=== PATIENT | male | born 1950 | race Caucasian/White ===

== ENCOUNTER 2020-06-29 23:46 | Emergency (ER) | payer MEDICARE, OTHER, SELFPAY ==
--- NOTE | ~2020-06-29 | CT_ITS ---
EXAMINATION: CTA chest abdomen pelvis DATE: 06/30/2020 01:02 INDICATION: Chest pain concerning for aortic dissection. TECHNIQUE: Computed tomographic angiography (CTA) of the chest, abdomen and pelvis was performed with 100 cc of Omnipaque-350 intravenous contrast. Additional 3D reconstructions utilizing rotating maxim um intensity projection (MIP) were performed. Automated exposure control and iterative reconstruction technique were employed. The dose-length product was 1298.75 mGy-cm. COMPARISON: Chest CT dated 04/20/[address] abdomen and pelvis dated 02/18/2015 FINDINGS: Chest: Moderate emphysema. Mild discoid atelectasis in the left lower lobe. No pneumonia, pulmonary edema, p leural effusion or pneumothorax. Heart size is normal. Atherosclerotic coronary artery calcification and possible stenting. No pericardial effusion. No evident pulmonary embolism. Thoracic aorta is norm al in caliber with no dissection. No pathologically enlarged thoracic lymphadenopathy. Moderate thora cic spondylosis. Chronic appearing mild anterior wedging at T7 and T8. Multiple Schmorl's nodes in th e mid to lower thoracic spine. Abdomen and pelvis: Diffuse hepatic steatosis with focal sparing along the gallbladder fossa. Gallbladder is mildly dilat ed to 4.6 cm in maximal diameter with no evident wall thickening or pericholecystic inflammatory stra nding to suggest acute cholecystitis. No intra or extrahepatic biliary ductal dilation. Spleen, pancr eas and bilateral adrenal glands are normal. Likely age-related mild bilateral renal cortical atrophy . 2 cm cyst at the lower pole of the right kidney. There are few scattered colonic diverticula withou t adjacent inflammatory change to suggest diverticulitis. Fatty infiltration of the proximal colonic wall likely related to body habitus. Small bowel and appendix are normal. Bladder is normal. Prostato megaly. Small fat-containing right inguinal hernia. Thoracic aorta is normal in caliber with small mi ld scattered atherosclerotic plaque. Again seen is a short dissection flap in the proximal most 2 cm the right common femoral artery with resolution of prior thrombosis of the false lumen. No evident he modynamically significant stenosis in the aorta or its major branch vessels. No free intraperitoneal gas or fluid. No pathologically enlarged abdominal or pelvic lymphadenopathy. Moderate thoracic spond ylosis. IMPRESSION: 1. 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 2. Moderate emphysema. No acute cardiopulmonary disease. 3. Dilated gallbladder without evident wall thickening or pericholecystic inflammatory change. Correl ate clinically for Moreira sign and if there is clinical concern for acute cholecystitis would recomme nd further evaluation with either ultrasound or HIDA scan. 4. Diffuse hepatic steatosis. Reviewed, dictated and finalized at location A. LATION TECH IMPRESSION: 1. 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 2. Moderate emphysema. No acute cardiopulmonary disease. 3. Dilated gallbladder without evident wall thickening or pericholecystic infla mmatory change. Correlate clinically for Moreira sign and if there is clinical c oncern for acute cholecystitis would recommend further evaluation with either u ltrasound or HIDA scan. 4. Diffuse hepatic steatosis.
--- NOTE | ~2020-06-29 | XR_ITS ---
EXAMINATION: XR chest 1V portable DATE: 06/30/2020 00:45 INDICATION: Chest pain TECHNIQUE: frontal view of the chest was obtained. COMPARISON: Chest radiograph dated 11/20/2018 FINDINGS: The lungs remain clear with no focal airspace opacities, pulmonary edema, pleural effusion or pneumot horax. The cardiomediastinal silhouette is normal with left paracardial fat pad along side the apex o f the heart. Resection of the right clavicular head. IMPRESSION: 1. No acute cardiopulmonary disease. Reviewed, dictated and finalized at location A. OMECHANISM ASSEMBLER
[2020-06-29 23:48] VITALS: BP 137/73; PULSE 66; RESP 21; TEMP 36.8; O2SAT 95
--- NOTE | 2020-06-29 23:52 | ED.CHESTPAIN ---
HPI - Chest Pain General Chief Complaint: Chest Pain Stated Complaint: CP Source: patient Mode of arrival: EMS Limitations: no limitations History of Present Illness HPI narrative: A 69-year-old male comes into the emergency department tonight with complaints of chest pain. Patient arrives via EMS stating that the pain happened just prior to arrival. He notes that the pain seems to be in his chest from the center of his chest and then shooting downward towards the abdomen. Patient states it feels like the pain goes all the way down to his groin. Patient also notes that there seems to be a separate pain at the level of his nipples going across the anterior chest. He states that both of them are characterized as a strong ache. Currently he would rated at a 6-7 out of 10. Patient states that he is having a little bit of shortness of breath associated with this but no other symptoms. Related Data Home Medications Medication Instructions Recorded Confirmed amlodipine 10 mg tablet 10 mg PO DAILY 04/11/19 clopidogrel 75 mg tablet 75 mg PO DAILY 04/11/19 coenzyme Q10 100 mg capsule 100 mg PO DAILY 04/11/19 doxazosin 2 mg tablet 2 mg PO DAILY 04/11/19 ergocalciferol (vitamin D2) 1,250 50,000 unit PO WEEKLY 04/11/19 mcg (50,000 unit) capsule metoprolol tartrate 100 mg tablet 100 mg PO BID tablet 04/11/19 rosuvastatin 40 mg tablet 40 mg PO DAILY 04/11/19 magnesium oxide 400 mg (241.3 mg 400 mg PO QID tablet 04/20/19 magnesium) tablet sodium di- and 1 tablet PO BID tablet 06/21/19 06/21/19 monophosphate-potassium phos monobasic 250 mg tablet metformin 500 mg PO DAILY 06/30/20 Allergies Allergy/AdvReac Type Severity Reaction Status Date / Time YANET Inhibitors Allergy Unknown unknown Verified 04/11/19 09:34 atorvastatin Allergy Unknown unknown Verified 04/11/19 09:34 hydrochlorothiazide Allergy Unknown unknown Verified 04/11/19 09:34 ramipril Allergy Unknown unknown Verified 04/11/19 09:34 spironolactone Allergy Unknown unknown Verified 04/11/19 09:34 Sulfa (Sulfonamide Allergy Unknown Unknown Verified 04/11/19 09:34 Antibiotics) valsartan AdvReac Intermediate Angioedema Verified 04/11/19 09:34 Review of Systems Review of Systems: Narrative: CONSTITUTIONAL: Denies fever, chills, or sweats. EYES: Denies visual changes, redness, or discharge. ENT: Denies rhinorrhea, congestion, sore throat, or otalgia. CARDIOVASCULAR: Denies palpitations, or edema. Endorses chest pain RESPIRATORY: Denies cough or dyspnea. GASTROINTESTINAL: Denies nausea, vomiting, or diarrhea. Endorses abdominal pain GENITOURINARY: Denies dysuria or hematuria. SKIN: Denies rash or itching. MUSCULOSKELETAL: Denies back pain, joint pain, or myalgia. NEUROLOGIC: Denies headache, numbness, dizziness, or weakness. PSYCHIATRIC: Denies anxiety or depression. [facility] Past Medical History Medical History CAD (coronary artery disease) Dyslipidemia Essential (primary) hypertension GERD (gastroesophageal reflux disease) History of basal cell carcinoma of skin History of urethral stricture Type 2 diabetes mellitus without complications Vitamin D deficiency Surgical History Surgical History History of coronary artery stent placement 1997 and 2002 History of medial meniscus repair of left knee 11/24/18 History of tonsillectomy Family History Family History Father Carcinoma of colon Social History Social History Smoking status: Former smoker (quit 02/2017) Second hand tobacco smoke exposure: No Smoking end date: 02/28/17 Alcohol intake: current Exam Narrative: Exam Narrative: GENERAL: Well-appearing, well-nourished, and in no acute distress. HEAD: Normocephalic, atraumatic. EYES: PERRLA and EOMI. ENT: Nares clear, no rhin
[2020-06-29 23:54] VITALS: BP 137/73; PULSE 66; RESP 20; O2SAT 99
--- NOTE | 2020-06-29 23:54 | ECG_ITS ---
Measurements Intervals [place] Rate: 66 P: 32 HI: 207 QRS: 18 QRSD: 107 T: 15 QT: 394 QTc: 414 Interpretive Statements SINUS RHYTHM INCOMPLETE RIGHT BUNDLE BRANCH BLOCK BORDERLINE ECG Electronically Signed On 06-30-2020 6:53:26 YEAST CULTURE OPERATOR by Anam Chamberlain D.O.
[2020-06-29 23:55] VITALS: PULSE 67; RESP 19; O2SAT 99
[2020-06-29 23:57] VITALS: PULSE 69
[2020-06-30] VITALS (19 sets, daily range): BP systolic 113–136; BP diastolic 66–84; PULSE 63–73; RESP 15–24; TEMP 36.8; O2SAT 95–100
[2020-06-30] MEDS: NITROGLYCERIN SL 0.4 MG TABLET SUBLINGUAL (00:30)
[2020-06-30 00:31] LABS: Basophils Percent Auto 0.5 % (0.2-1.2); Eosinophils Absolute Auto 0.4 K/mm3 (0-0.3); Eosinophils Percent Auto 5.3 % (0-4.4); Hematocrit 39.9 % (42.0-52.0); Hemoglobin 13.3 g/dL (14.0-18.0); Immature Granulocyte Absolute 0.04 K/mm3 (0.00-0.031); Immature Granulocyte Percent A 0.5 % (0-0.5); Lymphocytes Absolute Auto 2.01 K/mm3 (0.9-3.2); Lymphocytes Percent Auto 24.1 % (18.3-44.2); Mean Corpuscular HGB Conc 33.3 g/dl (32-36); Mean Corpuscular Hemoglobin 29.2 pg (26-34); Mean Corpuscular Volume 87.5 fl (80-100); Monocytes Absolute Auto 0.7 K/mm3 (0.1-0.6); Monocytes Percent Auto 8.8 % (2.6-8.5); Neutrophils Absolute Auto 5.1 K/mm3 (1.3-6.7); Neutrophils Percent Auto 60.8 % (45.5-73.1); Platelet Count Result 156 k/mm3 (150-375); Red Blood Count 4.56 M/mm3 (4.6-6.20); White Blood Count 8.3 K/mm3 (4.5-10.0)
[2020-06-30 00:45] LABS: Alanine Aminotransferase 36 U/L (4-50); Albumin Level 4.4 g/dL (3.5-5.1); Alkaline Phosphatase 93 U/L (38-126); Anion Gap 7 mmol/L (8-16); Aspartate Amino Transferase 31 U/L (17-59); Bilirubin,Total 0.3 mg/dL (0.2-1.3); Blood Urea Nitrogen 23 mg/dL (9-20); Calcium 9.5 mg/dL (8.4-10.2); Carbon Dioxide 25 mmol/L (22-30); Chloride 108 mmol/L (98-107); Estimated CRCL calculation 60 ml/min; Estimated Glomerular Filt Rate 60; Glucose 158 mg/dL (75-110); Sodium 140 mmol/L (137-145)
[2020-06-30 00:59] LABS: Troponin I < 0.012 ng/mL (0.000-0.034)
[2020-06-30] MEDS: BELLADONNA ALK/PHENOB ELIX 10 ML, MAG HYDROX/ALUMINUM HYD/SIMETH 30 ML, LIDOCAINE HCL 2... PO (02:12)
[2020-06-30] MEDS: MORPHINE SULFATE (*CRX) 4 MG/ML INJ IV PUSH (02:12)
[2020-06-30 02:59] LABS: Troponin I < 0.012 ng/mL (0.000-0.034)
== END 2020-06-30 03:43 | disposition home or self-care (01) ==
PROVIDERS: Emergency Provider Emergency Medicine; PCP Family Medicine
DX: R07.9 Chest pain, unspecified (principal); R10.84 Generalized abdominal pain; I25.10 Atherosclerotic heart disease of native coronary artery without angina pectoris; E78.5 Hyperlipidemia, unspecified; E11.9 Type 2 diabetes mellitus without complications; K21.9 Gastro-esophageal reflux disease without esophagitis; E55.9 Vitamin D deficiency, unspecified; Z95.5 Presence of coronary angioplasty implant and graft; Z79.84 Long term (current) use of oral hypoglycemic drugs; Z85.828 Personal history of other malignant neoplasm of skin; Z87.891 Personal history of nicotine dependence; I45.10 Unspecified right bundle-branch block; K76.0 Fatty (change of) liver, not elsewhere classified; R93.2 Abnormal findings on diagnostic imaging of liver and biliary tract; J43.9 Emphysema, unspecified; I77.72 Dissection of iliac artery
CPT/HCPCS: 36415; 71045; 71275; 74174; 80053; 84484; 85025; 93005; 96374; 99284; A9270; J2270; Q9967

== ENCOUNTER 2020-10-23 08:36 | Outpatient (CLI) | payer MEDICARE, OTHER, SELFPAY ==
--- NOTE | ~2020-10-23 | CT_ITS ---
EXAMINATION: CT lung screening DATE: 10/23/2020 09:04 INDICATION: TOBACCO DEPENDENCY TECHNIQUE: Computed tomography (CT) of the chest was performed without intravenous contrast. Addition al 3D reconstructions utilizing coronal maximum intensity projection (MIP) were performed. Automated exposure control and iterative reconstruction technique were employed. The dose-length product was 21 6.58 mGy-cm. COMPARISON: 04/20/2019 FINDINGS: Moderate emphysema. Unchanged mild linear discoid atelectasis/scarring at the lingula and left lower lobe. There are three, 2-4 mm nodules at the right apex along with a 6 mm groundglass nodule at the r ight apex which are unchanged since the prior study. No new or enlarging pulmonary nodules identified . No pneumonia, pulmonary edema or pleural effusion. Heart size is normal. Atherosclerotic coronary a rtery calcifications and likely right coronary artery stenting. No pericardial effusion. Thoracic aor ta is normal in caliber. No pathologically enlarged thoracic lymphadenopathy. Moderate thoracic spond ylosis. IMPRESSION: 1. Lung-RADS category 2: Benign appearance or behavior. Continue annual screening with noncontrast lo w-dose chest CT in 12 months. Reviewed, dictated and finalized at location A. IMPRESSION: 1. Lung-RADS category 2: Benign appearance or behavior. Continue annual screeni ng with noncontrast low-dose chest CT in 12 months.
== END 2020-10-23 08:37 | disposition home or self-care (01) ==
LOC: ANHIMG 08:37
PROVIDERS: PCP Family Medicine; Visit Provider Nurse Practitioner Family
DX: Z12.2 Encounter for screening for malignant neoplasm of respiratory organs (principal); Z87.891 Personal history of nicotine dependence
CPT/HCPCS: 71271

== ENCOUNTER 2021-01-20 22:53 | Inpatient (IN) | payer MEDICARE, OTHER, SELFPAY ==
--- NOTE | ~2021-01-20 | NM_ITS ---
EXAMINATION: NM hepatobiliary w pharm DATE: 01/22/2021 16:57 INDICATION: Right upper quadrant abdominal pain. COMPARISON: CT dated 01/21/2021 TECHNIQUE: 5.3 mebrofenin Choletec) was administered intravenously. Scintigraphic images of the abdo men were obtained for one hour. 2 mg morphine was administered by slow intravenous infusion, and imag ing was continued for 30 minutes. FINDINGS: There is normal clearance of radiotracer from the blood pool. There is homogeneous tracer uptake by t he liver. Activity progresses common duct by 15 minutes with activity seen in the small bowel at 20 minutes. No visualization of the gallbladder either before or after morphine administration. IMPRESSION: 1. No gallbladder activity before after morphine administration consistent with acute cholecystitis. Reviewed, dictated and finalized at location B. IMPRESSION: 1. No gallbladder activity before after morphine administration consistent wit h acute cholecystitis.
--- NOTE | ~2021-01-20 | XR_ITS ---
EXAMINATION: XR abdomen/kub 1V DATE: 01/22/2021 14:10 INDICATION: Abdominal distention. TECHNIQUE: A supine view of the abdomen on 2 radiographs was obtained. COMPARISON: CT abdomen and pelvis 01/21/2021 FINDINGS: There are no dilated loops of bowel. There is a paucity of stool in the colon. IMPRESSION: 1. Nonobstructive bowel gas pattern. Reviewed, dictated and finalized at location A.
--- NOTE | ~2021-01-20 | XR_ITS ---
EXAMINATION: XR chest 1V portable DATE: 01/23/2021 09:07 INDICATION: Shortness of breath. Wheezing. TECHNIQUE: A single frontal view of the chest was obtained. COMPARISON: Chest 2 views 01/20/2021, CT abdomen and pelvis 01/21/2021 FINDINGS: There are mild airspace opacities in the lower lung zones. No pleural effusion or pneumotho rax. The heart size is normal. IMPRESSION: 1. Mild airspace opacities in the lower lung zones, consistent with atelectasis versus pneumonia. Reviewed, dictated and finalized at location A.
--- NOTE | ~2021-01-20 | US_ITS ---
EXAMINATION: US perc cholecystostomy w imag DATE: 01/23/2021 13:14 INDICATION: Acute cholecystitis. TECHNIQUE: The procedure including the risks, benefits, and alternatives was discussed with the patie nt. Risks discussed included bleeding including bleeding and infection. Oral and written consent were obtained. A timeout was performed to verify the patient's name, date of , and procedure to b e performed. The patient was confirmed to be receiving appropriate antibiotic coverage. The skin ove rlying the gallbladder was prepped and draped in usual sterile fashion. Anesthetic was administered with 1% lidocaine subcutaneously. An 8.5 Fr catheter was inserted into the gallbladder by trocar keli hnique. The metal stiffener and trocar needle were removed, and the pigtail tip was locked. Bile was aspirated and sent for culture. The catheter was stitched to the skin with suture. There were no imme diate complications. FINDINGS: Ultrasound images demonstrate the catheter within the gallbladder. 5 mL bile was aspirated. IMPRESSION: 1. Successful ultrasound-guided cholecystostomy tube placement. 2. 5 mm clear bile was sent for aerobic and anaerobic cultures. 3. The catheter will be managed by Dr. Jenkins. A catheter cholangiogram may be performed not less th an 48 hours after tube placement if clinically indicated to assess cystic duct patency. If cholecyste ctomy is not eventually performed and the infectious episode has resolved, the tube may be removed ov er a guidewire, preferably not less than 3 weeks after placement to allow time for a mature catheter tract to form to prevent bile leakage and peritonitis. Reviewed, dictated and finalized at location A. IMPRESSION: 1. Successful ultrasound-guided cholecystostomy tube placement. 2. 5 mm clear bile was sent for aerobic and anaerobic cultures. 3. The catheter will be managed by Dr. Jenkins. A catheter cholangiogram may be performed not less than 48 hours after tube placement if clinically indicated to assess cystic duct patency. If cholecystectomy is not eventually performed a nd the infectious episode has resolved, the tube may be removed over a guidewir e, preferably not less than 3 weeks after placement to allow time for a mature catheter tract to form to prevent bile leakage and peritonitis.
--- NOTE | ~2021-01-20 | CT_ITS ---
EXAMINATION: CT abdomen pelvis w con EXAM DATE: 01/21/2021 00:57 INDICATION: Epigastric pain. TECHNIQUE: Spiral CT of the abdomen and pelvis was performed following intravenous injection of 100 m L Omnipaque 350. Axial, coronal and sagittal images of the abdomen and pelvis were reviewed. The do se-length product (DLP) for this examination was 1104.70 mGy-cm. The exposure was tailored according to patient size (auto mA exposure control), and iterative reconstruction (ASIR) was used as addition al dose reduction technique. Comparison is made to prior examination from 06/30/2020. FINDINGS: The liver, spleen, adrenal glands and pancreas are unremarkable. Gallbladder moderately di stended with mild indistinct fat planes, possible mild wall edema. No calcified cholelithiasis or ashley iary duct dilation. Gallbladder had similar amount of distention on previous study but indistinct wal l is new finding. Portal and splenic veins are patent. Kidneys enhance symmetrically. There is no h ydronephrosis. There is a cyst in the lower pole right kidney measuring 2 cm. The prostate is unrema rkable. Small right inguinal fat-containing hernia. The bladder is unremarkable. There is no retrop eritoneal or pelvic lymphadenopathy. There is moderate scattered arteriosclerotic disease. Difficul t identify previously seen right common iliac artery chronic short segment dissection. The appendix is normal. There is mild sigmoid colonic diverticulosis. There is no adjacent inflammat ory change to suggest diverticulitis. Stomach has prominent rugal folds along the body with thin gas tric antral and cardial [place], similar appearance in May. Differential diagnosis for stomach wall thickening includes gastritis, Eliezer Gonzalez syndrome, Menetrier's disease, unlikely lymphoma gi marge stability. There is expected amount of colonic stool. No free intraperitoneal gas. The heart is normal in size. There are no pericardial or pleural effusions. Mild basilar emphysema. There a re no osteoblastic or osteolytic lesions identified. Advanced lower lumbar facet arthropathy. IMPRESSION: 1. Distended gallbladder with mildly indistinct wall; if cholecystitis is clinical possibility recom mend ultrasound. 2. Prominent gastric body wall compared to antrum and cardia unchanged. Gastritis? 3. Mild sigmoid diverticulosis. 4. Mild emphysema. Reviewed, dictated and finalized at location A. IMPRESSION: 1. Distended gallbladder with mildly indistinct wall; if cholecystitis is clin ical possibility recommend ultrasound. 2. Prominent gastric body wall compared to antrum and cardia unchanged. Gastri tis? 3. Mild sigmoid diverticulosis. 4. Mild emphysema.
--- NOTE | ~2021-01-20 | US_ITS ---
EXAMINATION: US abdomen limited EXAM DATE: 01/21/2021 12:04 INDICATION: Abdominal pain. TECHNIQUE: Multiple grayscale and Doppler images of the abdomen right upper quadrant were obtained (b y a technologist who performed the scan) and subsequently reviewed. Comparison is made to prior exami [facility] from 05/13/2017. FINDINGS: The pancreatic head and body are normal in appearance. The pancreatic tail is not visualized. The l iver has normal echogenicity and contour. There are no focal liver lesions identified. There is no evidence of intrahepatic biliary duct dilation. Portal venous flow was seen in the hepatopedal, nor mal direction and has normal Doppler waveform. No right-sided hydronephrosis. Common bile duct measures 5-6 mm, which is normal. The gallbladder is moderately distended and has ab normally thickened wall up to 6 mm. This could indicate interstitial edema, chronic liver disease or acute or chronic acalculous cholecystitis. Technologist performing exam reports patient demonstrat ed sonographic Moreira's sign. IMPRESSION: Distended gallbladder with thickened wall and sonographic Moreira sign demonstrated. No ch olelithiasis, biliary dilation or pericholecystic fluid. Possible acute acalculous cholecystitis. Cli nical correlation. Reviewed, dictated and finalized at location A. IMPRESSION: Distended gallbladder with thickened wall and sonographic Moreira si gn demonstrated. No cholelithiasis, biliary dilation or pericholecystic fluid. Possible acute acalculous cholecystitis. Clinical correlation.
--- NOTE | ~2021-01-20 | XR_ITS ---
EXAMINATION: XR chest 1V portable DATE: 01/24/2021 15:09 INDICATION: Wheezing. TECHNIQUE: A single frontal view of the chest was obtained. COMPARISON: Chest single view 01/23/2021, CT abdomen and pelvis 01/21/2021 FINDINGS: There is mild atelectasis in left lower lung zone. No pleural effusion or pneumothorax. The heart size is normal. There are prominent paracardial fat pads. IMPRESSION: 1. Mild atelectasis in left lower lung zone. Reviewed, dictated and finalized at location A.
--- NOTE | ~2021-01-20 | XR_ITS ---
XR chest 2V DATE: 01/20/2021 23:18 INDICATION: Chest pain, midsternal area extending to back. TECHNIQUE: PA and lateral views COMPARISON: 10/23/2020 CT lung screening FINDINGS: Normal heart size. Aortic arch calcification. No pulmonary consolidation, pleural effusion or pneumothorax. No hilar or mediastinal enlargement. IMPRESSION: No active cardiopulmonary disease Reviewed, dictated and finalized at location A.
[2021-01-20 22:54] VITALS: BP 163/67; PULSE 83; RESP 16; TEMP 36.3; O2SAT 97
--- NOTE | 2021-01-20 22:58 | ECG_ITS ---
Measurements Intervals [place] Rate: 74 P: 33 HI: 184 QRS: 2 QRSD: 100 T: 2 QT: 381 QTc: 425 Interpretive Statements SINUS RHYTHM VENTRICULAR PREMATURE COMPLEX LOW QRS VOLTAGE IN PRECORDIAL LEADS INCOMPLETE RIGHT BUNDLE BRANCH BLOCK BORDERLINE T WAVE ABNORMALITY- ANTERIOR LEADS BORDERLINE ECG Electronically Signed On 01-21-2021 6:51:44 CDT by Anam Chamberlain D.O.
[2021-01-20 23:39] LABS: Basophils Percent Auto 0.4 % (0.2-1.2); Eosinophils Absolute Auto 0.4 K/mm3 (0-0.3); Eosinophils Percent Auto 3.9 % (0-4.4); Hematocrit 41.2 % (42.0-52.0); Hemoglobin 13.4 g/dL (14.0-18.0); Immature Granulocyte Absolute 0.04 K/mm3 (0.00-0.031); Immature Granulocyte Percent A 0.4 % (0-0.5); Lymphocytes Absolute Auto 1.97 K/mm3 (0.9-3.2); Lymphocytes Percent Auto 18.8 % (18.3-44.2); Mean Corpuscular HGB Conc 32.5 g/dl (32-36); Mean Corpuscular Hemoglobin 28.9 pg (26-34); Mean Platelet Volume 10.3 fl (7.4-10.4); Monocytes Absolute Auto 0.8 K/mm3 (0.1-0.6); Monocytes Percent Auto 7.6 % (2.6-8.5); Neutrophils Absolute Auto 7.2 K/mm3 (1.3-6.7); Neutrophils Percent Auto 68.9 % (45.5-73.1); Platelet Count Result 163 k/mm3 (150-375); Red Blood Count 4.63 M/mm3 (4.6-6.20); White Blood Count 10.5 K/mm3 (4.5-10.0)
[2021-01-20 23:45] VITALS: BP 145/61; PULSE 74; RESP 20; O2SAT 98
[2021-01-20 23:47] VITALS: PULSE 74
[2021-01-20 23:48] VITALS: BP 145/61; PULSE 74; RESP 20; O2SAT 98
[2021-01-20 23:49] LABS: INR 0.9; Prothrombin Time 11.6 Seconds (11.1-14.7)
[2021-01-20 23:50] LABS: Partial Thromboplastin Time 31.8 SECONDS (22.3-36.8)
--- NOTE | 2021-01-20 23:59 | ED.CHESTPAIN ---
HPI - Chest Pain General Chief Complaint: Chest Pain Stated Complaint: chest pain, abd pain Time Seen by Provider: 01/20/21 23:57 Source: patient Mode of arrival: ambulatory Limitations: no limitations History of Present Illness HPI narrative: Patient is a 70-year-old male complaining of chest pain, substernal, 9 out of 10, tightness, nonradiating started today. Patient also complained abdominal pain, diffuse, 10 out of 10, nonradiating accompanied by nausea that started tonight after eating. Patient denies shortness of breath, vomiting, diarrhea, fever or chills. Related Data Home Medications Medication Instructions Recorded Confirmed amlodipine 10 mg tablet 10 mg PO DAILY 04/11/19 10/18/20 clopidogrel 75 mg tablet 75 mg PO DAILY 04/11/19 10/18/20 doxazosin 2 mg tablet 2 mg PO DAILY 04/11/19 10/18/20 metoprolol tartrate 100 mg tablet 100 mg PO BID tablet 04/11/19 10/18/20 rosuvastatin 40 mg tablet 40 mg PO DAILY 04/11/19 10/18/20 magnesium oxide 400 mg (241.3 mg 400 mg PO QID tablet 04/20/19 10/18/20 magnesium) tablet Lactobacillus acidophilus 10 mg PO DAILY 10/18/20 10/18/20 coenzyme Q10 100 mg capsule 200 mg PO DAILY cap 10/18/20 10/18/20 fenofibrate 54 mg tablet 54 mg PO DAILY 10/18/20 10/18/20 icosapent ethyl 1 gram capsule 2 g PO BID 10/18/20 10/18/20 metformin 500 mg tablet,extended 500 mg PO DAILY 10/18/20 10/18/20 release 24 hr Allergies Allergy/AdvReac Type Severity Reaction Status Date / Time YANET Inhibitors Allergy Unknown unknown Verified 01/21/21 00:28 atorvastatin Allergy Unknown unknown Verified 01/21/21 00:28 hydrochlorothiazide Allergy Unknown unknown Verified 01/21/21 00:28 ramipril Allergy Unknown unknown Verified 01/21/21 00:28 spironolactone Allergy Unknown unknown Verified 01/21/21 00:28 Sulfa (Sulfonamide Allergy Unknown Unknown Verified 01/21/21 00:28 Antibiotics) valsartan AdvReac Intermediate Angioedema Verified 01/21/21 00:28 Review of Systems Review of Systems: All systems reviewed & are unremarkable except as noted in HPI and below Constitutional: Constitutional: Denies body ache(s), Denies chills, Denies excessive sweating, Denies fatigue, Denies fever(s), Denies headache(s), Denies lethargy, Denies malaise, Denies weakness and Denies weight loss Eyes: Eyes: Denies blurry vision, Denies change in vision and Denies loss of vision ENT: Denies dizziness, Denies ear discharge, Denies headache(s), Denies lip swelling, Denies epistaxis, Denies nasal congestion, Denies neck pain, Denies throat swelling and Denies tongue swelling Cardiovascular: Cardiovascular: Denies diaphoresis, Denies rapid heart rate, Denies edema, Denies irregular heart rhythm, Denies lightheadedness, Denies palpitations, Denies dyspnea and Denies dyspnea on exertion Respiratory: Respiratory: Denies chest congestion, Denies cough, Denies hemoptysis, Denies dyspnea and Denies dyspnea on exertion Gastrointestinal: Gastrointestinal: Denies melena, Denies hematochezia, Denies diarrhea, Denies vomiting and Denies hematemesis Musculoskeletal: Musculoskeletal: Denies abnormal gait, Denies deformity, Denies joint swelling, Denies limited range of motion, Denies neck pain and Denies numbness Neurologic: Denies Abnormal speech present, Denies abnormal gait, Denies confusion, Denies dizziness, Denies headache(s), Denies focal weakness, Denies loss of vision, Denies numbness, Denies Other visual disturbances, Denies Sensory deficit (Neuro) and Denies weakness Psychiatric: Psychiatric: Denies confusion, Denies depression, Denies auditory hallucinations, Denies homicidal ideation and Denies suicidal ideation Endocrine: Endocrine: Denies cold intolerance, Denies excessive sweating, Denies fatigue, Denies heat intolerance and Denies palpitations Hematologic/Lymphatic: Hematologic/Lymphatic: Denies easy bleeding and Denies easy bruising Allergic/Immunologic: Allergic/Immunologic: Denies lip swelling, Denies throat swelling and Denies tong
[2021-01-21] VITALS (20 sets, daily range): BP systolic 129–155; BP diastolic 57–74; PULSE 67–108; RESP 16–28; TEMP 36.2–37.3; O2SAT 91–100; BMI 32.9
--- NOTE | 2021-01-21 00:06 | PC.NURSE ---
Called and spoke to Birgit to add on Hepatic Lip [id number]
[2021-01-21 00:16] LABS: Anion Gap 14 mmol/L (8-16); Blood Urea Nitrogen 18 mg/dL (9-20); Calcium 9.7 mg/dL (8.4-10.2); Carbon Dioxide 23 mmol/L (22-30); Chloride 104 mmol/L (98-107); Estimated CRCL calculation 54 ml/min; Estimated Glomerular Filt Rate 54; Glucose 136 mg/dL (65-110); Lipase 124 U/L (23-300); Potassium 3.8 mmol/L (3.4-5.0); Sodium 141 mmol/L (137-145)
[2021-01-21 00:28] LABS: Alanine Aminotransferase 28 U/L (4-50); Albumin Level 4.4 g/dL (3.5-5.1); Alkaline Phosphatase 91 U/L (38-126); Aspartate Amino Transferase 24 U/L (17-59); Bilirubin,Total 0.3 mg/dL (0.2-1.3); Lipase 124 U/L (23-300); Troponin I < 0.012 ng/mL (0.000-0.034)
[2021-01-21] MEDS: LACTATED RINGERS 1,000 ML 999 ML IV CONT (00:28)
[2021-01-21] MEDS: MORPHINE SULFATE (*CRX) 4 MG/ML INJ IV PUSH ×3 (00:28→09:34)
[2021-01-21] MEDS: ONDANSETRON INJ 4 MG/2 ML VIAL IV PUSH ×3 (00:28→20:08)
[2021-01-21] MEDS: MORPHINE SULFATE (*CRX) 2 MG/ML INJ IV PUSH (01:37)
[2021-01-21 02:51] LABS: Troponin I < 0.012 ng/mL (0.000-0.034)
--- NOTE | 2021-01-21 04:43 | PM.IMHP ---
H&P: HPI History of Present Illness Date/Time: 01/21/21 04:43 Chief Complaint: Abdominal pain Narrative: This is a 70-year-old male with past medical history significant for hypertension coronary artery disease, dyslipidemia, type 2 diabetes mellitus, GERD. 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 He presented tonight to emergency room due to abdominal pain that started roughly did the day prior at around 3:00 a.m. and was on an of crampy in nature 10/10 in intensity however no nausea, no vomiting, no diarrhea, no hematemesis, no hematochezia, no melena, 2nd episode occurred when the patient was having dinner he felt lightheaded, no heartburn, no dyspepsia, has had a small bowel movements through the day, no fevers, no rigors, no chills, no cough, no sputum production. Preliminary workup was significant for distended stomach and full of content as well as a distended gallbladder. Patient has been placed in observation. Review of Systems Review of Systems: Abdominal pain Constitutional: Constitutional: Denies chills, Denies fatigue, Denies fever(s), Denies malaise and Denies weakness Eyes: Eyes: Denies change in vision ENT: Denies dysphagia, Denies nasal congestion, Denies nasal discharge, Denies nasal obstruction and Denies odynophagia Cardiovascular: Cardiovascular: Denies chest pain, Denies edema, Denies irregular heart rhythm, Denies lightheadedness, Denies radiating jaw, neck or arm pain, Denies palpitations, Denies dyspnea and Denies orthopnea Respiratory: Respiratory: Denies cough Gastrointestinal: Gastrointestinal: Reports abdominal pain, Denies melena, Denies hematochezia, Denies change in stool character, Reports GI cramping, Denies dysphagia, Denies dyspepsia, Denies heartburn, Denies diarrhea, Denies nausea, Denies odynophagia and Denies vomiting Genitourinary: Genitourinary: Reports no additional male genitourinary complaints Musculoskeletal: Musculoskeletal: Reports no additional musculoskeletal complaints Integumentary/Breasts: Skin/Breast: Reports system reviewed and no additional complaints, except as docu Neurologic: Reports system reviewed and no additional complaints, except as documented Psychiatric: Psychiatric: Reports no additional psychiatric complaints Endocrine: Endocrine: Reports no additional endocrine complaints Hematologic/Lymphatic: Hematologic/Lymphatic: Reports no additional hematologic/lymphatic complaints Allergic/Immunologic: Allergic/Immunologic: Reports no additional allergic/immunologic complaints [facility] Past Medical History Medical History CAD (coronary artery disease) Dyslipidemia Essential (primary) hypertension GERD (gastroesophageal reflux disease) History of basal cell carcinoma of skin History of urethral stricture Type 2 diabetes mellitus without complications Vitamin D deficiency Surgical History Surgical History History of coronary artery stent placement 1997 and 2002 History of medial meniscus repair of left knee 11/24/18 History of tonsillectomy Family History Family History Father Carcinoma of colon Social History Social History Smoking status: Former smoker Second hand tobacco smoke exposure: No Smoking end date: 02/28/17 Alcohol intake: current Meds Home Medications and Allergies Home Medications Medication Instructions Recorded Confirmed Type amlodipine 10 mg tablet 10 mg PO DAILY 04/11/19 10/18/20 History clopidogrel 75 mg tablet 75 mg PO DAILY 04/11/19 10/18/20 History doxazosin 2 mg tablet 2 mg PO DAILY 04/11/19 10/18/20 History metoprolol tartrate 100 mg tablet 100 mg PO BID tablet 04/11/1909/29
[2021-01-21] MEDS: LACTATED RINGERS 1,000 ML 100 ML IV CONT ×2 (05:28→20:08)
--- NOTE | 2021-01-21 05:35 | ADMGEN ---
This patient, Florencio Romano, was admitted to IMU Room 206-02. Patient/family oriented to hospital policies and general routines including ID bracelet, bed and alarms, visiting hours, pain management, procedures, bathroom and other care routines, personal items, smoking policy, room service/diet, and visiting hours. Information on how to activate the Rapid Response Team has been discussed. Patient/Family are encouraged to report perceived risks to care and to ask questions if they do not understand what they are told or what they should do.
[2021-01-21 07:49] LABS: Troponin I < 0.012 ng/mL (0.000-0.034)
--- NOTE | 2021-01-21 08:33 | PM.IMPN ---
Progress Note: A&P Assessment and Plan (1) Abdominal pain: Qualifiers: Abdominal location: upper abdomen, unspecified Qualified Code(s): R10.10 - Upper abdominal pain, unspecified Code(s): R10.9 - Unspecified abdominal pain Status: Acute Assessment and Plan: CT of abdomen and pelvis reviewed General surgery consult Supportive care NPO Doubtful of cardiac origin Will get ultrasound right upper quadrant (2) CAD (coronary artery disease): Code(s): I25.10 - Atherosclerotic heart disease of [place] coronary artery without angina pectoris Status: Acute Assessment and Plan: Continue home meds (3) GERD (gastroesophageal reflux disease): Qualifiers: Esophagitis presence: without esophagitis Qualified Code(s): K21.9 - Gastro-esophageal reflux disease without esophagitis Code(s): K21.9 - Gastro-esophageal reflux disease without esophagitis Status: Acute Assessment and Plan: PPI as scheduled CT abdomen and prominent gastric body wall compared to antrum and cardia likely gastritis (4) Type 2 diabetes mellitus without complications: Qualifiers: Diabetes mellitus manager long term care insulin use: without manager long term care use Qualified Code(s): E11.9 - Type 2 diabetes mellitus without complications Code(s): E11.9 - Type 2 diabetes mellitus without complications Status: Acute Assessment and Plan: Patient is on metformin Currently NPO (5) Dyslipidemia: Code(s): E78.5 - Hyperlipidemia, unspecified Status: Acute Assessment and Plan: Continue fenofibrate (6) Essential (primary) hypertension: Code(s): I10 - Essential (primary) hypertension Status: Acute Assessment and Plan: Continue home meds Continue to monitor Additional Plan This is a 70-year-old male with past medical history significant for hypertension coronary artery disease, dyslipidemia, type 2 diabetes mellitus, GERD. 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 He presented tonight to emergency room due to abdominal pain that started roughly did the day prior at around 3:00 a.m. and was on an of crampy in nature 10/10 in intensity however no nausea, no vomiting, no diarrhea, no hematemesis, no hematochezia, no melena, 2nd episode occurred when the patient was having dinner he felt lightheaded, no heartburn, no dyspepsia, has had a small bowel movements through the day, no fevers, no rigors, no chills, no cough, no sputum production. Preliminary workup was significant for distended stomach and full of content as well as a distended gallbladder. Patient has been placed in observation. Subjective Date/time seen: 01/21/21 08:33 Interval history: Feels little better however abdomen is still sore positive for nausea. No chest pain per se. Belly is little softer today still having diarrhea which is loose Review of Systems Review of Systems: All systems reviewed & are unremarkable except as noted in HPI and below (HPI) Exam Narrative: GENERAL: The patient is well developed, not in acute distress HEENT: Nonicteric sclerae, PERRLA, EOMI. Oropharynx clear. Moist mucous membranes. Conjunctivae appear well perfused. CHEST: Chest wall is nontender. HEART: Regular rate and rhythm without murmur, rubs, or gallops LUNGS: Clear to auscultation bilaterally. no respiratory distress ABDOMEN: Soft, positive bowel sounds, tender epigastric and right upper quadrant, distended, no organomegaly. SKIN: No rash, no excessive bruising, petechiae, or purpura. NEUROLOGIC: Cranial nerves II-XII intact, alert and oriented x 3, no gross motor deficits EXTREMITIES: no edema, cyanosis or clubbing Extrem: General: normal exam except as noted and no edema Objective Data Vital Signs Vital Signs: Vital Signs - 24 hr 01/20/21 22:54 01/20/21 23:45 01/20/21 23:
[2021-01-21] MEDS: OMEGA 3 POLYUNSAT FATTY ACIDS 1 GM CAP 2 GM PO ×2 (13:37→16:44)
[2021-01-21] MEDS: METOPROLOL TARTRATE 50 MG TAB 100 MG PO ×2 (13:37→20:08)
[2021-01-21] MEDS: DOXAZOSIN MESYLATE 2 MG TABLET PO (13:37)
[2021-01-21] MEDS: ACIDOPHILUS/BULGARICUS CHEWABLE TABLET 1 TABLET PO (13:37)
[2021-01-21] MEDS: amLODIPine BESYLATE 5 MG TABLET 10 MG PO (13:37)
[2021-01-21] MEDS: ROSUVASTATIN 10 MG TABLET 40 MG PO (13:38)
[2021-01-21] MEDS: MAGNESIUM OXIDE 400 MG TABLET PO ×3 (13:38→20:09)
[2021-01-21] MEDS: PANTOPRAZOLE 40 MG TABLET PO (13:38)
[2021-01-21] MEDS: FENOFIBRATE,MICRONIZED 48 MG TABLET PO (13:38)
[2021-01-21] MEDS: ENOXAPARIN 40 MG/0.4 ML SYRINGE SUB-Q (13:40)
--- NOTE | 2021-01-21 17:55 | PM.CNGS ---
Assessment and Plan Assessment and plan (1) Abdominal pain: Onset Date: ~01/19/21 Qualifiers: Abdominal location: upper abdomen, unspecified Qualified Code(s): R10.10 - Upper abdominal pain, unspecified Code(s): R10.9 - Unspecified abdominal pain Status: Acute Assessment and Plan: This is main reason that I was asked to see the patient. I reviewed his history and physical, CT scan, Abdominal ultrasound reports, and interviewed the patient. At this time since he does not have gallstones I doubt that this is caused by his gallbladder. His episodes of pain also did not correlate specifically with fatty or spicy foods. He did have some steak right before the most recent episode of increased pain on ada. Clinically he could have a gastric or duodenal ulcer also. Therefore, I would recommend GI consultation to consider endoscopy before proceeding to consider a hepatobiliary scan with ejection fraction to see if his gallbladder functions. If there are findings to explain his epigastric and right upper quadrant pain on EGD he may not need the HIDA scan. His liver function tests are essentially normal and his white count is just barely elevated. He is also having nausea and diarrhea which GI can evaluate. I would agree with stool studies. I have also ordered a stool study for the H. pylori antigen since he has had previous ulcer disease. He does not remember having H. pylori associated gastritis in the past or being treated for it. He has never had surgery in his abdomen before and there was no signs of appendicitis or other bowel related issues which would give him the symptoms that he is complaining of. (2) Type 2 diabetes mellitus without complications: Qualifiers: Diabetes mellitus halfway insulin use: without terminal make up operator use Qualified Code(s): E11.9 - Type 2 diabetes mellitus without complications Code(s): E11.9 - Type 2 diabetes mellitus without complications Status: Acute (3) Hypomagnesemia: Code(s): E83.42 - Hypomagnesemia Status: Acute (4) History of basal cell carcinoma of skin: Code(s): Z85.828 - Personal history of other malignant neoplasm of skin Status: Acute (5) CAD (coronary artery disease): Code(s): I25.10 - Atherosclerotic heart disease of [place] coronary artery without angina pectoris Status: Acute (6) GERD (gastroesophageal reflux disease): Qualifiers: Esophagitis presence: without esophagitis Qualified Code(s): K21.9 - Gastro-esophageal reflux disease without esophagitis Code(s): K21.9 - Gastro-esophageal reflux disease without esophagitis Status: Acute (7) Dyslipidemia: Code(s): E78.5 - Hyperlipidemia, unspecified Status: Acute (8) Essential (primary) hypertension: Code(s): I10 - Essential (primary) hypertension Status: Acute History of Present Illness Consult details Consult date: 01/21/21 Reason for consult: abdominal pain Requesting physician: Bharat Dubose MD Narrative: This is a 70-year-old White male with a past medical history significant for hypertension, coronary artery disease, dyslipidemia, type 2 diabetes mellitus, and GERD. 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 Recently he had his routine checkup with his research programmer and was given a clean bill of health. He presented to the [place] emergency room due to abdominal pain that started roughly did the day prior at around 3:00 a.m. (Sun. 01/19). He describes it a crampy in nature with a 10/10 intensity however no nausea, no vomiting, no diarrhea, no hematemesis, no hematochezia, no melena. Then the pt felt fairly normal wiht no pain on Wed,,01/20. A 2nd episode occurred when the patient was having dinner on MOn. noght 01/20 he felt lightheaded, no heartburn, no dyspepsia, has had sone small bowel movements through the day, no fevers, no rigors, and no chills. Prel
[2021-01-22] VITALS (20 sets, daily range): BP systolic 127–147; BP diastolic 55–72; PULSE 69–110; RESP 18–24; TEMP 36.6–36.9; O2SAT 90–99
[2021-01-22 04:54] LABS: Basophils Percent Auto 0.1 % (0.2-1.2); Eosinophils Absolute Auto 0.1 K/mm3 (0-0.3); Eosinophils Percent Auto 0.7 % (0-4.4); Hematocrit 36.4 % (42.0-52.0); Hemoglobin 11.8 g/dL (14.0-18.0); Immature Granulocyte Absolute 0.08 K/mm3 (0.00-0.031); Immature Granulocyte Percent A 0.6 % (0-0.5); Lymphocytes Absolute Auto 1.27 K/mm3 (0.9-3.2); Mean Corpuscular HGB Conc 32.4 g/dl (32-36); Mean Corpuscular Hemoglobin 28.9 pg (26-34); Mean Corpuscular Volume 89.2 fl (80-100); Mean Platelet Volume 10.2 fl (7.4-10.4); Monocytes Absolute Auto 1.4 K/mm3 (0.1-0.6); Monocytes Percent Auto 9.9 % (2.6-8.5); Neutrophils Absolute Auto 11.2 K/mm3 (1.3-6.7); Neutrophils Percent Auto 79.7 % (45.5-73.1); Platelet Count Result 124 k/mm3 (150-375); Red Blood Count 4.08 M/mm3 (4.6-6.20); White Blood Count 14.1 K/mm3 (4.5-10.0)
[2021-01-22] MEDS: LACTATED RINGERS 1,000 ML 100 ML IV CONT ×2 (05:12→21:32)
[2021-01-22] MEDS: MORPHINE SULFATE (*CRX) 4 MG/ML INJ IV PUSH (05:13)
[2021-01-22 05:29] LABS: Alanine Aminotransferase 18 U/L (4-50); Albumin Level 3.6 g/dL (3.5-5.1); Alkaline Phosphatase 64 U/L (38-126); Anion Gap 6 mmol/L (8-16); Aspartate Amino Transferase 18 U/L (17-59); Bilirubin,Total 0.7 mg/dL (0.2-1.3); Blood Urea Nitrogen 11 mg/dL (9-20); Calcium 8.8 mg/dL (8.4-10.2); Carbon Dioxide 26 mmol/L (22-30); Chloride 102 mmol/L (98-107); Estimated CRCL calculation 57 ml/min; Estimated Glomerular Filt Rate 60; Glucose 123 mg/dL (65-110); Magnesium 1.7 mg/dL (1.6-2.3); Potassium 3.8 mmol/L (3.4-5.0); Sodium 134 mmol/L (137-145)
[2021-01-22] MEDS: ENOXAPARIN 40 MG/0.4 ML SYRINGE SUB-Q (08:37)
[2021-01-22] MEDS: ROSUVASTATIN 10 MG TABLET 40 MG PO (08:37)
[2021-01-22] MEDS: MAGNESIUM OXIDE 400 MG TABLET PO ×3 (08:37→19:51)
[2021-01-22] MEDS: ACIDOPHILUS/BULGARICUS CHEWABLE TABLET 1 TABLET PO (08:37)
[2021-01-22] MEDS: METOPROLOL TARTRATE 50 MG TAB 100 MG PO ×2 (08:37→19:51)
[2021-01-22] MEDS: PANTOPRAZOLE 40 MG TABLET PO (08:38)
[2021-01-22] MEDS: amLODIPine BESYLATE 5 MG TABLET 10 MG PO (08:38)
[2021-01-22] MEDS: FENOFIBRATE,MICRONIZED 48 MG TABLET PO (08:38)
[2021-01-22] MEDS: DOXAZOSIN MESYLATE 2 MG TABLET PO (08:38)
--- NOTE | 2021-01-22 12:22 | WPDGICN ---
Assessment and Plan Assessment and plan (1) RUQ pain: Code(s): R10.11 - Right upper quadrant pain Status: Acute Assessment and Plan: CT scan reviewed and possible gastritis but also noted distended GB and still RUQ tenderness will do EGD to assess if ulcers, gastritis or anything to explain symptoms, if negative then will need HIDA scan to assess GB (surgery already on board) liver enzymes normal but had mild leukocytosis (2) Abnormal CT of the abdomen: Code(s): R93.5 - Abnormal findings on diagnostic imaging of other abdominal regions, including retroperitoneum Status: Acute Assessment and Plan: possible gastritis, will check with egd using ppi at home (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 Status: Acute Assessment and Plan: surgery on board (4) GERD (gastroesophageal reflux disease): Qualifiers: Esophagitis presence: without esophagitis Qualified Code(s): K21.9 - Gastro-esophageal reflux disease without esophagitis Code(s): K21.9 - Gastro-esophageal reflux disease without esophagitis Status: Acute (5) CAD (coronary artery disease): Code(s): I25.10 - Atherosclerotic heart disease of [place] coronary artery without angina pectoris Status: Acute (6) Type 2 diabetes mellitus without complications: Qualifiers: Diabetes mellitus mcc insulin use: without terminal makeup operator use Qualified Code(s): E11.9 - Type 2 diabetes mellitus without complications Code(s): E11.9 - Type 2 diabetes mellitus without complications Status: Acute GI Consult Note Consult date/time: 01/22/21 12:22 Reason for consult: abdominal pain, bloating HPI: Florencio Romano is a 70 year old male with past medical history of hypertension, coronary artery disease, dyslipidemia, type 2 diabetes mellitus, GERD. His inspector purchased parts at [facility] just recently evaluated him as outpatient for routine checkup and unremarkable. He came to ER with new onset of severe upper abdominal pain for several hours, crampy in nature and 10/10 in intensity, also bloating, denies vomiting. He had EGD years ago using pantoprazole. CT scan reviewed that showed distended gallbladder with mildly indistinct wall, prominent gastric body wall compared to antrum and cardia unchanged ?Gastritis, mild sigmoid diverticulosis, mild emphysema. He is still having RUQ pain and ultrasound with similar findings. WBC 14k, had normal liver enzymes. His son is at bedside. Review of Systems Constitutional: Constitutional: Denies chills Eyes: Eyes: Reports no additional eye complaints ENT: Reports Normal hearing present Cardiovascular: Cardiovascular: Reports no additional cardiovascular complaints Respiratory: Respiratory: Denies dyspnea Gastrointestinal: Gastrointestinal: Reports abdominal pain Genitourinary: Genitourinary: Denies dysuria Musculoskeletal: Musculoskeletal: Denies neck pain Integumentary/Breasts: Skin/Breast: Denies dry skin Neurologic: Denies headache(s) Psychiatric: Psychiatric: Reports no additional psychiatric complaints [facility] Past Medical History Medical History (Updated 01/22/21 @ 15:48 by Prateek Mcclure MD) Abnormal CT of the abdomen CAD (coronary artery disease) Dyslipidemia Essential (primary) hypertension Gallbladder anomaly GERD (gastroesophageal reflux disease) History of basal cell carcinoma of skin History of urethral stricture RUQ pain Type 2 diabetes mellitus without complications Vitamin D deficiency Surgical History Surgical History History of coronary artery stent placement 1997 and 2002 History of medial meniscus repair of left knee 11/24/18 History of tonsillectomy Family History Family History Father Carcinoma of colon Social History Social Histo
[2021-01-22] MEDS: LACTATED RINGERS 1,000 ML 150 ML IV CONT (12:42)
[2021-01-22 12:49] LABS: Glucose Point of Care 118 mg/dl (65-105)
--- NOTE | 2021-01-22 13:01 | WPDANESEPPF ---
Anes - Initial Pre Proc Eval Procedure: Operation Date: 01/22/21 14:30 Proposed Procedures p Esophagogastroduodenoscopy - Prateek Mcclure MD Date/Time: 01/22/21 13:01 Surgeon: Bharat Dubose MD Pre Op Diagnosis: Chest Pain, Abd Pain Patient Data Age: 70 Gender: M Height: 1.73 m Weight: 98.3 kg Last Vital Signs Temp 36.6 C 01/22/21 12:39 Pulse 92 01/22/21 12:39 Resp 24 H 01/22/21 12:39 BP 147/55 H 01/22/21 12:39 Pulse Ox 92 01/22/21 12:39 Allergies Allergy/AdvReac Type Severity Reaction Status Date / Time YANET Inhibitors Allergy Unknown unknown Verified 01/21/21 00:28 atorvastatin Allergy Unknown unknown Verified 01/21/21 00:28 hydrochlorothiazide Allergy Unknown unknown Verified 01/21/21 00:28 ramipril Allergy Unknown unknown Verified 01/21/21 00:28 spironolactone Allergy Unknown unknown Verified 01/21/21 00:28 Sulfa (Sulfonamide Allergy Unknown Unknown Verified 01/21/21 00:28 Antibiotics) valsartan AdvReac Intermediate Angioedema Verified 01/21/21 00:28 Home Medications Medication Instructions Recorded Confirmed Type amlodipine 10 mg tablet 10 mg PO DAILY 04/11/19 01/21/21 History clopidogrel 75 mg tablet 75 mg PO DAILY 04/11/19 01/21/21 History doxazosin 2 mg tablet 2 mg PO DAILY 04/11/19 01/21/21 History metoprolol tartrate 100 mg tablet 100 mg PO BID tablet 04/11/19 01/21/21 History rosuvastatin 40 mg tablet 40 mg PO DAILY 04/11/19 01/21/21 History magnesium oxide 400 mg (241.3 mg 400 mg PO QID tablet 04/20/19 01/21/21 History magnesium) tablet Lactobacillus acidophilus 10 mg PO DAILY 10/18/20 01/21/21 History coenzyme Q10 100 mg capsule 200 mg PO DAILY cap 10/18/20 01/21/21 History fenofibrate 54 mg tablet 54 mg PO DAILY 10/18/20 01/21/21 History metformin 500 mg tablet,extended 500 mg PO DAILY 10/18/20 01/21/21 History release 24 hr icosapent ethyl [Vascepa] 2 g PO BID 01/21/21 01/21/21 History pantoprazole 40 mg PO DAILY 01/21/21 01/21/21 History Laboratory Tests 01/22/21 01/22/21 01/22/21 04:35 04:35 12:46 WBC 14.1 K/mm3 H K/mm3 (4.5-10.0) RBC 4.08 M/mm3 L M/mm3 (4.6-6.20) Hgb 11.8 g/dL L g/dL (14.0-18.0) Hct 36.4 % L % (42.0-52.0) MCV 89.2 fl fl (80-100) MCH 28.9 pg pg (26-34) MCHC 32.4 g/dl g/dl (32-36) RDW 13.0 % % (11.5-14.5) Plt Count 124 k/mm3 L k/mm3 (150-375) MPV 10.2 fl fl (7.4-10.4) Immature Gran % (Auto) 0.6 % H % (0-0.5) Neut % (Auto) 79.7 % H % (45.5-73.1) Lymph % (Auto) 9.0 % L % (18.3-44.2) [place] % (Auto) 9.9 % H % (2.6-8.5) Eos % (Auto) 0.7 % % (0-4.4) Baso % (Auto) 0.1 % L % (0.2-1.2) Lymph # (Auto) 1.27 K/mm3 K/mm3 (0.9-3.2) [place] # (Auto) 1.4 K/mm3 H K/mm3 (0.1-0.6) Eos # (Auto) 0.1 K/mm3 K/mm3 (0-0.3) Baso # (Auto) 0.0 K/mm3 K/mm3 (0.0-0.1) Abs Immat Gran (auto) 0.08 K/mm3 H K/mm3 (0.00-0.031) Absolute Neuts (auto) 11.2 K/mm3 H K/mm3 (1.3-6.7) Absolute Nucleated RBC 0.0 K/mm3 K/mm3 (0.0-0.012) Nucleated RBC % 0.0 % % (0.0-0.2) Sodium 134 mmol/L L mmol/L (137-145) Potassium 3.8 mmol/L mmol/L (3.4-5.0) Chloride 102 mmol/L mmol/L (98-107) Carbon Dioxide 26 mmol/L mmol/L (22-30) Anion Gap 6 mmol/L L mmol/L (8-16) BUN 11 mg/dL D mg/dL (9-20) Creatinine 1.20 mg/dL mg/dL (0.7-1.3) Estim Creat Clear Calc 57 ml/min ml/min Estimated GFR 60 (59 - ) Glucose 123 mg/dL H mg/dL (65-110) POC Capillary Glucose 118 mg/dl H mg/dl (65-105) Calcium 8.8 mg/dL mg/dL (8.4-10.2) Magnesium 1.7 mg/dL mg/dL (1.6-2.3) Total Bilirubin 0.7 mg/dL mg/dL (0.2-1.3) AST 18 U/L U/L (17-59) ALT 18 U/L U/L
[2021-01-22] MEDS: BENZOCAINE (*SP) 60 ML SPRAY CAN (HURRICAINE) 1 SPRAY MUCOUS MEM (13:21)
--- NOTE | 2021-01-22 14:04 | PM.IMPN ---
Progress Note: A&P Assessment and Plan (1) Abdominal pain: Onset Date: ~01/19/21 Qualifiers: Abdominal location: upper abdomen, unspecified Qualified Code(s): R10.10 - Upper abdominal pain, unspecified Code(s): R10.9 - Unspecified abdominal pain Status: Acute Assessment and Plan: CT of abdomen and pelvis reviewed General surgery consult Supportive care NPO Doubtful of cardiac origin Right upper quadrant ultrasound with distended gallbladder with thickened gallbladder wall no calculus found. General surgery has been consulted and suggest GI consultation. Will obtain GI consultation Await GI recommendation Is feeling more bloated today will obtain an x-ray of the abdomen for any abnormality (2) CAD (coronary artery disease): Code(s): I25.10 - Atherosclerotic heart disease of [place] coronary artery without angina pectoris Status: Acute Assessment and Plan: Continue home meds (3) GERD (gastroesophageal reflux disease): Qualifiers: Esophagitis presence: without esophagitis Qualified Code(s): K21.9 - Gastro-esophageal reflux disease without esophagitis Code(s): K21.9 - Gastro-esophageal reflux disease without esophagitis Status: Acute Assessment and Plan: PPI as scheduled CT abdomen and prominent gastric body wall compared to antrum and cardia likely gastritis (4) Type 2 diabetes mellitus without complications: Qualifiers: Diabetes mellitus adjunct 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 instructor insulin use: without senior living use Qualified Code(s): E11.9 - Type 2 diabetes mellitus without complications Code(s): E11.9 - Type 2 diabetes mellitus without complications Status: Acute Assessment and Plan: Patient is on metformin Currently NPO continue SSI (5) Dyslipidemia: Code(s): E78.5 - Hyperlipidemia, unspecified Status: Acute Assessment and Plan: Continue fenofibrate (6) Essential (primary) hypertension: Code(s): I10 - Essential (primary) hypertension Status: Acute Assessment and Plan: Continue home meds Continue to monitor Additional Plan This is a 70-year-old male with past medical history significant for hypertension coronary artery disease, dyslipidemia, type 2 diabetes mellitus, GERD. 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 He presented tonight to emergency room due to abdominal pain that started roughly did the day prior at around 3:00 a.m. and was on an of crampy in nature 10/10 in intensity however no nausea, no vomiting, no diarrhea, no hematemesis, no hematochezia, no melena, 2nd episode occurred when the patient was having dinner he felt lightheaded, no heartburn, no dyspepsia, has had a small bowel movements through the day, no fevers, no rigors, no chills, no cough, no sputum production. Preliminary workup was significant for distended stomach and full of content as well as a distended gallbladder. Patient has been placed in observation. Subjective Date/time seen: 01/22/21 14:04 Interval history: Has not had any bowel movement since yesterday passing little gas has slowed down some. Feels bloated upper right quadrant still very sore and tender Review of Systems Review of Systems: All systems reviewed & are unremarkable except as noted in HPI and below (HPI) Exam Narrative: GENERAL: The patient is well developed, not in acute distress HEENT: Nonicteric sclerae, PERRLA, EOMI. Oropharynx clear. Moist mucous membranes. Conjunctivae appear well perfused. CHEST: Chest wall is nontender. HEART: Regular rate and rhythm without murmur, rubs, or gallops LUNGS: Clear to auscultation bilaterally. no respiratory distress ABDOMEN: Soft, positive bowel sounds, tender epigastric and right upper quadrant, distended, no organomegaly. SKIN: No rash, no excessive bruising, petechiae, or purpura. NEUR
--- NOTE | 2021-01-22 14:28 | PM.PNGS ---
Progress Note: A&P Assessment and Plan (1) Abdominal pain: Onset Date: ~01/19/21 Qualifiers: Abdominal location: upper abdomen, unspecified Qualified Code(s): R10.10 - Upper abdominal pain, unspecified Code(s): R10.9 - Unspecified abdominal pain Status: Acute Assessment and Plan: This is a been the main reason for the patient's admission and for my consultation. Discussed situation with Dr. Ang. EGD was essentially normal and did not take a biopsy for the CLOtest test. Since it appeared normal we are proceeding with the HIDA scan with ejection fraction. If the gallbladder functions would recommend short-term treatment with antibiotics and follow-up in the office. Plain film of the abdomen today ordered by Medicine service reveals no signs of bowel obstruction and normal bowel gas pattern. If HIDA scan shows no uptake by the gallbladder suggesting acute cholecystitis will discuss with IR regarding possible cholecystostomy tube placement and sending the fluid off for C& S. We would then want him covered with antibiotics around the time of this procedure. I explained this to the patient and he is willing to proceed in this manner. (2) Type 2 diabetes mellitus without complications: Qualifiers: Diabetes mellitus assisted insulin use: without assisted use Qualified Code(s): E11.9 - Type 2 diabetes mellitus without complications Code(s): E11.9 - Type 2 diabetes mellitus without complications Status: Acute (3) Vitamin D deficiency: Code(s): E55.9 - Vitamin D deficiency, unspecified Status: Acute (4) CAD (coronary artery disease): Code(s): I25.10 - Atherosclerotic heart disease of [place] coronary artery without angina pectoris Status: Acute (5) GERD (gastroesophageal reflux disease): Qualifiers: Esophagitis presence: without esophagitis Qualified Code(s): K21.9 - Gastro-esophageal reflux disease without esophagitis Code(s): K21.9 - Gastro-esophageal reflux disease without esophagitis Status: Acute (6) Essential (primary) hypertension: Code(s): I10 - Essential (primary) hypertension Status: Acute Assessment and Plan: Consider starting antibiotics tonight to see if white count will come down overnight and awaiting the results of the HIDA scan. Subjective Subjective Date/Time Seen: 01/22/21 14:28 Patient seen well recovering from the G IV S for his EGD in the GI lab. He states that he had no bowel movements since early yesterday morning. ( therefore some of the stool studies probably have not been sent off all) his pain is gradually decreasing he is not having to take much for it. He does not know about diet since he has been NPO for this procedure. He confirms today that he has never heard anything about H. pylori or had it in the past that he knows of. Review of Systems Constitutional: Constitutional: Reports no additional constitutional complaints ENT: Reports other (Mucous Membranes moist.) Cardiovascular: Cardiovascular: Denies dyspnea Respiratory: Respiratory: Denies pain on inspiration and Denies dyspnea Gastrointestinal: Gastrointestinal: Reports abdominal pain ( Mild and epigastrium and right upper quadrant.) Musculoskeletal: Musculoskeletal: Reports other (No calf swelling or edema) Integumentary/Breasts: Skin/Breast: Reports system reviewed and no additional complaints, except as docu Exam Const: General: cooperative, no acute distress, alert and awake Orientation/consciousness: patient oriented x3 HENMT: Mouth: Yes moist mucous membranes Neck: Neck: normal visual inspection Chest: Chest palpation & inspection: normal inspection of the chest Resp: Effort & Inspection: normal respiratory effort Auscultation: clear to auscultation bilaterally Cardio: Jugular venous distension: no JVD Rate: regular rate Rhythm: regular rhythm GI: GI Palp: Yes abdominal
[2021-01-22] MEDS: MORPHINE SULFATE (*CRX) 2 MG/ML INJ IV PUSH (16:33)
[2021-01-23] VITALS (19 sets, daily range): BP systolic 122–156; BP diastolic 59–96; PULSE 72–100; RESP 15–28; TEMP 36.3–37.7; O2SAT 90–97
[2021-01-23 05:19] LABS: Basophils Percent Auto 0.2 % (0.2-1.2); Eosinophils Absolute Auto 0.1 K/mm3 (0-0.3); Eosinophils Percent Auto 0.4 % (0-4.4); Hemoglobin 11.2 g/dL (14.0-18.0); Immature Granulocyte Absolute 0.11 K/mm3 (0.00-0.031); Immature Granulocyte Percent A 0.8 % (0-0.5); Lymphocytes Absolute Auto 0.98 K/mm3 (0.9-3.2); Lymphocytes Percent Auto 6.9 % (18.3-44.2); Mean Corpuscular Hemoglobin 29.1 pg (26-34); Mean Corpuscular Volume 90.9 fl (80-100); Mean Platelet Volume 10.5 fl (7.4-10.4); Monocytes Absolute Auto 1.4 K/mm3 (0.1-0.6); Monocytes Percent Auto 9.9 % (2.6-8.5); Neutrophils Absolute Auto 11.6 K/mm3 (1.3-6.7); Neutrophils Percent Auto 81.8 % (45.5-73.1); Platelet Count Result 111 k/mm3 (150-375); Red Blood Count 3.85 M/mm3 (4.6-6.20); Red Cell Distribution Width 13.1 % (11.5-14.5); White Blood Count 14.2 K/mm3 (4.5-10.0)
[2021-01-23 05:40] LABS: Alanine Aminotransferase 14 U/L (4-50); Alkaline Phosphatase 69 U/L (38-126); Anion Gap 8 mmol/L (8-16); Aspartate Amino Transferase 19 U/L (17-59); Bilirubin,Total 0.6 mg/dL (0.2-1.3); Blood Urea Nitrogen 13 mg/dL (9-20); Calcium 8.3 mg/dL (8.4-10.2); Carbon Dioxide 25 mmol/L (22-30); Chloride 99 mmol/L (98-107); Estimated CRCL calculation 57 ml/min; Estimated Glomerular Filt Rate 60; Glucose 130 mg/dL (65-110); Potassium 3.8 mmol/L (3.4-5.0); Sodium 132 mmol/L (137-145)
--- NOTE | 2021-01-23 07:01 | P.PNAN_ITS ---
Anes - Prog Note Post-Op Date/Time: 01/23/21 07:01 Cardiovascular status: normal Respiratory status: normal Airway patency: baseline Mental status: baseline Post-Op hydration status: normal Vital Signs: Last Vital Signs Temp 97.8 F 01/23/21 04:00 Pulse 91 01/23/21 04:00 Resp 18 01/23/21 04:00 BP 139/62 01/23/21 04:00 Pulse Ox 97 01/23/21 04:00 Pain Score (VAS): 1 I/O: Intake & Output 01/22/21 01/22/21 01/23/21 15:59 23:59 07:59 Intake Total 1000 1720 Output Total 500 650 Balance 1000 1220 -650 Laboratory Tests 01/23/21 04:27 01/23/21 04:27 01/22/21 01/23/21 01/23/21 12:46 04:27 04:27 WBC 14.2 H RBC 3.85 L Hgb 11.2 L Hct 35.0 L MCV 90.9 MCH 29.1 MCHC 32.0 RDW 13.1 Plt Count 111 L MPV 10.5 H Immature Gran % (Auto) 0.8 H Neut % (Auto) 81.8 H Lymph % (Auto) 6.9 L [place] % (Auto) 9.9 H Eos % (Auto) 0.4 Baso % (Auto) 0.2 Lymph # (Auto) 0.98 [place] # (Auto) 1.4 H Eos # (Auto) 0.1 Baso # (Auto) 0.0 Abs Immat Gran (auto) 0.11 H Absolute Neuts (auto) 11.6 H Absolute Nucleated RBC 0.0 Nucleated RBC % 0.0 Sodium 132 L Potassium 3.8 Chloride 99 Carbon Dioxide 25 Anion Gap 8 BUN 13 Creatinine 1.20 Estim Creat Clear Calc 57 Estimated GFR 60 Glucose 130 H POC Capillary Glucose 118 H Calcium 8.3 L Total Bilirubin 0.6 AST 19 ALT 14 Alkaline Phosphatase 69 Total Protein 5.0 L Albumin 3.0 L Post-procedural complaints: none Patient Feedback: Patient satisfied with anesthetic care.
--- NOTE | 2021-01-23 08:01 | PM.PNGS ---
Progress Note: A&P Assessment and Plan (1) Abdominal pain: Onset Date: ~01/19/21 Qualifiers: Abdominal location: upper abdomen, unspecified Qualified Code(s): R10.10 - Upper abdominal pain, unspecified Code(s): R10.9 - Unspecified abdominal pain Status: Acute Assessment and Plan: This is a been the main reason for the patient's admission and for my consultation. Discussed situation with Dr. Ang. EGD was essentially normal and did not take a biopsy for the CLOtest test. Since it appeared normal we are proceeded last evening with the HIDA scan. It showed no fill the gallbladder confirming apparent acute cholecystitis. Patient's white count remains slightly elevated at 14,000 thousand today. Careful personal review with Dr. Carmona of the CT and ultrasound previously done this admission shows a difficult to see small to medium-sized stone possibly in the cystic duct or at the gallbladder neck on the CT scan. Previously CT and ultrasound both read as no stones. Now the patient is approximally 96 hours after his initial episode of pain at home therefore, proceeding to surgical intervention would have significant risks of spreading infection and bile duct injury in trying to dissect the triangle of [place]. Therefore, I have recommended and patient has accepted a plan for a ultrasound-guided percutaneous cholecystostomy tube placement. We will send off cultures of the fluid, treat with antibiotics which were started at 9:00 p.m. last night and then plan for an interval cholecystectomy in 4-6 weeks. Patient seems understand wished to proceed. I noticed that he was somewhat wheezy with his breathing today so I did talk with Dr. Henson and he will be evaluating him for slowing his IV fluids of possibly a respiratory treatment prior to the planned procedure later today. 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 insulin use: without snf use Qualified Code(s): E11.9 - Type 2 diabetes mellitus without complications Code(s): E11.9 - Type 2 diabetes mellitus without complications Status: Acute (3) Vitamin D deficiency: Code(s): E55.9 - Vitamin D deficiency, unspecified Status: Acute (4) CAD (coronary artery disease): Code(s): I25.10 - Atherosclerotic heart disease of [place] coronary artery without angina pectoris Status: Acute (5) GERD (gastroesophageal reflux disease): Qualifiers: Esophagitis presence: without esophagitis Qualified Code(s): K21.9 - Gastro-esophageal reflux disease without esophagitis Code(s): K21.9 - Gastro-esophageal reflux disease without esophagitis Status: Acute Assessment and Plan: continue PPI. ( apparently no signs of esophagitis yesterday on the EGD). (6) Essential (primary) hypertension: Code(s): I10 - Essential (primary) hypertension Status: Acute Assessment and Plan: Antibiotics started last night in view now known acute cholecystitis with elevated white count. held Lovenox just for today since procedure may be between 9 and noon. Asked patient's nurse to notify case management that patient probably will need home health to help manage cholecystostomy tube drainage bag with checks 2 to 3 times a week at his apartment /home. Subjective Subjective Date/Time Seen: 01/23/21 08:01 Patient reports: still having pain Interval history: Patient seen again this morning to discuss options for treatment of now proven acute cholecystitis. Discussed with the patient his HIDA scan that completed last evening. That showed no fill of the gallbladder which is consistent with acute cholecystitis. Careful personal review with Dr. Carmona at Radiology of the CT and ultrasound previously done this admission shows a difficult to see a small to medium-sized stone possibly in the cystic duct or at the gallbladder neck on the CT scan.
[2021-01-23] MEDS: ALBUTEROL SULFATE NEB 2.5 MG/3 ML INH 1.25 MG INHALATION (08:18)
[2021-01-23] MEDS: FUROSEMIDE INJ 40 MG/4 ML VIAL IV PUSH (09:16)
[2021-01-23] MEDS: methylPREDNISolone SOD SUCC 125 MG VIAL IV PUSH (09:16)
[2021-01-23] MEDS: DOXAZOSIN MESYLATE 2 MG TABLET PO (09:17)
[2021-01-23] MEDS: ACIDOPHILUS/BULGARICUS CHEWABLE TABLET 1 TABLET PO (09:17)
[2021-01-23] MEDS: amLODIPine BESYLATE 5 MG TABLET 10 MG PO (09:17)
[2021-01-23] MEDS: MAGNESIUM OXIDE 400 MG TABLET PO ×4 (09:17→20:19)
[2021-01-23] MEDS: METOPROLOL TARTRATE 50 MG TAB 100 MG PO ×2 (09:18→20:19)
[2021-01-23] MEDS: FENOFIBRATE,MICRONIZED 48 MG TABLET PO (09:19)
[2021-01-23] MEDS: ROSUVASTATIN 10 MG TABLET 40 MG PO (09:19)
[2021-01-23] MEDS: PANTOPRAZOLE 40 MG TABLET PO (09:19)
[2021-01-23] MEDS: IPRATROPIUM BR 0.02% INH SOLN 0.5 MG/2.5 ML VIAL INHALATION ×3 (09:41→20:19)
--- NOTE | 2021-01-23 12:22 | PM.IMPN ---
Progress Note: A&P Assessment and Plan (1) Abdominal pain: Onset Date: ~01/19/21 Qualifiers: Abdominal location: upper abdomen, unspecified Qualified Code(s): R10.10 - Upper abdominal pain, unspecified Code(s): R10.9 - Unspecified abdominal pain Status: Acute Assessment and Plan: CT of abdomen and pelvis reviewed General surgery consult Supportive care NPO Doubtful of cardiac origin Right upper quadrant ultrasound with distended gallbladder with thickened gallbladder wall no calculus found. General surgery has been consulted and suggest GI consultation. GI consultation obtained underwent EGD which showed normal finding Is feeling more bloated today will obtain an x-ray of the abdomen for any abnormality x-ray showed nonobstructive bowel pattern HIDA scan was done which suggested acute cholecystitis. Discussed with the surgeon 01/23 he is going to go for cholecystostomy tube placement today (2) CAD (coronary artery disease): Code(s): I25.10 - Atherosclerotic heart disease of [place] coronary artery without angina pectoris Status: Acute Assessment and Plan: Continue home meds (3) GERD (gastroesophageal reflux disease): Qualifiers: Esophagitis presence: without esophagitis Qualified Code(s): K21.9 - Gastro-esophageal reflux disease without esophagitis Code(s): K21.9 - Gastro-esophageal reflux disease without esophagitis Status: Acute Assessment and Plan: PPI as scheduled CT abdomen and prominent gastric body wall compared to antrum and cardia likely gastritis EGD done 01/22/2021 with normal findings (4) Type 2 diabetes mellitus without complications: Qualifiers: 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 mellitus 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 insulin use: without 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 use Qualified Code(s): E11.9 - Type 2 diabetes mellitus without complications Code(s): E11.9 - Type 2 diabetes mellitus without complications Status: Acute Assessment and Plan: Patient is on metformin Currently NPO continue SSI (5) Dyslipidemia: Code(s): E78.5 - Hyperlipidemia, unspecified Status: Acute Assessment and Plan: Continue fenofibrate (6) Essential (primary) hypertension: Code(s): I10 - Essential (primary) hypertension Status: Acute Assessment and Plan: Continue home meds Continue to monitor (7) Wheezing: Code(s): R06.2 - Wheezing Status: Acute Assessment and Plan: Will keep albuterol nebs. Get a chest x-ray. Will give a dose of Lasix IV x1 Additional Plan This is a 70-year-old male with past medical history significant for hypertension coronary artery disease, dyslipidemia, type 2 diabetes mellitus, GERD. 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 He presented tonight to emergency room due to abdominal pain that started roughly did the day prior at around 3:00 a.m. and was on an of crampy in nature 10/10 in intensity however no nausea, no vomiting, no diarrhea, no hematemesis, no hematochezia, no melena, 2nd episode occurred when the patient was having dinner he felt lightheaded, no heartburn, no dyspepsia, has had a small bowel movements through the day, no fevers, no rigors, no chills, no cough, no sputum production. Preliminary workup was significant for distended stomach and full of content as well as a distended gallbladder. Patient has been placed in observation. Subjective Date/time seen: 01/23/21 12:22 Review of Systems Review of Systems: All systems reviewed & are unremarkable except as noted in HPI and below (HPI) Exam Narrative: GENERAL: The patient is well developed, not in acute distress HEENT: Nonicteric sclerae, PERRLA, EOMI. Oropharynx clear. Moist mucous membranes. Conjunctivae appear well perfused. CHEST: Chest wall is nontender. HEART: Regular rate and rhythm without murmur, rub
--- NOTE | 2021-01-23 14:14 | PCRCNOTE ---
Window of time for administration has passed. See next scheduled administration.
--- NOTE | 2021-01-23 16:33 | WPDGIPROGNO ---
Progress Note: A&P Assessment and Plan (1) Cholecystitis: Code(s): K81.9 - Cholecystitis, unspecified Status: Acute Assessment and Plan: s/p cholecystostomy tube placement, surgery on board and also on antibiotics EGD was basically normal and his reason of presentation was cholecystitis eventually will need surgery [place], call if questions (2) RUQ pain: Code(s): R10.11 - Right upper quadrant pain Status: Acute Assessment and Plan: pain control, on abx (3) Abnormal CT of the abdomen: Code(s): R93.5 - Abnormal findings on diagnostic imaging of other abdominal regions, including retroperitoneum Status: Acute (4) Type 2 diabetes mellitus without complications: Qualifiers: Diabetes mellitus nursing home insulin use: without petroleum 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 Soreness from procedure but overall better since admission Review of Systems Review of Systems: All systems reviewed & are unremarkable except as noted in HPI and below Exam Const: General: comfortable and no acute distress HENMT: General nose exam: Normal nares present Eyes: Sclera: sclerae normal Neck: Neck: supple Resp: Auscultation: wheezes (few expiratory wheezes) Cardio: Rate: regular rate GI: Auscultation: normal bowel sounds Other: cholecystostomy tube in place, ruq tender Skin: General skin exam: normal color Neuro: Speech: normal speech Motor exam (neuro): Normal motor muscle tone present throughout Extrem: General: normal to inspection Psych: Mental Status: mental status grossly normal Objective Data Vital Signs Vital Signs: Vital Signs - 24 hr 01/22/21 18:00 01/22/21 20:00 01/22/21 22:00 Temperature Pulse Rate 110 H 97 89 Respiratory Rate Blood Pressure Pulse Oximetry 01/22/21 23:52 01/23/21 00:00 01/23/21 02:00 Temperature 98.0 F Pulse Rate 92 90 85 Respiratory Rate 18 Blood Pressure 130/72 Pulse Oximetry 98 01/23/21 04:00 01/23/21 06:00 01/23/21 08:00 Temperature 97.8 F 99.9 F H Pulse Rate 91 92 96 Respiratory Rate 18 28 H Blood Pressure 139/62 156/96 H Pulse Oximetry 97 94 01/23/21 08:19 01/23/21 08:26 01/23/21 09:18 Temperature Pulse Rate 96 92 92 Respiratory Rate 24 H 20 Blood Pressure Pulse Oximetry 92 01/23/21 09:41 01/23/21 09:51 01/23/21 10:00 Temperature Pulse Rate 100 83 84 Respiratory Rate 20 20 Blood Pressure Pulse Oximetry 01/23/21 12:00 01/23/21 14:00 01/23/21 15:49 Temperature 98.8 F Pulse Rate 80 88 84 Respiratory Rate 18 20 Blood Pressure 136/63 Pulse Oximetry 94 01/23/21 15:58 Temperature Pulse Rate 84 Respiratory Rate 20 Blood Pressure Pulse Oximetry Intake/Output Intake/Output: Intake & Output 01/20/21 01/21/21 01/22/21 01/23/21 23:59 23:59 23:59 23:59 Intake Total 2000 3770 50 Output Total 1300 1200 650 Balance 700 2570 -600 Meds/Results Medications: Active Medications Generic Name Dose Route Start Last Admin Trade Name Freq PRN Reason Stop Dose Admin Acetaminophen 1,000 mg 01/21/21 17:53 Acetaminophen 500 Mg Tablet PO Q6H PRN Mild Pain (1-3) or Fever Hydrocodone Bitart/Acetaminophen 1 tab 01/21/21 17:53 Hydrocodone/Acetaminophen (*Crx) 5-325 Mg Tablet PO Q6H PRN Pain Rated 4-6 Amlodipine Besylate 10 mg 01/21/21 09:00 01/23/21 09:17 Amlodipine Besylate 5 Mg Tablet PO 10 mg DAILY KE Administration Clopidogrel Bisulfate 75 mg 01/21/21 09:00 01/21/21 13:40 Clopidogrel Bisulfate 75 Mg Tablet PO Not Given GISSEL
[2021-01-23] MEDS: IPRATROPIUM BR 0.02% INH SOLN 0.5 MG/2.5 ML VIAL (20:19)
[2021-01-24] VITALS (20 sets, daily range): BP systolic 123–141; BP diastolic 53–65; PULSE 66–95; RESP 16–91; TEMP 36.6–36.9; O2SAT 90–97
[2021-01-24] MEDS: IPRATROPIUM BR 0.02% INH SOLN 0.5 MG/2.5 ML VIAL INHALATION ×5 (00:27→21:57)
[2021-01-24 05:18] LABS: Basophils Percent Auto 0.1 % (0.2-1.2); Hematocrit 33.7 % (42.0-52.0); Hemoglobin 11.1 g/dL (14.0-18.0); Immature Granulocyte Absolute 0.11 K/mm3 (0.00-0.031); Lymphocytes Absolute Auto 0.68 K/mm3 (0.9-3.2); Lymphocytes Percent Auto 6.3 % (18.3-44.2); Mean Corpuscular HGB Conc 32.9 g/dl (32-36); Mean Corpuscular Hemoglobin 28.9 pg (26-34); Mean Corpuscular Volume 87.8 fl (80-100); Mean Platelet Volume 10.6 fl (7.4-10.4); Monocytes Absolute Auto 0.6 K/mm3 (0.1-0.6); Monocytes Percent Auto 5.6 % (2.6-8.5); Neutrophils Absolute Auto 9.4 K/mm3 (1.3-6.7); Platelet Count Result 126 k/mm3 (150-375); Red Blood Count 3.84 M/mm3 (4.6-6.20); Red Cell Distribution Width 12.6 % (11.5-14.5); White Blood Count 10.8 K/mm3 (4.5-10.0)
[2021-01-24 05:35] LABS: Alanine Aminotransferase 20 U/L (4-50); Albumin Level 3.4 g/dL (3.5-5.1); Alkaline Phosphatase 66 U/L (38-126); Anion Gap 7 mmol/L (8-16); Aspartate Amino Transferase 27 U/L (17-59); Bilirubin,Total 0.4 mg/dL (0.2-1.3); Blood Urea Nitrogen 21 mg/dL (9-20); Calcium 8.6 mg/dL (8.4-10.2); Carbon Dioxide 28 mmol/L (22-30); Chloride 103 mmol/L (98-107); Estimated CRCL calculation 57 ml/min; Estimated Glomerular Filt Rate 60; Glucose 208 mg/dL (65-110); Sodium 138 mmol/L (137-145)
[2021-01-24] MEDS: METOPROLOL TARTRATE 50 MG TAB 100 MG PO ×2 (09:40→20:05)
[2021-01-24] MEDS: ROSUVASTATIN 10 MG TABLET 40 MG PO (09:41)
[2021-01-24] MEDS: ACIDOPHILUS/BULGARICUS CHEWABLE TABLET 1 TABLET PO (09:41)
[2021-01-24] MEDS: PANTOPRAZOLE 40 MG TABLET PO (09:41)
[2021-01-24] MEDS: amLODIPine BESYLATE 5 MG TABLET 10 MG PO (09:42)
[2021-01-24] MEDS: FENOFIBRATE,MICRONIZED 48 MG TABLET PO (09:42)
[2021-01-24] MEDS: DOXAZOSIN MESYLATE 2 MG TABLET PO (09:42)
[2021-01-24] MEDS: MAGNESIUM OXIDE 400 MG TABLET PO ×4 (09:42→20:05)
--- NOTE | 2021-01-24 10:11 | PM.PNGS ---
Progress Note: A&P Assessment and Plan (1) Abdominal pain: Onset Date: ~01/19/21 Qualifiers: Abdominal location: upper abdomen, unspecified Qualified Code(s): R10.10 - Upper abdominal pain, unspecified Code(s): R10.9 - Unspecified abdominal pain Status: Acute Assessment and Plan: This is a been the main reason for the patient's admission and for my consultation. Discussed situation with Dr. Ang. EGD was essentially normal and did not take a biopsy for the CLOtest test. Since it appeared normal we are proceeded with the HIDA scan. It showed no fill the gallbladder confirming apparent acute cholecystitis. Careful personal review with Dr. Carmona of the CT and ultrasound previously done this admission showed a difficult to see small to medium-sized stone possibly in the cystic duct or at the gallbladder neck on the CT scan. Previously the CT and ultrasound were both read as no stones. The patient wass approximally 96 hours after his initial episode of pain at home therefore, proceeding to surgical intervention would have significant risks of spreading infection and bile duct injury in trying to dissect the triangle of [place]. Therefore, I recommended and patient accepted a plan for a ultrasound-guided percutaneous cholecystostomy tube placement. We sent off cultures of the fluid, treated with antibiotics which were started at 9:00 p.m. on 01/22 and then will plan for an interval cholecystectomy in 4-6 weeks. Patient seems to understand the current plan. I did some education today on care of his cholecystostomy tube. From a surgical perspective with his white count being down and antibiotics being affective whenever he is medically stable patient could be discharged. Patient's white count remains slightly elevated at 10,400 thousand today, but is improved over yesterday. He seems to be tolerating his diet and we will up it to heart healthy, low-fat diet today. He will need home health to check on him 2 or 3 times a week while he has the drain and they could check on anything else medicine wishes to add to their concerns.. (2) Type 2 diabetes mellitus without complications: Qualifiers: Diabetes mellitus supervisor intermediates insulin use: without jail use Qualified Code(s): E11.9 - Type 2 diabetes mellitus without complications Code(s): E11.9 - Type 2 diabetes mellitus without complications Status: Acute (3) Vitamin D deficiency: Code(s): E55.9 - Vitamin D deficiency, unspecified Status: Acute Assessment and Plan: May resume his usual supplement and follow up with PCP regarding this. (4) CAD (coronary artery disease): Code(s): I25.10 - Atherosclerotic heart disease of [place] coronary artery without angina pectoris Status: Acute (5) GERD (gastroesophageal reflux disease): Qualifiers: Esophagitis presence: without esophagitis Qualified Code(s): K21.9 - Gastro-esophageal reflux disease without esophagitis Code(s): K21.9 - Gastro-esophageal reflux disease without esophagitis Status: Acute Assessment and Plan: continue PPI. ( apparently no signs of esophagitis on the EGDof 01/22 ). (6) Essential (primary) hypertension: Code(s): I10 - Essential (primary) hypertension Status: Acute Assessment and Plan: Continue IV antibiotics until ready for discharge. Then probably home on Levaquin once a day if cultures are not back. Otherwise if home tomorrow cultures from the bile may be back and could help tailor antibiotic therapy would recommend approximately 1 week of therapy. Asked patient's nurse to notify case management that patient probably will need home health to help manage cholecystostomy tube drainage bag with checks 2 to 3 times a week at his apartment /home. Subjective Subjective Date/Time Seen: 01/24/21 10:11 Post Op day: 1 (Status post ultrasound-guided cholecystostomy tube placem
[2021-01-24] MEDS: ALBUTEROL SULFATE NEB 2.5 MG/0.5 ML INH INHALATION ×2 (14:16→21:57)
--- NOTE | 2021-01-24 14:51 | PM.IMPN ---
Progress Note: A&P Assessment and Plan (1) Abdominal pain: Onset Date: ~01/19/21 Qualifiers: Abdominal location: upper abdomen, unspecified Qualified Code(s): R10.10 - Upper abdominal pain, unspecified Code(s): R10.9 - Unspecified abdominal pain Status: Acute Assessment and Plan: CT of abdomen and pelvis reviewed General surgery consult Supportive care NPO Doubtful of cardiac origin Right upper quadrant ultrasound with distended gallbladder with thickened gallbladder wall no calculus found. General surgery has been consulted and suggest GI consultation. GI consultation obtained underwent EGD which showed normal finding Is feeling more bloated today will obtain an x-ray of the abdomen for any abnormality x-ray showed nonobstructive bowel pattern HIDA scan was done which suggested acute cholecystitis. Status post cholecystostomy tube placement 01/23 Gallbladder fluid culture with Gram-negative bacilli not yet identified Will change cefofeton to zosyn today (2) CAD (coronary artery disease): Code(s): I25.10 - Atherosclerotic heart disease of lummi coronary artery without angina pectoris Status: Acute Assessment and Plan: Continue home meds (3) GERD (gastroesophageal reflux disease): Qualifiers: Esophagitis presence: without esophagitis Qualified Code(s): K21.9 - Gastro-esophageal reflux disease without esophagitis Code(s): K21.9 - Gastro-esophageal reflux disease without esophagitis Status: Acute Assessment and Plan: PPI as scheduled CT abdomen and prominent gastric body wall compared to antrum and cardia likely gastritis EGD done 01/22/2021 with normal findings (4) Type 2 diabetes mellitus without complications: Qualifiers: Diabetes mellitus nursing home insulin use: without nursing home use Qualified Code(s): E11.9 - Type 2 diabetes mellitus without complications Code(s): E11.9 - Type 2 diabetes mellitus without complications Status: Acute Assessment and Plan: Patient is on metformin Currently NPO continue SSI (5) Dyslipidemia: Code(s): E78.5 - Hyperlipidemia, unspecified Status: Acute Assessment and Plan: Continue fenofibrate (6) Essential (primary) hypertension: Code(s): I10 - Essential (primary) hypertension Status: Acute Assessment and Plan: Continue home meds Continue to monitor (7) Wheezing: Code(s): R06.2 - Wheezing Status: Acute Assessment and Plan: Will keep albuterol nebs. Chest x-ray with atelectasis versus pneumonia Gave a dose of Lasix IV 01/23 continue incentive spirometry Continues to wheeze repeat chest x-ray today Will continue albuterol/ipratropium nebs Continue Solu-Medrol 40 mg IV b.i.d. check BNP Additional Plan This is a 70-year-old male with past medical history significant for hypertension coronary artery disease, dyslipidemia, type 2 diabetes mellitus, GERD. 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 He presented tonight to emergency room due to abdominal pain that started roughly did the day prior at around 3:00 a.m. and was on an of crampy in nature / in intensity however no nausea, no vomiting, no diarrhea, no hematemesis, no hematochezia, no melena, 2nd episode occurred when the patient was having dinner he felt lightheaded, no heartburn, no dyspepsia, has had a small bowel movements through the day, no fevers, no rigors, no chills, no cough, no sputum production. Preliminary workup was significant for distended stomach and full of content as well as a distended gallbladder. Patient has been placed in observation. Subjective Date/time seen: 01/24/21 14:51 Interval history: Feeling much better after the cholecystostomy tube is placed. Denies any fever or chills. No nausea and vomiting. Still wheezing
[2021-01-24 15:49] LABS: NT Pro B Type Natriuretic Pept 1110 pg/mL (5-100)
[2021-01-24] MEDS: methylPREDNISolone SOD SUCC 40 MG VIAL IV PUSH ×2 (16:40→20:06)
[2021-01-24] MEDS: ENOXAPARIN 40 MG/0.4 ML SYRINGE SUB-Q (16:40)
[2021-01-24] MEDS: ACETAMINOPHEN 500 MG TABLET 1000 MG PO (21:06)
--- NOTE | 2021-01-24 22:32 | PC.NURSE ---
This patient, Florencio Romano, was transferred to [ [id number]] on 01/24/21 at 2233. Personal belongings sent with patient. Report given to [ María ORTIZ]. Appropriate documentation sent with patient.
--- NOTE | 2021-01-24 22:45 | PC.NURSE ---
This patient, Florencio Romano, was received from [U [id number] ] on 01/24/21 at 2324. Patient/family oriented to unit policies and routines
[2021-01-25] VITALS (7 sets, daily range): BP systolic 131–142; BP diastolic 65–73; PULSE 74–84; RESP 16–20; TEMP 36.2–36.8; O2SAT 92–96
[2021-01-25] MEDS: ALBUTEROL SULFATE NEB 2.5 MG/0.5 ML INH INHALATION (02:40)
[2021-01-25] MEDS: IPRATROPIUM BR 0.02% INH SOLN 0.5 MG/2.5 ML VIAL INHALATION (02:40)
[2021-01-25 06:27] LABS: Basophils Percent Auto 0.1 % (0.2-1.2); Hematocrit 36.3 % (42.0-52.0); Hemoglobin 11.9 g/dL (14.0-18.0); Immature Granulocyte Absolute 0.06 K/mm3 (0.00-0.031); Immature Granulocyte Percent A 0.6 % (0-0.5); Lymphocytes Absolute Auto 0.72 K/mm3 (0.9-3.2); Lymphocytes Percent Auto 7.5 % (18.3-44.2); Mean Corpuscular HGB Conc 32.8 g/dl (32-36); Mean Corpuscular Hemoglobin 28.5 pg (26-34); Mean Corpuscular Volume 86.8 fl (80-100); Monocytes Absolute Auto 0.3 K/mm3 (0.1-0.6); Monocytes Percent Auto 2.8 % (2.6-8.5); Neutrophils Absolute Auto 8.6 K/mm3 (1.3-6.7); Platelet Count Result 168 k/mm3 (150-375); Red Blood Count 4.18 M/mm3 (4.6-6.20); Red Cell Distribution Width 12.4 % (11.5-14.5); White Blood Count 9.6 K/mm3 (4.5-10.0)
[2021-01-25 06:45] LABS: Alanine Aminotransferase 32 U/L (4-50); Albumin Level 3.6 g/dL (3.5-5.1); Alkaline Phosphatase 77 U/L (38-126); Anion Gap 8 mmol/L (8-16); Aspartate Amino Transferase 32 U/L (17-59); Bilirubin,Total 0.4 mg/dL (0.2-1.3); Blood Urea Nitrogen 25 mg/dL (9-20); Calcium 8.7 mg/dL (8.4-10.2); Carbon Dioxide 25 mmol/L (22-30); Chloride 106 mmol/L (98-107); Estimated CRCL calculation 63 ml/min; Estimated Glomerular Filt Rate > 60; Glucose 260 mg/dL (65-110); Potassium 3.9 mmol/L (3.4-5.0); Sodium 139 mmol/L (137-145)
[2021-01-25] MEDS: CLOPIDOGREL BISULFATE 75 MG TABLET PO (08:32)
[2021-01-25] MEDS: ROSUVASTATIN 10 MG TABLET 40 MG PO (08:32)
[2021-01-25] MEDS: PANTOPRAZOLE 40 MG TABLET PO (08:33)
[2021-01-25] MEDS: ACIDOPHILUS/BULGARICUS CHEWABLE TABLET 1 TABLET PO (08:33)
[2021-01-25] MEDS: METOPROLOL TARTRATE 50 MG TAB 100 MG PO (08:33)
[2021-01-25] MEDS: MAGNESIUM OXIDE 400 MG TABLET PO (08:33)
[2021-01-25] MEDS: DOXAZOSIN MESYLATE 2 MG TABLET PO (08:33)
[2021-01-25] MEDS: FENOFIBRATE,MICRONIZED 48 MG TABLET PO (08:34)
[2021-01-25] MEDS: amLODIPine BESYLATE 5 MG TABLET 10 MG PO (08:34)
[2021-01-25] MEDS: methylPREDNISolone SOD SUCC 40 MG VIAL IV PUSH (08:36)
[2021-01-25] MEDS: ENOXAPARIN 40 MG/0.4 ML SYRINGE SUB-Q (08:36)
--- NOTE | 2021-01-25 09:21 | PM.DS ---
DS: Admitting Diagnosis Admitting Diagnosis Abdominal pain DS: Discharge Diagnosis Discharge Diagnosis (1) Cholecystitis: Code(s): K81.9 - Cholecystitis, unspecified Status: Acute (2) Abdominal pain: Onset Date: ~01/19/21 Qualifiers: Abdominal location: upper abdomen, unspecified Qualified Code(s): R10.10 - Upper abdominal pain, unspecified Code(s): R10.9 - Unspecified abdominal pain Status: Acute DS: Summary Hospital Course Hospital Course: Discharge date 01/25/2021 This is a 70-year-old gentleman with past medical history of hypertension, coronary artery disease, hyperlipidemia, type 2 diabetes mellitus, and GERD who presented on 01/21 with abdominal pain, this was crampy in nature in the right upper quadrant. Not associated with nausea or vomiting. No melena or hematochezia. No diarrhea. CT scan of the abdomen showed distended gallbladder, prominent gastric body wall compared to antrum and cardia with question of gastritis, mild sigmoid diverticulosis. An ultrasound of the gallbladder showed thickened wall and distended gallbladder, with positive sonographic Moreira sign. No cholelithiasis. This was concerning for acute acalculous cholecystitis. This was confirmed with HIDA scan. He was seen by General surgery. It was elected to undergo cholecystostomy tube placement which was done on 01/23. This was uneventful. Tolerated well by the patient. He was able to advance his diet postoperatively but no issues. He was deemed to be stable and ready for discharge from a surgical standpoint. His bile culture did grow gram negative rods which were pending at the time of discharge. He will have a 7 day course of levofloxacin for coverage of likely organism. During the hospitalization he was seen by Gastroenterology. An EGD was done that showed no significant findings. Home PPI was continued. His other medical issues were stable during this hospitalization with no significant changes to medications. Instructions on care of his cholecystostomy tube and follow-up for surgery were communicated with the patient. Time Spent with Patient Time attestation: Total time spent providing and/or coordinating discharge services: 35 Exam Narrative: Gen: Alert, NAD Abd: Soft, NT, ND, cholecystostomy tube in place Heart: RRR Lungs: CTAB Ext: No lower extremity edema DS: Data Data Completed and Pending Labs on day of discharge: Labs from last 24 hours 0801/25/21 01/24/21 06:21 06:21 15:25 WBC 9.6 RBC 4.18 L Hgb 11.9 L Hct 36.3 L MCV 86.8 MCH 28.5 MCHC 32.8 RDW 12.4 Plt Count 168 MPV 10.0 Immature Gran % (Auto) 0.6 H Neut % (Auto) 89.0 H Lymph % (Auto) 7.5 L [place] % (Auto) 2.8 Eos % (Auto) 0.0 Baso % (Auto) 0.1 L Lymph # (Auto) 0.72 L [place] # (Auto) 0.3 Eos # (Auto) 0.0 Baso # (Auto) 0.0 Abs Immat Gran (auto) 0.06 H Absolute Neuts (auto) 8.6 H Absolute Nucleated RBC 0.0 Nucleated RBC % 0.0 Sodium 139 Potassium 3.9 Chloride 106 Carbon Dioxide 25 Anion Gap 8 BUN 25 H Creatinine 1.10 Estim Creat Clear Calc 63 Estimated GFR > 60 Glucose 260 H Calcium 8.7 Total Bilirubin 0.4 AST 32 ALT 32 Alkaline Phosphatase 77 NT-Pro-B Natriuret Pep 1110 H Total Protein 7.0 Albumin 3.6 Preliminary micro results at discharge 01/23/21 12:43 Anaerobic Culture - Preliminary Bile Discharge Plan Discharge Consulting providers: Imtiaz Jenkins ; Prateek Mcclure Discharging Clinician: Servando Medel Anticipated Discharge Date/Time: 01/25/21 09:29 Patient Disposition: Home Health Service Activity: may shower Diet: diabetic Wound Care Instructions: other - see discharge instructions Discharge Instructions: General surgery discharge instructions: 1. May shower but only if occlusive dressing is on the exit
== END 2021-01-25 11:20 | disposition home health service (06) | DRG 446 ==
LOC: ANHED 01-21 01:51 → ANHIMU 01-21 04:25 → ANH3MED 01-25 07:13 → ANHIMU 01-28 16:12
PROVIDERS: Internal Medicine; Internal Medicine Gastroenterology; Admitting Provider Internal Medicine; Emergency Provider Emergency Medicine; PCP Family Medicine; Visit Provider Internal Medicine Nephrology
PROC: 0DJ08ZZ Inspection of Upper Intestinal Tract, Via Natural or Artificial Opening Endoscopic (ICD-10-PCS; CPT 43235; principal; 2021-01-22 14:30)
DX: K81.0 Acute cholecystitis (principal); I10 Essential (primary) hypertension; E11.9 Type 2 diabetes mellitus without complications; K21.9 Gastro-esophageal reflux disease without esophagitis; E78.5 Hyperlipidemia, unspecified; I25.10 Atherosclerotic heart disease of native coronary artery without angina pectoris; E55.9 Vitamin D deficiency, unspecified; Z85.828 Personal history of other malignant neoplasm of skin; Z95.5 Presence of coronary angioplasty implant and graft; Z87.891 Personal history of nicotine dependence; E66.9 Obesity, unspecified; Z68.33 Body mass index [BMI] 33.0-33.9, adult
CPT/HCPCS: 36415; 47490; 71045; 71046; 74018; 74177; 76705; 78227; 80048; 80053; 80076; 82948; 83690; 83735; 83880; 84484; 85025; 85610; 85730; 87045; 87070; 87075; 87077; 87177; 87186; 87205; 87209; 87269; 87272; 87324; 87338; 87427; 93005; 94640; 96361; 96372; 96374; 96375; 96376; 99285; A9270; A9537; C1729; G0378; J1650; J1940; J2001; J2270; J2405; J2543; J2704; J2805; J2920; J2930; J7120; Q9967

== ENCOUNTER 2021-02-17 07:54 | Emergency (ER) | payer MEDICARE, OTHER, SELFPAY ==
[2021-02-17 08:09] VITALS: BP 120/89; PULSE 74; RESP 16; O2SAT 98
--- NOTE | 2021-02-17 08:13 | ECG_ITS ---
Measurements Intervals [place] Rate: 72 P: 31 CO: 180 QRS: -2 QRSD: 103 T: -4 QT: 396 QTc: 436 Interpretive Statements SINUS RHYTHM INCOMPLETE RIGHT BUNDLE BRANCH BLOCK MINIMAL Q WAVES- INFERIOR LEADS BORDERLINE ECG Electronically Signed On 02-17-2021 8:22:34 CDT by Anam Chamberlain D.O.
[2021-02-17 08:29] VITALS: PULSE 72
[2021-02-17 08:34] LABS: Basophils Percent Auto 0.5 % (0.2-1.2); Eosinophils Absolute Auto 0.3 K/mm3 (0-0.3); Eosinophils Percent Auto 5.1 % (0-4.4); Hematocrit 37.8 % (42.0-52.0); Hemoglobin 12.7 g/dL (14.0-18.0); Immature Granulocyte Absolute 0.03 K/mm3 (0.00-0.031); Immature Granulocyte Percent A 0.5 % (0-0.5); Lymphocytes Absolute Auto 1.59 K/mm3 (0.9-3.2); Lymphocytes Percent Auto 23.9 % (18.3-44.2); Mean Corpuscular HGB Conc 33.6 g/dl (32-36); Mean Corpuscular Hemoglobin 28.9 pg (26-34); Mean Corpuscular Volume 86.1 fl (80-100); Mean Platelet Volume 10.5 fl (7.4-10.4); Monocytes Absolute Auto 0.9 K/mm3 (0.1-0.6); Monocytes Percent Auto 13.4 % (2.6-8.5); Neutrophils Absolute Auto 3.8 K/mm3 (1.3-6.7); Neutrophils Percent Auto 56.6 % (45.5-73.1); Platelet Count Result 130 k/mm3 (150-375); Red Blood Count 4.39 M/mm3 (4.6-6.20); Red Cell Distribution Width 12.3 % (11.5-14.5); White Blood Count 6.7 K/mm3 (4.5-10.0)
[2021-02-17 08:40] LABS: Alanine Aminotransferase 33 U/L (4-50); Albumin Level 4.1 g/dL (3.5-5.1); Alkaline Phosphatase 69 U/L (38-126); Anion Gap 11 mmol/L (8-16); Aspartate Amino Transferase 35 U/L (17-59); Bilirubin,Total 0.4 mg/dL (0.2-1.3); Blood Urea Nitrogen 17 mg/dL (9-20); Calcium 6.8 mg/dL (8.4-10.2); Carbon Dioxide 23 mmol/L (22-30); Chloride 108 mmol/L (98-107); Estimated CRCL calculation 57 ml/min; Estimated Glomerular Filt Rate 60; Glucose 118 mg/dL (65-110); Potassium 3.7 mmol/L (3.4-5.0); Sodium 142 mmol/L (137-145)
[2021-02-17 09:18] VITALS: BP 115/90; PULSE 62; RESP 20; O2SAT 97
[2021-02-17] MEDS: CALCIUM GLUCONATE 1,000 MG/10 ML VIAL 1000 MG IV PUSH (09:18)
--- NOTE | 2021-02-17 09:19 | PC.NURSE ---
pt continues to refuse straight cath for ua
[2021-02-17 09:39] LABS: Magnesium 0.4 mg/dL (1.6-2.3)
[2021-02-17] MEDS: MAGNESIUM SULF 2 GM/WATER 50ML 2 GM/50 ML BAG IVPB (10:18)
[2021-02-17 11:07] VITALS: BP 134/100; PULSE 64; RESP 20; O2SAT 97
--- NOTE | 2021-02-17 11:44 | ED.GENADULT ---
HPI - General Adult General Chief complaint: Weakness Stated complaint: Weakness Time Seen by Provider: 02/17/21 08:14 History of Present Illness HPI narrative: Patient is a 70-year-old male who presents ER with paresthesias and tremors. Worsening over the last couple days. Reports he has had this in the past and is typically related to electrolyte disturbance. He sees an mud mixer helper. Reports he takes magnesium replacement daily. Reports recently his doctor decreased his amlodipine and doxazosin but there have been no other changes to his medication. No nausea/vomiting/diarrhea. Related Data Home Medications Medication Instructions Recorded Confirmed amlodipine 10 mg tablet 10 mg PO DAILY 04/11/19 01/21/21 clopidogrel 75 mg tablet 75 mg PO DAILY 04/11/19 01/21/21 doxazosin 2 mg tablet 2 mg PO DAILY 04/11/19 01/21/21 metoprolol tartrate 100 mg tablet 100 mg PO BID tablet 04/11/19 01/21/21 rosuvastatin 40 mg tablet 40 mg PO DAILY 04/11/19 01/21/21 magnesium oxide 400 mg (241.3 mg 400 mg PO QID tablet 04/20/19 01/21/21 magnesium) tablet Lactobacillus acidophilus 10 mg PO DAILY 10/18/20 01/21/21 coenzyme Q10 100 mg capsule 200 mg PO DAILY cap 10/18/20 01/21/21 fenofibrate 54 mg tablet 54 mg PO DAILY 10/18/20 01/21/21 metformin 500 mg tablet,extended 500 mg PO DAILY 10/18/20 01/21/21 release 24 hr icosapent ethyl [Vascepa] 2 g PO BID 01/21/21 01/21/21 pantoprazole 40 mg PO DAILY 01/21/21 01/21/21 Allergies Allergy/AdvReac Type Severity Reaction Status Date / Time YANET Inhibitors Allergy Unknown unknown Verified 02/17/21 08:32 atorvastatin Allergy Unknown unknown Verified 02/17/21 08:32 hydrochlorothiazide Allergy Unknown unknown Verified 02/17/21 08:32 ramipril Allergy Unknown unknown Verified 02/17/21 08:32 spironolactone Allergy Unknown unknown Verified 02/17/21 08:32 Sulfa (Sulfonamide Allergy Unknown Unknown Verified 02/17/21 08:32 Antibiotics) valsartan AdvReac Intermediate Angioedema Verified 02/17/21 08:32 Review of Systems Review of Systems: All systems reviewed & are unremarkable except as noted in HPI and below Constitutional: Constitutional: Denies chills, Denies fever(s) and Reports weakness ENT: Denies dizziness and Denies sore throat Respiratory: Respiratory: Denies cough and Denies dyspnea Gastrointestinal: Gastrointestinal: Denies abdominal pain, Denies diarrhea, Denies nausea and Denies vomiting Neurologic: Denies headache(s), Denies focal weakness and Reports numbness Comments: Hand tremors PMFSH Past Medical History Medical History Abnormal CT of the abdomen CAD (coronary artery disease) Cholecystitis Dyslipidemia Essential (primary) hypertension Gallbladder anomaly GERD (gastroesophageal reflux disease) History of basal cell carcinoma of skin History of urethral stricture RUQ pain Type 2 diabetes mellitus without complications Vitamin D deficiency Surgical History Surgical History History of coronary artery stent placement 1997 and 2002 History of medial meniscus repair of left knee 11/24/18 History of tonsillectomy Family History Family History Father Carcinoma of colon Social History Social History Smoking packs per day: 1 Smoking cigarettes per day: 20.0 Years smoked: 50 Smoking pack-years: 50.00 Smoking status: Former smoker Tobacco type: cigarettes Second hand tobacco smoke exposure: No Smoking end date: 02/28/17 Alcohol intake: never Substance use: never Substance use type: does not use Spiritual care concerns: No Exam Narrative: GENERAL: Well-appearing, well-nourished, and in no acute distress. HEAD: Normocephalic, atraumatic. EYES: PERRL and EOMI. CHEST: Clear to auscultation. No respiratory dist
[2021-02-17 12:20] VITALS: BP 137/72; PULSE 65; RESP 20; O2SAT 97
== END 2021-02-17 12:24 | disposition home or self-care (01) ==
PROVIDERS: Emergency Provider Emergency Medicine; PCP Family Medicine
DX: E83.51 Hypocalcemia (principal); E83.42 Hypomagnesemia; I25.10 Atherosclerotic heart disease of native coronary artery without angina pectoris; E78.5 Hyperlipidemia, unspecified; I10 Essential (primary) hypertension; K21.9 Gastro-esophageal reflux disease without esophagitis; Z85.828 Personal history of other malignant neoplasm of skin; E11.9 Type 2 diabetes mellitus without complications; E55.9 Vitamin D deficiency, unspecified; Z95.5 Presence of coronary angioplasty implant and graft; Z87.891 Personal history of nicotine dependence; Z79.84 Long term (current) use of oral hypoglycemic drugs
CPT/HCPCS: 36415; 80053; 83735; 85025; 85055; 93005; 96365; 96375; 99284; J0610; J3475

== ENCOUNTER 2021-03-03 08:06 | Outpatient (CLI) | payer MEDICARE, OTHER, SELFPAY ==
--- NOTE | ~2021-03-03 | XR_ITS ---
EXAMINATION: XR catheter cholangiogram DATE: 03/03/2021 09:29 INDICATION: Cholecystitis, unspecified. TECHNIQUE: I injected the percutaneous cholecystostomy tube with water-soluble contrast and performed fluoroscopy of the right upper quadrant of the abdomen. 7 images were obtained. Fluoroscopy exposure time was 0.4 minutes. COMPARISON: CT abdomen and pelvis 01/21/2021 FINDINGS: The cholecystostomy tube is in expected position in the gallbladder. There is contrast opac ification of the gallbladder, cystic duct, and common duct. No choledocholithiasis. Contrast passes t o the duodenum. IMPRESSION: 1. Patent cystic duct and common bile duct. No choledocholithiasis. Reviewed, dictated and finalized at location A.
== END 2021-03-03 08:07 | disposition home or self-care (01) ==
PROVIDERS: PCP Family Medicine; Visit Provider Surgery
DX: K81.9 Cholecystitis, unspecified (principal)
CPT/HCPCS: 47531; Q9966

== ENCOUNTER 2021-03-03 09:27 | Outpatient (CLI) | payer MEDICARE, OTHER, SELFPAY ==
[2021-03-03 09:45] LABS: Hematocrit 40.4 % (42.0-52.0); Hemoglobin 13.4 g/dL (14.0-18.0); Mean Corpuscular HGB Conc 33.2 g/dl (32-36); Mean Corpuscular Hemoglobin 28.8 pg (26-34); Mean Corpuscular Volume 86.7 fl (80-100); Mean Platelet Volume 10.1 fl (7.4-10.4); Platelet Count Result 177 k/mm3 (150-375); Red Blood Count 4.66 M/mm3 (4.6-6.20); Red Cell Distribution Width 12.7 % (11.5-14.5); White Blood Count 8.2 K/mm3 (4.5-10.0)
[2021-03-03 09:55] LABS: Alanine Aminotransferase 55 U/L (4-50); Albumin Level 4.3 g/dL (3.5-5.1); Alkaline Phosphatase 90 U/L (38-126); Amylase 100 U/L (30-110); Anion Gap 10 mmol/L (8-16); Aspartate Amino Transferase 57 U/L (17-59); Bilirubin,Total 0.4 mg/dL (0.2-1.3); Blood Urea Nitrogen 17 mg/dL (9-20); Calcium 7.8 mg/dL (8.4-10.2); Carbon Dioxide 27 mmol/L (22-30); Chloride 105 mmol/L (98-107); Estimated Glomerular Filt Rate 60; Glucose 113 mg/dL (65-110); Lipase 140 U/L (23-300); Magnesium 0.4 mg/dL (1.6-2.3); Potassium 4.3 mmol/L (3.4-5.0); Sodium 142 mmol/L (137-145)
== END 2021-03-03 09:28 | disposition home or self-care (01) ==
LOC: ANHSURGERY 09:30
PROVIDERS: PCP Family Medicine; Visit Provider Surgery
DX: K81.9 Cholecystitis, unspecified (principal)
CPT/HCPCS: 36415; 47531; 80053; 82150; 82248; 83690; 83735; 85027; Q9966

== ENCOUNTER 2021-03-12 00:06 | Day surgery (SDC) | payer MEDICARE, OTHER, SELFPAY ==
[2021-02-26 13:25] VITALS: BMI 30.7
[2021-03-12] VITALS (10 sets, daily range): BP systolic 98–161; BP diastolic 54–101; PULSE 72–82; RESP 15–20; TEMP 36.5–36.6; O2SAT 92–100
--- NOTE | ~2021-03-12 | XR_ITS ---
. EXAMINATION: XR cholangiogram surg 1st inj DATE: 03/12/2021 13:47 INDICATION: Intraoperative evaluation during laparoscopic cholecystectomy TECHNIQUE: Multiple fluoroscopic images of the right upper quadrant were obtained during intraoperati ve cholangiography. A total of 207 fluoroscopic images were obtained. The amount of fluoroscopy time used during this procedure was 0.5 minutes. COMPARISON: 03/03/2021 and 01/21/2021 FINDINGS: Cannulation of the cystic duct demonstrates filling of a long cystic duct as well as the co mmon bile duct with no intraluminal filling defects. There appears to be a short stricture with syl h mucosal margins at the distal common bile duct. Correlation with prior CT demonstrates no appreciab le extrinsic pancreatic mass at this location suggesting this could also be due to either inflammatio n or scarring. Contrast extends into the duodenum and central intrahepatic biliary tree which also ap pears normal. IMPRESSION: 1. Short segmental smooth stricture at the distalmost common bile duct with no intraluminal filling d efects to suggest choledocholithiasis. Would consider follow-up with either MRCP or ERCP. Reviewed, dictated and finalized at location A. IMPRESSION: 1. Short segmental smooth stricture at the distalmost common bile duct with no intraluminal filling defects to suggest choledocholithiasis. Would consider fol low-up with either MRCP or ERCP.
[2021-03-12] MEDS: LACTATED RINGERS 1,000 ML 30 ML IV CONT ×2 (10:29→14:43)
[2021-03-12] MEDS: ACETAMINOPHEN 500 MG TABLET 1000 MG PO (10:38)
[2021-03-12] MEDS: KETOROLAC 15 MG/ML VIAL (*BKC) IV PUSH (10:38)
[2021-03-12 10:46] LABS: Glucose Point of Care 120 mg/dl (65-105)
--- NOTE | 2021-03-12 11:04 | WPDANESEPPF ---
Anes - Initial Pre Proc Eval Procedure: Operation Date: 03/12/21 12:00 Proposed Procedures p Laparoscopic Cholecystectomy with Intraoperative Cholangiogram with Possible Open Cholecystectomy - Imtiaz Jenkins MD Date/Time: 03/12/21 11:04 Surgeon: Imtiaz Jenkins MD Pre Op Diagnosis: cholecystitis Patient Data Age: 70 Gender: M Height: 1.73 m Weight: 91.8 kg Last Vital Signs Temp 97.9 F 03/12/21 10:48 Pulse 72 03/12/21 10:48 Resp 20 03/12/21 10:48 BP 146/80 H 03/12/21 10:48 Pulse Ox 98 03/12/21 10:48 Allergies Allergy/AdvReac Type Severity Reaction Status Date / Time YANET Inhibitors Allergy Unknown ANGIOEDEMA Verified 03/12/21 10:20 atorvastatin Allergy Unknown Joint Pain Verified 03/12/21 10:20 hydrochlorothiazide Allergy Unknown LOW Verified 03/12/21 10:20 ELETROLYTES ramipril Allergy Unknown ANGIOEDEMA Verified 03/12/21 10:20 spironolactone Allergy Unknown LOW Verified 03/12/21 10:20 ELECTROLYTES Sulfa (Sulfonamide Allergy Unknown Unknown- Verified 03/12/21 10:20 Antibiotics) A CHILD valsartan AdvReac Intermediate Angioedema Verified 03/12/21 10:20 Home Medications Medication Instructions Recorded Confirmed Type clopidogrel 75 mg tablet 75 mg PO DAILY 04/11/19 03/12/21 History metoprolol tartrate 100 mg tablet 100 mg PO BID tablet 04/11/19 03/12/21 History rosuvastatin 40 mg tablet 40 mg PO DAILY 04/11/19 03/12/21 History magnesium oxide 400 mg (241.3 mg 400 mg PO QID tablet 04/20/19 03/12/21 History magnesium) tablet Lactobacillus acidophilus 10 mg PO DAILY 10/18/20 03/12/21 History coenzyme Q10 100 mg capsule 200 mg PO DAILY cap 10/18/20 03/12/21 History fenofibrate 54 mg tablet 54 mg PO DAILY 10/18/20 03/12/21 History metformin 500 mg tablet,extended 1,000 mg PO DAILY 10/18/20 03/12/21 History release 24 hr icosapent ethyl [Vascepa] 2 g PO BID 01/21/21 03/12/21 History pantoprazole 40 mg PO DAILY 01/21/21 03/12/21 History calcium carbonate-vitamin D3 1 tablet PO DAILY #30 tablet 02/17/21 03/12/21 Rx Laboratory Tests 03/12/21 10:42 POC Capillary Glucose 120 mg/dl H mg/dl (65-105) Patient hx anesthesia problems: none Family hx anesthesia problems: none Results Review: All pre-operative results and documents have been reviewed as part of the pre-operative evaluation. [facility] Past Medical History Medical History Abnormal CT of the abdomen CAD (coronary artery disease) Cholecystitis Dyslipidemia Essential (primary) hypertension Gallbladder anomaly GERD (gastroesophageal reflux disease) History of basal cell carcinoma of skin History of urethral stricture RUQ pain Type 2 diabetes mellitus without complications Vitamin D deficiency Surgical History Surgical History History of coronary artery stent placement 1997 and 2002 History of medial meniscus repair of left knee 11/24/18 History of tonsillectomy Family History Family History Father Carcinoma of colon Social History Social History Smoking packs per day: 1 Smoking cigarettes per day: 20.0 Years smoked: 50 Smoking pack-years: 50.00 Smoking status: Former smoker Tobacco type: cigarettes Second hand tobacco smoke exposure: No Smoking end date: 02/28/17 Alcohol intake: never Substance use: never Substance use type: does not use Living arrangements: alone Spiritual care concerns: No Anes - Eval Final PreProcedure Day of Procedure 03/12/21 11:04 Patient weight: obese Heart: regular rate and rhythm Lungs: clear to auscultation Airway: Mallampati scale class III Neurological: alert and oriented Last oral intake: >/= 8 hours ASA classification: II Emergent: no Anesthetic plan: proceed Anesthesia type and monitor
--- NOTE | 2021-03-12 12:11 | WPDHPUPDATE1 ---
History and Physical Update Update Date/Time: 03/12/21 12:11 History and Physical has been reviewed, including an updated exam of the patient. There are NO changes in the patient's condition. Risks, benefits, and alternatives have been discussed and questions answered. Patient agrees to proceed with procedure.
[2021-03-12] MEDS: ceFAZolin 2 GM/D5W 50 ML 2 GM/50 ML BAG IVPB (12:17)
[2021-03-12] MEDS: LIDO 2%/EPINEPHRINE 1:100,000 20 ML VIAL 30 ML INFILTRATE (12:58)
[2021-03-12 14:52] LABS: Glucose Point of Care 157 mg/dl (65-105)
--- NOTE | 2021-03-12 15:02 | W.PM.PROC2 ---
Procedure Note - Detailed Date of Procedure 03/12/21 Pre-op Diagnosis Recent acute cholecystitis S/P cholecystostomy tube placement and drainage of gallbladder. Post-op Diagnosis same Procedure Performed Laparoscopic cholecystectomy with intraoperative cholangiogram Surgeon Imtiaz Jenkins MD Sheet Metal Layout Mechanic Ivy ORTIZ.OR Electrical Linesworker Anesthesia general Indications Please see the history and physical. Patient was in the hospital approximately a month ago with acute cholecystitis without signs of stones. He had a percutaneous drainage of the gallbladder because of his other medical to conditions and he had waited significant time prior to coming in. Therefore, cholecystostomy tube was placed by ultrasound guidance and we treated him with antibiotics. He now presents for removal of the gallbladder since his diabetes is under better control and he is otherwise in better medical condition. Findings Small contracted gallbladder with cholecystostomy tube within it. There were filmy adhesions of the omentum against the entire underside of the gallbladder. Cholangiogram showed a long cystic duct and good flow into the duodenum with a small area of possible stricture approximately 2-3 cm above the level of the sphincter of Oddi. Description of Procedure Procedure Details: Patient was seen preoperatively in the holding area and risks, benefits and alternatives confirmed. Patient was taken to the operating room and general anesthesia was induced. A time out was then preformed with the surgery team confirming patient and site of surgery. The abdomen was prepped and draped in the usual sterile fashion. Incision was made just below the umbilicus. Two stay sutures of O- Vicryl were used to elevate the mid-line fascia beneath the umbilicus and a small incision was made under direct vision. The peritoneum was entered. The 12 mm Phillips cannula was introduced under direct vision. First under low flow and then under high flow the abdomen was insufflated with carbon dioxide never exceeding a pressure of 14. Three 5 mm trocars were then introduced under direct vision. The following trocars were introduced under direct vision: a 5 mm in the epigastrium and two 5 mm trocars along the right costal margin. There were significant adhesions of the omentum to the underside of the gallbladder and these were taken down with blunt and sharp dissection. Bovie cautery was used for hemostasis. The gall bladder was grasped and the cystic duct and artery were dissected free and I carefully identified a window of safety with only two other structures in the area being the cystic duct and the cystic artery. I then used a 5 mm endo-clip medical anthropology director to place 2 clips on the patient's side 1 on the gallbladder side on the cystic artery and none the cystic duct. Because the patient already had a cholecystostomy tube in place we had preop prepped the proximal end of the cholecystostomy tube just out the patient outside the patient's skin into the field and the distal end was connected to new IV tubing and then to a triple stopcock that had saline and 18 cc of IV contrast within it. We put the patient flat brought in the C-arm and performed a cholangiogram by injecting through the cholecystostomy tube into the gallbladder and watching as this was done. 18 cc 1st of cholangiogram dye and then 18 cc of saline were push and we got a complete cholangiogram showing very long cystic duct and filling the common bile duct and a little bit went into the duodenum. There were no filling defects. I went over this with Dr. Gant from radiology and he felt there might be a short-segment stricture in the distal common bile duct that was narrowed down to almost 3 mm. If patient has postoperative pain or other problems we may need to consider ERCP to check this, however, the CT scan done when the patient came in one month ago showed no pancreatic lesions or problems. He went back and checked this at the time of this chol
[2021-03-12] MEDS: fentaNYL CITRATE INJ (*CRX) 100 MCG/2 ML VIAL 25 MCG IV PUSH ×6 (15:10→16:00)
[2021-03-12] MEDS: oxyCODONE HCL (*CRX) 5 MG TAB IR PO (16:27)
== END 2021-03-12 16:55 | disposition home or self-care (01) ==
PROVIDERS: PCP Family Medicine; Visit Provider Surgery
PROC: 0FT44ZZ Resection of Gallbladder, Percutaneous Endoscopic Approach (ICD-10-PCS; CPT 47562; principal; 2021-03-12 12:00)
DX: K80.12 Calculus of gallbladder with acute and chronic cholecystitis without obstruction (principal); K82.8 Other specified diseases of gallbladder; I25.10 Atherosclerotic heart disease of native coronary artery without angina pectoris; I10 Essential (primary) hypertension; E78.5 Hyperlipidemia, unspecified; K21.9 Gastro-esophageal reflux disease without esophagitis; E11.9 Type 2 diabetes mellitus without complications; E55.9 Vitamin D deficiency, unspecified; Z95.5 Presence of coronary angioplasty implant and graft; Z87.891 Personal history of nicotine dependence; E66.9 Obesity, unspecified; Z68.30 Body mass index [BMI] 30.0-30.9, adult; Z79.02 Long term (current) use of antithrombotics/antiplatelets; Z79.84 Long term (current) use of oral hypoglycemic drugs
CPT/HCPCS: 47563; 74300; 82948; 88304; A9270; J0690; J1885; J3010; J7120; Q9966

== ENCOUNTER 2021-03-19 10:06 | Observation (INO) | payer MEDICARE, OTHER, SELFPAY ==
--- NOTE | ~2021-03-19 | US_ITS ---
EXAMINATION: US venous doppler [facility] DATE: 03/19/2021 11:08 INDICATION: Lower limb pain. TECHNIQUE: Grayscale ultrasound images without and with compression and Doppler ultrasound images of the bilateral lower extremity veins were obtained. COMPARISON: None. FINDINGS: The visualized portions of right common femoral vein, profunda (deep) femoral vein, femoral vein, pop liteal vein, peroneal veins, posterior tibial veins, and greater saphenous vein outflow are patent. The visualized portions of left common femoral vein, profunda femoral vein, femoral vein, popliteal v ein, peroneal veins, posterior tibial veins, and greater saphenous vein outflow are patent. IMPRESSION: 1. No deep venous thrombosis. Reviewed, dictated and finalized at location A.
--- NOTE | ~2021-03-19 | XR_ITS ---
EXAMINATION: XR chest 2V DATE: 03/19/2021 11:18 INDICATION: Weakness. Nausea. Dizziness. TECHNIQUE: Frontal and lateral views of the chest were obtained. COMPARISON: Chest single view 01/24/2021, chest 2 views 01/20/2021 FINDINGS: The chest demonstrates clear lungs without pneumonia, pleural effusion, or pneumothorax. Th e heart size is normal. Surgical clips in the right upper quadrant are likely from cholecystectomy. T here is mild chronic anterior wedging of a midthoracic vertebral body. IMPRESSION: 1. No acute cardiopulmonary disease. Reviewed, dictated and finalized at location A.
--- NOTE | ~2021-03-19 | XR_ITS ---
XR abdomen/kub 1V 03/19/2021 11:18 Indication: Postop pain. Procedure: KUB Comparison: 01/22/2021 Findings: There are cholecystectomy clips. Bowel gas pattern is nonobstructive. There are left renal stones. No acute osseous abnormality. Visualized lung bases are unremarkable. Impression: 1: Left nephrolithiasis. Reviewed, dictated and finalized at location B. Impression: 1: Left nephrolithiasis.
--- NOTE | 2021-03-19 10:29 | ECG_ITS ---
Measurements Intervals [place] Rate: 57 P: 25 PA: 166 QRS: -5 QRSD: 106 T: -6 QT: 479 QTc: 468 Interpretive Statements SINUS BRADYCARDIA INCOMPLETE RIGHT BUNDLE BRANCH BLOCK CONSIDER INFERIOR INFARCT, AGE INDETERMINATE BORDERLINE T WAVE ABNORMALITY- ANTERIOR LEADS BASELINE ARTIFACT- II, III, AVF, V1, V3-V6 ABNORMAL ECG Electronically Signed On 03-19-2021 12:01:39 CDT by Anam Chamberlain D.O.
--- NOTE | 2021-03-19 10:31 | ED.GENADULT ---
HPI - General Adult General Chief complaint: Weakness Stated complaint: weakness Time Seen by Provider: 03/19/21 10:17 Source: patient, RN notes reviewed and old records reviewed Mode of arrival: ambulatory Limitations: no limitations History of Present Illness HPI narrative: This is a 70 year old male with history of DM, hypertension who presents for evaluation of possible electrolyte abnormalities. Patient went to see his primary care provider today because he has been having increased weakness, poor appetite, cramping and shakiness for 4 days. He also reports having nausea and emesis x 1 last night. He was seen by a BIOMETRICS CONSULTANT in PCP office today and she reported patient was pale and diaphoretic. Patient had cholecystectomy performed by Dr. Jenkins 1 week ago. Patient denies abdominal pain, fever, chills, chest pain or shortness of breath. He reports chronic diarrhea since December and he also reports 30 pound weight loss since December. He reports tingling in both hands and cramping in both feet. He has not eaten in the past 2 days. Related Data Home Medications Medication Instructions Recorded Confirmed clopidogrel 75 mg tablet 75 mg PO DAILY 04/11/19 03/19/21 metoprolol tartrate 100 mg tablet 100 mg PO BID tablet 04/11/19 03/19/21 rosuvastatin 40 mg tablet 40 mg PO DAILY 04/11/19 03/19/21 magnesium oxide 400 mg (241.3 mg 400 mg PO QID tablet 04/20/19 03/19/21 magnesium) tablet Lactobacillus acidophilus 10 mg PO DAILY 10/18/20 03/19/21 coenzyme Q10 100 mg capsule 200 mg PO DAILY cap 10/18/20 03/19/21 fenofibrate 54 mg tablet 54 mg PO DAILY 10/18/20 03/19/21 metformin 500 mg tablet,extended 1,000 mg PO DAILY 10/18/20 03/19/21 release 24 hr icosapent ethyl [Vascepa] 2 g PO BID 01/21/21 03/19/21 pantoprazole 40 mg PO DAILY 01/21/21 03/19/21 Allergies Allergy/AdvReac Type Severity Reaction Status Date / Time YANET Inhibitors Allergy Unknown ANGIOEDEMA Verified 03/19/21 16:20 atorvastatin Allergy Unknown Joint Pain Verified 03/19/21 16:20 hydrochlorothiazide Allergy Unknown LOW Verified 03/19/21 16:20 ELETROLYTES ramipril Allergy Unknown ANGIOEDEMA Verified 03/19/21 16:20 spironolactone Allergy Unknown LOW Verified 03/19/21 16:20 ELECTROLYTES Sulfa (Sulfonamide Allergy Unknown Unknown- Verified 03/19/21 16:20 Antibiotics) A CHILD valsartan AdvReac Intermediate Angioedema Verified 03/19/21 16:20 Review of Systems Review of Systems: All systems reviewed & are unremarkable except as noted in HPI and below PMFSH Past Medical History Medical History (Updated 03/19/21 @ 16:21 by Alize Ventura PA-C) Cholecystitis (12/2020) Chronic anemia Coronary artery disease Dyslipidemia Essential (primary) hypertension Gastroesophageal reflux disease History of basal cell carcinoma of skin History of urethral stricture Type 2 diabetes mellitus without complications Vitamin D deficiency Surgical History Surgical History (Updated 03/19/21 @ 15:54 by Alize Ventura PA-C) History of coronary artery stent placement 1997 and 2002 History of laparoscopic cholecystectomy (03/12/21) History of medial meniscus repair of left knee (11/24/18) History of tonsillectomy Family History Family History Father Carcinoma of colon Social History Social History (Updated 03/19/21 @ 15:57 by Alize Ventura PA-C) Social History: Surrogate decision-maker: Vamshi (son) or Grulla (brother) Rosalina. CODE STATUS: Full code Smoking packs per day: 1 Smoking cigarettes per day: 20.0 Years smoked: 50 Smoking pack-years: 50.00 Smoking status: Former smoker Tobacco type: cigarettes Second hand tobacco smoke exposure: No Smoking end date: 02/28/17 Alcohol intake: never Substance use: never Substance use type: does not use Additional living arrangements comments: Lives in [place]. Additional occupation/education comments
[2021-03-19 10:37] VITALS: BP 140/79; PULSE 80; RESP 16; TEMP 36.4; O2SAT 97
[2021-03-19 11:27] LABS: Basophils Absolute Auto 0.1 K/mm3 (0.0-0.1); Basophils Percent Auto 0.6 % (0.2-1.2); Eosinophils Absolute Auto 0.6 K/mm3 (0-0.3); Hematocrit 38.8 % (42.0-52.0); Hemoglobin 12.6 g/dL (14.0-18.0); Immature Granulocyte Absolute 0.03 K/mm3 (0.00-0.031); Immature Granulocyte Percent A 0.3 % (0-0.5); Lymphocytes Absolute Auto 1.63 K/mm3 (0.9-3.2); Lymphocytes Percent Auto 15.3 % (18.3-44.2); Mean Corpuscular HGB Conc 32.5 g/dl (32-36); Mean Corpuscular Hemoglobin 28.6 pg (26-34); Mean Corpuscular Volume 88.2 fl (80-100); Mean Platelet Volume 11.5 fl (7.4-10.4); Monocytes Absolute Auto 0.8 K/mm3 (0.1-0.6); Monocytes Percent Auto 7.4 % (2.6-8.5); Neutrophils Absolute Auto 7.5 K/mm3 (1.3-6.7); Neutrophils Percent Auto 70.4 % (45.5-73.1); Platelet Count Result 200 k/mm3 (150-375); Red Cell Distribution Width 13.3 % (11.5-14.5); White Blood Count 10.7 K/mm3 (4.5-10.0)
[2021-03-19] MEDS: SODIUM CHLORIDE 0.9% IV 1,000 ML 999 ML IV CONT (11:33)
[2021-03-19 11:44] LABS: Alanine Aminotransferase 29 U/L (4-50); Albumin Level 4.4 g/dL (3.5-5.1); Alkaline Phosphatase 70 U/L (38-126); Anion Gap 17 mmol/L (8-16); Aspartate Amino Transferase 40 U/L (17-59); Bilirubin,Total 0.8 mg/dL (0.2-1.3); Blood Urea Nitrogen 12 mg/dL (9-20); Calcium 6.5 mg/dL (8.4-10.2); Carbon Dioxide 22 mmol/L (22-30); Chloride 105 mmol/L (98-107); Creatine Kinase 349 U/L (55-170); Estimated CRCL calculation 58 ml/min; Estimated Glomerular Filt Rate > 60; Glucose 115 mg/dL (65-110); Potassium 3.6 mmol/L (3.4-5.0); Sodium 144 mmol/L (137-145)
[2021-03-19 11:49] LABS: Magnesium < 0.2 mg/dL (1.6-2.3)
[2021-03-19 12:02] LABS: Lipase 117 U/L (23-300)
--- NOTE | 2021-03-19 12:30 | PM.IMHP ---
H&P: HPI History of Present Illness Date/Time: 03/19/21 12:30 Chief Complaint: Generalized weakness. Narrative: This is a very pleasant 70-year-old male with coronary artery disease, hypertension, dyslipidemia, type 2 diabetes mellitus, and GERD with history of peptic ulcer presented to the emergency department earlier today via private vehicle from home for evaluation of weakness. The patient is 7 days post laparoscopic cholecystectomy per Dr. Jenkins and he seemed to be doing okay for the first couple of days however over the last 3 to 4 days he has been felt increasingly weak with nausea and emesis x1 last night, decreased appetite, and cramping with tremors and paresthesias in his hands and feet. He had similar symptoms when in the hospital in April 2017 at which time he had hypocalcemia with concomitant hypomagnesemia and indeed today he was found to have a calcium of 6.5 and a magnesium of less than 0.2. He was evaluated by Dr. Stubbs during the hospitalization although the patient does not recall if there was any significant findings in his work-up. The patient has been having about 5 episodes of loose stools a day since he began having gallbladder issues in December, and that is unchanged. He felt a bit dizzy earlier however he denies near syncope and syncope. He has not had focal weakness. No headache or confusion. No chest pain or shortness of breath. No family history of those having the same electrolyte abnormalities. Review of Systems Review of Systems: 12 systems were reviewed with pertinent positives and negatives as per HPI. As mentioned he has had diarrhea since December and has lost about 30 pounds in the same timeframe. Pain at his incision sites have been well controlled. Except as documented, all other systems were reviewed and are negative. [facility] Past Medical History Medical History (Updated 03/19/21 @ 16:21 by Alize Ventura PA-C) Cholecystitis (12/2020) Chronic anemia Coronary artery disease Dyslipidemia Essential (primary) hypertension Gastroesophageal reflux disease History of basal cell carcinoma of skin History of urethral stricture Type 2 diabetes mellitus without complications Vitamin D deficiency Surgical History Surgical History (Updated 03/19/21 @ 15:54 by Alize Ventura PA-C) History of coronary artery stent placement 1997 and 2002 History of laparoscopic cholecystectomy (03/12/21) History of medial meniscus repair of left knee (11/24/18) History of tonsillectomy Family History Family History Father Carcinoma of colon Social History Social History (Updated 03/19/21 @ 15:57 by Alize Ventura PA-C) Social History: Surrogate decision-maker: Vamshi (son) or Coy (brother) Rosalina. CODE STATUS: Full code Smoking packs per day: 1 Smoking cigarettes per day: 20.0 Years smoked: 50 Smoking pack-years: 50.00 Smoking status: Former smoker Tobacco type: cigarettes Second hand tobacco smoke exposure: No Smoking end date: 02/28/17 Alcohol intake: never Substance use: never Substance use type: does not use Additional living arrangements comments: Lives in [place]. Additional occupation/education comments: Retired. Meds Home Medications and Allergies Home Medications Medication Instructions Recorded Confirmed Type clopidogrel 75 mg tablet 75 mg PO DAILY 04/11/19 03/19/21 History metoprolol tartrate 100 mg tablet 100 mg PO BID tablet 04/11/19 03/19/21 History rosuvastatin 40 mg tablet 40 mg PO DAILY 04/11/19 03/19/21 History magnesium oxide 400 mg (241.3 mg 400 mg PO QID tablet 04/20/19 03/19/21 History magnesium) tablet Lactobacillus acidophilus 10 mg PO DAILY 10/18/20 03/19/21 History coenzyme Q10 100 mg capsule 200 mg PO DAILY cap 10/18/20 03/19/21 History fenofibrate 54 mg tablet 54 mg PO DAILY 10/18/20 03/19/21 History metformin 500 mg tablet,extended 1,000 mg PO JENNA
--- NOTE | 2021-03-19 12:55 | PC.NURSE ---
Waiting for magnesium bag from pharmacy
[2021-03-19] MEDS: CALCIUM GLUCONATE 1,000 MG/10 ML VIAL 1000 MG IV PUSH (12:57)
[2021-03-19] MEDS: LACTATED RINGERS 1,000 ML 125 ML IV CONT (13:05)
[2021-03-19] MEDS: MAGNESIUM SULF 4 GM/WATER100ML 4 GM/100 ML BAG IVPB (13:07)
--- NOTE | 2021-03-19 14:49 | PC.NURSE ---
pt sent to floor with IVF infusing.
[2021-03-19 15:50] VITALS: BMI 29.7
[2021-03-19 16:00] VITALS: PULSE 94
--- NOTE | 2021-03-19 16:00 | ADMGEN ---
This patient, Florencio Romano, was admitted to [facility] Surg Room 323-01. Patient/family oriented to hospital policies and general routines including ID bracelet, bed and alarms, visiting hours, pain management, procedures, bathroom and other care routines, personal items, smoking policy, room service/diet, and visiting hours. Information on how to activate the Rapid Response Team has been discussed. Patient/Family are encouraged to report perceived risks to care and to ask questions if they do not understand what they are told or what they should do.
[2021-03-19 17:26] LABS: Phosphorus 2.9 mg/dL (2.5-4.5)
--- NOTE | 2021-03-19 18:54 | PM.CNNEP ---
Assessment and Plan Assessment and plan (1) Hypomagnesemia: Code(s): E83.42 - Hypomagnesemia Status: Acute Assessment and Plan: The patient has hypomagnesemia. This is been going on for a few years but not for his whole life. I think this is an acquired form of Hypomagnesemia. Most likely this is from his Protonix. He says that when he hold this he gets GERD symptoms. At this point I am going to get a urine magnesium and a serum magnesium along with a urine calcium and the serum calcium. Hopefully the supplements he has already been given have not been enough to correct him completely so that I can determine what is going on. I suspect that this is hypo magnesemia is from his Protonix and that the hypocalcemia is secondary to this. However he could also have vitamin-D deficiency so we will check for this as well. Will also check another PTH level as well as a 1, 25 dihydroxy vitamin-D. (2) Hypocalcemia: Code(s): E83.51 - Hypocalcemia Status: Acute Assessment and Plan: Patient has low calcium. He could have vitamin-D deficiency again. Will check on this. Will also check for a PTH. (3) Vitamin D deficiency: Code(s): E55.9 - Vitamin D deficiency, unspecified Status: Acute Assessment and Plan: He is not on a vitamin-D supplement at home. Will check a level. (4) Essential (primary) hypertension: Code(s): I10 - Essential (primary) hypertension Status: Acute Assessment and Plan: Blood pressure is under good control (5) Type 2 diabetes mellitus without complications: Qualifiers: Diabetes mellitus exterminator helper insulin use: without exterminator helper use Qualified Code(s): E11.9 - Type 2 diabetes mellitus without complications Code(s): E11.9 - Type 2 diabetes mellitus without complications Status: Acute Assessment and Plan: on Accu-Cheks and sliding-scale insulin (6) History of urethral stricture: Code(s): Z87.448 - Personal history of other diseases of urinary system Status: Acute (7) GERD (gastroesophageal reflux disease): Qualifiers: Esophagitis presence: without esophagitis Qualified Code(s): K21.9 - Gastro-esophageal reflux disease without esophagitis Code(s): K21.9 - Gastro-esophageal reflux disease without esophagitis Status: Acute Assessment and Plan: will start famotidine to replace the pantoprazole. History of Present Illness Reason for Consult Consult date: 03/19/21 Chief Complaint Chief complaint: Hypomagnesmia, Hypcalcemia History of Present Illness Narrative: Florencio is a very pleasant 70-year-old gentleman who has multiple medical problems including chronic hypomagnesemia, hypophosphatemia, and hypocalcemia. He also has a history of gallstones status post extraction a few days ago, anemia, coronary disease, GERD, peptic ulcer disease many years ago, urethral stricture, diabetes, vitamin-D deficiency. the patient had a cholecystectomy done. He was told to hold all of his supplements for 3 days before he had the procedure. The procedure went uneventfully. He was discharged the same day and went home. The patient did fine for a couple of days but then he started having weakness, tremor, and just felt bad all over. He says that this morning he was unable to urinate. He was not sure if there was urine in his bladder but he thinks there was. He thinks his kidneys are not working right because he did not make urine the day after his operation either but at that point he felt like his bladder was empty. These symptoms worsened until he came into the emergency room today. Here he had some blood work drawn and showed that his magnesium and calcium were low so renal consultation was requested. He is getting supplements now. The patient takes pantoprazole. He has been on this for many years. At 1 point he did hold the pantoprazole and used famotidine ins
[2021-03-19 18:58] LABS: Glucose Point of Care 138 mg/dl (65-105)
[2021-03-19 20:00] VITALS: BP 141/83; PULSE 141; PULSE 77; PULSE 83; RESP 18; TEMP 37.2; O2SAT 97
[2021-03-19 20:05] LABS: Thyroid Stimulating Hormone Reflex 0.524 uIU/mL (0.465-4.68)
[2021-03-19 21:06] LABS: Albumin Level 3.1 g/dL (3.5-5.1); Anion Gap 14 mmol/L (8-16); Blood Urea Nitrogen 10 mg/dL (9-20); Calcium 6.6 mg/dL (8.4-10.2); Carbon Dioxide 17 mmol/L (22-30); Chloride 107 mmol/L (98-107); Estimated CRCL calculation 71 ml/min; Estimated Glomerular Filt Rate > 60; Glucose 80 mg/dL (65-110); Potassium 3.5 mmol/L (3.4-5.0); Sodium 138 mmol/L (137-145)
[2021-03-19 21:18] LABS: Parathyroid Intact 83.2 pg/mL (7.5-53.5)
[2021-03-19 21:23] LABS: Vitamin D 25 Hydroxy 39.1 ng/mL
[2021-03-19] MEDS: FAMOTIDINE 20 MG TABLET PO (21:27)
[2021-03-19 21:36] LABS: Glucose Point of Care 114 mg/dl (65-105)
[2021-03-19 21:37] VITALS: BP 141/83; PULSE 77; RESP 18; TEMP 37.2; O2SAT 97
[2021-03-20] VITALS: PULSE 65
[2021-03-20] MEDS: LACTATED RINGERS 1,000 ML 100 ML IV CONT (00:51)
[2021-03-20] MEDS: MAGNESIUM SULFATE 3GM/D5W100ML 3 GM/100 ML BAG IVPB (00:51)
[2021-03-20 04:00] VITALS: PULSE 56
[2021-03-20 05:21] VITALS: BP 130/71; PULSE 63; RESP 18; TEMP 36.5; O2SAT 96
[2021-03-20 06:51] LABS: Albumin Level 3.4 g/dL (3.5-5.1); Anion Gap 9 mmol/L (8-16); Blood Urea Nitrogen 11 mg/dL (9-20); Carbon Dioxide 26 mmol/L (22-30); Chloride 107 mmol/L (98-107); Estimated CRCL calculation 73 ml/min; Estimated Glomerular Filt Rate > 60; Glucose 110 mg/dL (65-110); Magnesium 1.8 mg/dL (1.6-2.3); Phosphorus 3.6 mg/dL (2.5-4.5); Potassium 3.5 mmol/L (3.4-5.0); Sodium 142 mmol/L (137-145)
[2021-03-20 07:16] LABS: Creatinine Urine 47.4 mg/dL; Total Protein Urine Random 11 mg/dL; Ur Ttl Prot Creatinine Ratio 0.23 mg/mg (0-0.20)
[2021-03-20 07:20] LABS: Add Urine Microscopic? NO; Appearance Urine Clear (Clear); Bilirubin Urine Negative (Negative); Blood Urine Negative (Negative); Color Urine Straw (Yellow); Glucose Urine UA Negative (Negative); Ketones Urine Negative (Negative); Leukocyte Esterase Ur Negative LEU/UL (Negative); Nitrate Urine Negative (Negative); Protein Urine Negative (Negative); Specific Grav Ur 1.011 (1.001-1.035); Urobilinogen Urine Negative mg/dL (<2.0)
[2021-03-20 07:21] LABS: Sodium Urine Random 120 meq/L
[2021-03-20 08:00] VITALS: PULSE 69
[2021-03-20 08:22] LABS: Glucose Point of Care 99 mg/dl (65-105)
[2021-03-20 09:06] VITALS: PULSE 80
[2021-03-20] MEDS: METOPROLOL TARTRATE 50 MG TAB 100 MG PO (09:06)
[2021-03-20] MEDS: MAGNESIUM OXIDE 400 MG TABLET PO ×2 (09:06→12:41)
[2021-03-20] MEDS: CLOPIDOGREL BISULFATE 75 MG TABLET PO (09:06)
[2021-03-20] MEDS: ROSUVASTATIN 10 MG TABLET 40 MG PO (09:08)
[2021-03-20] MEDS: OMEGA 3 POLYUNSAT FATTY ACIDS 1 GM CAP 2 GM PO (09:08)
[2021-03-20] MEDS: FENOFIBRATE,MICRONIZED 48 MG TABLET PO (09:09)
[2021-03-20] MEDS: FAMOTIDINE 20 MG TABLET PO (09:09)
[2021-03-20] MEDS: ACIDOPHILUS/BULGARICUS CHEWABLE TABLET 2 TABLET PO (09:09)
--- NOTE | 2021-03-20 10:45 | PM.PNNEP ---
Progress Note: A&P Assessment and Plan (1) Hypomagnesemia: Code(s): E83.42 - Hypomagnesemia Status: Acute Assessment and Plan: The patient has hypomagnesemia. urine magnesium is pending. TSH is normal magnesium is now normal. Other tests are pending. I still think this is probably due to the PPIs I suggest he use famotidine. Consider seeing GI as an outpatient if his symptoms recur. (2) Hypocalcemia: Code(s): E83.51 - Hypocalcemia Status: Acute Assessment and Plan: Patient has low calcium. Vitamin-D level is okay. Urine calcium is pending PTH is high and so the PTH is secondary to the high calcium calcium level is better. He was only taking calcium carbonate 1 pill per day at home. He takes vitamin-D 4000units per day. He will continue this. I asked him to change this to calcium citrate twice a day I ordered labs for tomorrow in case he is still here. I asked him to follow up in my office if he goes home today. (3) Vitamin D deficiency: Code(s): E55.9 - Vitamin D deficiency, unspecified Status: Acute Assessment and Plan: vitamin-D level is normal (4) Essential (primary) hypertension: Code(s): I10 - Essential (primary) hypertension Status: Acute Assessment and Plan: Blood pressure is under good control (5) Type 2 diabetes mellitus without complications: Qualifiers: Diabetes mellitus correction insulin use: without correction use Qualified Code(s): E11.9 - Type 2 diabetes mellitus without complications Code(s): E11.9 - Type 2 diabetes mellitus without complications Status: Acute Assessment and Plan: on Accu-Cheks and sliding-scale insulin (6) History of urethral stricture: Code(s): Z87.448 - Personal history of other diseases of urinary system Status: Acute (7) GERD (gastroesophageal reflux disease): Qualifiers: Esophagitis presence: without esophagitis Qualified Code(s): K21.9 - Gastro-esophageal reflux disease without esophagitis Code(s): K21.9 - Gastro-esophageal reflux disease without esophagitis Status: Acute Assessment and Plan: on famotidine to replace the pantoprazole. Subjective Date/time seen: 03/20/21 10:45 Interval history: Florencio is feeling better now. No more tingling or shaking. Eating okay. Review of Systems Cardiovascular: Cardiovascular: Reports no additional cardiovascular complaints Respiratory: Respiratory: Reports no additional respiratory complaints Gastrointestinal: Gastrointestinal: Reports no additional gastrointestinal complaints Genitourinary: Genitourinary: Reports no additional male genitourinary complaints Exam Narrative: WDWN in NAD skin no rash head ncat lungs clear cor reg no rub abd BS+ nontender and soft ext no edema. Chvostek's sign still negative Objective Data Vital Signs Vital Signs: Vital Signs - 24 hr 03/19/21 16:00 03/19/21 20:00 03/19/21 21:37 Temperature 37.2 C 37.2 C Pulse Rate 94 83 77 Respiratory Rate 18 18 Blood Pressure 141/83 H 141/83 H Pulse Oximetry 97 97 03/20/21 00:00 03/20/21 04:00 03/20/21 05:21 Temperature 36.5 C Pulse Rate 65 56 L 63 Respiratory Rate 18 Blood Pressure 130/71 Pulse Oximetry 96 03/20/21 08:00 03/20/21 09:06 Temperature Pulse Rate 69 80 Respiratory Rate Blood Pressure Pulse Oximetry Intake/Output Intake/Output: Intake & Output 03/17/21 03/18/21 03/19/21 03/20/21 23:59 23:59 23:59 23:59 Intake Total 2200 880 Balance 2200 880 Meds/Results Medications: Active Medications Generic Name Dose Route Start Last Admin Trade Name Freq PRN Reason Stop Dose Admin Hydrocodone Bitart/Acetaminophen 1 tab 03/19/21 23:45 Hydrocodone/Acetaminophen (*Crx) 5-325 Mg Tablet PO Q6H PRN Pain Rated 4-6 Calcium Carbonate 500 mg 03/01
[2021-03-20] MEDS: HYDROcodone/acetaminophen (*CRX) 5-325 MG TABLET 1 TAB PO (11:32)
[2021-03-20 12:00] VITALS: PULSE 64
[2021-03-20 12:09] LABS: Glucose Point of Care 174 mg/dl (65-105)
--- NOTE | 2021-03-20 14:21 | PM.DS ---
DS: Admitting Diagnosis Discharge Date 03/20/21 Admitting Diagnosis Generalized weakness Hypercalcemia For magnesemia Chronic anemia Hyperlipidemia Diabetes mellitus Hypertension DS: Discharge Diagnosis Discharge Diagnosis (1) Hypocalcemia: Code(s): E83.51 - Hypocalcemia Status: Acute (2) Hypomagnesemia: Code(s): E83.42 - Hypomagnesemia Status: Acute (3) Chronic anemia: Code(s): D64.9 - Anemia, unspecified Status: Acute (4) Elevated CK: Code(s): R74.8 - Abnormal levels of other serum enzymes Status: Acute (5) Dyslipidemia: Code(s): E78.5 - Hyperlipidemia, unspecified Status: Acute (6) Type 2 diabetes mellitus without complications: Qualifiers: Diabetes mellitus intermediate insulin use: without manager terminal use Qualified Code(s): E11.9 - Type 2 diabetes mellitus without complications Code(s): E11.9 - Type 2 diabetes mellitus without complications Status: Acute (7) Generalized weakness: Code(s): R53.1 - Weakness Status: Acute (8) Essential (primary) hypertension: Code(s): I10 - Essential (primary) hypertension Status: Acute Assessment and Plan: 03/19/21: The patient presents emergency department today for evaluation of generalized weakness for the last 4 days. Found to have hypocalcemia as well as hypomagnesemia. Interestingly he was hospitalized for the same several years ago and was seen by Dr. Stubbs at that time though the etiology was not entirely clear, possibly denies. His magnesium and calcium will be replaced and monitored closely. He will be monitored on telemetry overnight. CK is mildly elevated may be due to recent surgery and will be trended. I suspect his weakness is related to his electrolyte abnormalities; there are no focal findings on exam his. Hemoglobin and hematocrit are stable on review of previous labs. Random glucose today is 115 and now will be monitored. Initiate sliding scale insulin. His blood pressures were reviewed and they are stable. 03/20/21: Magnesium was repleted. Today magnesium is within acceptable range. Urine magnesium is pending. TSH is normal. Pantoprazole will be switched to famotidine. If he started to have GI symptoms then will see straight knife cutter machine as an outpatient. Calcium was repleted. Today calcium was within normal range. Urine calcium is pending. Vitamin-D level and PTH was elevated. He was taking calcium carbonate which will be switched to calcium citrate twice a day. He will continue to take vitamin-D every day. He is feeling much better today. He seems at his baseline. He is ambulatory in the hallway without any significant issues. He was complaining of some urinary hesitancy and dysuria. Urinalysis was checked which was negative for any evidence of urinary tract infection. He has been discharged in a stable condition with stable hemodynamics and his symptoms back to his baseline. DS: Summary Hospital Course Hospital Course: As above Time Spent with Patient Time attestation: Total time spent providing and/or coordinating discharge services: Exam Narrative: General: Well-developed male sitting up in bed no distress. HEENT: Wearing glasses. PERRL, EOMI. Sclerae anicteric. Tacky mucous membranes. Neck: Supple. Respiratory: Lungs are clear to auscultation bilaterally. Cardiovascular: Regular rate and rhythm with S1-S2. Gastrointestinal: Abdomen is soft, nontender, and nondistended with positive bowel sounds. Incision sites are well approximated and healing nicely. Healing, yellowish bruises surround the largest incision site. Extremities: No cyanosis, clubbing, or edema Neurological: Awake and alert Psychiatric: Pleasant and cooperative with normal mood and affect. DS: Data Data Completed and Pending Labs on day of discharge: Labs from last 24 hours 03/20/21 03/20/21 03/20/21 11:45 07:58 06:55 Sodium Potassium
[2021-03-23 12:50] LABS: Calcium/Creatinine Ratio, Ur 45 mg/g creat (10-240); Urine Creatinine, Random 44 mg/dL (20-320)
[2021-03-25 15:12] LABS: Vitamin D 1,25 (OH)2 Total 96 pg/mL (18-72); Vitamin D2 1,25 (OH)2 17 pg/mL; Vitamin D3 1,25 (OH)2 79 pg/mL
== END 2021-03-20 15:30 | disposition home or self-care (01) ==
LOC: ANHED 10:43 → ANH3MEDSUR 13:54
PROVIDERS: Internal Medicine Nephrology; Physician Assistant; Admitting Provider Hospitalist; Emergency Provider General Practice; PCP Family Medicine; Visit Provider Internal Medicine Critical Care Medicine
DX: E83.42 Hypomagnesemia (principal); E83.51 Hypocalcemia; R53.1 Weakness; K21.9 Gastro-esophageal reflux disease without esophagitis; R74.8 Abnormal levels of other serum enzymes; D64.9 Anemia, unspecified; E11.9 Type 2 diabetes mellitus without complications; E78.5 Hyperlipidemia, unspecified; I25.10 Atherosclerotic heart disease of native coronary artery without angina pectoris; I10 Essential (primary) hypertension; M79.89 Other specified soft tissue disorders; Z87.891 Personal history of nicotine dependence; Z79.899 Other long term (current) drug therapy
CPT/HCPCS: 36415; 71046; 74018; 80053; 80069; 81003; 82306; 82310; 82550; 82570; 82652; 82948; 83690; 83735; 83970; 84100; 84156; 84300; 84443; 85025; 93005; 93970; 96361; 96365; 96366; 96375; 99285; A9270; C1713; G0378; J0131; J0610; J3475; J7030; J7120

== ENCOUNTER 2021-08-07 09:53 | Outpatient (CLI) | payer MEDICARE, OTHER, SELFPAY ==
[2021-08-07 11:08] LABS: Add Urine Microscopic? NO; Appearance Urine Clear (Clear); Basophils Percent Auto 0.4 % (0.2-1.2); Bilirubin Urine Negative (Negative); Blood Urine Negative (Negative); Color Urine Yellow (Yellow); Eosinophils Absolute Auto 0.2 K/mm3 (0-0.3); Eosinophils Percent Auto 2.4 % (0-4.4); Glucose Urine UA Negative (Negative); Hematocrit 40.7 % (42.0-52.0); Hemoglobin 13.6 g/dL (14.0-18.0); Immature Granulocyte Absolute 0.06 K/mm3 (0.00-0.031); Immature Granulocyte Percent A 0.8 % (0-0.5); Ketones Urine Negative (Negative); Leukocyte Esterase Ur Negative LEU/UL (Negative); Lymphocytes Absolute Auto 2.01 K/mm3 (0.9-3.2); Lymphocytes Percent Auto 25.6 % (18.3-44.2); Mean Corpuscular HGB Conc 33.4 g/dl (32-36); Mean Corpuscular Hemoglobin 29.6 pg (26-34); Mean Corpuscular Volume 88.7 fl (80-100); Mean Platelet Volume 9.6 fl (7.4-10.4); Monocytes Absolute Auto 0.6 K/mm3 (0.1-0.6); Monocytes Percent Auto 7.5 % (2.6-8.5); Neutrophils Percent Auto 63.3 % (45.5-73.1); Nitrate Urine Negative (Negative); Platelet Count Result 164 k/mm3 (150-375); Protein Urine Negative (Negative); Red Blood Count 4.59 M/mm3 (4.6-6.20); Red Cell Distribution Width 12.9 % (11.5-14.5); Specific Grav Ur 1.018 (1.001-1.035); Urobilinogen Urine Negative mg/dL (<2.0); White Blood Count 7.9 K/mm3 (4.5-10.0)
[2021-08-07 11:14] LABS: Albumin Level 4.6 g/dL (3.5-5.1); Anion Gap 9 mmol/L (8-16); Blood Urea Nitrogen 26 mg/dL (9-20); Calcium 9.7 mg/dL (8.4-10.2); Carbon Dioxide 27 mmol/L (22-30); Chloride 105 mmol/L (98-107); Estimated Glomerular Filt Rate 60; Glucose 99 mg/dL (65-110); Potassium 4.3 mmol/L (3.4-5.0); Sodium 141 mmol/L (137-145)
[2021-08-07 11:17] LABS: Partial Thromboplastin Time 31.7 SECONDS (22.3-36.8); Urine Cotinine NEGATIVE
== END 2021-08-07 09:54 | disposition home or self-care (01) ==
LOC: ANHSURGERY 10:00
PROVIDERS: PCP Family Medicine; Visit Provider Orthopaedic Surgery
DX: Z01.818 Encounter for other preprocedural examination (principal); M17.12 Unilateral primary osteoarthritis, left knee
CPT/HCPCS: 80048; 80307; 81003; 82040; 85025; 85610; 85730; 86850; 86900; 86901; 87081

== ENCOUNTER 2021-08-20 19:13 | Observation (INO) | payer MEDICARE, OTHER, SELFPAY ==
--- NOTE | 2021-08-07 09:34 | PC.NURSE ---
Report to the Outpatient Waiting Room, entrance under the green pavilion located off [facility], at time _0830_ on date _08/19/21_. OR Time: _1030_. - You and your visitor will be asked a series of questions to screen for COVID 19 for your protection. - A mask is required within the hospital. One visitor will be allowed to accompany the patient into the hospital. Patients visitor will be instructed to remain with patient at all times or leave the building. VISITING HOURS 10AM-7PM, USE MAIN ENTRANCE Preoperative COVID Testing Requirements: NONE Patients may have clear liquids (water, carbonated beverages, clear teas, apple juice) until 3 hours prior to surgery (0730 AM) with a maximum of 20 ounces. - No food from midnight until time of surgery Take the following medications with a SIP of water the morning of surgery: _AMLODIPINE, CARVEDILOL_ Medications to discontinue per physician - PLAVIX - ASK REGARDING AT 08/15/[address] BLANCHARD Medications to discontinue per ANESTHESIA - ALL VITAMINS/SUPPLEMENTS - 3 DAYS PRIOR TO SURGERY, Date to take last dose_08/15/21 Please no deodorant, or body powder the day of surgery. No jewelry (including any body piercings) or valuables the day of surgery, leave them at home. Please take a shower or bath the night before, or the morning of, surgery with an antibacterial soap. Wear comfortable, loose fitting clothing. - Jewelry must be removed prior to entering the operating room. Rings and piercings that are not removed may be cut off. - The hospital will not accept responsibility for valuables. - Please leave all valuables, including medications, at home the day of surgery. If you are going home after surgery, a licensed front load trash truck driver must drive you home. - NO public transportation without another adult. - We recommend that an adult stay with you for 24 hours following discharge. - We also recommend that you do not drive, make important decision, drink alcoholic beverages, or take any drugs that were not prescribed by your health care provider for at least 24 hours after your discharge time. Follow any additional instructions given to you from DR. BLANCHARD. Instructions given to ___PT and asked if any additional questions and then verbalized understanding. Patient advised to call surgeon office or pre surgery nurse liaisonALONSO [phone] if any additional questions.
[2021-08-07 10:15] VITALS: BP 156/80; PULSE 72; RESP 20; TEMP 36.8; O2SAT 96; BMI 32.8
--- NOTE | 2021-08-18 15:50 | WPDANESEPPF ---
Anes - Initial Pre Proc Eval Procedure: Operation Date: 08/19/21 10:30 Proposed Procedures p Left Total Knee Arthroplasty - Issac Miles MD Date/Time: 08/18/21 15:50 Surgeon: Issac Miles MD Pre Op Diagnosis: Lt Knee DJD Patient Data Age: 70 Gender: M Height: 1.73 m Weight: 98 kg Last Vital Signs Temp 36.8 C 08/07/21 10:15 Pulse 72 08/07/21 10:15 Resp 20 08/07/21 10:15 BP 156/80 H 08/07/21 10:15 Pulse Ox 96 08/07/21 10:15 Allergies Allergy/AdvReac Type Severity Reaction Status Date / Time YANET Inhibitors Allergy Unknown ANGIOEDEMA Verified 08/15/21 10:38 atorvastatin Allergy Unknown Joint Pain Verified 08/15/21 10:38 hydrochlorothiazide Allergy Unknown LOW Verified 08/15/21 10:38 ELETROLYTES ramipril Allergy Unknown ANGIOEDEMA Verified 08/15/21 10:38 spironolactone Allergy Unknown LOW Verified 08/15/21 10:38 ELECTROLYTES Sulfa (Sulfonamide Allergy Unknown Unknown- Verified 08/15/21 10:38 Antibiotics) A CHILD valsartan AdvReac Intermediate Angioedema Verified 08/15/21 10:38 Home Medications Medication Instructions Recorded Confirmed Type clopidogrel 75 mg tablet 75 mg PO HS 04/11/19 08/07/21 History rosuvastatin 40 mg tablet 40 mg PO HS 04/11/19 08/07/21 History Lactobacillus acidophilus 10 mg PO QAM 10/18/20 08/07/21 History coenzyme Q10 100 mg capsule 200 mg PO BID cap 10/18/20 08/07/21 History amlodipine 10 mg tablet 10 mg PO QAM 06/04/21 08/07/21 History doxazosin 2 mg tablet 2 mg PO HS 07/01/21 08/07/21 History fenofibrate 54 mg tablet 134 mg PO QAM tablet 07/01/21 08/07/21 History metformin 500 mg tablet,extended 500 mg PO BID tablet 07/01/21 08/07/21 History release 24 hr carvedilol 25 mg PO BID 08/07/21 08/07/21 History cholecalciferol (vitamin D3) 25 mcg PO QID 08/07/21 08/07/21 History omeprazole 20 mg PO QAM 08/07/21 08/07/21 History calcium cit 250 mg-ergocalciferol 1 tablet PO DAILY tablet 08/15/21 History (vit D2) 2.5 mcg (100 unit) tablet calcium citrate 315 mg-vitamin D3 1 tablet PO BID tablet 08/15/21 History 5 mcg (200 unit) tablet glimepiride 2 mg tablet 2 mg PO QAM 08/15/21 History magnesium oxide 400 mg (241.3 mg 1,000 mg PO BID tablet 08/15/21 History magnesium) tablet Patient hx anesthesia problems: none Family hx anesthesia problems: none Results Review: All pre-operative results and documents have been reviewed as part of the pre-operative evaluation. [facility] Past Medical History Medical History Cholecystitis (12/2020) Chronic anemia Coronary artery disease Dyslipidemia Essential (primary) hypertension Gastroesophageal reflux disease History of basal cell carcinoma of skin History of urethral stricture Type 2 diabetes mellitus without complications Unintentional weight loss Vitamin D deficiency Surgical History Surgical History History of coronary artery stent placement 1997 and 2002 History of laparoscopic cholecystectomy (03/12/21) lap anamika w/ IOC poss open History of medial meniscus repair of left knee (11/24/18) History of tonsillectomy Family History Family History Father Carcinoma of colon Other Arthritis Heart disease Social History Social History (Updated 07/01/21 @ 09:32 by Renetta Lopes MA) Social History: Surrogate decision-maker: Vamshi (son) or [place]co (brother) Rosalina. CODE STATUS: Full code Smoking packs per day: 1.5 Smoking cigarettes per day: 30.0 Years smoked: 50 Smoking pack-years: 75.00 Smoking status: Former smoker Tobacco type: cigarettes Second hand tobacco smoke exposure: No Smoking end date: 04/06/17 Additional smoking assessment comments: PT DENIES ALL FORMS OF TOBACCO USE Alcohol intake: current Substance use: never Substance use type: does not use Living arrangements: al
--- NOTE | 2021-08-18 15:51 | WPDANESPNB ---
Anes - Peripheral Nerve Block Date/Time: 08/18/21 15:51 I have discussed with the patient/family/POA the placement of a peripheral nerve block for post-operative pain management, including associated risks, benefits, complications, and side effects. Alternative methods of post-operative analgesia were detailed. Questions were solicited and answers provided to the satisfaction of the patient/family/POA. Time-Out: A pre-procedural Time-Out was completed immediately before starting the procedure and confirmed: Patient Identification, Site, Procedure, Patient Position and the Availability of Requisite Equipment. Clinical Indications: Acute post-operative pain management requested by the operative surgeon. Nerve Block Insertion Note Anes-nerve block: adductor canal left Patient position: supine Skin prep: chlorhexidine Needle: 22 gauge, stimulating, insulated echogenic needle. Needle length: 80 mm Technique: ultrasound Injectate: bupivacaine 0.5% with epi 5 mcg/ml (30cc - no epi) Observations: tolerated well Complications: none Procedure start time:: 1005 Procedure end time:: 1009
[2021-08-19] VITALS (21 sets, daily range): BP systolic 107–168; BP diastolic 59–92; PULSE 55–70; RESP 14–20; TEMP 35.8–36.6; O2SAT 89–99
--- NOTE | 2021-08-19 07:27 | WPDHPUPDATE1 ---
History and Physical Update Update Date/Time: 08/19/21 07:27 History and Physical has been reviewed, including an updated exam of the patient. There are NO changes in the patient's condition. Risks, benefits, and alternatives have been discussed and questions answered. Patient agrees to proceed with procedure.
[2021-08-19] MEDS: ACETAMINOPHEN 500 MG TABLET 1000 MG PO (09:29)
[2021-08-19] MEDS: LACTATED RINGERS 1,000 ML 30 ML IV CONT ×2 (09:35→12:44)
[2021-08-19 09:43] LABS: Glucose Point of Care 136 mg/dl (65-105)
[2021-08-19] MEDS: TRANEXAMIC ACID 1,000MG/ISO100 1,000 MG/100 ML BAG 200 MG IVPB (10:05)
[2021-08-19] MEDS: ceFAZolin 2 GM/D5W 50 ML 2 GM/50 ML BAG IVPB ×2 (10:34→17:56)
[2021-08-19] MEDS: GENTAMICIN BONE CEMENT REFOBACIN 1 EACH TOPICAL (11:45)
[2021-08-19] MEDS: fentaNYL CITRATE INJ (*CRX) 100 MCG/2 ML VIAL 25 MCG IV PUSH ×6 (12:57→15:00)
[2021-08-19 12:59] LABS: Glucose Point of Care 118 mg/dl (65-105)
--- NOTE | 2021-08-19 13:05 | P.OP_ITS ---
Procedure Note - Detailed Date of Procedure 08/19/21 Pre-op Diagnosis Lt Knee DJD Post-op Diagnosis Same Procedure Performed L TKA Surgeon Issac Miles MD Anesthesia General Description of Procedure THE LEFT KNEE WAS PREPPED AND DRAPED IN THE STERILE FASHION. THERE WAS A 10 DEGREE FLEXION CONTRACTURE. A MIDLINE SKIN INCISION WAS MADE. A MEDIAL PARAPATELLAR ARTHROTOMY WAS MADE. THE PATELLA WAS EVERTED. THERE WAS TRICOMPARTMENT DJD. THERE WAS MINIMAL PATELLA DJD. AN INTRAMEDULLARY KIYA WAS PLACED IN THE FEMUR. A DISTAL FEMORAL CUT WAS MADE IN 5 DEGREES OF VALGUS REMOVING APPROXIMATELY 9 MM OF BONE FROM THE DISTAL FEMUR. THE FEMUR WAS SIZED TO 70. A 70 FEMORAL CUTTING BLOCK WAS PLACED IN 3 DEGREES OF EXTERNAL ROTATION AND IN ALIGNMENT WITH SHAHBAZ'S LINE AND THE TRANSEPICONDYLAR AXIS. ANTERIOR POSTERIOR AND CHAMFER CUTS WERE MADE. THE CUTS WERE EXCELLENT. NEXT AN INTRAMEDULLARY CUTTING GUIDE WAS PLACED IN THE TIBIA. A TRANS TIBIAL CUT WAS MADE ALONG THE LONG AXIS OF THE TIBIA. APPROXIMATELY 10 MM OF BONE WAS REMOVED FROM THE HIGH SIDE OF THE TIBIA. THE TIBIA WAS THEN PLANED TO A SMOOTH SURFACE. POSTERIOR FEMORAL OSTEOPHYTES WERE REMOVED FROM THE FEMORAL CONDYLES. A 79 TIBIAL TRIAL WAS PLACED IN ALIGNMENT WITH THE 1/3 MEDIAL ASPECT OF THE TIBIAL TUBERCLE. THEN A 70 FEMORAL TRIAL COMPONENT WAS PLACED. BOTH HAD EXCELLENT FITS. EVENTUALLY A 12 MM CR POLYETHYLENE TRIAL COMPONENT WAS PLACED. THE KNEE WAS TAKEN THROUGH A RANGE OF MOTION. THE KNEE CAME OUT TO FULL EXTENSION. THERE WAS NO ABNORMAL TILT TO THE PATELLA. THERE WAS GOOD A/P AND VARUS/VALGUS STABILITY. THERE WAS NO EXCESSIVE ROLL BACK WITH FLEXION. THE TRIAL COMPONENTS WERE REMOVED. THEN A 70 FEMORAL COMPONENT AND 79 TIBIAL COMPONENT WITH A 12 CR POLYETHYLENE COMPONENT WERE CEMENTED INTO PLACE. ONCE THE CEMENT WAS HARD THE KNEE WAS TAKEN THROUGH A ROM AGAIN AND FOUND TO BE STABLE WITH NO PATELLA TILT N O EXCESSIVE ROLL BACK WITH FLEXION AND GOOD STABILITY WITH COMPLETE AND FULL EXTENSION. THE KNEE WAS IRRIGATED WITH STERILE BETADINE AND WATER FOR ABOUT 3 MINUTES. THE BLEEDERS WERE CAUTERIZED. THE ARTHROTOMY WAS REPAIRED WITH NUMBER 1 VICRYL. THE SUB CUTANEOUS LAYER WITH 2-0 VICRYL AND THE SKIN WITH PEDRO. THE WOUND WAS WASHED AND A STERILE DRESSING WAS APPLIED. PATIENT WAS EXTUBATED. Estimated Blood Loss -150.0 Pathology None sent Complications No immediate complications Condition Stable Disposition PACU
--- NOTE | 2021-08-19 14:32 | SUR.PHASEI ---
1400 PT MEETS ANESTHESIA CRITERIA TO DISCHARGE FROM PACU, WAITING ON A ROOM TO BECOME AVAILABLE.
--- NOTE | 2021-08-19 15:20 | ADMGEN ---
This patient, Florencio Romano, was admitted to 2 Medical Room 260-. Patient/family oriented to hospital policies and general routines including ID bracelet, bed and alarms, visiting hours, pain management, procedures, bathroom and other care routines, personal items, smoking policy, room service/diet, and visiting hours. Information on how to activate the Rapid Response Team has been discussed. Patient/Family are encouraged to report perceived risks to care and to ask questions if they do not understand what they are told or what they should do.
--- NOTE | 2021-08-19 16:00 | WPDCN ---
Assessment and Plan Assessment and plan (1) Arthritis of left knee: Code(s): M17.12 - Unilateral primary osteoarthritis, left knee Status: Acute Assessment and Plan: Postoperative day 0 status post left total knee arthroplasty. Wound care, pain control, and DVT prophylaxis deferred to Dr. Miles. (2) Essential (primary) hypertension: Code(s): I10 - Essential (primary) hypertension Status: Acute Assessment and Plan: Blood pressures were reviewed and they have been stable postoperatively. Continue antihypertensives and monitor. (3) Type 2 diabetes mellitus without complications: Qualifiers: Diabetes mellitus chcf insulin use: without chcf use Qualified Code(s): E11.9 - Type 2 diabetes mellitus without complications Code(s): E11.9 - Type 2 diabetes mellitus without complications Status: Acute Assessment and Plan: Resume glimepiride in a.m.. Initiate sliding scale insulin, Accu-Cheks, and hypoglycemic protocol. (4) Coronary artery disease: Code(s): I25.10 - Atherosclerotic heart disease of [place] coronary artery without angina pectoris Status: Acute Assessment and Plan: No acute issues. Continue beta-roberth and statin. Resume clopidogrel when okay with surgeon. (5) Dyslipidemia: Code(s): E78.5 - Hyperlipidemia, unspecified Status: Acute Assessment and Plan: Continue statin and fenofibrate. Check LFTs in a.m. (6) Chronic anemia: Code(s): D64.9 - Anemia, unspecified Status: Acute Assessment and Plan: Check CBC in a.m. Additional Plan Thank you for allowing us to participate in this patient's care. Please do not hesitate to contact us with any questions. Supervising physician for this history and physical is Dr. Vamsi Larry. HPI Data of Consult Date/Time: 08/19/21 16:00 Requesting Physician: Issac Miles MD Primary Care Provider: Jean Pierre Landry MD Reason for consult: Post-operative medical management. Consult Narrative Narrative: This is a very pleasant 70-year-old male with coronary artery disease, hypertension, dyslipidemia, type 2 diabetes mellitus, GERD, and arthritis whom the hospitalist service has been consulted for management of his medical conditions postoperatively. He has had longstanding, daily pain in his left knee not amenable to conservative outpatient treatment and thus he elected for replacement today. His surgery was performed under general anesthesia with no immediate complications documented an estimated blood loss of 150 mL. Postoperatively he has mild soreness in his left knee but nothing significant. He has not yet gotten out of bed. He denies paresthesias, skin color, and temperature changes distal to the surgical site. He also denies postoperative fever, chills, chest pain, shortness a breath, nausea, and vomiting. The patient lives in his own home but his brother, son, and other family members will be coming over frequently to help him postoperatively. Review of Systems Review of Systems: Twelve systems were reviewed. No fever, chills, or sweats. No recent cold or flu symptoms. He denies chest pain shortness of breath. Diabetes is well controlled. No blurry vision, polydipsia, or polyuria. No history of venous thromboembolism. He is on daily calcium and magnesium supplementations and when he was previously hospitalized and these medications were held, he was readmitted for 5 days for replacement and he has worried that we will hold his supplements again. Except as documented, all other systems were reviewed and are negative. [facility] Past Medical History Medical History (Updated 08/19/21 @ 21:54 by Alize Ventura PA-C) Cholecystitis (12/2020) Chronic anemia Coronary artery disease Dyslipidemia Essential (primary) hypertension [place]
[2021-08-19 16:40] LABS: Glucose Point of Care 107 mg/dl (65-105)
[2021-08-19] MEDS: CHOLECALCIFEROL 1,000 UNITS TABLET 1000 UNITS PO (16:56)
[2021-08-19] MEDS: MAGNESIUM 27 MG TABLET (500 MG MAG GLUCONATE) 54 MG PO (16:56)
[2021-08-19] MEDS: metFORMIN HCL XR 500 MG TAB.SR.24H PO (16:57)
[2021-08-19] MEDS: SENNA/DOCUSATE SODIUM TABLET 2 TAB PO (16:57)
[2021-08-19] MEDS: oxyCODONE/ACETAMINOPHEN (*CRX) 5-325 MG TABLET 1 TABLET PO ×2 (17:03→21:50)
[2021-08-19] MEDS: CLOPIDOGREL BISULFATE 75 MG TABLET PO (21:11)
[2021-08-19] MEDS: DOXAZOSIN MESYLATE 2 MG TABLET PO (21:11)
[2021-08-19] MEDS: ROSUVASTATIN 10 MG TABLET 40 MG PO (21:11)
[2021-08-19] MEDS: carvediloL 25 MG TABLET PO (21:12)
[2021-08-19 21:19] LABS: Glucose Point of Care 124 mg/dl (65-105)
[2021-08-20] VITALS (9 sets, daily range): BP systolic 109–138; BP diastolic 56–65; PULSE 70–91; RESP 16–17; TEMP 36.4–37; O2SAT 91–97
--- NOTE | ~2021-08-20 | XR_ITS ---
EXAMINATION: XR knee LT 2V DATE: 08/19/2021 13:02 CDT INDICATION: Left total knee arthroplasty TECHNIQUE: 2 views left knee FINDINGS: There is a left total knee arthroplasty in expected position. Subcutaneous gas with fluid and air in the joint and overlying skin douglas are consistent with recent surgery. No evidence of pe riprosthetic fracture. IMPRESSION: 1. Recent left total knee arthroplasty. Reviewed, dictated and finalized at location A.
[2021-08-20] MEDS: ceFAZolin 2 GM/D5W 50 ML 2 GM/50 ML BAG IVPB ×2 (02:13→09:10)
[2021-08-20] MEDS: oxyCODONE/ACETAMINOPHEN (*CRX) 5-325 MG TABLET 1 TABLET PO ×2 (05:08→20:46)
[2021-08-20 06:06] LABS: Basophils Percent Auto 0.5 % (0.2-1.2); Eosinophils Absolute Auto 0.2 K/mm3 (0-0.3); Eosinophils Percent Auto 2.4 % (0-4.4); Hematocrit 33.4 % (42.0-52.0); Hemoglobin 11.1 g/dL (14.0-18.0); Immature Granulocyte Absolute 0.03 K/mm3 (0.00-0.031); Immature Granulocyte Percent A 0.3 % (0-0.5); Lymphocytes Absolute Auto 1.34 K/mm3 (0.9-3.2); Lymphocytes Percent Auto 15.6 % (18.3-44.2); Mean Corpuscular HGB Conc 33.2 g/dl (32-36); Mean Corpuscular Hemoglobin 30.7 pg (26-34); Mean Corpuscular Volume 92.5 fl (80-100); Mean Platelet Volume 10.7 fl (7.4-10.4); Monocytes Absolute Auto 0.9 K/mm3 (0.1-0.6); Monocytes Percent Auto 10.5 % (2.6-8.5); Neutrophils Absolute Auto 6.1 K/mm3 (1.3-6.7); Neutrophils Percent Auto 70.7 % (45.5-73.1); Platelet Count Result 122 k/mm3 (150-375); Red Blood Count 3.61 M/mm3 (4.6-6.20); Red Cell Distribution Width 13.2 % (11.5-14.5); White Blood Count 8.6 K/mm3 (4.5-10.0)
[2021-08-20 06:15] LABS: Alanine Aminotransferase 19 U/L (4-50); Albumin Level 3.5 g/dL (3.5-5.1); Alkaline Phosphatase 53 U/L (38-126); Anion Gap 5 mmol/L (8-16); Aspartate Amino Transferase 27 U/L (17-59); Bilirubin,Total 0.4 mg/dL (0.2-1.3); Blood Urea Nitrogen 21 mg/dL (9-20); Calcium 8.2 mg/dL (8.4-10.2); Carbon Dioxide 26 mmol/L (22-30); Chloride 104 mmol/L (98-107); Estimated CRCL calculation 58 ml/min; Estimated Glomerular Filt Rate 60; Glucose 114 mg/dL (65-110); Magnesium 1.4 mg/dL (1.6-2.3); Potassium 3.9 mmol/L (3.4-5.0); Sodium 135 mmol/L (137-145)
[2021-08-20 07:45] LABS: Glucose Point of Care 115 mg/dl (65-105)
--- NOTE | 2021-08-20 07:55 | WPDANESPN ---
Anes - Prog Note Post-Op Date/Time: 08/20/21 07:55 Cardiovascular status: normal Respiratory status: normal Airway patency: baseline Mental status: baseline Post-Op hydration status: normal Vital Signs: Last Vital Signs Temp 98.6 F 08/20/21 04:16 Pulse 70 08/20/21 04:16 Resp 17 08/20/21 04:16 BP 122/65 08/20/21 04:16 Pulse Ox 92 08/20/21 04:16 Pain Score (VAS): 06/09 I/O: Intake & Output 08/19/21 08/19/21 08/20/21 15:59 23:59 07:59 Intake Total 600 50 350 Output Total 400 550 Balance 600 -350 -200 Laboratory Tests 08/20/21 05:47 08/20/21 05:47 08/19/21 08/19/21 08/19/21 09:36 12:56 16:37 WBC RBC Hgb Hct MCV MCH MCHC RDW Plt Count MPV Immature Gran % (Auto) Neut % (Auto) Lymph % (Auto) [place] % (Auto) Eos % (Auto) Baso % (Auto) Lymph # (Auto) [place] # (Auto) Eos # (Auto) Baso # (Auto) Abs Immat Gran (auto) Absolute Neuts (auto) Absolute Nucleated RBC Nucleated RBC % % Immature Plt Fraction Sodium Potassium Chloride Carbon Dioxide Anion Gap BUN Creatinine Estim Creat Clear Calc Estimated GFR Glucose POC Capillary Glucose 136 H 118 H 107 H Calcium Magnesium Total Bilirubin Direct Bilirubin AST ALT Alkaline Phosphatase Total Protein Albumin 08/19/21 08/20/21 08/20/21 21:16 05:47 05:47 WBC 8.6 RBC 3.61 L Hgb 11.1 L Hct 33.4 L MCV 92.5 MCH 30.7 MCHC 33.2 RDW 13.2 Plt Count 122 L MPV 10.7 H Immature Gran % (Auto) 0.3 Neut % (Auto) 70.7 Lymph % (Auto) 15.6 L [place] % (Auto) 10.5 H Eos % (Auto) 2.4 Baso % (Auto) 0.5 Lymph # (Auto) 1.34 [place] # (Auto) 0.9 H Eos # (Auto) 0.2 Baso # (Auto) 0.0 Abs Immat Gran (auto) 0.03 Absolute Neuts (auto) 6.1 Absolute Nucleated RBC 0.0 Nucleated RBC % 0.0 % Immature Plt Fraction 4.0 Sodium 135 L Potassium 3.9 Chloride 104 Carbon Dioxide 26 Anion Gap 5 L BUN 21 H Creatinine 1.20 Estim Creat Clear Calc 58 Estimated GFR 60 Glucose 114 H POC Capillary Glucose 124 H Calcium 8.2 L Magnesium 1.4 L Total Bilirubin 0.4 Direct Bilirubin 0.0 AST 27 ALT 19 Alkaline Phosphatase 53 Total Protein 6.0 L Albumin 3.5 08/20/21 07:40 WBC RBC Hgb Hct MCV MCH MCHC RDW Plt Count MPV Immature Gran % (Auto) Neut % (Auto) Lymph % (Auto) [place] % (Auto) Eos % (Auto) Baso % (Auto) Lymph # (Auto) [place] # (Auto) Eos # (Auto) Baso # (Auto) Abs Immat Gran (auto) Absolute Neuts (auto) Absolute Nucleated RBC Nucleated RBC % % Immature Plt Fraction Sodium Potassium Chloride Carbon Dioxide Anion Gap BUN Creatinine Estim Creat Clear Calc Estimated GFR Glucose POC Capillary Glucose 115 H Calcium Magnesium Total Bilirubin Direct Bilirubin AST ALT Alkaline Phosphatase Total Protein Albumin Post-procedural complaints: none Patient Feedback: Patient satisfied with anesthetic care.
[2021-08-20] MEDS: polyethylene glycoL 3350 17 GM POWD.PACK PO (08:43)
[2021-08-20] MEDS: MAGNESIUM 27 MG TABLET (500 MG MAG GLUCONATE) 54 MG PO ×2 (08:44→16:29)
[2021-08-20] MEDS: PANTOPRAZOLE 40 MG TABLET PO (08:44)
[2021-08-20] MEDS: metFORMIN HCL XR 500 MG TAB.SR.24H PO ×2 (08:44→16:29)
[2021-08-20] MEDS: CHOLECALCIFEROL 1,000 UNITS TABLET 1000 UNITS PO ×3 (08:44→16:30)
[2021-08-20] MEDS: carvediloL 25 MG TABLET PO ×2 (08:44→20:47)
[2021-08-20] MEDS: FENOFIBRATE NANOCRYSTALLIZED 145 MG TABLET PO (08:44)
[2021-08-20] MEDS: SENNA/DOCUSATE SODIUM TABLET 2 TAB PO ×2 (08:45→16:30)
[2021-08-20] MEDS: amLODIPine BESYLATE 5 MG TABLET 10 MG PO (08:45)
[2021-08-20] MEDS: ASPIRIN 325 MG ENTERIC TABLET 650 MG PO (08:46)
[2021-08-20] MEDS: oxyCODONE HCL (*CRX) 2.5 MG TAB IR 7.5 MG PO ×2 (09:09→13:14)
--- NOTE | 2021-08-20 09:45 | PM.IMPN ---
Progress Note: A&P Assessment and Plan (1) Arthritis of left knee: Code(s): M17.12 - Unilateral primary osteoarthritis, left knee Status: Acute Assessment and Plan: Postoperative day 1 status post left total knee arthroplasty. Wound care, pain control, and DVT prophylaxis deferred to Dr. Miles. (2) Essential (primary) hypertension: Code(s): I10 - Essential (primary) hypertension Status: Acute Assessment and Plan: Current BP is 130/62 Blood pressures were reviewed and they have been stable postoperatively. Continue antihypertensives and monitor. Continue to trend (3) Type 2 diabetes mellitus without complications: Qualifiers: Diabetes mellitus care home insulin use: without care home use Qualified Code(s): E11.9 - Type 2 diabetes mellitus without complications Code(s): E11.9 - Type 2 diabetes mellitus without complications Status: Acute Assessment and Plan: Glucose is 114 remains stable glimepiride in a.m.. Initiate sliding scale insulin, Accu-Cheks, and hypoglycemic protocol. (4) Coronary artery disease: Code(s): I25.10 - Atherosclerotic heart disease of [place] coronary artery without angina pectoris Status: Acute Assessment and Plan: No acute issues. Continue beta-roberth and statin. Resume clopidogrel when okay with surgeon. (5) Dyslipidemia: Code(s): E78.5 - Hyperlipidemia, unspecified Status: Acute Assessment and Plan: Continue statin and fenofibrate. LFTs (6) Chronic anemia: Code(s): D64.9 - Anemia, unspecified Status: Acute Assessment and Plan: H/H stable 11.1/33.4 No SOB or extreme weakness noted Continue to trend Time Spent With Patient Time with patient: Greater than 35 minutes Subjective Date/time seen: 08/20/21 0945 Interval history: Date/Time: 08/19/21 16:00 Narrative: This is a very pleasant 70-year-old male with coronary artery disease, hypertension, dyslipidemia, type 2 diabetes mellitus, GERD, and arthritis whom the hospitalist service has been consulted for management of his medical conditions postoperatively. He has had longstanding, daily pain in his left knee not amenable to conservative outpatient treatment and thus he elected for replacement today. His surgery was performed under general anesthesia with no immediate complications documented an estimated blood loss of 150 mL. Postoperatively he has mild soreness in his left knee but nothing significant. He has not yet gotten out of bed. He denies paresthesias, skin color, and temperature changes distal to the surgical site. He also denies postoperative fever, chills, chest pain, shortness a breath, nausea, and vomiting. The patient lives in his own home but his brother, son, and other family members will be coming over frequently to help him postoperatively. Date/Time 08/20/21 0928 Patient was lying in bed. Patient was worried that I was somebody from physical therapy. Patient stated that he feels okay he just has pain with movement and he is very tired. He denies any chest pain, shortness of breath, nausea, vomiting, diarrhea, constipation. Patient did state that with movement his pain does go to 10. Otherwise he is doing well and he is hoping to go home today. Review of Systems Review of Systems: All systems reviewed & are unremarkable except as noted in HPI and below Exam Const: General: cooperative, healthy appearing, no acute distress, well developed, alert and awake Nutritional Appearance: well nourished Orientation/consciousness: patient oriented x3 Limitations: no limitations HENMT: Head: normal to inspection Ears: hearing grossly normal bilaterally General nose exam: Normal external nose present Mouth: Yes Normal oral and palatal mucosa present, Yes lip normal and Yes tongue normal Teeth and gingiva: abnormal tooth and associated gingiva and poor dentition Eyes: Gene
[2021-08-20] MEDS: MAGNESIUM SULF 4 GM/WATER100ML 4 GM/100 ML BAG IVPB (11:41)
[2021-08-20 12:05] LABS: Glucose Point of Care 153 mg/dl (65-105)
[2021-08-20] MEDS: ONDANSETRON INJ 4 MG/2 ML VIAL IV PUSH (16:29)
[2021-08-20 16:52] LABS: Glucose Point of Care 130 mg/dl (65-105)
--- NOTE | 2021-08-20 17:08 | PM.PNORT ---
Progress Note: A&P Additional Plan POD 1 DOING WELL BUT WITH SOME SLOW PROGRESS WITH PT. RECOMMEND CONTINUE PT AND DC TOMORROW ONCE STABLE WITH PT. Subjective Subjective Date/Time Seen: 08/20/21 17:08POD 1 SLOW PROGRESS WITH PT. NO CALF PAIN Exam Extrem: Other: VSS AFEBRILE DRESSING DRY NV INTACT NEG HOMANS SIGN Objective Data Vital Signs Vital Signs: Vital Signs - 24 hr 08/19/21 20:00 08/19/21 20:28 08/19/21 21:12 Temperature 36.6 C Pulse Rate 65 66 Respiratory Rate 17 Blood Pressure 124/62 Pulse Oximetry 97 95 08/19/21 23:35 08/20/21 01:16 08/20/21 04:16 Temperature 36.6 C 37.0 C Pulse Rate 70 70 Respiratory Rate 18 17 Blood Pressure 116/66 122/65 Pulse Oximetry 92 93 92 08/20/21 08:44 08/20/21 08:53 08/20/21 12:53 Temperature 36.9 C 36.7 C Pulse Rate 76 77 74 Respiratory Rate 16 16 Blood Pressure 130/62 128/58 L Pulse Oximetry 95 96 Intake/Output Intake/Output: Intake & Output 08/17/21 08/18/21 08/19/21 08/20/21 23:59 23:59 23:59 23:59 Intake Total 650 1440 Output Total 400 550 Balance 250 890 Meds/Results Medications: Active Medications Generic Name Dose Route Start Last Admin Trade Name Freq PRN Reason Stop Dose Admin Acetaminophen 1,000 mg 08/19/21 15:08 Acetaminophen 500 Mg Tablet PO Q6H PRN Pain Rated 1-3 Amlodipine Besylate 10 mg 08/20/21 09:00 08/20/21 08:45 Amlodipine Besylate 5 Mg Tablet PO 10 mg QAM KE Administration Aspirin 650 mg 08/20/21 09:00 08/20/21 08:46 Aspirin 325 Mg Enteric Tablet PO 650 mg DAILY KE Administration Calcium Citrate 1 tablet 08/20/21 09:00 08/20/21 08:45 Calcium Citrate 315 Mg/Vitamin D 250 Units Tab PO 09/19/21 08:59 1 tablet DAILY KE Administration Carvedilol 25 mg 08/19/21 21:00 08/20/21 08:44 Carvedilol 25 Mg Tablet PO 25 mg Q12HR KE Administration Clopidogrel Bisulfate 75 mg 08/19/21 21:00 08/19/21 21:11 Clopidogrel Bisulfate 75 Mg Tablet PO 75 mg HS KE Administration Dextrose 12.5 gm 08/19/21 21:56 Dextrose 50% 25 Gm/50 Ml Syringe IV PUSH PRN PRN Hypoglycemia Protocol Diazepam 5 mg 08/19/21 15:08 Diazepam (*Crx) 5 Mg Tablet PO Q8H PRN Spasms Diphenhydramine HCl 25 mg 08/19/21 15:08 Diphenhydramine Hcl Inj 50 Mg/Ml Vial IV PUSH Q6H PRN Itching Doxazosin Mesylate 2 mg 08/19/21 21:00 08/19/21 21:11 Doxazosin Mesylate 2 Mg Tablet PO 2 mg HS KE Administration Fenofibrate 145 mg 08/20/21 09:00 08/20/21 08:44 Fenofibrate Nanocrystallized 145 Mg Tablet PO 09/19/21 08:59 145 mg QAM KE Administration Glimepiride 1 - 2 mg 08/20/21 08:00 Glimepiride 1 Mg Tablet PO DAILY PRN BLOOD SUGAR Glucagon 1 mg 08/19/21 21:56 Glucagon For Inj 1 Mg Vial IM PRN PRN Hypoglycemia Protocol Glucose 15 gm 08/19/21 21:56 Glucose Oral Gel 15 Gm Of Glucse In 37.5 Gm Tube PO PRN PRN Hypoglycemia Protocol Dextrose 1,000 mls @ 100 mls/hr 08/19/21 21:56 Dextrose 5% 1,000 Ml IVPB PRN PRN Hypoglycemia Protocol Insulin Aspart 2 - 5 units 08/20/21 08:00 08/20/21 11:41 Insulin Aspart (*Bkc) 100 Units/Ml SUB-Q Not Given TIDWM KE Protocol Magnesium Gluconate 54 mg 08/19/21 17:00 08/20/21 16:29 Magnesium 27 Mg Tablet (500 Mg Mag Gluconate) PO 54 mg BID KE Administration Metformin HCl 500 mg 08/19/21 17:00 08/20/21 16:29 Metformin Hcl Xr 500 Mg Tab.Sr.24h PO 500 mg BID KE Administration Naloxone HCl 0.1 mg 08/19/21 15:08 Naloxone Hcl 0.4 Mg/Ml Vial IV PUSH Q2M PRN Opiate Reversal Ondansetron HCl 4 mg 08/19/21 15:08 08/20/21 16:29 Ondansetron Inj 4 Mg/2 Ml Vial IV PUSH 4 mg Q4H PRN Administration Nausea And Vomiting Oxycodone HCl 7.5 mg 08/19/21 15:08 08/20/21 13:14 Oxycodone Hcl (*Crx) 2.5 Mg Tab Ir PO 7.5 mg Q4H PRN Administr
[2021-08-20] MEDS: ROSUVASTATIN 10 MG TABLET 40 MG PO (20:46)
[2021-08-20] MEDS: DOXAZOSIN MESYLATE 2 MG TABLET PO (20:47)
[2021-08-20] MEDS: CLOPIDOGREL BISULFATE 75 MG TABLET PO (20:52)
[2021-08-20 20:59] LABS: Glucose Point of Care 130 mg/dl (65-105)
[2021-08-21 04:04] VITALS: BP 123/57; PULSE 58; RESP 18; TEMP 36; O2SAT 90
[2021-08-21 07:53] LABS: Glucose Point of Care 116 mg/dl (65-105)
[2021-08-21] MEDS: oxyCODONE HCL (*CRX) 2.5 MG TAB IR 7.5 MG PO ×3 (07:57→17:16)
[2021-08-21] MEDS: amLODIPine BESYLATE 5 MG TABLET 10 MG PO (08:42)
[2021-08-21] MEDS: ASPIRIN 325 MG ENTERIC TABLET 650 MG PO (08:42)
[2021-08-21 08:43] VITALS: PULSE 74
[2021-08-21] MEDS: carvediloL 25 MG TABLET PO (08:43)
[2021-08-21] MEDS: CHOLECALCIFEROL 1,000 UNITS TABLET 1000 UNITS PO ×2 (08:43→12:11)
[2021-08-21] MEDS: SENNA/DOCUSATE SODIUM TABLET 2 TAB PO (08:43)
[2021-08-21] MEDS: PANTOPRAZOLE 40 MG TABLET PO (08:44)
[2021-08-21] MEDS: metFORMIN HCL XR 500 MG TAB.SR.24H PO (08:44)
[2021-08-21] MEDS: FENOFIBRATE NANOCRYSTALLIZED 145 MG TABLET PO (08:44)
[2021-08-21] MEDS: MAGNESIUM 27 MG TABLET (500 MG MAG GLUCONATE) 54 MG PO (08:44)
[2021-08-21] MEDS: polyethylene glycoL 3350 17 GM POWD.PACK PO (08:45)
--- NOTE | 2021-08-21 09:00 | PM.IMPN ---
Progress Note: A&P Assessment and Plan (1) Arthritis of left knee: Code(s): M17.12 - Unilateral primary osteoarthritis, left knee Status: Acute Assessment and Plan: Postoperative day 2 status post left total knee arthroplasty. Wound care, pain control, and DVT prophylaxis deferred to Dr. Miles. (2) Essential (primary) hypertension: Code(s): I10 - Essential (primary) hypertension Status: Acute Assessment and Plan: Current BP is 123/57 Blood pressures were reviewed and they have been stable postoperatively. Continue antihypertensives and monitor. Continue to trend (3) Type 2 diabetes mellitus without complications: Qualifiers: Diabetes mellitus mcfp insulin use: without mcfp use Qualified Code(s): E11.9 - Type 2 diabetes mellitus without complications Code(s): E11.9 - Type 2 diabetes mellitus without complications Status: Acute Assessment and Plan: Glucose is 135 remains stable glimepiride in a.m.. Initiate sliding scale insulin, Accu-Cheks, and hypoglycemic protocol. (4) Coronary artery disease: Code(s): I25.10 - Atherosclerotic heart disease of [place] coronary artery without angina pectoris Status: Acute Assessment and Plan: No acute issues. Continue beta-roberth and statin. Resume clopidogrel when okay with surgeon. (5) Dyslipidemia: Code(s): E78.5 - Hyperlipidemia, unspecified Status: Acute Assessment and Plan: Continue statin and fenofibrate. LFTs (6) Chronic anemia: Code(s): D64.9 - Anemia, unspecified Status: Acute Assessment and Plan: H/H stable 11.3/34.4 No SOB or extreme weakness noted Continue to trend Time Spent With Patient Time with patient: Greater than 35 minutes Subjective Date/time seen: 08/21/21 09:00 Interval history: Date/Time: 08/19/21 16:00 Narrative: This is a very pleasant 70-year-old male with coronary artery disease, hypertension, dyslipidemia, type 2 diabetes mellitus, GERD, and arthritis whom the hospitalist service has been consulted for management of his medical conditions postoperatively. He has had longstanding, daily pain in his left knee not amenable to conservative outpatient treatment and thus he elected for replacement today. His surgery was performed under general anesthesia with no immediate complications documented an estimated blood loss of 150 mL. Postoperatively he has mild soreness in his left knee but nothing significant. He has not yet gotten out of bed. He denies paresthesias, skin color, and temperature changes distal to the surgical site. He also denies postoperative fever, chills, chest pain, shortness a breath, nausea, and vomiting. The patient lives in his own home but his brother, son, and other family members will be coming over frequently to help him postoperatively. Date/Time 08/20/21 0945 Patient was lying in bed. Patient was worried that I was somebody from physical therapy. Patient stated that he feels okay he just has pain with movement and he is very tired. He denies any chest pain, shortness of breath, nausea, vomiting, diarrhea, constipation. Patient did state that with movement his pain does go to 10. Otherwise he is doing well and he is hoping to go home today. Date/Time 08/21/21 0900 Patient seems to be doing the same today. Patient did state that he is still sore however he is working with physical therapy. Patient did state with activity as pain does go up to a 9/10 which is better than yesterday. Currently his pain score is at a 6 just with rest he says does gets better and gets all the way down 0 with address. He denies any chest pain, shortness of breath, nausea, vomiting, diarrhea, constipation, weakness or fatigue. Review of Systems Review of Systems: All systems reviewed & are unremarkable except as noted in HPI and below Exam Const: General: cooperative, healthy
[2021-08-21 09:41] LABS: Hematocrit 34.4 % (42.0-52.0); Hemoglobin 11.3 g/dL (14.0-18.0); Mean Corpuscular HGB Conc 32.8 g/dl (32-36); Mean Corpuscular Hemoglobin 29.6 pg (26-34); Mean Corpuscular Volume 90.1 fl (80-100); Mean Platelet Volume 10.5 fl (7.4-10.4); Platelet Count Result 128 k/mm3 (150-375); Red Blood Count 3.82 M/mm3 (4.6-6.20); Red Cell Distribution Width 13.2 % (11.5-14.5); White Blood Count 9.4 K/mm3 (4.5-10.0)
[2021-08-21 09:47] LABS: Anion Gap 9 mmol/L (8-16); Blood Urea Nitrogen 23 mg/dL (9-20); Calcium 8.4 mg/dL (8.4-10.2); Carbon Dioxide 23 mmol/L (22-30); Chloride 100 mmol/L (98-107); Estimated CRCL calculation 50 ml/min; Estimated Glomerular Filt Rate 50; Glucose 135 mg/dL (65-110); Magnesium 2.1 mg/dL (1.6-2.3); Potassium 4.3 mmol/L (3.4-5.0); Sodium 132 mmol/L (137-145)
[2021-08-21 10:00] VITALS: BP 122/55; PULSE 73; RESP 20; TEMP 36.6; O2SAT 93
[2021-08-21] MEDS: ACETAMINOPHEN 500 MG TABLET 1000 MG PO (10:34)
[2021-08-21 11:21] LABS: Glucose Point of Care 152 mg/dl (65-105)
[2021-08-21 14:00] VITALS: BP 122/54; PULSE 73; RESP 18; TEMP 36; O2SAT 92
[2021-08-21 16:21] LABS: Glucose Point of Care 130 mg/dl (65-105)
--- NOTE | 2021-08-21 16:48 | PM.PNORT ---
Progress Note: A&P Additional Plan POD 2 DOING WELL. OK TO DC HOME F/U IN 3 WEEKS. Subjective Subjective Date/Time Seen: 08/21/21 16:48POD 2 IMPROVING AND DOING WELL. NO CALF PAIN Exam Extrem: Other: VSS AFEBRILE DRESSING DRY NV INTACT NEG HOMANS SIGN, CALF SOFT Objective Data Vital Signs Vital Signs: Vital Signs - 24 hr 08/20/21 16:53 08/20/21 20:36 08/20/21 20:47 Temperature 36.4 C 36.6 C Pulse Rate 76 91 90 Respiratory Rate 16 16 Blood Pressure 130/56 L 109/61 Pulse Oximetry 97 91 08/20/21 23:44 08/21/21 04:04 08/21/21 08:43 Temperature 36.4 C 36.0 C L Pulse Rate 74 58 L 74 Respiratory Rate 17 18 Blood Pressure 138/59 L 123/57 L Pulse Oximetry 91 90 08/21/21 10:00 08/21/21 14:00 Temperature 36.6 C 36.0 C L Pulse Rate 73 73 Respiratory Rate 20 18 Blood Pressure 122/55 L 122/54 L Pulse Oximetry 93 92 Intake/Output Intake/Output: Intake & Output 08/18/21 08/19/21 08/20/21 08/21/21 23:59 23:59 23:59 23:59 Intake Total 650 1640 720 Output Total 655 753 2759 Balance 250 1090 -580 Meds/Results Medications: Active Medications Generic Name Dose Route Start Last Admin Trade Name Freq PRN Reason Stop Dose Admin Acetaminophen 1,000 mg 08/19/21 15:08 08/21/21 10:34 Acetaminophen 500 Mg Tablet PO 1,000 mg Q6H PRN Administration Pain Rated 1-3 Amlodipine Besylate 10 mg 08/20/21 09:00 08/21/21 08:42 Amlodipine Besylate 5 Mg Tablet PO 10 mg QAM KE Administration Aspirin 650 mg 08/20/21 09:00 08/21/21 08:42 Aspirin 325 Mg Enteric Tablet PO 650 mg DAILY KE Administration Calcium Citrate 1 tablet 08/20/21 09:00 08/21/21 08:43 Calcium Citrate 315 Mg/Vitamin D 250 Units Tab PO 09/19/21 08:59 1 tablet DAILY KE Administration Carvedilol 25 mg 08/19/21 21:00 08/21/21 08:43 Carvedilol 25 Mg Tablet PO 25 mg Q12HR KE Administration Clopidogrel Bisulfate 75 mg 08/19/21 21:00 08/20/21 20:52 Clopidogrel Bisulfate 75 Mg Tablet PO 75 mg HS KE Administration Dextrose 12.5 gm 08/19/21 21:56 Dextrose 50% 25 Gm/50 Ml Syringe IV PUSH PRN PRN Hypoglycemia Protocol Diazepam 5 mg 08/19/21 15:08 Diazepam (*Crx) 5 Mg Tablet PO Q8H PRN Spasms Diphenhydramine HCl 25 mg 08/19/21 15:08 Diphenhydramine Hcl Inj 50 Mg/Ml Vial IV PUSH Q6H PRN Itching Doxazosin Mesylate 2 mg 08/19/21 21:00 08/20/21 20:47 Doxazosin Mesylate 2 Mg Tablet PO 2 mg HS KE Administration Fenofibrate 145 mg 08/20/21 09:00 08/21/21 08:44 Fenofibrate Nanocrystallized 145 Mg Tablet PO 09/19/21 08:59 145 mg QAM KE Administration Glimepiride 1 - 2 mg 08/20/21 08:00 Glimepiride 1 Mg Tablet PO DAILY PRN BLOOD SUGAR Glucagon 1 mg 08/19/21 21:56 Glucagon For Inj 1 Mg Vial IM PRN PRN Hypoglycemia Protocol Glucose 15 gm 08/19/21 21:56 Glucose Oral Gel 15 Gm Of Glucse In 37.5 Gm Tube PO PRN PRN Hypoglycemia Protocol Dextrose 1,000 mls @ 100 mls/hr 08/19/21 21:56 Dextrose 5% 1,000 Ml IVPB PRN PRN Hypoglycemia Protocol Insulin Aspart 2 - 5 units 08/20/21 08:00 08/21/21 16:39 Insulin Aspart (*Bkc) 100 Units/Ml SUB-Q Not Given TIDWM KE Protocol Magnesium Gluconate 54 mg 08/19/21 17:00 08/21/21 08:44 Magnesium 27 Mg Tablet (500 Mg Mag Gluconate) PO 54 mg BID KE Administration Metformin HCl 500 mg 08/19/21 17:00 08/21/21 08:44 Metformin Hcl Xr 500 Mg Tab.Sr.24h PO 500 mg BID KE Administration Naloxone HCl 0.1 mg 08/19/21 15:08 Naloxone Hcl 0.4 Mg/Ml Vial IV PUSH Q2M PRN Opiate Reversal Ondansetron HCl 4 mg 08/19/21 15:08 08/20/21 16:29 Ondansetron Inj 4 Mg/2 Ml Vial IV PUSH 4 mg Q4H PRN Administration Nausea And Vomiting Oxycodone HCl 7.5 mg 08/19/21 15:08 08/21/21 12:12 Oxycodone Hcl (*Crx) 2.5 Mg Tab Ir PO 7.5 mg Q4H PRN Adm
--- NOTE | 2021-08-21 16:49 | PM.DS ---
DS: Admitting Diagnosis Discharge Date 08/21/21 Admitting Diagnosis LEFT KNEE DJD DS: Discharge Diagnosis Discharge Diagnosis (1) Arthritis of left knee: Code(s): M17.12 - Unilateral primary osteoarthritis, left knee Status: Acute (2) Left knee DJD: Qualifiers: Osteoarthritis type: primary Qualified Code(s): M17.12 - Unilateral primary osteoarthritis, left knee Code(s): M17.12 - Unilateral primary osteoarthritis, left knee Status: Acute DS: Summary Hospital Course Reason for hospitalization: LEFT TKA Hospital Course: PATIENT WAS ADMITTED S/P TOTAL L TKA ARTHROPLASTY FOR POSTOPERATIVE MEDICAL MANAGEMENT, PAIN CONTROL AND MOBILIZATION WITH PHYSICAL AND OCCUPATIONAL THERAPY. THE PATIENT PROGRESSED WELL WITH PT/OT. LABS AND VITALS REMAINED STABLE AND PAIN WELL CONTROLLED. THE PATIENT HAS BEEN CLEARED TO BE DISCHARGED HOME. FOLLOW UP APPOINTMENT SCHEDULED. DISCHARGE INSTRUCTIONS DISCUSSED AT LENGTH WITH THE PATIENT. MEDICATIONS REVIEWED. Time spent discussing smoking cessation with patient: 3 to 10 minutes Status at Discharge Functional status at discharge: uses cane/walker Time Spent with Patient Time attestation: Total time spent providing and/or coordinating discharge services: Time spent: Less than 30 minutes DS: Data Data Completed and Pending Labs on day of discharge: Labs from last 24 hours 08/21/21 08/21/21 08/21/21 16:05 11:17 09:27 WBC 9.4 RBC 3.82 L Hgb 11.3 L Hct 34.4 L MCV 90.1 MCH 29.6 MCHC 32.8 RDW 13.2 Plt Count 128 L MPV 10.5 H Sodium Potassium Chloride Carbon Dioxide Anion Gap BUN Creatinine Estim Creat Clear Calc Estimated GFR Glucose POC Capillary Glucose 130 H 152 H Calcium Magnesium 08/21/21 08/21/21 08/20/21 09:27 07:35 20:45 WBC RBC Hgb Hct MCV MCH MCHC RDW Plt Count MPV Sodium 132 L Potassium 4.3 Chloride 100 Carbon Dioxide 23 Anion Gap 9 BUN 23 H Creatinine 1.40 H Estim Creat Clear Calc 50 Estimated GFR 50 L Glucose 135 H POC Capillary Glucose 116 H 130 H Calcium 8.4 Magnesium 2.1 08/20/21 16:36 WBC RBC Hgb Hct MCV MCH MCHC RDW Plt Count MPV Sodium Potassium Chloride Carbon Dioxide Anion Gap BUN Creatinine Estim Creat Clear Calc Estimated GFR Glucose POC Capillary Glucose 130 H Calcium Magnesium Discharge Plan Discharge Consulting providers: Vamsi Larry M.A. Discharging Clinician: Issac Miles Anticipated Discharge Date/Time: 08/21/21 16:52 Patient Disposition: Home Health Service Activity: may shower and follow weight bearing status Diet: as tolerated Wound Care Instructions: keep dressing dry Discharge Instructions: Post Op Total Knee Replacement Instructions Dr. Issac Miles [phone] ? Your dressing will be changed prior to your discharge. You will be sent home with one additional dressing to be changed on post op day 7 by the home health RN. Your doulgas will be removed on the 14th day after surgery and steri-strips will be placed. Please practice good hand hygiene and do not touch your incision in order to prevent infection. ? You may shower with your dressing but do not submerge in a bath tub. ? Do not drive or operate machinery until you are released by Dr. Miles. ? Do not walk without a walker for any reason until you are released by Dr. Miles. ? Continue to use your ice machine. Please use a towel or pillow case to protect your skin before applying your ice machine. ? Do NOT place a pillow under your knee. You may use a pillow from the calf down if needed. This will prevent a flexion contracture postoperatively. ? You may begin use of your CPM machine at home if you have been given one pre-operatively. DO NOT USE WHILE YOU ARE SLEEPING. ? Your first post op appointment was sent to you vi
== END 2021-08-21 18:37 | disposition home health service (06) ==
LOC: ANHSURGERY 19:42 → ANH2MED 19:42
PROVIDERS: Nurse Practitioner; Physician Assistant; Admitting Provider Orthopaedic Surgery; PCP Family Medicine; Visit Provider Orthopaedic Surgery
PROC: (CPT 27447; principal; 2021-08-19 10:30)
DX: M17.12 Unilateral primary osteoarthritis, left knee (principal); I25.10 Atherosclerotic heart disease of native coronary artery without angina pectoris; I10 Essential (primary) hypertension; D64.9 Anemia, unspecified; E78.5 Hyperlipidemia, unspecified; E11.9 Type 2 diabetes mellitus without complications; E55.9 Vitamin D deficiency, unspecified; K21.9 Gastro-esophageal reflux disease without esophagitis; M25.562 Pain in left knee; Z95.5 Presence of coronary angioplasty implant and graft; Z87.891 Personal history of nicotine dependence
CPT/HCPCS: 27447; 64448; 36415; 73560; 80048; 80076; 82948; 83735; 85025; 85027; 85055; 97110; 97116; 97161; 97165; 97530; 97535; A9270; C1713; C1776; G0378; J0171; J0690; J1170; J1885; J2250; J2270; J2405; J2704; J2795; J3010; J3475; J7120

== ENCOUNTER 2021-11-29 09:30 | Outpatient (CLI) | payer MEDICARE, OTHER, SELFPAY ==
--- NOTE | ~2021-11-29 | CT_ITS ---
EXAMINATION: CT lung screening DATE: 11/29/2021 09:53 INDICATION: Personal history of nicotine dependence, prior smoker with 40 pack year history TECHNIQUE: Computed tomography (CT) of the chest was performed without intravenous contrast. The dose -length product (DLP) was 136.92 mGy-cm. Automated exposure control and iterative reconstruction tech en-Gauge were employed. COMPARISON: 10/23/2020 FINDINGS: There is moderate emphysema. Again seen are stable nodules in the right lung apex measuring up to 4 mm as well as a stable 6 mm groundglass nodule. No new pulmonary nodules are identified. Fis sural lymph nodes are noted along the right major fissure. No pleural effusion or pneumothorax. The l ungs are free of acute opacities. No pathologically enlarged thoracic lymph nodes are identified. The heart size is normal. Calcified coronary artery atherosclerosis is noted. The gallbladder is surgica lly absent. There is moderate thoracic spondylosis. IMPRESSION: 1. Lung-RADS category 2: Benign appearance or behavior. Continue annual screening with noncontrast lo w-dose chest CT in 12 months. Reviewed, dictated and finalized at location B. IMPRESSION: 1. Lung-RADS category 2: Benign appearance or behavior. Continue annual screeni ng with noncontrast low-dose chest CT in 12 months.
== END 2021-11-29 09:31 | disposition home or self-care (01) ==
PROVIDERS: PCP Family Medicine; Visit Provider Family Medicine
DX: Z12.2 Encounter for screening for malignant neoplasm of respiratory organs (principal); Z87.891 Personal history of nicotine dependence
CPT/HCPCS: 71271

== ENCOUNTER 2022-12-24 10:41 | Outpatient (CLI) | payer MEDICARE, OTHER, SELFPAY ==
[2022-12-24 13:02] LABS: Basophils Absolute Auto 0.1 K/mm3 (0.0-0.1); Basophils Percent Auto 0.6 % (0.2-1.2); Eosinophils Absolute Auto 0.5 K/mm3 (0-0.3); Eosinophils Percent Auto 5.3 % (0-4.4); Hematocrit 41.8 % (42.0-52.0); Hemoglobin 13.1 g/dL (14.0-18.0); Immature Granulocyte Absolute 0.03 K/mm3 (0.00-0.031); Immature Granulocyte Percent A 0.4 % (0-0.5); Lymphocytes Absolute Auto 1.71 K/mm3 (0.9-3.2); Lymphocytes Percent Auto 20.1 % (18.3-44.2); Mean Corpuscular HGB Conc 31.3 g/dl (32-36); Mean Corpuscular Hemoglobin 27.5 pg (26-34); Mean Corpuscular Volume 87.8 fl (80-100); Mean Platelet Volume 11.9 fl (7.4-10.4); Monocytes Absolute Auto 0.9 K/mm3 (0.1-0.6); Monocytes Percent Auto 10.8 % (2.6-8.5); Neutrophils Absolute Auto 5.3 K/mm3 (1.3-6.7); Neutrophils Percent Auto 62.8 % (45.5-73.1); Platelet Count Result 147 k/mm3 (150-375); Red Blood Count 4.76 M/mm3 (4.6-6.20); Red Cell Distribution Width 13.5 % (11.5-14.5); White Blood Count 8.5 K/mm3 (4.5-10.0)
[2022-12-24 13:42] LABS: Prostate Specific Antigen 0.9 ng/mL (< OR = 4.0)
== END 2022-12-24 10:42 | disposition home or self-care (01) ==
LOC: ANHGOSHLAB 10:43
PROVIDERS: PCP Family Medicine; Visit Provider Family Medicine
DX: I25.10 Atherosclerotic heart disease of native coronary artery without angina pectoris (principal); Z12.5 Encounter for screening for malignant neoplasm of prostate; E11.9 Type 2 diabetes mellitus without complications; E53.8 Deficiency of other specified B group vitamins; E55.9 Vitamin D deficiency, unspecified
CPT/HCPCS: 36415; 82306; 82607; 84153; 85025; G0103

== ENCOUNTER 2023-03-02 14:59 | Outpatient (CLI) | payer MEDICARE, OTHER, SELFPAY ==
--- NOTE | ~2023-03-02 | CT_ITS ---
CT Scan of the Chest without Contrast: Clinical Indication: Lung cancer screening, personal history of nicotine dependence Technique: Contiguous sections were acquired throughout the chest without intravenous contrast. Dose reduction technique was used on this scan by utilizing automated exposure control and iterative recon struction technique. The dose-length product (DLP) was 265.00 mGy-cm. COMPARISON: 11/29/2021, 10/23/2020 Findings: There is no evidence of any significant mediastinal, hilar or axillary lymphadenopathy. Coronary ximena ry calcifications are present. There is no evidence of pleural or pericardial effusion. The lungs are clear. No pulmonary nodules or infiltrates are noted. Moderate emphysema noted. Images through the upper abdomen reveal small lipoma at the uncinate process of the pancreas. Impression: Lung RADS 1: Negative. 12 month follow-up screening CT advised. Moderate emphysema. Reviewed, dictated and finalized at [facility]. Impression: Lung RADS 1: Negative. 12 month follow-up screening CT advised. Moderate emphysema.
== END 2023-03-02 15:00 | disposition home or self-care (01) ==
PROVIDERS: PCP Family Medicine; Visit Provider Family Medicine
DX: Z12.2 Encounter for screening for malignant neoplasm of respiratory organs (principal); J43.9 Emphysema, unspecified; Z87.891 Personal history of nicotine dependence
CPT/HCPCS: 71271

== ENCOUNTER 2023-03-24 10:18 | Outpatient (CLI) | payer MEDICARE, OTHER, SELFPAY ==
[2023-03-24 13:48] LABS: Alanine Aminotransferase 20 U/L (6-50); Albumin Level 4.6 g/dL (3.5-5.1); Alkaline Phosphatase 74 U/L (38-126); Anion Gap 6 mmol/L (8-16); Aspartate Amino Transferase 39 U/L (17-59); Bilirubin,Total 0.6 mg/dL (0.2-1.3); Blood Urea Nitrogen 28 mg/dL (9-20); Carbon Dioxide 29 mmol/L (22-30); Chloride 104 mmol/L (98-107); Estimated Glomerular Filt Rate 50; Glucose 119 mg/dL (65-110); Potassium 4.7 mmol/L (3.4-5.0); Sodium 139 mmol/L (137-145)
[2023-03-24 14:25] LABS: Hemoglobin A1C 5.8 % (<5.7)
== END 2023-03-24 10:19 | disposition home or self-care (01) ==
LOC: ANHGOSHLAB 10:19
PROVIDERS: PCP Family Medicine; Visit Provider Family Medicine
DX: E11.9 Type 2 diabetes mellitus without complications (principal); I10 Essential (primary) hypertension
CPT/HCPCS: 36415; 80053; 83036

== ENCOUNTER 2023-06-03 08:56 | Outpatient (CLI) | payer MEDICARE, OTHER, SELFPAY ==
--- NOTE | 2023-06-03 09:04 | ECG_ITS ---
Measurements Intervals [place] Rate: 63 P: 37 [place]: 227 QRS: 6 QRSD: 142 T: -11 QT: 408 QTc: 419 Interpretive Statements SINUS RHYTHM WITH FIRST DEGREE AV BLOCK RIGHT BUNDLE BRANCH BLOCK CONSIDER INFERIOR INFARCT, AGE INDETERMINATE BASELINE ARTIFACT- I, II, III, AVR, AVL, AVF, V4-V6 ABNORMAL ECG COMPARED TO ECG 03/19/2021 11:49:09 SINUS RHYTHM NOW PRESENT FIRST DEGREE AV BLOCK NOW PRESENT RIGHT BUNDLE-BRANCH BLOCK NOW PRESENT Electronically Signed On 06-03-2023 9:23:04 LOCKER ROOM SUPERVISOR by Anam Chamberlain D.O.
[2023-06-03 09:32] LABS: Prothrombin Time 13.1 Seconds (11.1-14.7)
[2023-06-03 09:34] LABS: Partial Thromboplastin Time 32.6 SECONDS (22.3-36.8)
[2023-06-03 09:45] LABS: Anion Gap 7 mmol/L (8-16); Blood Urea Nitrogen 23 mg/dL (9-20); Calcium 9.3 mg/dL (8.4-10.2); Carbon Dioxide 28 mmol/L (22-30); Chloride 105 mmol/L (98-107); Estimated Glomerular Filt Rate 50; Glucose 118 mg/dL (65-110); Potassium 4.1 mmol/L (3.4-5.0); Sodium 140 mmol/L (137-145)
== END 2023-06-03 08:57 | disposition home or self-care (01) ==
PROVIDERS: Anesthesiology; PCP Family Medicine; Visit Provider Surgery
DX: Z01.818 Encounter for other preprocedural examination (principal); K40.90 Unilateral inguinal hernia, without obstruction or gangrene, not specified as recurrent; I12.9 Hypertensive chronic kidney disease with stage 1 through stage 4 chronic kidney disease, or unspecified chronic kidney disease; N18.30 Chronic kidney disease, stage 3 unspecified
CPT/HCPCS: 36415; 80048; 85610; 85730; 86850; 86900; 86901; 93005

== ENCOUNTER 2023-06-07 00:29 | Day surgery (SDC) | payer MEDICARE, OTHER, SELFPAY ==
[2023-06-02 15:13] VITALS: BMI 34.7
--- NOTE | 2023-06-02 15:31 | PC.NURSE ---
PRE-OP INSTRUCTIONS, PLEASE READ CAREFULLY Report to the Outpatient Waiting Room, entrance under the green pavilion located off [facility], at time _0600_ on date _06/07/23_. Planned Procedure Time: _0730_. Time changes happen often and if your time is changed the preop area will call you the afternoon before. - You and your visitor will be asked to self-screen and do not enter if you have any COVID symptoms. - A mask is optional within the hospital at this time. Patients may have clear liquids (water, carbonated beverages, clear teas, apple juice) until 3 hours prior to surgery with a maximum of 20 ounces. - No food from midnight until time of surgery Take the following medications with a SIP of water the morning of surgery: _AMLODIPINE, CARVEDILOL, & PAIN PILL IF NEEDED_ DO NOT STOP ANY OF YOUR OTHER PRESCRIPTION MEDICATIONS PRIOR TO SURGERY ?EXCEPT THE FOLLOWING Medications to discontinue per DR. TOTH/DR. MEDINA - _CLOPIDOGREL 7 DAYS PRIOR TO SURGERY, PT STATES LAST DOSE WAS 05/30/23 Medications to discontinue per ANESTHESIA - _PROBIOTIC & SUPPLEMENTS 3 DAYS PRIOR TO SURGERY, Date to take last dose 06/03/23_ Please no make-up, nail citizen of [place], hairspray, perfume, deodorant, or body powder the day of surgery. No jewelry (including any body piercings) or valuables the day of surgery, leave them at home. Please take a shower or bath the night before, or the morning of, surgery with an antibacterial (HIBICLENS) soap. Wear comfortable, loose fitting clothing. - Jewelry must be removed prior to entering the operating room. Rings and piercings that are not removed may be cut off. - The hospital will not accept responsibility for valuables. - Please leave all valuables, including medications, at home the day of surgery. If you are going home after surgery, a licensed hyster driver must drive you home. - NO public transportation without another adult if you receive anesthesia. - We recommend that an adult stay with you for 24 hours following discharge. - We also recommend that you do not drive, make important decision, drink alcoholic beverages, or take any drugs that were not prescribed by your health care provider for at least 24 hours after your discharge time. Follow any additional instructions given to you from your surgeon. If you or anyone in your household have experienced Covid symptoms in the past week, please notify your surgeon or the nurse liaison at the phone number below for possible testing. Telephone instructions given to _PATIENT_and asked if any additional questions and then verbalized understanding. Patient advised to call surgeon office or pre surgery nurse liaison [phone] if any additional questions.
[2023-06-07] VITALS (9 sets, daily range): BP systolic 100–141; BP diastolic 54–80; PULSE 49–62; RESP 13–20; TEMP 36.3–36.9; O2SAT 92–98
[2023-06-07] MEDS: ACETAMINOPHEN 500 MG TABLET 1000 MG PO (07:00)
--- NOTE | 2023-06-07 07:16 | PM.IMHP ---
H&P: HPI History of Present Illness Date/Time: 06/07/23 07:16 Chief Complaint: right inguinal hernia Narrative: Florencio returns to the office for evaluation of a right inguinal hernia. Patient states about a week ago he noticed a right groin bulge. He states the area has become more painful and the bulge has increased in size. He describes this as a achy sharp pain. He states this will radiate down into his right leg occasionally. He denies any difficulty with BM's or with urination. Patient did have a CT abd/pelvis in December 2020 that showed a small right inguinal hernia. Review of Systems Review of Systems: All systems reviewed & are unremarkable except as noted in HPI and below PMFSH Past Medical History Medical History Cholecystitis (12/2020) Chronic anemia CKD (chronic kidney disease) stage 3, GFR 30-59 ml/min Dissection of right iliac artery Dyslipidemia Emphysema lung Essential (primary) hypertension Gastroesophageal reflux disease Heart attack History of basal cell cancer History of basal cell carcinoma of skin History of colon polyps History of urethral stricture Hypertension Peptic ulcer disease Type 2 diabetes mellitus without complications Vitamin D deficiency Surgical History Surgical History History of coronary artery stent placement 1997 and 2002 History of laparoscopic cholecystectomy (03/12/21) With intraoperative cholangiogram. History of medial meniscus repair of left knee (11/24/18) History of tonsillectomy History of total left knee replacement (~08/19/21) Family History Family History Father Carcinoma of colon Heart disease Mother Heart disease Sibling Heart disease Other Arthritis Social History Social History Social History: Surrogate decision-maker: Vamshi (son) or Blackwell (brother) Rosalina. CODE STATUS: Full code Smoking packs per day: 0.5 Smoking cigarettes per day: 10.0 Years smoked: 50 Smoking pack-years: 25.00 Smoking status: Former smoker Tobacco type: cigarettes Second hand tobacco smoke exposure: No Smoking end date: 03/06/17 Alcohol intake: current Drinks per week: 3 Substance use: never Substance use type: does not use Living arrangements: alone Additional living arrangements comments: Lives in [place]. Occupation/Education: retired Additional occupation/education comments: Retired. Spiritual care concerns: No Meds Home Medications and Allergies Home Medications Medication Instructions Recorded Confirmed Type clopidogrel 75 mg tablet 75 mg PO HS 04/11/19 06/02/23 History rosuvastatin 40 mg tablet 40 mg PO HS 04/11/19 06/02/23 History coenzyme Q10 100 mg capsule 100 mg PO BID 10/18/20 06/02/23 History amlodipine 10 mg tablet 10 mg PO QAM 06/04/21 06/02/23 History doxazosin 2 mg tablet 2 mg PO HS 07/01/21 06/02/23 History carvedilol 25 mg tablet 25 mg PO BID 08/07/21 06/02/23 History calcium cit 250 mg-ergocalciferol 1 tablet PO DAILY 08/15/21 06/02/23 History (vit D2) 2.5 mcg (100 unit) tablet (Julio-Citrate) omeprazole 20 mg capsule,delayed 20 mg PO DAILY 12/24/22 06/02/23 History release fenofibrate micronized 134 mg 134 mg PO DAILY 02/25/23 06/02/23 History capsule metformin 500 mg tablet,extended 500 mg PO BID #180 tabs 02/25/23 06/02/23 Rx release 24 hr cholecalciferol (vitamin D3) 25 75 mcg PO .COMPLEX 05/05/23 06/02/23 History mcg (1,000 unit) tablet hydrocodone 5 mg-acetaminophen 325 1 tablet PO Q6H PRN pain #20 tabs 05/05/23 06/02/23 Rx mg tablet magnesium oxide 400 mg (241.3 mg 1,600 mg PO BID 05/05/23 06/02/23 History magnesium) tablet Probiotic 1 tab-cap DAILY 06/02/23 06/02/23 History glimepiride 2 mg tablet 2 mg PO QAM If BS below 100 no 06/02/23 06/02/23 History
--- NOTE | 2023-06-07 07:17 | WPDHPUPDATE1 ---
History and Physical Update Update Date/Time: 06/07/23 07:17 History and Physical has been reviewed, including an updated exam of the patient. There are NO changes in the patient's condition. Risks, benefits, and alternatives have been discussed and questions answered. Patient agrees to proceed with procedure.
[2023-06-07 07:18] LABS: Glucose Point of Care 123 mg/dl (65-105)
--- NOTE | 2023-06-07 07:22 | WPDANESEPPF ---
Anes - Initial Pre Proc Eval Procedure: Operation Date: 06/07/23 07:30 Proposed Procedures p Robotic Assisted Laparoscopic Right Inguinal Hernia Repair with Mesh - Yulissa Dillon MD Date/Time: 06/07/23 07:22 Surgeon: Yulissa Dillon MD Pre Op Diagnosis: Right Ing Hernia Patient Data Age: 72 Gender: M Height: 1.73 m Weight: 103.63 kg Allergies Allergy/AdvReac Type Severity Reaction Status Date / Time YANET Inhibitors Allergy Severe ANGIOEDEMA Verified 06/02/23 15:06 ramipril Allergy Severe ANGIOEDEMA Verified 06/02/23 15:06 spironolactone Allergy Mild LOW Verified 06/02/23 15:06 ELECTROLYTES Sulfa (Sulfonamide Allergy Unknown Unknown- Verified 06/02/23 15:06 Antibiotics) A CHILD valsartan AdvReac Severe Angioedema Verified 06/02/23 15:06 atorvastatin AdvReac Mild Joint Pain Verified 06/02/23 15:06 hydrochlorothiazide AdvReac Mild LOW Verified 06/02/23 15:06 ELETROLYTES Home Medications Medication Instructions Recorded Confirmed Type clopidogrel 75 mg tablet 75 mg PO HS 04/11/19 06/02/23 History rosuvastatin 40 mg tablet 40 mg PO HS 04/11/19 06/02/23 History coenzyme Q10 100 mg capsule 100 mg PO BID 10/18/20 06/02/23 History amlodipine 10 mg tablet 10 mg PO QAM 06/04/21 06/02/23 History doxazosin 2 mg tablet 2 mg PO HS 07/01/21 06/02/23 History carvedilol 25 mg tablet 25 mg PO BID 08/07/21 06/02/23 History calcium cit 250 mg-ergocalciferol 1 tablet PO DAILY 08/15/21 06/02/23 History (vit D2) 2.5 mcg (100 unit) tablet (Julio-Citrate) omeprazole 20 mg capsule,delayed 20 mg PO DAILY 12/24/22 06/02/23 History release fenofibrate micronized 134 mg 134 mg PO DAILY 02/25/23 06/02/23 History capsule metformin 500 mg tablet,extended 500 mg PO BID #180 tabs 02/25/23 06/02/23 Rx release 24 hr cholecalciferol (vitamin D3) 25 75 mcg PO .COMPLEX 05/05/23 06/02/23 History mcg (1,000 unit) tablet hydrocodone 5 mg-acetaminophen 325 1 tablet PO Q6H PRN pain #20 tabs 05/05/23 06/02/23 Rx mg tablet magnesium oxide 400 mg (241.3 mg 1,600 mg PO BID 05/05/23 06/02/23 History magnesium) tablet Probiotic 1 tab-cap DAILY 06/02/23 06/02/23 History glimepiride 2 mg tablet 2 mg PO QAM If BS below 100 no 06/02/23 06/02/23 History pill. BS above 100 takes 1/2 Laboratory Tests 06/07/23 07:14 POC Capillary Glucose 123 H mg/dl (65-105) Patient hx anesthesia problems: none Family hx anesthesia problems: none Results Review: All pre-operative results and documents have been reviewed as part of the pre-operative evaluation. FORMERLY [facility], [facility] Past Medical History Medical History Cholecystitis (12/2020) Chronic anemia CKD (chronic kidney disease) stage 3, GFR 30-59 ml/min Dissection of right iliac artery Dyslipidemia Emphysema lung Essential (primary) hypertension Gastroesophageal reflux disease Heart attack History of basal cell cancer History of basal cell carcinoma of skin History of colon polyps History of urethral stricture Hypertension Peptic ulcer disease Type 2 diabetes mellitus without complications Vitamin D deficiency Surgical History Surgical History History of coronary artery stent placement 1997 and 2002 History of laparoscopic cholecystectomy (03/12/21) With intraoperative cholangiogram. History of medial meniscus repair of left knee (11/24/18) History of tonsillectomy History of total left knee replacement (~08/19/21) Family History Family History Father Carcinoma of colon Heart disease Mother Heart disease Sibling Heart disease Other Arthritis Social History Social History Social History: Surrogate decision-maker: Vamshi (son) or [place] (brother) Rosalina. CODE STATUS: Full code Smoking packs per day: 0.5 Smok
[2023-06-07] MEDS: LACTATED RINGERS 1,000 ML 30 ML IV CONT ×2 (07:23→09:15)
[2023-06-07] MEDS: KETOROLAC 15 MG/ML VIAL (*BKC) IV PUSH (07:26)
[2023-06-07] MEDS: ceFAZolin 2 GM/D5W 50 ML 2 GM/50 ML BAG IVPB (07:30)
[2023-06-07] MEDS: BUPIVACAINE/EPINEPHRINE 0.5% 30 ML VIAL INFILTRATE (08:08)
--- NOTE | 2023-06-07 08:35 | P.OP_ITS ---
Procedure Note - Detailed Date of Procedure 06/07/23 Pre-op Diagnosis Right inguinal hernia Post-op Diagnosis Same Procedure Performed robotic assisted repair right inguinal hernia with mesh Surgeon Yulissa Dillon MD Anesthesia General Indications 72-year-old male presenting with symptomatic right inguinal hernia confirmed via imaging Findings right pantaloon inguinal hernia Description of Procedure Patient was brought into the operating room and placed in the supine position. After adequate induction of general anesthesia, the patient was prepped and draped in normal sterile fashion. A time-out was then done to verify the patient's identity, as well as the procedure being performed. Began by making a 8 mm incision in the supraumbilical region, a Veress needle was then placed into the peritoneal cavity. CO2 gas was then insufflated and after adequate pneumoperitoneum was achieved, the Veress needle was removed. I then placed an 8 mm trocar through this incision. I then placed the endoscope through this trocar site and under direct visualization placed 2 further 8 mm ports in the right and left mid abdomen. The Pet[employer] robot was then docked to the 3 trocar sites. I then scrubbed out and went to the robotic console. Upon examining the pelvis, it was noted that the patient had a moderate right inguinal hernia. The left side was examined and no hernia defect was noted. I began by making a preperitoneal flap approximately 6 cm superior to the defect. This flap was carried medially past the umbilical ligaments in laterally to the transversalis. It then began dissection of my medial compartment taking this down to the pubic tubercle. There was noted to be a moderate-sized direct inguinal hernia and this was carefully dissected and reduced back into the preperitoneal space. I then began the lateral dissection taking this down to the transversalis fascia. Once these compartments were achieved, I began dissection around the cord structures. A small indirect hernia was noted at this point. Using careful dissection, was able to reduce indirect hernia sac off the cord structures. Once this was adequately done, I went ahead and placed a large piece of 3D Max mesh into the abdominal cavity. The mesh was carefully positioned, centering the center of the mesh over the larger direct defect. Once this was done, was very satisfied with our repair. Using 3-0 Vicryl sutures, I tacked the mesh medially to Silas's ligament. Two lateral sutures were placed from the mesh to the transversalis fascia. I then closed the peritoneal flap with a running 2.0 V Lock suture. The abdomen was then desufflated, and all ports were removed. All incisions were then closed with the 4.0 monocryl suture. Dermabond was placed on each wound. The patient tolerated the procedure well, was extubated in the operating room postoperatively, and will now be transferred to the recovery room in stable condition. Implants large 3DMax mesh Estimated Blood Loss 10 Drains No Packing No Pathology None sent Complications No immediate complications Condition Stable Disposition PACU [facility] Billing Surgery - Charge Forward: Surgery Billing
[2023-06-07 09:01] LABS: Glucose Point of Care 149 mg/dl (65-105)
[2023-06-07] MEDS: fentaNYL CITRATE INJ (*CRX) 100 MCG/2 ML VIAL 25 MCG IV PUSH ×3 (09:05→09:15)
[2023-06-07] MEDS: oxyCODONE (*CRX) 5 MG/5 ML ORAL SOLN IR PO (10:02)
== END 2023-06-07 10:50 | disposition home or self-care (01) ==
PROVIDERS: PCP Family Medicine; Visit Provider Surgery
PROC: 8E0Y4CZ Robotic Assisted Procedure of Lower Extremity, Percutaneous Endoscopic Approach (ICD-10-PCS; CPT 49650; principal; 2023-06-07 07:30)
DX: K40.90 Unilateral inguinal hernia, without obstruction or gangrene, not specified as recurrent (principal); I12.9 Hypertensive chronic kidney disease with stage 1 through stage 4 chronic kidney disease, or unspecified chronic kidney disease; N18.30 Chronic kidney disease, stage 3 unspecified; D64.9 Anemia, unspecified; E78.5 Hyperlipidemia, unspecified; J43.9 Emphysema, unspecified; E55.9 Vitamin D deficiency, unspecified; K21.9 Gastro-esophageal reflux disease without esophagitis; E11.9 Type 2 diabetes mellitus without complications; E66.9 Obesity, unspecified; Z68.34 Body mass index [BMI] 34.0-34.9, adult; Z79.02 Long term (current) use of antithrombotics/antiplatelets; Z79.84 Long term (current) use of oral hypoglycemic drugs; Z79.891 Long term (current) use of opiate analgesic; Z95.5 Presence of coronary angioplasty implant and graft; Z90.49 Acquired absence of other specified parts of digestive tract; Z87.891 Personal history of nicotine dependence; Z86.73 Personal history of transient ischemic attack (TIA), and cerebral infarction without residual deficits; Z86.010 Personal history of colon polyps; Z85.828 Personal history of other malignant neoplasm of skin; Z82.49 Family history of ischemic heart disease and other diseases of the circulatory system; Z80.0 Family history of malignant neoplasm of digestive organs
CPT/HCPCS: 49650; S2900; 82948; A9270; C1781; J0690; J1100; J1170; J1885; J2250; J2405; J2704; J2710; J3010; J7030; J7120

== ENCOUNTER 2023-06-10 09:35 | Outpatient (CLI) | payer MEDICARE, OTHER, SELFPAY ==
--- NOTE | ~2023-06-10 | US_ITS ---
EXAMINATION: US venous doppler LE RT DATE: 06/10/2023 10:08 INDICATION: Right lower limb pain TECHNIQUE: Rain scale images without and with compression and Doppler images of the right lower extre mity veins were obtained. COMPARISON: 03/19/2021 FINDINGS: The right common femoral vein, profunda femoral vein, femoral vein, popliteal vein, peronea l trunk, posterior tibial veins, and greater saphenous vein are patent. IMPRESSION: 1. Patent right lower extremity veins. No evidence of deep venous thrombosis. Reviewed, dictated and finalized at location A. [employer]
== END 2023-06-10 09:36 | disposition home or self-care (01) ==
LOC: ANHIMG 09:39
PROVIDERS: PCP Family Medicine; Visit Provider Surgery
DX: M79.604 Pain in right leg (principal)
CPT/HCPCS: 93971

== ENCOUNTER 2023-07-21 11:16 | Outpatient (CLI) | payer MEDICARE, OTHER, SELFPAY ==
[2023-07-21 13:40] LABS: Basophils Percent Auto 0.5 % (0.2-1.2); Eosinophils Absolute Auto 0.3 K/mm3 (0-0.3); Eosinophils Percent Auto 4.2 % (0-4.4); Hematocrit 40.4 % (42.0-52.0); Hemoglobin 12.6 g/dL (14.0-18.0); Immature Granulocyte Absolute 0.04 K/mm3 (0.00-0.031); Immature Granulocyte Percent A 0.5 % (0-0.5); Lymphocytes Percent Auto 21.9 % (18.3-44.2); Mean Corpuscular HGB Conc 31.2 g/dl (32-36); Mean Corpuscular Hemoglobin 27.8 pg (26-34); Mean Corpuscular Volume 89.2 fl (80-100); Mean Platelet Volume 11.5 fl (7.4-10.4); Monocytes Absolute Auto 0.7 K/mm3 (0.1-0.6); Monocytes Percent Auto 8.9 % (2.6-8.5); Neutrophils Absolute Auto 4.7 K/mm3 (1.3-6.7); Platelet Count Result 128 k/mm3 (150-375); Red Blood Count 4.53 M/mm3 (4.6-6.20); Red Cell Distribution Width 13.9 % (11.5-14.5); White Blood Count 7.3 K/mm3 (4.5-10.0)
[2023-07-21 14:07] LABS: Hemoglobin A1C 6.2 % (<5.7)
[2023-07-21 14:34] LABS: Alanine Aminotransferase 19 U/L (6-50); Albumin Level 4.3 g/dL (3.5-5.1); Alkaline Phosphatase 82 U/L (38-126); Anion Gap 4 mmol/L (8-16); Aspartate Amino Transferase 48 U/L (17-59); Bilirubin,Total 0.5 mg/dL (0.2-1.3); Blood Urea Nitrogen 32 mg/dL (9-20); Calcium 9.7 mg/dL (8.4-10.2); Carbon Dioxide 27 mmol/L (22-30); Chloride 107 mmol/L (98-107); Estimated Glomerular Filt Rate 54; Glucose 133 mg/dL (65-110); Potassium 4.4 mmol/L (3.4-5.0); Sodium 138 mmol/L (137-145)
[2023-07-21 14:41] LABS: Vitamin D 25 Hydroxy 60.5 ng/mL
== END 2023-07-21 11:17 | disposition home or self-care (01) ==
LOC: ANHGOSHLAB 11:18
PROVIDERS: PCP Family Medicine; Visit Provider Family Medicine
DX: E11.9 Type 2 diabetes mellitus without complications (principal); E55.9 Vitamin D deficiency, unspecified; I10 Essential (primary) hypertension
CPT/HCPCS: 36415; 80053; 82306; 83036; 85025

== ENCOUNTER 2023-08-26 10:51 | Emergency (ER) | payer MEDICARE, OTHER, SELFPAY ==
[2023-08-26] VITALS (8 sets, daily range): BP systolic 114–145; BP diastolic 66–70; PULSE 72–81; RESP 19–27; TEMP 36.6–37; O2SAT 92–95
--- NOTE | ~2023-08-26 | CT_ITS ---
EXAMINATION: CTA chest PE protocol DATE: 08/26/2023 13:31 CDT INDICATION: Shortness of breath with exertion TECHNIQUE: Computed tomographic angiography (CTA) of the chest was performed with 100 mL Omnipaque-35 0 intravenous contrast. The dose-length product was 676.21 mGy-cm. Maximum intensity projection 3D-re constructions of the aorta and other arteries were constructed by the technologist on a separate work station. Automated exposure control and iterative reconstruction technique were employed. COMPARISON: CT dated 03/02/2023 FINDINGS: There is extensive pulmonary embolism involving the right main, upper and lower lobe pulmon keri arteries as well as segmental and subsegmental pulmonary arteries in the right. Large thrombus bu rden. Cardiomegaly. No significant pleural or pericardial effusion. There is emphysema. No focal airs pace consolidation. There is basilar atelectasis. IMPRESSION: 1. Extensive right-sided pulmonary embolism, large thrombus burden. Dr. Rogerio Tan discussed with Dr. Bao Marquis MD at 08/26/2023 13:34 CDT. Reviewed, dictated and finalized at location L.
--- NOTE | ~2023-08-26 | XR_ITS ---
EXAMINATION: XR chest 2V DATE: 08/26/2023 11:44 INDICATION: Dyspnea on exertion TECHNIQUE: PA and lateral views of the chest are obtained. COMPARISON: 03/19/2021 FINDINGS: The lungs are free of acute opacities. No pleural effusion or pneumothorax. The cardiomedia stinal silhouette is normal. There is moderate thoracic spondylosis. IMPRESSION: 1. No acute cardiopulmonary abnormality. Reviewed, dictated and finalized at location F.
--- NOTE | 2023-08-26 10:54 | ECG_ITS ---
Measurements Intervals [place] Rate: 73 P: 19 [place]: 169 QRS: 11 QRSD: 150 T: -18 QT: 378 QTc: 419 Interpretive Statements SINUS RHYTHM RIGHT BUNDLE BRANCH BLOCK CONSIDER INFERIOR INFARCT, AGE INDETERMINATE BASELINE ARTIFACT- I, III ABNORMAL ECG COMPARED TO ECG 06/03/2023 09:08:38 NO SIGNIFICANT CHANGES Electronically Signed On 08-26-2023 11:01:38 CDT by Anam Chamberlain D.O.
[2023-08-26 11:32] LABS: Basophils Percent Auto 0.3 % (0.2-1.2); Eosinophils Absolute Auto 0.2 K/mm3 (0-0.3); Eosinophils Percent Auto 3.1 % (0-4.4); Hematocrit 43.2 % (42.0-52.0); Hemoglobin 13.7 g/dL (14.0-18.0); Immature Granulocyte Absolute 0.04 K/mm3 (0.00-0.031); Immature Granulocyte Percent A 0.5 % (0-0.5); Lymphocytes Absolute Auto 0.94 K/mm3 (0.9-3.2); Lymphocytes Percent Auto 12.7 % (18.3-44.2); Mean Corpuscular HGB Conc 31.7 g/dl (32-36); Mean Corpuscular Hemoglobin 27.5 pg (26-34); Mean Corpuscular Volume 86.7 fl (80-100); Mean Platelet Volume 10.6 fl (7.4-10.4); Monocytes Absolute Auto 0.7 K/mm3 (0.1-0.6); Monocytes Percent Auto 9.7 % (2.6-8.5); Neutrophils Absolute Auto 5.4 K/mm3 (1.3-6.7); Neutrophils Percent Auto 73.7 % (45.5-73.1); Platelet Count Result 144 k/mm3 (150-375); Red Blood Count 4.98 M/mm3 (4.6-6.20); Red Cell Distribution Width 13.6 % (11.5-14.5); White Blood Count 7.4 K/mm3 (4.5-10.0)
[2023-08-26 11:42] LABS: Alanine Aminotransferase 23 U/L (6-50); Albumin Level 4.4 g/dL (3.5-5.1); Alkaline Phosphatase 74 U/L (38-126); Anion Gap 9 mmol/L (4-12); Aspartate Amino Transferase 31 U/L (17-59); Bilirubin,Total 0.6 mg/dL (0.2-1.3); Blood Urea Nitrogen 20 mg/dL (9-20); Calcium 9.9 mg/dL (8.4-10.2); Carbon Dioxide 26 mmol/L (22-30); Chloride 104 mmol/L (98-107); Estimated CRCL calculation 48 ml/min; Estimated Glomerular Filt Rate 50; Glucose 126 mg/dL (65-110); Potassium 4.2 mmol/L (3.4-5.0); Sodium 139 mmol/L (137-145)
--- NOTE | 2023-08-26 12:22 | ED.GENADULT ---
HPI - General Adult General Chief complaint: Shortness of Breath/Dyspnea Stated complaint: SOB Time Seen by Provider: 08/26/23 11:54 History of Present Illness HPI narrative: 72-year-old male present to the emergency department for evaluation of worsening shortness of breath. Patient does have a past medical history of coronary artery disease, type 2 diabetes, emphysema chronic kidney disease. Patient states yesterday he bent over and had onset of shortness of breath. Patient states typically if he is shortness of breath symptoms I last few seconds but patient states symptoms have persisted. While at rest in bed patient denies any chest pain or shortness of breath but states with minor exertion the shortness of breath will worsen. Related Data Home Medications Medication Instructions Recorded Confirmed clopidogrel 75 mg tablet 75 mg PO HS 04/11/19 08/02/23 rosuvastatin 40 mg tablet 40 mg PO HS 04/11/19 08/02/23 coenzyme Q10 100 mg capsule 100 mg PO BID 10/18/20 08/02/23 amlodipine 10 mg tablet 10 mg PO QA 06/04/21 08/02/23 doxazosin 2 mg tablet 2 mg PO HS 07/01/21 08/02/23 carvedilol 25 mg tablet 25 mg PO BID 08/07/21 08/02/23 calcium cit 250 mg-ergocalciferol 1 tablet PO DAILY 08/15/21 08/02/23 (vit D2) 2.5 mcg (100 unit) tablet (Julio-Citrate) omeprazole 20 mg capsule,delayed 20 mg PO DAILY 12/24/22 08/02/23 release fenofibrate micronized 134 mg 134 mg PO DAILY 02/25/23 08/02/23 capsule magnesium oxide 400 mg (241.3 mg 1,600 mg PO BID 05/05/23 08/02/23 magnesium) tablet Probiotic 1 tab-cap DAILY 06/02/23 08/02/23 cholecalciferol (vitamin D3) 25 75 mcg PO DAILY 07/21/23 08/02/23 mcg (1,000 unit) tablet Allergies Allergy/AdvReac Type Severity Reaction Status Date / Time YANET Inhibitors Allergy Severe ANGIOEDEMA Verified 08/26/23 11:00 ramipril Allergy Severe ANGIOEDEMA Verified 08/26/23 11:00 spironolactone Allergy Mild LOW Verified 08/26/23 11:00 ELECTROLYTES Sulfa (Sulfonamide Allergy Unknown Unknown- Verified 08/26/23 11:00 Antibiotics) A CHILD valsartan AdvReac Severe Angioedema Verified 08/26/23 11:00 atorvastatin AdvReac Mild Joint Pain Verified 08/26/23 11:00 hydrochlorothiazide AdvReac Mild LOW Verified 08/26/23 11:00 ELETROLYTES Review of Systems Review of Systems: All systems reviewed & are unremarkable except as noted in HPI and below PMFSH Past Medical History Medical History Cholecystitis (12/2020) Chronic anemia CKD (chronic kidney disease) stage 3, GFR 30-59 ml/min Dissection of right iliac artery Dyslipidemia Emphysema lung Essential (primary) hypertension Gastroesophageal reflux disease Heart attack History of basal cell cancer History of basal cell carcinoma of skin History of colon polyps History of urethral stricture Hypertension Peptic ulcer disease Piriformis muscle pain Trochanteric bursitis, right hip Type 2 diabetes mellitus without complications Vitamin D deficiency Surgical History Surgical History History of coronary artery stent placement 1997 and 2002 History of laparoscopic cholecystectomy (03/12/21) With intraoperative cholangiogram. History of medial meniscus repair of left knee (11/24/18) History of tonsillectomy History of total left knee replacement (~08/19/21) Hx of inguinal hernia repair robotic assisted repair right inguinal hernia with mesh 06/07/23 PDC Family History Family History Father Carcinoma of colon Heart disease Mother Heart disease Sibling Heart disease Other Arthritis Social History Social History Social History: Surrogate decision-maker: Vamshi (son) or [place] (brother) Rosalina. CODE STATUS: Full code Smoking packs per day: 0.5 Smoking cigarettes per day: 10.0 Years smoked: 50 S
[2023-08-26 13:01] LABS: NT Pro B Type Natriuretic Pept 2360 pg/mL (19.9-100)
[2023-08-26] MEDS: HEPARIN SOD/D5W 100 UNITS/ML 25,000 UNITS/250 ML BAG 15 UNITS IV CONT (14:26)
[2023-08-26] MEDS: HEPARIN SODIUM 5,000 UNITS/ML VIAL 6500 UNITS IV PUSH (14:26)
[2023-08-26 14:28] LABS: Partial Thromboplastin Time 30.3 Seconds (22.3-36.8)
[2023-08-26 16:47] LABS: Troponin I 0.105 ng/mL (0.000-0.034)
== END 2023-08-26 17:00 | disposition short-term general hospital (02) ==
PROVIDERS: Student in an Organized Health Care Education/Training Program; Emergency Provider Emergency Medicine; PCP Family Medicine
DX: I26.99 Other pulmonary embolism without acute cor pulmonale (principal); E11.22 Type 2 diabetes mellitus with diabetic chronic kidney disease; I12.9 Hypertensive chronic kidney disease with stage 1 through stage 4 chronic kidney disease, or unspecified chronic kidney disease; N18.30 Chronic kidney disease, stage 3 unspecified; I25.10 Atherosclerotic heart disease of native coronary artery without angina pectoris; I25.2 Old myocardial infarction; J43.9 Emphysema, unspecified; E78.5 Hyperlipidemia, unspecified; E55.9 Vitamin D deficiency, unspecified; K21.9 Gastro-esophageal reflux disease without esophagitis; Z85.828 Personal history of other malignant neoplasm of skin; Z86.010 Personal history of colon polyps; Z87.11 Personal history of peptic ulcer disease; Z95.5 Presence of coronary angioplasty implant and graft; Z96.652 Presence of left artificial knee joint; Z87.891 Personal history of nicotine dependence; Z90.49 Acquired absence of other specified parts of digestive tract; I45.10 Unspecified right bundle-branch block; R94.31 Abnormal electrocardiogram [ECG] [EKG]
CPT/HCPCS: 36415; 71046; 71275; 80053; 83880; 84484; 85025; 85610; 85730; 93005; 96365; 96366; 99285; J1644; Q9967

== ENCOUNTER 2023-09-20 08:09 | Emergency (ER) | payer MEDICARE, OTHER, SELFPAY ==
--- NOTE | ~2023-09-20 | XR_ITS ---
EXAMINATION: XR hip RT min 2V DATE: 09/20/2023 10:58 INDICATION: Severe right hip pain. TECHNIQUE: 2 views of right hip were obtained. COMPARISON: Right hip radiographs 07/01/2023 FINDINGS: Bone alignment is normal. No fracture. There is moderate right hip osteoarthritis. IMPRESSION: 1. Moderate right hip osteoarthritis. Reviewed, dictated and finalized at location E.
--- NOTE | ~2023-09-20 | CT_ITS ---
EXAMINATION: CT abdomen pelvis w con DATE: 09/20/2023 10:51 INDICATION: Right flank pain. TECHNIQUE: Computed tomography (CT) of the abdomen and pelvis was performed with 100 mL Omnipaque 350 intravenous contrast. Automated exposure control and iterative reconstruction technique were employe d. The dose-length product was 880.93 mGy-cm. COMPARISON: CT abdomen and pelvis 01/21/2021, chest CT 08/26/2023 FINDINGS: The visualized portions of the lung bases demonstrate mild emphysema and mild atelectasis. No pleural effusion. The heart size is normal. There are coronary artery calcifications. No pericardi al effusion. There are pulmonary emboli in right lower lobe. The liver and spleen are normal. There a re changes of cholecystectomy. The pancreas and adrenal glands are normal. There is cortical thinning of the kidneys. There is a 2.1 cm cyst in right kidney. There is a 9 mm cyst in left kidney. The pro state is mildly enlarged. There is diverticulosis of the colon without evidence of diverticulitis. Th e appendix is normal. There is calcified atherosclerosis of the aorta and many of the other arteries. There are no pathologically enlarged lymph nodes. There is no free intraperitoneal fluid. There is m ild thoracic spondylosis and severe lumbar spondylosis. There is mild chronic height loss of multiple thoracic vertebral bodies. IMPRESSION: 1. Right lower lobe pulmonary emboli with improvement from 08/26/2023. Reviewed, dictated and finalized at location E.
[2023-09-20 08:23] VITALS: BP 145/75; PULSE 79; RESP 19; TEMP 36.6; O2SAT 98
--- NOTE | 2023-09-20 09:16 | ED.GENADULT ---
HPI - General Adult General Chief complaint: Back Pain/Injury Stated complaint: recent dvt and PE reports pain in R hip Time Seen by Provider: 09/20/23 08:48 History of Present Illness HPI narrative: Florencio Romano is a 72 y/o male who presents with reports of having right hip/ lower back pain that sort of radiates to his right lower pelvic region at times that started last night. He states he had a steroid injection to his right hip 2 months ago and his pain was improved until last night. He also has a hx of right inguinal hernia repair, PE and they entered in to his RIght groin to removed the PE. He is currently on Eliquis. Denies chest pain/ SOB rates pain at an 8/10 No changes to urine, last BM was today and normal no gross blood. Denies nausea/vomiting/ He is eating and drinking well. Related Data Home Medications Medication Instructions Recorded Confirmed clopidogrel 75 mg tablet 75 mg PO HS 04/11/19 08/02/23 rosuvastatin 40 mg tablet 40 mg PO HS 04/11/19 08/02/23 coenzyme Q10 100 mg capsule 100 mg PO BID 10/18/20 08/02/23 amlodipine 10 mg tablet 10 mg PO QAM 06/04/21 08/02/23 doxazosin 2 mg tablet 2 mg PO HS 07/01/21 08/02/23 carvedilol 25 mg tablet 25 mg PO BID 08/07/21 08/02/23 calcium cit 250 mg-ergocalciferol 1 tablet PO DAILY 08/15/21 08/02/23 (vit D2) 2.5 mcg (100 unit) tablet (Julio-Citrate) omeprazole 20 mg capsule,delayed 20 mg PO DAILY 12/24/22 08/02/23 release fenofibrate micronized 134 mg 134 mg PO DAILY 02/25/23 08/02/23 capsule magnesium oxide 400 mg (241.3 mg 1,600 mg PO BID 05/05/23 08/02/23 magnesium) tablet Probiotic 1 tab-cap DAILY 06/02/23 08/02/23 cholecalciferol (vitamin D3) 25 75 mcg PO DAILY 07/21/23 08/02/23 mcg (1,000 unit) tablet Allergies Allergy/AdvReac Type Severity Reaction Status Date / Time YANET Inhibitors Allergy Severe ANGIOEDEMA Verified 09/20/23 09:38 ramipril Allergy Severe ANGIOEDEMA Verified 09/20/23 09:38 Sulfa (Sulfonamide Allergy Unknown Unknown- Verified 09/20/23 09:38 Antibiotics) A CHILD valsartan AdvReac Severe Angioedema Verified 09/20/23 09:38 atorvastatin AdvReac Mild Joint Pain Verified 09/20/23 09:38 hydrochlorothiazide AdvReac Mild LOW Verified 09/20/23 09:38 ELETROLYTES spironolactone AdvReac Mild LOW Verified 09/20/23 09:38 ELECTROLYTES Review of Systems Review of Systems: CONSTITUTIONAL: Denies fever, chills, or sweats. EYES: Denies visual changes, redness, or discharge. ENT: Denies rhinorrhea, congestion, sore throat, or otalgia. CARDIOVASCULAR: Denies chest pain, palpitations, or edema. RESPIRATORY: Denies cough or dyspnea. GASTROINTESTINAL: Denies abdominal pain, nausea, vomiting, or diarrhea. GENITOURINARY: Denies dysuria or hematuria. SKIN: Denies rash or itching. MUSCULOSKELETAL:Complains of right hip pain and radiates around to right leg that started back up last night NEUROLOGIC: Denies headache, numbness, dizziness, or weakness. PSYCHIATRIC: Denies anxiety or depression. [facility] Past Medical History Medical History Cholecystitis (12/2020) Chronic anemia CKD (chronic kidney disease) stage 3, GFR 30-59 ml/min Dissection of right iliac artery Dyslipidemia Emphysema lung Essential (primary) hypertension Gastroesophageal reflux disease Heart attack History of basal cell cancer History of basal cell carcinoma of skin History of colon polyps History of urethral stricture Hypertension Peptic ulcer disease Piriformis muscle pain Right knee DJD Trochanteric bursitis, right hip Type 2 diabetes mellitus without complications Vitamin D deficiency Surgical History Surgical History History of coronary artery stent placement 1997 and 2002 History of laparoscopic cholecystectomy (03/12/21) With intraoperative cholangiogram. History of medial meniscus repair of left knee (11/24/18) History of tonsillectomy History of tot
[2023-09-20] MEDS: CYCLOBENZAPRINE HCL 10 MG TABLET PO (09:39)
[2023-09-20] MEDS: fentaNYL CITRATE INJ (*CRX) 100 MCG/2 ML VIAL 50 MCG IV PUSH (09:39)
[2023-09-20 09:43] LABS: Basophils Percent Auto 0.4 % (0.2-1.2); Eosinophils Absolute Auto 0.4 K/mm3 (0-0.3); Eosinophils Percent Auto 7.9 % (0-4.4); Hematocrit 34.7 % (42.0-52.0); Hemoglobin 10.9 g/dL (14.0-18.0); Immature Granulocyte Absolute 0.02 K/mm3 (0.00-0.031); Immature Granulocyte Percent A 0.4 % (0-0.5); Lymphocytes Absolute Auto 1.08 K/mm3 (0.9-3.2); Lymphocytes Percent Auto 20.8 % (18.3-44.2); Mean Corpuscular HGB Conc 31.4 g/dl (32-36); Mean Corpuscular Hemoglobin 27.6 pg (26-34); Mean Corpuscular Volume 87.8 fl (80-100); Mean Platelet Volume 10.7 fl (7.4-10.4); Monocytes Absolute Auto 0.3 K/mm3 (0.1-0.6); Monocytes Percent Auto 6.4 % (2.6-8.5); Neutrophils Absolute Auto 3.3 K/mm3 (1.3-6.7); Neutrophils Percent Auto 64.1 % (45.5-73.1); Platelet Count Result 151 k/mm3 (150-375); Red Blood Count 3.95 M/mm3 (4.6-6.20); Red Cell Distribution Width 13.5 % (11.5-14.5); White Blood Count 5.2 K/mm3 (4.5-10.0)
[2023-09-20 09:53] LABS: Alanine Aminotransferase 16 U/L (6-50); Albumin Level 4.5 g/dL (3.5-5.1); Alkaline Phosphatase 77 U/L (38-126); Anion Gap 4 mmol/L (4-12); Aspartate Amino Transferase 24 U/L (17-59); Bilirubin,Total 0.4 mg/dL (0.2-1.3); Blood Urea Nitrogen 22 mg/dL (9-20); Calcium 9.3 mg/dL (8.4-10.2); Carbon Dioxide 27 mmol/L (22-30); Chloride 107 mmol/L (98-107); Estimated CRCL calculation 55 ml/min; Estimated Glomerular Filt Rate 59; Glucose 117 mg/dL (65-110); Lipase 88 U/L (23-300); Potassium 4.2 mmol/L (3.4-5.0); Sodium 138 mmol/L (137-145)
[2023-09-20 10:00] VITALS: BP 113/72; PULSE 63; RESP 15; O2SAT 98
[2023-09-20 11:15] VITALS: BP 128/60; PULSE 68; RESP 18; O2SAT 99
== END 2023-09-20 11:45 | disposition home or self-care (01) ==
PROVIDERS: Emergency Provider Nurse Practitioner Family; PCP Family Medicine
DX: M16.11 Unilateral primary osteoarthritis, right hip (principal); I12.9 Hypertensive chronic kidney disease with stage 1 through stage 4 chronic kidney disease, or unspecified chronic kidney disease; E11.22 Type 2 diabetes mellitus with diabetic chronic kidney disease; N18.30 Chronic kidney disease, stage 3 unspecified; E78.5 Hyperlipidemia, unspecified; E55.9 Vitamin D deficiency, unspecified; J43.9 Emphysema, unspecified; I25.2 Old myocardial infarction; D64.9 Anemia, unspecified; K21.9 Gastro-esophageal reflux disease without esophagitis; M17.11 Unilateral primary osteoarthritis, right knee; Z95.5 Presence of coronary angioplasty implant and graft; Z96.652 Presence of left artificial knee joint; Z85.828 Personal history of other malignant neoplasm of skin; Z86.711 Personal history of pulmonary embolism; Z87.11 Personal history of peptic ulcer disease; Z86.010 Personal history of colon polyps; Z87.891 Personal history of nicotine dependence; Z90.49 Acquired absence of other specified parts of digestive tract; Z79.84 Long term (current) use of oral hypoglycemic drugs; Z79.01 Long term (current) use of anticoagulants
CPT/HCPCS: 36415; 73502; 74177; 80053; 83605; 83690; 85025; 96374; 99284; A9270; J3010; Q9967

== ENCOUNTER 2023-10-04 13:30 | Outpatient (CLI) | payer MEDICARE, OTHER, SELFPAY ==
--- NOTE | ~2023-10-04 | XR_ITS ---
EXAMINATION: XR lg joint inject/asp add DATE: 10/04/2023 14:20 INDICATION: Right hip osteoarthritis with pain TECHNIQUE: A time-out was performed to verify the patient's name, date of , and procedure to b e performed. The procedure including the risks, benefits, and alternatives was discussed with the pat ient. Risks discussed included bleeding and infection. The patient understood the risks and agreed to proceed. The skin overlying the right hip joint was prepped and draped in usual sterile fashion. A nesthetic was administered with 1% lidocaine subcutaneously. A 22 G needle was advanced under fluoro scopic guidance into the joint. Injection of 1 mL of Omnipaque 240 confirmed intra-articular positio n of the needle. Subsequently, injectate consisting of 3 mL of a 2:1 mixture of 0.5% Marcaine: 80 mg /mL Depo-Medrol for a total dosage of 80 mg Depo-Medrol was instilled. Washout of contrast was seen c onfirming intra-articular administration. The needle was removed and the entry site was cleaned and d ressed. There were no immediate complications. Fluoroscopy exposure time was 0.1 minutes. The total number of images was 2. Total DAP was 0.488 Gycm^2 FINDINGS: Real-time fluoroscopy demonstrates the needle in the right hip joint. Patient's pain prior to procedure:09/07. Patient's pain following the procedure: 09/07. IMPRESSION: 1. Accessible right hip joint injection of local anesthetic and steroid with no change in the patient 's presenting pain. Reviewed, dictated and finalized at location A. IMPRESSION: 1. Accessible right hip joint injection of local anesthetic and steroid with no change in the patient's presenting pain.
== END 2023-10-04 13:31 | disposition home or self-care (01) ==
PROVIDERS: PCP Family Medicine; Visit Provider Nurse Practitioner Family
DX: M16.11 Unilateral primary osteoarthritis, right hip (principal)
CPT/HCPCS: 20610; J1010; Q9966

== ENCOUNTER 2024-02-15 11:04 | Emergency (ER) | payer MEDICARE, OTHER, SELFPAY ==
[2024-02-15 11:15] VITALS: BP 138/70; PULSE 65; RESP 16; TEMP 36.4; O2SAT 97
--- NOTE | 2024-02-15 11:59 | ED.EAR ---
HPI - Ear Problem General Chief complaint: Ear Stated complaint: SPOT ON L FOREARM / L EARACHE/DIZZY Time Seen by Provider: 02/15/24 12:00 Source: patient, RN notes reviewed and old records reviewed Mode of arrival: ambulatory Limitations: no limitations History of Present Illness HPI Narrative: 73-year-old male to [facility] for complaint of left ear pain /fullness for approximately 2 weeks as well as intermittent dizziness for approximately 2 weeks. Patient also complaining of erythematous lesion to left dorsal forearm. Patient states that he noticed lesion nearly 2 weeks ago while washing dishes and states that he is concerned for infection. Patient denies fever, cough, sore throat, headache, known sick contacts, shortness of breath, chest pain, GI complaints, body aches, chills. Patient able to tolerate fluids by mouth. Patient resting comfortably in exam room in no acute distress. Respirations even and nonlabored. Related Data Home Medications Medication Instructions Recorded Confirmed rosuvastatin 40 mg tablet 40 mg PO HS 04/11/19 02/15/24 coenzyme Q10 100 mg capsule 100 mg PO BID 10/18/20 02/15/24 amlodipine 10 mg tablet 10 mg PO QAM 06/04/21 02/15/24 doxazosin 2 mg tablet 2 mg PO HS 07/01/21 02/15/24 carvedilol 25 mg tablet 25 mg PO BID 08/07/21 02/15/24 calcium cit 250 mg-ergocalciferol 1 tablet PO DAILY 08/15/21 02/15/24 (vit D2) 2.5 mcg (100 unit) tablet (Julio-Citrate) fenofibrate micronized 134 mg 134 mg PO DAILY 02/25/23 02/15/24 capsule magnesium oxide 400 mg (241.3 mg 1,600 mg PO BID 05/05/23 02/15/24 magnesium) tablet Probiotic 1 tab-cap PO DAILY 06/02/23 02/15/24 cholecalciferol (vitamin D3) 25 75 mcg PO DAILY 07/21/23 02/15/24 mcg (1,000 unit) tablet Allergies Allergy/AdvReac Type Severity Reaction Status Date / Time YANET Inhibitors Allergy Severe ANGIOEDEMA Verified 02/15/24 11:30 ramipril Allergy Severe ANGIOEDEMA Verified 02/15/24 11:30 Sulfa (Sulfonamide Allergy Unknown Unknown- Verified 02/15/24 11:30 Antibiotics) A CHILD valsartan AdvReac Severe Angioedema Verified 02/15/24 11:30 atorvastatin AdvReac Mild Joint Pain Verified 02/15/24 11:30 hydrochlorothiazide AdvReac Mild LOW Verified 02/15/24 11:30 ELETROLYTES spironolactone AdvReac Mild LOW Verified 02/15/24 11:30 ELECTROLYTES Review of Systems Review of Systems: All systems reviewed & are unremarkable except as noted in HPI and below Constitutional: Constitutional: Reports no additional constitutional complaints Eyes: Eyes: Reports no additional eye complaints ENT: Reports system reviewed and no additional complaints, except as documented Cardiovascular: Cardiovascular: Reports no additional cardiovascular complaints, Denies chest pain and Denies dyspnea Respiratory: Respiratory: Reports no additional respiratory complaints, Denies cough and Denies dyspnea Musculoskeletal: Musculoskeletal: Reports no additional musculoskeletal complaints Neurologic: Reports system reviewed and no additional complaints, except as documented Psychiatric: Psychiatric: Reports no additional psychiatric complaints [facility] Past Medical History Medical History Cholecystitis (12/2020) Chronic anemia CKD (chronic kidney disease) stage 3, GFR 30-59 ml/min 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
== END 2024-02-15 12:23 | disposition home or self-care (01) ==
PROVIDERS: Emergency Provider Nurse Practitioner Family; PCP Family Medicine
DX: H66.92 Otitis media, unspecified, left ear (principal); L03.114 Cellulitis of left upper limb; N18.30 Chronic kidney disease, stage 3 unspecified; E78.5 Hyperlipidemia, unspecified; I12.9 Hypertensive chronic kidney disease with stage 1 through stage 4 chronic kidney disease, or unspecified chronic kidney disease; E55.9 Vitamin D deficiency, unspecified; E11.22 Type 2 diabetes mellitus with diabetic chronic kidney disease; K21.9 Gastro-esophageal reflux disease without esophagitis; Z87.891 Personal history of nicotine dependence
CPT/HCPCS: 99213; G0463

== ENCOUNTER 2024-02-21 12:20 | Outpatient (CLI) | payer MEDICARE, OTHER, SELFPAY ==
--- NOTE | 2024-02-21 12:30 | ECG_ITS ---
Test Date: 2024-02-21 12:38:08 Measurements Intervals [place] Rate: 67 P: 41 ND: 215 QRS: 11 QRSD: 142 T: -2 QT: 386 QTc: 409 Interpretive Statements SINUS RHYTHM WITH FIRST DEGREE AV BLOCK RIGHT BUNDLE BRANCH BLOCK MINIMAL Q WAVES- INFERIOR LEADS BASELINE ARTIFACT- I, II, III, AVL, AVF, V4-V6 ABNORMAL ECG No previous ECG available for comparison Electronically Signed On 02-21-2024 12:57:46 CDT by Anam Chamberlain D.O.
== END 2024-02-21 12:21 | disposition home or self-care (01) ==
LOC: ANHCARD 12:24
PROVIDERS: PCP Family Medicine; Visit Provider Orthopaedic Surgery
DX: I10 Essential (primary) hypertension (principal); E11.9 Type 2 diabetes mellitus without complications; I25.10 Atherosclerotic heart disease of native coronary artery without angina pectoris
CPT/HCPCS: 93005

== ENCOUNTER 2024-02-22 10:38 | Outpatient (CLI) | payer MEDICARE, OTHER, SELFPAY ==
--- NOTE | ~2024-02-22 | US_ITS ---
BILATERAL LOWER EXTREMITY VENOUS ULTRASOUND Ordering provider: Issac Miles MD History: . Z86.718 - Personal history of other venous thrombosis and... . Comparison: None. FINDINGS: RIGHT LOWER EXTREMITY VEINS: --COMMON FEMORAL: Patent and free of thrombus. Normal compressibility, phasic flow and augmentation. --PROXIMAL SUPERFICIAL FEMORAL: Patent and free of thrombus. Normal compressibility, phasic flow and augmentation. --DISTAL SUPERFICIAL FEMORAL: Patent and free of thrombus. Normal compressibility, phasic flow and au gmentation. --POPLITEAL: Patent and free of thrombus. Normal compressibility, phasic flow and augmentation. --POSTERIOR TIBIAL: Patent and free of thrombus. Normal compressibility, phasic flow and augmentation . LEFT LOWER EXTREMITY VEINS: --COMMON FEMORAL: Patent and free of thrombus. Normal compressibility, phasic flow and augmentation. --PROXIMAL SUPERFICIAL FEMORAL: Patent and free of thrombus. Normal compressibility, phasic flow and augmentation. --DISTAL SUPERFICIAL FEMORAL: Patent and free of thrombus. Normal compressibility, phasic flow and au gmentation. --POPLITEAL: Patent and free of thrombus. Normal compressibility, phasic flow and augmentation. --POSTERIOR TIBIAL: Patent and free of thrombus. Normal compressibility, phasic flow and augmentation . IMPRESSION: Negative bilateral lower extremity venous US. No deep vein thrombosis. Reviewed, dictated and finalized at location A.
== END 2024-02-22 10:39 | disposition home or self-care (01) ==
PROVIDERS: PCP Family Medicine; Visit Provider Orthopaedic Surgery
DX: I73.9 Peripheral vascular disease, unspecified (principal); Z86.718 Personal history of other venous thrombosis and embolism
CPT/HCPCS: 93970

== ENCOUNTER 2024-03-16 11:57 | Outpatient (CLI) | payer MEDICARE, OTHER, SELFPAY ==
[2024-03-16 13:36] LABS: Urine Cotinine NEGATIVE
[2024-03-16 13:40] LABS: Add Urine Microscopic? YES; Appearance Urine Clear (Clear); Bacteria Urine None Seen /hpf; Bilirubin Urine Negative (Negative); Blood Urine Negative (Negative); Color Urine Yellow (Yellow); Glucose Urine UA Negative (Negative); Hyaline Casts Urine Present /lpf; Ketones Urine Trace mg/dL (Negative); Leukocyte Esterase Ur Negative LEU/UL (Negative); Need Manual Microscopic Reviewed; Nitrate Urine Negative (Negative); Protein Urine Trace mg/dL (Negative); RBC Urine 0-2 /hpf (0-2); Specific Grav Ur 1.022 (1.001-1.035); Squamous Epithelial Cell Urine None Seen /hpf (Few); Urobilinogen Urine 0.2 mg/dL (<2.0); WBC Urine 0-5 /hpf (0-3); pH Urine 5.5 (5.0-9.0)
[2024-03-16 13:51] LABS: Basophils Percent Auto 0.5 % (0.2-1.2); Eosinophils Absolute Auto 0.3 K/mm3 (0-0.3); Eosinophils Percent Auto 3.8 % (0-4.4); Hemoglobin 11.4 g/dL (14.0-18.0); Immature Granulocyte Absolute 0.03 K/mm3 (0.00-0.031); Immature Granulocyte Percent A 0.4 % (0-0.5); Lymphocytes Absolute Auto 1.54 K/mm3 (0.9-3.2); Lymphocytes Percent Auto 18.8 % (18.3-44.2); Mean Corpuscular HGB Conc 31.7 g/dl (32-36); Mean Corpuscular Hemoglobin 26.5 pg (26-34); Mean Corpuscular Volume 83.5 fl (80-100); Mean Platelet Volume 10.8 fl (7.4-10.4); Monocytes Absolute Auto 0.8 K/mm3 (0.1-0.6); Monocytes Percent Auto 9.6 % (2.6-8.5); Neutrophils Absolute Auto 5.5 K/mm3 (1.3-6.7); Neutrophils Percent Auto 66.9 % (45.5-73.1); Platelet Count Result 194 k/mm3 (150-375); Red Blood Count 4.31 M/mm3 (4.6-6.20); Red Cell Distribution Width 14.8 % (11.5-14.5); White Blood Count 8.2 K/mm3 (4.5-10.0)
[2024-03-16 14:04] LABS: Albumin Level 4.5 g/dL (3.5-5.1); Anion Gap 11 mmol/L (4-12); Blood Urea Nitrogen 26 mg/dL (9-20); Calcium 9.7 mg/dL (8.4-10.2); Carbon Dioxide 26 mmol/L (22-30); Chloride 103 mmol/L (98-107); Estimated Glomerular Filt Rate 50; Glucose 121 mg/dL (65-110); Sodium 140 mmol/L (137-145)
[2024-03-16 14:05] LABS: Partial Thromboplastin Time 26.3 Seconds (22.3-36.8)
[2024-03-16 15:04] LABS: MRSA (PCR) NOT DETECTED (NOT DETECTE)
== END 2024-03-16 11:58 | disposition home or self-care (01) ==
LOC: ANHSURGERY 12:03
PROVIDERS: PCP Family Medicine; Visit Provider Orthopaedic Surgery
DX: Z01.812 Encounter for preprocedural laboratory examination (principal); M17.11 Unilateral primary osteoarthritis, right knee
CPT/HCPCS: 80048; 80307; 81001; 82040; 85025; 85610; 85730; 86850; 86900; 86901; 87641

== ENCOUNTER 2024-03-28 00:28 | Day surgery (SDC) | payer MEDICARE, OTHER, SELFPAY ==
[2024-03-16 12:19] VITALS: TEMP 37.3; BMI 32.8
--- NOTE | 2024-03-16 12:43 | PC.NURSE ---
Report to the Outpatient Waiting Room, entrance under the green pavilion located off [facility], at time __08:30am__ on date _03/28/24 . Planned Procedure Time: ____10:30am ____.? Time changes happen often and if your time is changed the preop area will call you the afternoon before. - You and your visitor will be asked to self-screen and do not enter if you have any COVID symptoms. Please call surgeon if you need to reschedule. - A mask is optional within the hospital at this time. Patients may have clear liquids (water, carbonated beverages, clear teas, apple juice) until 3 hours prior to surgery with a maximum of 20 ounces. - No food from midnight until time of surgery and no smoking (07:30am) Take only the following medications with a SIP of water on the morning of surgery: __Amlodipine and Coreg DO NOT STOP ANY OF YOUR OTHER PRESCRIPTION MEDICATIONS PRIOR TO SURGERY EXCEPT THE FOLLOWING Medications to discontinue per physician Plavix for [address] Miles Date to take last dose 03/20/24 Hold all vitamins and supplements, probiotics and herbs 3 days prior to surgery per Anesthesia -date to take 03/24/24 Please no make-up, nail malian, hairspray, perfume, deodorant, or body powder the day of surgery.? No jewelry (including any body piercings) or valuables the day of surgery, leave them at home.? Please take a shower or bath the night before, or the morning of, surgery with an antibacterial soap.? Wear comfortable, loose fitting clothing.? - Jewelry must be removed prior to entering the operating room.? Rings and piercings that are not removed may be cut off. - The hospital will not accept responsibility for valuables.? - Please leave all valuables, including medications, at home the day of surgery. If you are going home after surgery, a licensed scoop driver must drive you home.? - NO public transportation without another adult if you receive anesthesia. - We recommend that an adult stay with you for 24 hours following discharge. - We also recommend that you do not drive, make important decision, drink alcoholic beverages, or take any drugs that were not prescribed by your health care provider for at least 24 hours after your discharge time. Follow any additional instructions given to you from your surgeon. Telephone instructions given to __patient and asked if any additional questions and then verbalized understanding. Patient advised to call surgeon office or pre surgery nurse liaison [phone] if any additional questions.
[2024-03-28] VITALS (13 sets, daily range): BP systolic 114–145; BP diastolic 53–76; PULSE 64–73; RESP 9–20; TEMP 36.2–36.7; O2SAT 93–100; BMI 32.0; BMI 33.0
--- NOTE | ~2024-03-28 | XR_ITS ---
EXAMINATION: [id number] DATE: 03/28/2024 15:38 INDICATION: Total right knee arthroplasty. Postop. TECHNIQUE: 2 views of right knee were obtained. COMPARISON: Right knee radiographs 09/27/2023 FINDINGS: There is a total right knee arthroplasty without patellar resurfacing in near-anatomic alig nment. No fracture. There is gas in the knee joint and soft tissues, consistent with recent surgery. Anterior skin douglas are noted. IMPRESSION: 1. Total right knee arthroplasty in near-anatomic alignment. Reviewed, dictated and finalized at location B.
--- NOTE | 2024-03-28 07:28 | WPDHPUPDATE1 ---
History and Physical Update Update Date/Time: 03/28/24 07:28 History and Physical has been reviewed, including an updated exam of the patient. There are NO changes in the patient's condition. Risks, benefits, and alternatives have been discussed and questions answered. Patient agrees to proceed with procedure.
--- NOTE | 2024-03-28 08:28 | WPDANESEPPF ---
Anes - Initial Pre Proc Eval Procedure: Operation Date: 03/28/24 10:30 Proposed Procedures p Right Total Knee Arthroplasty - Issac Miles MD Date/Time: 03/28/24 08:28 Surgeon: Issac Miles MD Pre Op Diagnosis: right knee DJD Patient Data Age: 73 Gender: M Height: 1.75 m Weight: 101 kg Last Vital Signs Temp 99.1 F 03/16/24 12:19 O2 Del Method Room Air 03/16/24 12:19 Allergies Allergy/AdvReac Type Severity Reaction Status Date / Time YANET Inhibitors Allergy Unknown Unknown,ANG Unverified 03/22/24 11:11 IOEDEMA atorvastatin Allergy Unknown Unknown,Joint Unverified 03/22/24 11:11 Pain hydrochlorothiazide Allergy Unknown Unknown,LOW Unverified 03/22/24 11:11 ELETROLYTES ramipril Allergy Unknown Unknown,ANG Unverified 03/22/24 11:11 IOEDEMA spironolactone Allergy Unknown Unknown,LOW Unverified 03/22/24 11:11 ELECTROLYTES Sulfa (Sulfonamide Allergy Unknown Unknown,Unknown- Unverified 03/22/24 11:11 Antibiotics) A CHILD valsartan AdvReac Severe Angioedema Verified 03/16/24 12:12 Home Medications Medication Instructions Recorded Confirmed Type rosuvastatin 40 mg tablet 40 mg PO HS 04/11/19 03/17/24 History coenzyme Q10 100 mg capsule 100 mg PO BID 10/18/20 03/17/24 History amlodipine 10 mg tablet 10 mg PO QAM 06/04/21 03/17/24 History doxazosin 2 mg tablet 2 mg PO HS 07/01/21 03/17/24 History carvedilol 25 mg tablet 25 mg PO BID 08/07/21 03/17/24 History calcium 250 mg 1 tablet PO DAILY 08/15/21 03/17/24 History (citrate)-ergocalciferol (D2) 2.5 mcg (100 unit) tablet (Julio-Citrate) fenofibrate micronized 134 mg 134 mg PO DAILY 02/25/23 03/17/24 History capsule magnesium oxide 400 mg (241.3 mg 1,600 mg PO BID 05/05/23 03/17/24 History magnesium) tablet Probiotic 1 tab-cap PO DAILY 06/02/23 03/17/24 History cholecalciferol (vitamin D3) 25 75 mcg PO DAILY 07/21/23 03/17/24 History mcg (1,000 unit) tablet glimepiride 1 mg tablet 1 mg PO QAM #90 tabs 07/21/23 03/17/24 Rx omeprazole 20 mg capsule,delayed 20 mg PO DAILY #90 caps 11/15/23 03/17/24 Rx release metformin 500 mg tablet,extended 500 mg PO BID #180 tabs 03/13/24 03/17/24 Rx release 24 hr clopidogrel 75 mg tablet 75 mg PO DAILY 03/16/24 03/28/24 History chlorhexidine gluconate 4 % 1 applic topical ONCE #237 mL 03/17/24 03/28/24 Rx topical liquid (Hibiclens) ciprofloxacin HCl 500 mg tablet 500 mg PO Q12H #10 tabs 03/20/24 03/28/24 Rx ECst degree block Patient hx anesthesia problems: none Family hx anesthesia problems: none Results Review: All pre-operative results and documents have been reviewed as part of the pre-operative evaluation. 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 History of medial meniscus repair of left knee (11/24/18) History of tonsillectomy History of total left knee replacement (~08/19/21) Hx of inguinal hernia repair robotic assisted repair right inguinal hernia with mesh 06/07/23 PDC Family History Family History Father Carcinoma of colon Heart disease Mother Heart disease Sibling Heart disease Other Arthritis Social History Social History Social History: Surrogate decision-maker: Vamshi (son) or Cisco (brother) Rosalina. CODE STATUS: Full code Smoking packs per day: 1 Smoking cigarettes per day: 20.0 Years smoked: 40 Smoking pack-years: 40.00 Smoking status: Former smoker Tobacco type: cigarettes Second hand tobacco smoke exposure: No Smoking end date: 03/06/17 Additional smoking assessment comments: No nicotine use at all Alcohol intake: current Drinks per week: 3 Substance use: never Substance use type: does not use Living arrangements: alone Additional living arrangements comments: Lives in [place]. Occupation/Education: retired Additional occupation/education comments: Retired. Spiritual care concerns: No Anes - Eval Final PreProcedure Day of Procedure 03/28/24 08:28 Patient weight: obese Heart: other (1st degree block) Lungs: decreased breath sounds Airway: Mallampati scale class 1 Neurological: alert and oriented Last oral intake: >/= 8 hours ASA classification: IV Emergent: yes Anesthetic plan: proceed Anesthesia type and monitoring: general LMA and standard monitoring Other findings: Pt reports seeing vascualr last february re: Illiac aneursym. watching FN Results Review: All pre-operative results and documents have been reviewed as part of the pre-operative evaluation. Informed Consent: The patient's anesthetic plan and its attendant risks and benefits were discussed with the patient/family/POA. Questions were solicited and answers provided to the satisfaction of the patient/family/POA.
[2024-03-28 09:01] LABS: Glucose Point of Care 122 mg/dl (65-105)
[2024-03-28] MEDS: ACETAMINOPHEN 500 MG TABLET 1000 MG PO (09:30)
[2024-03-28] MEDS: LACTATED RINGERS 1,000 ML 30 ML IV CONT ×2 (09:30→13:40)
[2024-03-28] MEDS: TRANEXAMIC ACID 1,000MG/ISO100 1,000 MG/100 ML BAG 200 MG IVPB (10:41)
--- NOTE | 2024-03-28 11:20 | WPDANESPNB ---
Anes - Peripheral Nerve Block Date/Time: 03/28/24 11:20 I have discussed with the patient/family/POA the placement of a peripheral nerve block for post-operative pain management, including associated risks, benefits, complications, and side effects. Alternative methods of post-operative analgesia were detailed. Questions were solicited and answers provided to the satisfaction of the patient/family/POA. Time-Out: A pre-procedural Time-Out was completed immediately before starting the procedure and confirmed: Patient Identification, Site, Procedure, Patient Position and the Availability of Requisite Equipment. Clinical Indications: Acute post-operative pain management requested by the operative surgeon. Nerve Block Insertion Note Anes-nerve block: adductor canal right Patient position: supine Skin prep: chlorhexidine Needle: 22 gauge, stimulating, insulated echogenic needle. Needle length: 80 mm Technique: ultrasound Injectate: other (Bupiv 0.5% 15 mls. ) Observations: tolerated well Complications: none Procedure start time:: 1053 Procedure end time:: 1099
[2024-03-28] MEDS: ceFAZolin 2 GM/D5W 50 ML 2 GM/50 ML BAG IVPB ×2 (11:24→18:23)
[2024-03-28] MEDS: SODIUM CHLORIDE 0.9% IV 37.7 ML, MORPHINE SULFATE INJ (*CRX) 2 MG, ROPivacaine HCL 1% 2... INFILTRATE (11:54)
--- NOTE | 2024-03-28 13:35 | W.PM.PROC2 ---
Procedure Note - Detailed Date of Procedure 03/28/24 Pre-op Diagnosis right knee DJD Post-op Diagnosis Same Procedure Performed R TKA Surgeon Issac Miles MD Anesthesia General Description of Procedure THE RIGHT KNEE WAS PREPPED AND DRAPED IN THE STERILE FASHION. THERE WAS A 10 DEGREE FLEXION CONTRACTURE. A MIDLINE SKIN INCISION WAS MADE. A MEDIAL PARAPATELLAR ARTHROTOMY WAS MADE. THE PATELLA WAS EVERTED. THERE WAS TRICOMPARTMENT DJD. THERE WAS MINIMAL PATELLA DJD. AN INTRAMEDULLARY KIYA WAS PLACED IN THE FEMUR. A DISTAL FEMORAL CUT WAS MADE IN 5 DEGREES OF VALGUS REMOVING APPROXIMATELY 9 MM OF BONE FROM THE DISTAL FEMUR. THE FEMUR WAS SIZED TO 70. A 70 FEMORAL CUTTING BLOCK WAS PLACED IN 3 DEGREES OF EXTERNAL ROTATION AND IN ALIGNMENT WITH SHAHBAZ'S LINE AND THE TRANSEPICONDYLAR AXIS. ANTERIOR POSTERIOR AND CHAMFER CUTS WERE MADE. THE CUTS WERE EXCELLENT. NEXT AN INTRAMEDULLARY CUTTING GUIDE WAS PLACED IN THE TIBIA. A TRANS TIBIAL CUT WAS MADE ALONG THE LONG AXIS OF THE TIBIA. APPROXIMATELY 10 MM OF BONE WAS REMOVED FROM THE HIGH SIDE OF THE TIBIA. THE TIBIA WAS THEN PLANED TO A SMOOTH SURFACE. POSTERIOR FEMORAL OSTEOPHYTES WERE REMOVED FROM THE FEMORAL CONDYLES. A 79 TIBIAL TRIAL WAS PLACED IN ALIGNMENT WITH THE 1/3 MEDIAL ASPECT OF THE TIBIAL TUBERCLE. THEN A 70 FEMORAL TRIAL COMPONENT WAS PLACED. BOTH HAD EXCELLENT FITS. EVENTUALLY A 10 MM CR POLYETHYLENE TRIAL COMPONENT WAS PLACED. THE KNEE WAS TAKEN THROUGH A RANGE OF MOTION. THE KNEE CAME OUT TO FULL EXTENSION. THERE WAS NO ABNORMAL TILT TO THE PATELLA. THERE WAS GOOD A/P AND VARUS/VALGUS STABILITY. THERE WAS NO EXCESSIVE ROLL BACK WITH FLEXION. THE TRIAL COMPONENTS WERE REMOVED. THEN A 70 FEMORAL COMPONENT AND 70 TIBIAL COMPONENT WITH A 10 CR POLYETHYLENE COMPONENT WERE CEMENTED INTO PLACE. ONCE THE CEMENT WAS HARD THE KNEE WAS TAKEN THROUGH A ROM AGAIN AND FOUND TO BE STABLE WITH NO PATELLA TILT NO EXCESSIVE ROLL BACK WITH FLEXION AND GOOD STABILITY WITH COMPLETE AND FULL EXTENSION. THE KNEE WAS IRRIGATED WITH STERILE BETADINE AND WATER FOR ABOUT 3 MINUTES. THE BLEEDERS WERE CAUTERIZED. THE ARTHROTOMY WAS REPAIRED WITH NUMBER 1 VICRYL. THE SUB CUTANEOUS LAYER WITH 2-0 VICRYL AND THE SKIN WITH PEDRO. THE WOUND WAS WASHED AND A STERILE DRESSING WAS APPLIED. PATIENT WAS EXTUBATED. Estimated Blood Loss 200 Pathology None sent Complications No immediate complications Condition Stable Disposition PACU
[2024-03-28 13:46] LABS: Glucose Point of Care 123 mg/dl (65-105)
[2024-03-28] MEDS: fentaNYL CITRATE INJ (*CRX) 100 MCG/2 ML VIAL 25 MCG IV PUSH ×4 (14:00→14:18)
--- NOTE | 2024-03-28 15:31 | ADMGEN ---
This patient, Florencio Romano, was admitted to Medical Room 252-01. Patient/family oriented to hospital policies and general routines including ID bracelet, bed and alarms, visiting hours, pain management, procedures, bathroom and other care routines, personal items, smoking policy, room service/diet, and visiting hours. Information on how to activate the Rapid Response Team has been discussed. Patient/Family are encouraged to report perceived risks to care and to ask questions if they do not understand what they are told or what they should do.
[2024-03-28 16:51] LABS: Glucose Point of Care 172 mg/dl (65-105)
[2024-03-28] MEDS: CELECOXIB 200 MG CAPSULE PO (17:21)
[2024-03-28] MEDS: RIVAROXABAN 10 MG TABLET PO (17:21)
[2024-03-28] MEDS: metFORMIN HCL XR 500 MG TAB.SR.24H PO (17:21)
[2024-03-28] MEDS: SENNA/DOCUSATE SODIUM TABLET 2 TAB PO (17:21)
[2024-03-28] MEDS: oxyCODONE/ACETAMINOPHEN (*CRX) 5-325 MG TABLET 1 TABLET PO ×2 (17:21→20:35)
[2024-03-28] MEDS: DOXAZOSIN MESYLATE 2 MG TABLET PO (20:34)
[2024-03-28] MEDS: ROSUVASTATIN 20 MG TABLET 40 MG PO (20:35)
[2024-03-28] MEDS: carvediloL 25 MG TABLET PO (20:35)
[2024-03-29 00:19] VITALS: BP 107/55; PULSE 65; RESP 20; TEMP 36.5; O2SAT 94
[2024-03-29] MEDS: ceFAZolin 2 GM/D5W 50 ML 2 GM/50 ML BAG IVPB ×2 (02:49→10:39)
[2024-03-29] MEDS: oxyCODONE/ACETAMINOPHEN (*CRX) 5-325 MG TABLET 1 TABLET PO ×3 (02:50→13:12)
[2024-03-29 03:40] VITALS: BP 128/57; PULSE 67; RESP 20; TEMP 36.5; O2SAT 95
[2024-03-29 06:23] LABS: Basophils Percent Auto 0.2 % (0.2-1.2); Eosinophils Percent Auto 0.2 % (0-4.4); Hematocrit 28.2 % (42.0-52.0); Hemoglobin 8.8 g/dL (14.0-18.0); Immature Granulocyte Absolute 0.06 K/mm3 (0.00-0.031); Immature Granulocyte Percent A 0.5 % (0-0.5); Lymphocytes Absolute Auto 0.99 K/mm3 (0.9-3.2); Lymphocytes Percent Auto 8.6 % (18.3-44.2); Mean Corpuscular HGB Conc 31.2 g/dl (32-36); Mean Corpuscular Hemoglobin 26.3 pg (26-34); Mean Corpuscular Volume 84.4 fl (80-100); Mean Platelet Volume 10.8 fl (7.4-10.4); Monocytes Percent Auto 8.4 % (2.6-8.5); Neutrophils Absolute Auto 9.5 K/mm3 (1.3-6.7); Neutrophils Percent Auto 82.1 % (45.5-73.1); Platelet Count Result 156 k/mm3 (150-375); Red Blood Count 3.34 M/mm3 (4.6-6.20); Red Cell Distribution Width 14.7 % (11.5-14.5); White Blood Count 11.6 K/mm3 (4.5-10.0)
[2024-03-29 06:32] LABS: Anion Gap 11 mmol/L (4-12); Blood Urea Nitrogen 35 mg/dL (9-20); Calcium 8.2 mg/dL (8.4-10.2); Carbon Dioxide 24 mmol/L (22-30); Chloride 106 mmol/L (98-107); Estimated CRCL calculation 40 ml/min; Estimated Glomerular Filt Rate 40; Glucose 118 mg/dL (65-110); Potassium 4.6 mmol/L (3.4-5.0); Sodium 141 mmol/L (137-145)
--- NOTE | 2024-03-29 08:03 | PCPTNOTE ---
Attempted to see patient for PT, however patient was working with OT.
[2024-03-29 08:06] LABS: Glucose Point of Care 109 mg/dl (65-105)
[2024-03-29] MEDS: CELECOXIB 200 MG CAPSULE PO (08:20)
[2024-03-29] MEDS: ACIDOPHILUS/BULGARICUS CHEWABLE TABLET 2 TABLET BY MOUTH (08:22)
[2024-03-29 08:23] VITALS: PULSE 67
[2024-03-29] MEDS: CHOLECALCIFEROL 1,000 UNITS TABLET 3000 UNITS PO (08:23)
[2024-03-29] MEDS: FENOFIBRATE NANOCRYSTALLIZED 145 MG TABLET PO (08:23)
[2024-03-29] MEDS: carvediloL 25 MG TABLET PO (08:23)
[2024-03-29] MEDS: amLODIPine BESYLATE 10 MG TABLET PO (08:23)
[2024-03-29] MEDS: SENNA/DOCUSATE SODIUM TABLET 2 TAB PO (08:23)
[2024-03-29] MEDS: metFORMIN HCL XR 500 MG TAB.SR.24H PO (08:24)
[2024-03-29] MEDS: GLIMEPIRIDE 1 MG TABLET PO (08:24)
[2024-03-29] MEDS: PANTOPRAZOLE 40 MG TABLET PO (08:24)
[2024-03-29 08:55] VITALS: O2SAT 93
[2024-03-29] MEDS: CLOPIDOGREL BISULFATE 75 MG TABLET PO (10:39)
[2024-03-29 12:02] LABS: Glucose Point of Care 115 mg/dl (65-105)
--- NOTE | 2024-03-29 12:43 | PM.PNORT ---
Progress Note: A&P Assessment and Plan (1) Right knee DJD: Qualifiers: Osteoarthritis type: primary Qualified Code(s): M17.11 - Unilateral primary osteoarthritis, right knee Code(s): M17.11 - Unilateral primary osteoarthritis, right knee Status: Acute Assessment and Plan: POD 1 DOING WELL. OK TO DC HOME. HE WILL TAKE ELIQUIS FOR DVT PROPHYLAXIS FROM A 30 DAY TRIAL HE RECEIVED. HE WILL F/U IN 3 WEEKS Subjective Subjective Date/Time Seen: 03/29/24 12:43 Interval history: POD 1 DOING WELL. NO CALF PAIN. GOOD PROGRESS WITH PT Exam Extrem: Other: VSS AFEBRILE DRESSING DRY NV INTACT NEG HOMANS SIGN CALF AND THIGH SOFT NON TENDER Objective Data Vital Signs Vital Signs: Vital Signs - 24 hr 03/28/24 13:40 03/28/24 13:55 03/28/24 14:10 Temperature 36.2 C L Pulse Rate 71 66 65 Respiratory Rate 13 12 12 Blood Pressure 133/75 138/64 145/76 H Pulse Oximetry 100 100 100 Oxygen Delivery Simple Face Mask Simple Face Mask Simple Face Mask Oxygen Flow Rate 8 8 8 03/28/24 14:25 03/28/24 14:40 03/28/24 14:55 Temperature Pulse Rate 65 65 64 Respiratory Rate 9 L 16 13 Blood Pressure 116/71 126/73 137/68 Pulse Oximetry 94 99 94 Oxygen Delivery Room Air Nasal Cannula Nasal Cannula Oxygen Flow Rate 1 1 03/28/24 15:07 03/28/24 15:22 03/28/24 15:52 Temperature 36.4 C 36.2 C L 36.2 C L Pulse Rate 66 71 66 Respiratory Rate 14 14 14 Blood Pressure 121/71 114/59 L 117/65 Pulse Oximetry 98 95 95 Oxygen Delivery Oxygen Flow Rate 03/28/24 16:31 03/28/24 18:17 03/28/24 16:52 Temperature 36.2 C L Pulse Rate 73 Respiratory Rate 18 Blood Pressure 123/53 L Pulse Oximetry 93 Oxygen Delivery Room Air Room Air Oxygen Flow Rate 03/28/24 19:45 03/28/24 20:35 03/28/24 20:00 Temperature 36.5 C Pulse Rate 70 70 Respiratory Rate 20 Blood Pressure 123/69 Pulse Oximetry 94 Oxygen Delivery Room Air Oxygen Flow Rate 03/29/24 00:19 03/29/24 03:40 03/29/24 08:23 Temperature 36.5 C 36.5 C Pulse Rate 65 67 67 Respiratory Rate 20 20 Blood Pressure 107/55 L 128/57 L Pulse Oximetry 94 95 Oxygen Delivery Oxygen Flow Rate 03/29/24 08:55 03/29/24 08:00 Temperature Pulse Rate Respiratory Rate Blood Pressure Pulse Oximetry 93 Oxygen Delivery Room Air Room Air Oxygen Flow Rate Intake/Output Intake/Output: Intake & Output 03/26/24 03/27/24 03/28/24 03/29/24 23:59 23:59 23:59 23:59 Intake Total 1340 290 Balance 1340 290 Meds/Results Medications: Active Medications Generic Name Dose Route Start Last Admin Trade Name Freq PRN Reason Stop Dose Admin Amlodipine Besylate 10 mg 03/29/24 09:00 03/29/24 08:23 Amlodipine Besylate 10 Mg Tablet PO 10 mg QAM KE Administration Carvedilol 25 mg 03/28/24 21:00 03/29/24 08:23 Carvedilol 25 Mg Tablet PO 25 mg Q12HR KE Administration Celecoxib 200 mg 03/28/24 17:00 03/29/24 08:20 Celecoxib 200 Mg Capsule PO 200 mg BIDWM KE Administration Ciprofloxacin 500 mg 03/28/24 15:07 Ciprofloxacin 500 Mg Tab PO Q12H KE Clopidogrel Bisulfate 75 mg 03/29/24 09:00 03/29/24 10:39 Clopidogrel Bisulfate 75 Mg Tablet PO 75 mg DAILY KE Administration Diazepam 5 mg 03/28/24 15:07 Diazepam (*Crx) 5 Mg Tablet PO Q8H PRN Spasms Diphenhydramine HCl 25 mg 03/28/24 15:07 Diphenhydramine Hcl Inj 50 Mg/Ml Vial IV PUSH Q6H PRN Itching Doxazosin Mesylate 2 mg 03/28/24 21:00 03/28/24 20:34 Doxazosin Mesylate 2 Mg Tablet PO 2 mg HS KE Administration Fenofibrate 145 mg 03/29/24 09:00 03/29/24 08:23 Fenofibrate Nanocrystallized 145 Mg Tablet PO 145 mg QAM KE Administration Glimepiride 1 mg 03/29/24 09:00 03/29/24 08:24 Glimepiride 1 Mg Tablet PO 1 mg QAM KE Administration Hydromorphone HCl 1 mg 03/28/24 15:07 Hydromorphone Hcl Inj (*Crx) 1 Mg/Ml Syr IV PUSH Q2H PRN Breakthrough Pain Rated 7-10 or NPO Hydromorphone HCl 0.5 mg 03/28/24 15:07 Hydromorphone Hcl Inj (*Crx) 1 Mg/Ml Syr IV PUSH Q2H PRN Breakthrough Pain Rated 4-6 or NPO Ibuprofen 800 mg in 200 mls @ 400 mls/hr 03/28/24 15:07 Caldolor 800 Mg/200 Ml IVPB Q6H PRN Breakthrough Pain Rated 1-3 or NPO Lactobacillus Acidophilus 2 tablet 03/29/24 09:00 03/29/24 08:22 Acidophilus/Bulgaricus Chewable Tablet BY MOUTH 2 tablet DAILY KE Administration Metformin HCl 500 mg 03/28/24 17:00 03/29/24 08:24 Metformin Hcl Xr 500 Mg Tab.Sr.24h PO 500 mg BID KE Administration Miscellaneous Information 0 each 03/28/24 00:01 Cipro 500 Mg - Finished Abx Last Dose 03/25 In Comments - D/C This? XX 04/27/24 00:00 CLARIFY KE Naloxone HCl 0.1 mg 03/28/24 15:07 Naloxone Hcl 0.4 Mg/Ml Vial IV PUSH Q2M PRN Opiate Reversal Ondansetron HCl 4 mg 03/28/24 15:07 Ondansetron Inj 4 Mg/2 Ml Vial IV PUSH Q4H PRN Nausea And Vomiting Oxycodone/Acetaminophen 1 tablet 03/28/24 15:07 03/29/24 08:24 Oxycodone/Acetaminophen (*Crx) 5-325 Mg Tablet PO 1 tablet Q4H PRN Administration Pain Rated 4-6 Oxycodone/Acetaminophen 1 tab 03/28/24 15:07 Oxycodone/Acetaminophen (*Crx) 10-325 Mg Tablet PO Q6H PRN Pain Rated 7-10 Pantoprazole Sodium 40 mg 03/29/24 09:00 03/29/24 08:24 Pantoprazole 40 Mg Tablet PO 40 mg QAM KE Administration Polyethylene Glycol 17 gm 03/29/24 09:00 03/29/24 08:24 Polyethylene Glycol 3350 17 Gm Powd.Pack PO Not Given QAM [facility] Rivaroxaban 10 mg 03/28/24 17:00 03/28/24 17:21 Rivaroxaban 10 Mg Tablet PO 04/08/24 17:01 10 mg DAILY@17 KE Administration Rosuvastatin Calcium 40 mg 03/28/24 21:00 03/28/24 20:35 Rosuvastatin 20 Mg Tablet PO 40 mg HS KE Administration Senna/Docusate Sodium 2 tab 03/28/24 17:00 03/29/24 08:23 Senna/Docusate Sodium Tablet PO 2 tab BID KE Administration Vitamin D 3,000 units 03/29/24 09:00 03/29/24 08:23 Cholecalciferol 1,000 Units Tablet PO 3,000 units DAILY KE Administration Radiology Results: ITS Impressions Knee X-Ray 03/28/24 15:43 IMPRESSION: 1. Total right knee arthroplasty in near-anatomic alignment. Labs Labs: Laboratory Results - last 24 hr 03/28/24 03/28/24 03/29/24 13:43 16:47 05:55 WBC 11.6 H RBC 3.34 L Hgb 8.8 L Hct 28.2 L MCV 84.4 MCH 26.3 MCHC 31.2 L RDW 14.7 H Plt Count 156 MPV 10.8 H Immature Gran % (Auto) 0.5 Neut % (Auto) 82.1 H Lymph % (Auto) 8.6 L [place] % (Auto) 8.4 Eos % (Auto) 0.2 Baso % (Auto) 0.2 Lymph # (Auto) 0.99 [place] # (Auto) 1.0 H Eos # (Auto) 0.0 Baso # (Auto) 0.0 Abs Immat Gran (auto) 0.06 H Absolute Neuts (auto) 9.5 H Absolute Nucleated RBC 0.000 Nucleated RBC % 0.0 Sodium 141 Potassium 4.6 Chloride 106 Carbon Dioxide 24 Anion Gap 11 BUN 35 H Creatinine 1.70 H Estim Creat Clear Calc 40 Estimated GFR 40 L Glucose 118 H POC Capillary Glucose 123 H 172 H Calcium 8.2 L 03/29/24 03/29/24 07:59 11:54 WBC RBC Hgb Hct MCV MCH MCHC RDW Plt Count MPV Immature Gran % (Auto) Neut % (Auto) Lymph % (Auto) [place] % (Auto) Eos % (Auto) Baso % (Auto) Lymph # (Auto) [place] # (Auto) Eos # (Auto) Baso # (Auto) Abs Immat Gran (auto) Absolute Neuts (auto) Absolute Nucleated RBC Nucleated RBC % Sodium Potassium Chloride Carbon Dioxide Anion Gap BUN Creatinine Estim Creat Clear Calc Estimated GFR Glucose POC Capillary Glucose 109 H 115 H Calcium
--- NOTE | 2024-03-29 12:47 | P.DS_ITS ---
DS: Admitting Diagnosis Discharge Date 03/29/24 Admitting Diagnosis RIGHT KNEE DJD DS: Discharge Diagnosis Discharge Diagnosis (1) Right knee DJD: Qualifiers: Osteoarthritis type: primary Qualified Code(s): M17.11 - Unilateral primary osteoarthritis, right knee Code(s): M17.11 - Unilateral primary osteoarthritis, right knee Status: Acute DS: Summary Hospital Course Reason for hospitalization: RIGHT TKA Hospital Course: PATIENT WAS ADMITTED S/P TOTAL KNEE ARTHROPLASTY FOR POSTOPERATIVE MEDICAL MANAGEMENT, PAIN CONTROL AND MOBILIZATION WITH PHYSICAL AND OCCUPATIONAL THERAPY. THE PATIENT PROGRESSED WELL WITH PT/OT. LABS AND VITALS REMAINED STABLE AND PAIN WELL CONTROLLED. THE PATIENT HAS BEEN CLEARED TO BE DISCHARGED HOME. FOLLOW UP APPOINTMENT SCHEDULED. DISCHARGE INSTRUCTIONS DISCUSSED AT LENGTH WITH THE PATIENT. MEDICATIONS REVIEWED. Status at Discharge Cognitive/behavioral status at discharge: STABLE Time Spent with Patient Time attestation: Total time spent providing and/or coordinating discharge services: DS: Data Data Completed and Pending Labs on day of discharge: Labs from last 24 hours 03/29/24 03/29/24 03/29/24 11:54 07:59 05:55 WBC 11.6 H RBC 3.34 L Hgb 8.8 L Hct 28.2 L MCV 84.4 MCH 26.3 MCHC 31.2 L RDW 14.7 H Plt Count 156 MPV 10.8 H Immature Gran % (Auto) 0.5 Neut % (Auto) 82.1 H Lymph % (Auto) 8.6 L [place] % (Auto) 8.4 Eos % (Auto) 0.2 Baso % (Auto) 0.2 Lymph # (Auto) 0.99 [place] # (Auto) 1.0 H Eos # (Auto) 0.0 Baso # (Auto) 0.0 Abs Immat Gran (auto) 0.06 H Absolute Neuts (auto) 9.5 H Absolute Nucleated RBC 0.000 Nucleated RBC % 0.0 Sodium 141 Potassium 4.6 Chloride 106 Carbon Dioxide 24 Anion Gap 11 BUN 35 H Creatinine 1.70 H Estim Creat Clear Calc 40 Estimated GFR 40 L Glucose 118 H POC Capillary Glucose 115 H 109 H Calcium 8.2 L 03/28/24 03/28/24 16:47 13:43 WBC RBC Hgb Hct MCV MCH MCHC RDW Plt Count MPV Immature Gran % (Auto) Neut % (Auto) Lymph % (Auto) [place] % (Auto) Eos % (Auto) Baso % (Auto) Lymph # (Auto) [place] # (Auto) Eos # (Auto) Baso # (Auto) Abs Immat Gran (auto) Absolute Neuts (auto) Absolute Nucleated RBC Nucleated RBC % Sodium Potassium Chloride Carbon Dioxide Anion Gap BUN Creatinine Estim Creat Clear Calc Estimated GFR Glucose POC Capillary Glucose 172 H 123 H Calcium Procedures/Treatments: RIGHT TKA Discharge Plan Discharge Patient Disposition: Home, Self-Care Discharge Instructions: ISSAC MILES M.D. [facility] [address] [place] [address] [address] [place] [address] POST OPERATIVE DISCHARGE INSTRUCTIONS FOLLOWING TOTAL KNEE REPLACEMENT SURGERY ? Your dressing will be changed prior to your discharge. You will be sent home with one additional dressing to be changed on post op day 7 by the home health RN. Your douglas will be removed on the 14th day after surgery and steri-strips will be placed. Please practice good hand hygiene and do not touch your incision in order to prevent infection. ? You may shower with your dressing but do not submerge in a bath tub. ? Do not drive or operate machinery until you are released by Dr. Miles. ? Do not walk without a walker for any reason until you are released by Dr. Miles. ? Continue to use your ice machine. Please use a towel or pillow case to protect your skin before applying your ice machine. ? Do NOT place a pillow under your knee. You may use a pillow from the calf down if needed. This will prevent a flexion contracture postoperatively. ? You may begin use of your CPM machine at home if you have been given one pre- operatively. DO NOT USE WHILE YOU ARE SLEEPING. ? Your first post op appointment was sent to you via mail preoperatively. If you have any questions or are unable to make your appointment, please contact our office for scheduling questions. ? Your medications have been sent to your pharmacy. You have been sent home with pain medication. We have also sent you with a stool softener as narcotics can cause constipation. Please keep this in mind during your postoperative recovery. If you are not experiencing regular bowel movements, please contact our office for further instruction. ? Please contact our office with any questions/concerns regarding your knee at [phone]. Stand Alone Forms: General Discharge Instructions Follow-up/Referrals: Issac Miles MD [Physician] - Discharge Medications: New oxycodone-acetaminophen [Percocet] 5-325 mg tablet 1 tablet PO Q6H PRN (Reason: pain) Qty: 30 0RF Continued Julio-Citrate 250 mg-2.5 mcg (100 unit) tablet 1 tablet PO DAILY Patient Comments: Calcium 1200mg with 1000IU Vitamin D. fenofibrate micronized 134 mg capsule 134 mg PO DAILY rosuvastatin 40 mg tablet 40 mg PO HS coenzyme Q10 100 mg capsule 100 mg PO BID amlodipine 10 mg tablet 10 mg PO QAM doxazosin 2 mg tablet 2 mg PO HS carvedilol 25 mg Tablet 25 mg PO BID cholecalciferol (vitamin D3) 25 mcg (1,000 unit) tablet 75 mcg PO DAILY Probiotic 1 tab-cap PO DAILY clopidogrel 75 mg tablet 75 mg PO DAILY Patient Comments: Pt to hold [address] Miles magnesium oxide 400 mg (241.3 mg magnesium) tablet 1,600 mg PO BID glimepiride 1 mg tablet 1 mg PO QAM Qty: 90 1RF Rx Instructions: administer with breakfast DOES NOT TAKE if BS Below 100, TAKES 1MG IF BLOOD [id number], TAKE 2MG IF BLOOD SURGERY >140 omeprazole 20 mg capsule,delayed release(DR/EC) 20 mg PO DAILY Qty: 90 1RF metformin 500 mg tablet extended release 24 hr 500 mg PO BID Qty: 180 1RF ciprofloxacin HCl 500 mg tablet 500 mg PO Q12H Qty: 10 0RF Patient Comments: Finished abx last dose 03/25/24. Discontinued chlorhexidine gluconate [Hibiclens] 4 % liquid 1 applic topical ONCE Qty: 237 0RF Rx Instructions: Cleanse operative extremity, in shower, every day for 1 week prior to surgical procedure.
[2024-03-29 14:00] VITALS: BP 119/45; PULSE 78; RESP 14; TEMP 36.6; O2SAT 95
--- NOTE | 2024-03-29 14:26 | P.PNAN_ITS ---
Anes - Prog Note Post-Op Date/Time: 03/29/24 14:26 Cardiovascular status: normal Respiratory status: normal Airway patency: baseline Mental status: baseline Post-Op hydration status: normal Vital Signs: Last Vital Signs Temp 97.7 F 03/29/24 03:40 Pulse 67 03/29/24 08:23 Resp 20 03/29/24 03:40 BP 128/57 L 03/29/24 03:40 Pulse Ox 93 03/29/24 08:55 O2 Del Method Room Air 03/29/24 08:55 O2 Flow Rate 1 03/28/24 14:55 Pain Score (VAS): 0/10 I/O: Intake & Output 03/28/24 03/29/24 03/29/24 23:59 07:59 15:59 Intake Total 290 50 480 Balance 290 50 480 Laboratory Tests 03/29/24 05:55 03/29/24 05:55 03/28/24 03/29/24 03/29/24 16:47 05:55 07:59 WBC 11.6 H RBC 3.34 L Hgb 8.8 L Hct 28.2 L MCV 84.4 MCH 26.3 MCHC 31.2 L RDW 14.7 H Plt Count 156 MPV 10.8 H Immature Gran % (Auto) 0.5 Neut % (Auto) 82.1 H Lymph % (Auto) 8.6 L [place] % (Auto) 8.4 Eos % (Auto) 0.2 Baso % (Auto) 0.2 Lymph # (Auto) 0.99 [place] # (Auto) 1.0 H Eos # (Auto) 0.0 Baso # (Auto) 0.0 Abs Immat Gran (auto) 0.06 H Absolute Neuts (auto) 9.5 H Absolute Nucleated RBC 0.000 Nucleated RBC % 0.0 Sodium 141 Potassium 4.6 Chloride 106 Carbon Dioxide 24 Anion Gap 11 BUN 35 H Creatinine 1.70 H Estim Creat Clear Calc 40 Estimated GFR 40 L Glucose 118 H POC Capillary Glucose 172 H 109 H Calcium 8.2 L 03/29/24 11:54 WBC RBC Hgb Hct MCV MCH MCHC RDW Plt Count MPV Immature Gran % (Auto) Neut % (Auto) Lymph % (Auto) [place] % (Auto) Eos % (Auto) Baso % (Auto) Lymph # (Auto) [place] # (Auto) Eos # (Auto) Baso # (Auto) Abs Immat Gran (auto) Absolute Neuts (auto) Absolute Nucleated RBC Nucleated RBC % Sodium Potassium Chloride Carbon Dioxide Anion Gap BUN Creatinine Estim Creat Clear Calc Estimated GFR Glucose POC Capillary Glucose 115 H Calcium Post-procedural complaints: none Patient Feedback: Patient satisfied with anesthetic care.
== END 2024-03-29 15:30 | disposition home health service (06) ==
LOC: ANHSURGERY 08:33 → ANH2MED 15:09
PROVIDERS: PCP Family Medicine; Visit Provider Orthopaedic Surgery
PROC: (CPT 27447; principal; 2024-03-28 10:30)
DX: M17.11 Unilateral primary osteoarthritis, right knee (principal); M25.461 Effusion, right knee; G89.18 Other acute postprocedural pain; E78.5 Hyperlipidemia, unspecified; D64.9 Anemia, unspecified; E11.9 Type 2 diabetes mellitus without complications; I12.9 Hypertensive chronic kidney disease with stage 1 through stage 4 chronic kidney disease, or unspecified chronic kidney disease; N18.30 Chronic kidney disease, stage 3 unspecified; M16.11 Unilateral primary osteoarthritis, right hip; K21.9 Gastro-esophageal reflux disease without esophagitis; I25.2 Old myocardial infarction; E55.9 Vitamin D deficiency, unspecified; K30 Functional dyspepsia; I77.72 Dissection of iliac artery; E66.9 Obesity, unspecified; Z68.33 Body mass index [BMI] 33.0-33.9, adult; Z79.02 Long term (current) use of antithrombotics/antiplatelets; Z79.84 Long term (current) use of oral hypoglycemic drugs; Z98.890 Other specified postprocedural states; Z95.5 Presence of coronary angioplasty implant and graft; Z90.49 Acquired absence of other specified parts of digestive tract; Z87.891 Personal history of nicotine dependence; Z86.0100 Personal history of colon polyps, unspecified; Z87.448 Personal history of other diseases of urinary system; Z85.828 Personal history of other malignant neoplasm of skin; Z80.0 Family history of malignant neoplasm of digestive organs; Z82.49 Family history of ischemic heart disease and other diseases of the circulatory system
CPT/HCPCS: 64447; 27447; 36415; 73560; 80048; 82948; 85025; 97110; 97116; 97161; 97165; 97530; 97535; A9270; C1713; C1776; J0171; J0690; J1100; J1171; J1885; J2003; J2270; J2371; J2405; J2704; J2795; J3010; J3370; J7120

== ENCOUNTER 2024-03-30 09:34 | Emergency (ER) | payer MEDICARE, OTHER, SELFPAY ==
--- NOTE | ~2024-03-30 | US_ITS ---
EXAMINATION: US venous doppler LE RT DATE: 03/30/2024 13:50 INDICATION: Right lower limb pain and swelling TECHNIQUE: Grayscale ultrasound images without and with compression and Doppler ultrasound images of the right lower extremity veins were obtained. COMPARISON: 02/22/2024 FINDINGS: Nonocclusive, noncompressible deep venous anastomosis in the right gastrocnemius vein which is new si nce the prior study. The visualized portions of right common femoral vein, profunda (deep) femoral ve in, femoral vein, popliteal vein, peroneal trunk, posterior tibial veins, peroneal veins and greater saphenous vein outflow are patent. IMPRESSION: 1. Bhkya-[id number] acute deep venous thrombosis in the right gastrocnemius vein, new since the prior study. Reviewed, dictated and finalized at location A. IMPRESSION: 1. Nnhcu-wxo-[id number] acute deep venous thrombosis in the right gastrocnemius vein , new since the prior study.
[2024-03-30 09:35] VITALS: BP 127/51; PULSE 82; RESP 16; TEMP 36.6; O2SAT 98
--- NOTE | 2024-03-30 13:32 | PC.NURSE ---
pt visitor, Joann Romano daughter in law [phone]
--- NOTE | 2024-03-30 14:04 | ED.EXTPRO ---
HPI - Extremity Problem General Chief complaint: Extremity Problem,Nontraumatic Stated complaint: R KNEE PAIN Time Seen by Provider: 03/30/24 12:05 History of Present Illness HPI Narrative: 73-year-old male presenting with right knee pain. Patient had a total knee replacement 2 days ago. He did physical therapy yesterday and then he woke in the middle of the night with severe right knee pain. He states that he took a pain pill and his 1st dose of Eliquis which his orthopedic surgeon wanted him to take in the postoperative period. He does have a history of a pulmonary embolus last year. His pain was not controlled with the painful so he came in for further evaluation. He is concerned for blood clot or infection. Related Data Home Medications Medication Instructions Recorded Confirmed rosuvastatin 40 mg tablet 40 mg PO HS 04/11/19 03/17/24 coenzyme Q10 100 mg capsule 100 mg PO BID 10/18/20 03/17/24 amlodipine 10 mg tablet 10 mg PO QA 06/04/21 03/17/24 doxazosin 2 mg tablet 2 mg PO HS 07/01/21 03/17/24 carvedilol 25 mg tablet 25 mg PO BID 08/07/21 03/17/24 calcium 250 mg 1 tablet PO DAILY 08/15/21 03/17/24 (citrate)-ergocalciferol (D2) 2.5 mcg (100 unit) tablet (Julio-Citrate) fenofibrate micronized 134 mg 134 mg PO DAILY 02/25/23 03/17/24 capsule magnesium oxide 400 mg (241.3 mg 1,600 mg PO BID 05/05/23 03/17/24 magnesium) tablet Probiotic 1 tab-cap PO DAILY 06/02/23 03/17/24 cholecalciferol (vitamin D3) 25 75 mcg PO DAILY 07/21/23 03/17/24 mcg (1,000 unit) tablet clopidogrel 75 mg tablet 75 mg PO DAILY 03/16/24 03/28/24 Allergies Allergy/AdvReac Type Severity Reaction Status Date / Time YANET Inhibitors Allergy Unknown Unknown,ANG Verified 03/30/24 14:10 IOEDEMA atorvastatin Allergy Unknown Unknown,Joint Verified 03/30/24 14:10 Pain hydrochlorothiazide Allergy Unknown Unknown,LOW Verified 03/30/24 14:10 ELETROLYTES ramipril Allergy Unknown Unknown,ANG Verified 03/30/24 14:10 IOEDEMA spironolactone Allergy Unknown Unknown,LOW Verified 03/30/24 14:10 ELECTROLYTES Sulfa (Sulfonamide Allergy Unknown Unknown,Unknown- Verified 03/30/24 14:10 Antibiotics) A CHILD valsartan AdvReac Severe Angioedema Verified 03/30/24 14:10 Review of Systems Review of Systems: All systems reviewed & are unremarkable except as noted in HPI and below [facility] Past Medical History Medical History Cholecystitis (12/2020) Chronic anemia CKD (chronic kidney disease) stage 3, GFR 30-59 ml/min 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 History of medial meniscus repair of left knee (11/24/18) History of tonsillectomy History of total left knee replacement (~08/19/21) Hx of inguinal hernia repair robotic assisted repair right inguinal hernia with mesh 06/07/23 PDC Family History Family History Father Carcinoma of colon Heart disease Mother Heart disease Sibling Heart disease Other Arthritis Social History Social History Social History: Surrogate decision-maker: Vamshi (son) or [place] (brother) Rosalina. CODE STATUS: Full code Smoking packs per day: 1 Smoking cigarettes per day: 20.0 Years smoked: 40 Smoking pack-years: 40.00 Smoking status: Former smoker Tobacco type: cigarettes Second hand tobacco smoke exposure: No Smoking end date: 03/06/17 Additional smoking assessment comments: No nicotine use at all Alcohol intake: former Drinks per week: 3 Substance use: never Substance use type: does not use Do You Feel Safe in your Home?: Yes Lack of Transportation: No Lack of Food: Never True Current Housing: I Have Housing Concerned About Future Housing: No Difficulty Paying Gas/Electric Bills: No Difficulty Paying for Meds: No Currently Unemployed: No Education: High School Diploma/GED Difficulty w/ Childcare or Family Care: No Living arrangements: alone Additional living arrangements comments: Lives in [place]. Occupation/Education: retired Additional occupation/education comments: Retired. Spiritual care concerns: No Exam Narrative: GENERAL: Well-appearing, Nontoxic HEAD: Normocephalic, atraumatic. EYES: PERRLA and EOMI. ENT: grossly unremarkable NECK: Supple. CHEST: No respiratory distress. HEART: Regular rate and rhythm EXTREMITIES: R knee and calf are swollen with clean, dry dressings intact; there is no erythema or evidence of infection, all compartments are soft; neurovascularly intact SKIN: Warm, dry, no rash. NEURO: Alert and oriented x3. PSYCH: Normal mood and affect. Course Vital Signs Vital signs: Vital Signs Temperature 97.9 F 03/30/24 09:35 Pulse Rate 82 03/30/24 09:35 Respiratory Rate 16 03/30/24 09:35 Blood Pressure 127/51 L 03/30/24 09:35 Pulse Oximetry 98 03/30/24 09:35 Oxygen Delivery Room Air 03/30/24 09:35 Temperature 98.5 F 03/30/24 14:14 Pulse Rate 87 03/30/24 15:18 Respiratory Rate 16 03/30/24 15:18 Blood Pressure 127/86 03/30/24 15:18 Pulse Oximetry 98 03/30/24 15:18 Oxygen Delivery Room Air 03/30/24 09:35 MDM - Extremity (Nontraumatic) MDM Narrative Medical decision making narrative: 73-year-old male presenting with right knee and leg pain the setting of recent total knee replacement. Exam is remarkable for the above. Right knee is a clean dry dressing in place. There is no surrounding erythema or evidence of infection. All of his compartments are soft. Distal pulses 2+. Ultrasound does reveal a DVT in the right gastrocnemius vein. States that he took his 1st dose of Eliquis this morning following his surgery. States that he has many pills of Eliquis at home. Discussed with him that we need to get him started back on a therapeutic dosing. Discussed the appropriate dosing and advised close follow-up with his PCP as well as his orthopedic surgeon. Appropriate return precautions were given. He is agreeable with this plan. Discharged in stable condition. Differential Diagnosis Differential diagnosis: Likely superficial thrombophlebitis, lower extremity edema, deep vein thrombosis of lower extremity and other ( Knee pain) Medical Records Attestation: I reviewed the patient's medical records. Imaging Data Radiologist's impression: ITS Impressions Venous Doppler Study 03/30/24 13:56 IMPRESSION: 1. [id number] acute deep venous thrombosis in the right gastrocnemius vein, new since the prior study. Critical Care Time Critical Care Time Critical Care Time: No Discharge Plan Discharge Clinical Impression: DVT of leg (deep venous thrombosis), Post-operative pain Patient Disposition: Home, Self-Care Condition: Stable Instructions: Antibiotic Form, Deep Vein Thrombosis (DC) Additional Instructions: The ultrasound today shows a blood clot in your right leg. We have increased your Eliquis dosing back to a therapeutic level to treat this. Please follow-up closely with your PCP and orthopedic surgeon. If your symptoms worsen or other concerning symptoms arise, please return to the ER. Eliquis dosin mg twice daily for the first 7 days. After the first week, take 5 mg twice daily. Prescriptions: No Action Julio-Citrate 250 mg-2.5 mcg (100 unit) tablet 1 tablet PO DAILY Patient Comments: Calcium 1200mg with 1000IU Vitamin D. fenofibrate micronized 134 mg capsule 134 mg PO DAILY rosuvastatin 40 mg tablet 40 mg PO HS coenzyme Q10 100 mg capsule 100 mg PO BID amlodipine 10 mg tablet 10 mg PO QAM doxazosin 2 mg tablet 2 mg PO HS carvedilol 25 mg Tablet 25 mg PO BID cholecalciferol (vitamin D3) 25 mcg (1,000 unit) tablet 75 mcg PO DAILY Probiotic 1 tab-cap PO DAILY clopidogrel 75 mg tablet 75 mg PO DAILY Patient Comments: Pt to hold [address] Miles oxycodone-acetaminophen [Percocet] 5-325 mg tablet 1 tablet PO Q6H PRN (Reason: pain) Qty: 30 0RF magnesium oxide 400 mg (241.3 mg magnesium) tablet 1,600 mg PO BID glimepiride 1 mg tablet 1 mg PO QAM Qty: 90 1RF Rx Instructions: administer with breakfast DOES NOT TAKE if BS Below 100, TAKES 1MG IF BLOOD [id number], TAKE 2MG IF BLOOD SURGERY >140 omeprazole 20 mg capsule,delayed release(DR/EC) 20 mg PO DAILY Qty: 90 1RF metformin 500 mg tablet extended release 24 hr 500 mg PO BID Qty: 180 1RF ciprofloxacin HCl 500 mg tablet 500 mg PO Q12H Qty: 10 0RF Patient Comments: Finished abx last dose 03/25/24. Follow-up/Referrals: Issac Miles MD [Physician] - Norma Landry MD [Primary Care Provider] -
[2024-03-30] MEDS: HYDROmorphone HCL INJ (*CRX) 1 MG/ML SYR IM (14:11)
--- NOTE | 2024-03-30 14:11 | PC.NURSE ---
hydromorphone was given at this time in the pt IV. IV was put in by ems. EDP approved
[2024-03-30 14:14] VITALS: BP 136/62; PULSE 87; RESP 15; TEMP 36.9; O2SAT 99
[2024-03-30 15:18] VITALS: BP 127/86; PULSE 87; RESP 16; O2SAT 98
[2024-03-30] MEDS: oxyCODONE/ACETAMINOPHEN (*CRX) 5-325 MG TABLET 1 TABLET PO (16:30)
== END 2024-03-30 16:43 | disposition home or self-care (01) ==
PROVIDERS: Emergency Provider Emergency Medicine; PCP Family Medicine
DX: I82.461 Acute embolism and thrombosis of right calf muscular vein (principal); T84.84XA Pain due to internal orthopedic prosthetic devices, implants and grafts, initial encounter; Z96.651 Presence of right artificial knee joint; Z86.711 Personal history of pulmonary embolism; N18.30 Chronic kidney disease, stage 3 unspecified; E78.49 Other hyperlipidemia; I12.9 Hypertensive chronic kidney disease with stage 1 through stage 4 chronic kidney disease, or unspecified chronic kidney disease; E11.22 Type 2 diabetes mellitus with diabetic chronic kidney disease; E55.9 Vitamin D deficiency, unspecified; K21.9 Gastro-esophageal reflux disease without esophagitis; Z87.891 Personal history of nicotine dependence
CPT/HCPCS: 93971; 96372; 99284; A9270; J1171

== ENCOUNTER 2024-04-06 10:26 | Emergency (ER) | payer MEDICARE, OTHER, SELFPAY ==
[2024-04-06] VITALS (10 sets, daily range): BP systolic 113–131; BP diastolic 54–68; PULSE 69–79; RESP 16–20; TEMP 36.4–36.6; O2SAT 92–100
--- NOTE | ~2024-04-06 | XR_ITS ---
EXAMINATION: XR chest 2V DATE: 04/06/2024 12:12 INDICATION: Weakness. TECHNIQUE: Frontal and lateral views of the chest were obtained. COMPARISON: Chest 2 views 08/26/2023 FINDINGS: There is mild atelectasis in the lower lung zones. No pleural effusion or pneumothorax. The heart size is normal. Surgical clips in the right upper quadrant are likely from cholecystectomy. Th ere is mild chronic anterior wedging of a midthoracic vertebral body. IMPRESSION: 1. Mild atelectasis in the lower lung zones. Reviewed, dictated and finalized at location A. CULTURE SCIENTIST
--- NOTE | 2024-04-06 10:53 | ECG_ITS ---
Test Date: 2024-04-06 11:05:23 Measurements Intervals [place] Rate: 70 P: 37 [place]: 179 QRS: 15 QRSD: 138 T: 0 QT: 403 QTc: 435 Interpretive Statements SINUS RHYTHM RIGHT BUNDLE BRANCH BLOCK CONSIDER INFERIOR INFARCT, AGE INDETERMINATE BASELINE ARTIFACT- I, II, AVR, AVL, AVF ABNORMAL ECG Compared to ECG 02/21/2024 12:38:08 First degree AV block no longer present Electronically Signed On 04-06-2024 11:12:42 INFRASTRUCTURE DEVELOPER by Anam Chamberlain D.O.
[2024-04-06 11:08] LABS: Basophils Percent Auto 0.5 % (0.2-1.2); Eosinophils Absolute Auto 0.4 K/mm3 (0-0.3); Eosinophils Percent Auto 4.3 % (0-4.4); Hematocrit 23.8 % (42.0-52.0); Hemoglobin 7.3 g/dL (14.0-18.0); Immature Granulocyte Percent A 1.1 % (0-0.5); Lymphocytes Absolute Auto 1.11 K/mm3 (0.9-3.2); Lymphocytes Percent Auto 12.7 % (18.3-44.2); Mean Corpuscular HGB Conc 30.7 g/dl (32-36); Mean Corpuscular Hemoglobin 26.4 pg (26-34); Mean Corpuscular Volume 85.9 fl (80-100); Monocytes Absolute Auto 0.7 K/mm3 (0.1-0.6); Monocytes Percent Auto 8.1 % (2.6-8.5); Neutrophils Absolute Auto 6.4 K/mm3 (1.3-6.7); Neutrophils Percent Auto 73.3 % (45.5-73.1); Platelet Count Result 235 k/mm3 (150-375); Red Blood Count 2.77 M/mm3 (4.6-6.20); Red Cell Distribution Width 15.9 % (11.5-14.5); White Blood Count 8.7 K/mm3 (4.5-10.0)
[2024-04-06 11:17] LABS: Alanine Aminotransferase 18 U/L (6-50); Albumin Level 3.9 g/dL (3.5-5.1); Alkaline Phosphatase 51 U/L (38-126); Anion Gap 10 mmol/L (4-12); Aspartate Amino Transferase 27 U/L (17-59); Bilirubin,Total 1.1 mg/dL (0.2-1.3); Blood Urea Nitrogen 24 mg/dL (9-20); Carbon Dioxide 27 mmol/L (22-30); Chloride 103 mmol/L (98-107); Estimated CRCL calculation 50 ml/min; Estimated Glomerular Filt Rate 50; Glucose 136 mg/dL (65-110); Potassium 3.9 mmol/L (3.4-5.0); Sodium 140 mmol/L (137-145)
[2024-04-06] MEDS: ALBUTEROL SULFATE NEB 2.5 MG/3 ML INH 10 MG INHALATION (11:35)
[2024-04-06 11:49] LABS: Magnesium 0.5 mg/dL (1.6-2.3)
[2024-04-06] MEDS: MAGNESIUM SULF 4 GM/WATER100ML 4 GM/100 ML BAG IVPB (12:21)
[2024-04-06] MEDS: LACTATED RINGERS 1,000 ML 999 ML IV CONT (12:22)
--- NOTE | 2024-04-06 17:58 | ED.WEAKNESS ---
HPI - Weakness General Chief complaint: Weakness Stated complaint: weakness Time Seen by Provider: 04/06/24 10:36 History of Present Illness HPI Narrative: Patient had recent knee surgery, that was found to have a DVT and started on blood thinners, and overall had stopped taking his supplements and was not eating or drinking very well, and now feels weak. Related Data Home Medications Medication Instructions Recorded Confirmed rosuvastatin 40 mg tablet 40 mg PO HS 04/11/19 03/17/24 coenzyme Q10 100 mg capsule 100 mg PO BID 10/18/20 03/17/24 amlodipine 10 mg tablet 10 mg PO QAM 06/04/21 03/17/24 doxazosin 2 mg tablet 2 mg PO HS 07/01/21 03/17/24 carvedilol 25 mg tablet 25 mg PO BID 08/07/21 03/17/24 calcium 250 mg 1 tablet PO DAILY 08/15/21 03/17/24 (citrate)-ergocalciferol (D2) 2.5 mcg (100 unit) tablet (Julio-Citrate) fenofibrate micronized 134 mg 134 mg PO DAILY 02/25/23 03/17/24 capsule magnesium oxide 400 mg (241.3 mg 1,600 mg PO BID 05/05/23 03/17/24 magnesium) tablet Probiotic 1 tab-cap PO DAILY 06/02/23 03/17/24 cholecalciferol (vitamin D3) 25 75 mcg PO DAILY 07/21/23 03/17/24 mcg (1,000 unit) tablet clopidogrel 75 mg tablet 75 mg PO DAILY 03/16/24 03/28/24 Allergies Allergy/AdvReac Type Severity Reaction Status Date / Time YANET Inhibitors Allergy Unknown Unknown,ANG Verified 03/30/24 14:10 IOEDEMA atorvastatin Allergy Unknown Unknown,Joint Verified 03/30/24 14:10 Pain hydrochlorothiazide Allergy Unknown Unknown,LOW Verified 03/30/24 14:10 ELETROLYTES ramipril Allergy Unknown Unknown,ANG Verified 03/30/24 14:10 IOEDEMA spironolactone Allergy Unknown Unknown,LOW Verified 03/30/24 14:10 ELECTROLYTES Sulfa (Sulfonamide Allergy Unknown Unknown,Unknown- Verified 03/30/24 14:10 Antibiotics) A CHILD valsartan AdvReac Severe Angioedema Verified 03/30/24 14:10 Review of Systems Review of Systems: All systems reviewed & are unremarkable except as noted in HPI and below PMFSH Past Medical History Medical History Cholecystitis (12/2020) Chronic anemia CKD (chronic kidney disease) stage 3, GFR 30-59 ml/min 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 History of medial meniscus repair of left knee (11/24/18) History of tonsillectomy History of total left knee replacement (~08/19/21) Hx of inguinal hernia repair robotic assisted repair right inguinal hernia with mesh 06/07/23 PDC Family History Family History Father Carcinoma of colon Heart disease Mother Heart disease Sibling Heart disease Other Arthritis Social History Social History Social History: Surrogate decision-maker: Vamshi (son) or [employer] (brother) Rosalina. CODE STATUS: Full code Smoking packs per day: 1 Smoking cigarettes per day: 20.0 Years smoked: 40 Smoking pack-years: 40.00 Smoking status: Former smoker Tobacco type: cigarettes Second hand tobacco smoke exposure: No Smoking end date: 03/06/17 Additional smoking assessment comments: No nicotine use at all Alcohol intake: former Drinks per week: 3 Substance use: never Substance use type: does not use Do You Feel Safe in your Home?: Yes Lack of Transportation: No Lack of Food: Never True Current Housing: I Have Housing Concerned About Future Housing: No Difficulty Paying Gas/Electric Bills: No Difficulty Paying for Meds: No Currently Unemployed: No Education: High School Diploma/GED Difficulty w/ Childcare or Family Care: No Living arrangements: alone Additional living arrangements comments: Lives in [place]. Occupation/Education: retired Additional occupation/education comments: Retired. Spiritual care concerns: No Exam Narrative: EXAMINATION OF ORGAN SYSTEMS/BODY AREAS: Constitutional: Vital signs per nursing GENERAL: Appears tired and pale HEAD: Normal with no signs of head trauma. EYES: EOMI, conjunctiva normal ENT: Hearing grossly intact LUNGS: Nonlabored breathing. HEART: [Regular rate and rhythm] ABD: [Soft], [nontender to palpation] EXT: Normal range of motion SKIN: Pale NEURO: [Alert and oriented x 3. No gross focal sensory or strength deficits.] PSYCH: Normal affect Course Vital Signs Vital signs: Vital Signs Temperature 97.9 F 04/06/24 10:34 Pulse Rate 70 04/06/24 10:34 Respiratory Rate 20 04/06/24 10:34 Blood Pressure 119/58 L 04/06/24 10:34 Pulse Oximetry 100 04/06/24 10:34 Temperature 97.9 F 04/06/24 14:01 Pulse Rate 79 04/06/24 14:01 Respiratory Rate 20 04/06/24 14:01 Blood Pressure 123/68 04/06/24 14:01 Pulse Oximetry 96 04/06/24 14:01 Oxygen Delivery Room Air 04/06/24 10:53 MDM - Weakness MDM Narrative Medical decision making narrative: Patient presents here with generalized weakness, poor p.o. intake, had stopped taking his supplements. His hemoglobin was low at 7.3, and had steadily been dropping per my review EMR, patient denies any source of bleeding, I did do rectal exam and stool was grossly brown, Hemoccult-negative. EKG on my independent interpretation here shows normal sinus rhythm rate 70, normal CA, QRS, QTC, axis, no ST elevations depressions concerning for acute ischemia or arrhythmia. Magnesium was 0.5 so he is repleted. He states that he just restarted taking magnesium, I will also put him on iron tablets. I have offered him admission at this time, after some thought he states he would rather go home, I have urged him to come back if he changes mind or if things worsen, and he needs to see his doctor in the next few days so he can be check his labs to make sure that they are improving as he may need needed transfusion if his hemoglobin continues to fall and he may need to be taken off his blood thinners. Patient agreeable to this plan Lab Data 04/06/24 11:00 04/06/24 11:00 Labs: Lab Results 04/06/24 Range/Units 11:00 WBC 8.7 (4.5-10.0) K/mm3 RBC 2.77 L (4.6-6.20) M/mm3 Hgb 7.3 L (14.0-18.0) g/dL Hct 23.8 L (42.0-52.0) % MCV 85.9 (80-100) fl MCH 26.4 (26-34) pg MCHC 30.7 L (32-36) g/dl RDW 15.9 H (11.5-14.5) % Plt Count 235 D (150-375) k/mm3 MPV 11.0 H (7.4-10.4) fl Immature Gran % (Auto) 1.1 H (0-0.5) % Neut % (Auto) 73.3 H (45.5-73.1) % Lymph % (Auto) 12.7 L (18.3-44.2) % Scott % (Auto) 8.1 (2.6-8.5) % Eos % (Auto) 4.3 (0-4.4) % Baso % (Auto) 0.5 (0.2-1.2) % Lymph # (Auto) 1.11 (0.9-3.2) K/mm3 Scott # (Auto) 0.7 H (0.1-0.6) K/mm3 Eos # (Auto) 0.4 H (0-0.3) K/mm3 Baso # (Auto) 0.0 (0.0-0.1) K/mm3 Abs Immat Gran (auto) 0.10 H (0.00-0.031) K/mm3 Absolute Neuts (auto) 6.4 (1.3-6.7) K/mm3 Absolute Nucleated RBC 0.000 (0.0-0.012) K/mm3 Nucleated RBC % 0.0 (0.0-0.2) % Sodium 140 (137-145) mmol/L Potassium 3.9 (3.4-5.0) mmol/L Chloride 103 (98-107) mmol/L Carbon Dioxide 27 (22-30) mmol/L Anion Gap 10 (4-12) mmol/L BUN 24 H D (9-20) mg/dL Creatinine 1.40 H (0.7-1.3) mg/dL Estim Creat Clear Calc 50 ml/min Estimated GFR 50 L (59 - ) Glucose 136 H (65-110) mg/dL Calcium 8.0 L (8.4-10.2) mg/dL Magnesium 0.5 L (1.6-2.3) mg/dL Total Bilirubin 1.1 (0.2-1.3) mg/dL AST 27 (17-59) U/L ALT 18 (6-50) U/L Alkaline Phosphatase 51 (38-126) U/L Total Protein 7.0 (6.3-8.2) g/dL Albumin 3.9 (3.5-5.1) g/dL Discharge Plan Discharge Clinical Impression: Generalized weakness, Anemia, Hypomagnesemia Patient Disposition: Home, Self-Care Condition: Stable Instructions: Weakness (ED), Anemia (ED) Additional Instructions: Please follow up with your doctor; you may need to have your blood work rechecked in the next week. Please make sure that your eating and drinking normally and taking your supplements. You can always return for any further issues or if you change your mind about being admitted. Prescriptions: New ferrous sulfate 325 mg (65 mg iron) tablet 325 mg PO BID 30 Days Qty: 60 0RF No Action Julio-Citrate 250 mg-2.5 mcg (100 unit) tablet 1 tablet PO DAILY Patient Comments: Calcium 1200mg with 1000IU Vitamin D. fenofibrate micronized 134 mg capsule 134 mg PO DAILY rosuvastatin 40 mg tablet 40 mg PO HS coenzyme Q10 100 mg capsule 100 mg PO BID amlodipine 10 mg tablet 10 mg PO QAM doxazosin 2 mg tablet 2 mg PO HS carvedilol 25 mg Tablet 25 mg PO BID cholecalciferol (vitamin D3) 25 mcg (1,000 unit) tablet 75 mcg PO DAILY Probiotic 1 tab-cap PO DAILY clopidogrel 75 mg tablet 75 mg PO DAILY Patient Comments: Pt to hold [address] Miles oxycodone-acetaminophen [Percocet] 5-325 mg tablet 1 tablet PO Q6H PRN (Reason: pain) Qty: 30 0RF magnesium oxide 400 mg (241.3 mg magnesium) tablet 1,600 mg PO BID glimepiride 1 mg tablet 1 mg PO QAM Qty: 90 1RF Rx Instructions: administer with breakfast DOES NOT TAKE if BS Below 100, TAKES 1MG IF BLOOD [id number], TAKE 2MG IF BLOOD SURGERY >140 omeprazole 20 mg capsule,delayed release(DR/EC) 20 mg PO DAILY Qty: 90 1RF metformin 500 mg tablet extended release 24 hr 500 mg PO BID Qty: 180 1RF ciprofloxacin HCl 500 mg tablet 500 mg PO Q12H Qty: 10 0RF Patient Comments: Finished abx last dose 03/25/24. Eliquis 5 mg tablet 5 mg PO BID Qty: 180 0RF oxycodone-acetaminophen 5-325 mg tablet 1 tablet PO Q12H PRN (Reason: pain) Qty: 30 0RF oxycodone-acetaminophen 5-325 mg tablet 1 tablet PO Q12H PRN (Reason: pain) Qty: 30 0RF Follow-up/Referrals: Norma Landry MD [Primary Care Provider] - 2 Days
== END 2024-04-06 14:47 | disposition home or self-care (01) ==
PROVIDERS: Emergency Provider Emergency Medicine; PCP Family Medicine
DX: R53.1 Weakness (principal); D64.9 Anemia, unspecified; E83.42 Hypomagnesemia; E11.22 Type 2 diabetes mellitus with diabetic chronic kidney disease; I12.9 Hypertensive chronic kidney disease with stage 1 through stage 4 chronic kidney disease, or unspecified chronic kidney disease; N18.30 Chronic kidney disease, stage 3 unspecified; I25.2 Old myocardial infarction; E78.5 Hyperlipidemia, unspecified; K21.9 Gastro-esophageal reflux disease without esophagitis; M17.11 Unilateral primary osteoarthritis, right knee; M16.11 Unilateral primary osteoarthritis, right hip; Z95.5 Presence of coronary angioplasty implant and graft; Z96.652 Presence of left artificial knee joint; Z86.0100 Personal history of colon polyps, unspecified; Z87.891 Personal history of nicotine dependence; Z85.828 Personal history of other malignant neoplasm of skin; Z87.11 Personal history of peptic ulcer disease; Z90.49 Acquired absence of other specified parts of digestive tract; Z79.84 Long term (current) use of oral hypoglycemic drugs; Z79.899 Other long term (current) drug therapy; I45.10 Unspecified right bundle-branch block; R94.31 Abnormal electrocardiogram [ECG] [EKG]
CPT/HCPCS: 36415; 71046; 80053; 83735; 85025; 93005; 94640; 96365; 96366; 99284; J3475; J7120

== ENCOUNTER 2024-04-28 14:43 | Outpatient (CLI) | payer MEDICARE, OTHER, SELFPAY ==
[2024-04-28 19:13] LABS: Hematocrit 34.6 % (42.0-52.0); Hemoglobin 10.4 g/dL (14.0-18.0); Mean Corpuscular HGB Conc 30.1 g/dl (32-36); Mean Corpuscular Hemoglobin 27.9 pg (26-34); Mean Corpuscular Volume 92.8 fl (80-100); Mean Platelet Volume 12.1 fl (7.4-10.4); Platelet Count Result 167 k/mm3 (150-375); Red Blood Count 3.73 M/mm3 (4.6-6.20); Red Cell Distribution Width 17.9 % (11.5-14.5); White Blood Count 7.1 K/mm3 (4.5-10.0)
[2024-04-28 19:19] LABS: Alanine Aminotransferase 13 U/L (6-50); Albumin Level 3.9 g/dL (3.5-5.1); Alkaline Phosphatase 82 U/L (38-126); Anion Gap 7 mmol/L (4-12); Aspartate Amino Transferase 28 U/L (17-59); Bilirubin,Total 0.5 mg/dL (0.2-1.3); Blood Urea Nitrogen 24 mg/dL (9-20); Calcium 9.9 mg/dL (8.4-10.2); Carbon Dioxide 27 mmol/L (22-30); Chloride 106 mmol/L (98-107); Estimated Glomerular Filt Rate 46; Glucose 147 mg/dL (65-110); Magnesium 1.3 mg/dL (1.6-2.3); Sodium 140 mmol/L (137-145)
== END 2024-04-28 14:44 | disposition home or self-care (01) ==
LOC: ANHGOSHLAB 14:45
PROVIDERS: PCP Family Medicine; Visit Provider Family Medicine
DX: D64.9 Anemia, unspecified (principal); E83.42 Hypomagnesemia; I10 Essential (primary) hypertension
CPT/HCPCS: 36415; 80053; 83735; 85027

== ENCOUNTER 2024-09-21 09:36 | Outpatient (CLI) | payer MEDICARE, OTHER, SELFPAY ==
--- NOTE | ~2024-09-21 | US_ITS ---
EXAMINATION: US art doppler w press LE BI DATE: 09/21/2024 10:24 INDICATION: Peripheral vascular disease. Claudication. TECHNIQUE: Segmental pressures and plethysmographic and Doppler waveforms of the brachial and lower e xtremity arteries were obtained. COMPARISON: None. FINDINGS: Right and left brachial artery pressures of 137 mm Hg and 119 mm Hg, respectively, are concordant (no rmal difference <= 30 mmHg). The right ankle-brachial index (ARIADNA) is 1.14 (normal >= 0.9-1). The right great toe-brachial index (T BI) is 0.55 (normal >= 0.6-0.8). Arterial waveforms are biphasic with brisk systolic upstrokes throug hout the arteries of the right lower limb. The left ARIADNA is 1.12. The left TBI is 0.77. Arterial waveforms are biphasic with brisk systolic upstr okes throughout the arteries of the left lower limb. IMPRESSION: 1. Mild arterial occlusive disease to the right lower limb with normal right ARIADNA but obviously decrea sed right TBI. 2. No significant arterial occlusive disease to left lower limb with normal left ARIADNA and TBI. Reviewed, dictated and finalized at location A. IMPRESSION: 1. Mild arterial occlusive disease to the right lower limb with normal right AB I but obviously decreased right TBI. 2. No significant arterial occlusive disease to left lower limb with normal lef t ARIADNA and TBI.
--- OUTSIDE RECORDS SUMMARY | 2024-09-21 10:28 | XMS_ITS | Encounter Summary ---
Author Organization [facility] Address [address] [place] [address] Care Team Providers Care Adding Machine Operator Name Role Phone Luis King MD Primary Care Provider [phone] Encounter Details Date Type Department Care Team (Late Contact Info) Description 10/14/2006 Outpatient Historical [facility] 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 Gender Identity Not on file Sexual Orientation Not on file documented as of this encounter Plan of Treatment Upcoming Encounters Date Type Department Care Team (Late st Contact Info) Description 01/30/2025 10:30 AM CDT Office Visit [facility] Heart and Vascular - [facility] [address] [place] [address] [address] [place] [phone] Rodri Amador MD [address] [place], [place] [phone] documented as of this encounter Visit Diagnoses Not on filedocumented in this encounter Care Teams Adding Machine Operator Relationship Specialty Start Date End Date Luis King MD [address] [place] [phone] PCP - General 05/15/08 documented as of this encounter
--- OUTSIDE RECORDS SUMMARY | 2024-09-21 10:28 | XMS_ITS | Encounter Summary ---
Author Organization [facility] Address [address] [place] [address] Care Team Providers Care Veterinary Practice Manager Name Role Phone Luis iKng MD Primary Care Provider [phone] Encounter Details Date Type Department Care Team (Late st Contact Info) Description 08/14/2005 Outpatient Historical [facility] 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 Gender Identity Not on file Sexual Orientation Not on file documented as of this encounter Plan of Treatment Upcoming Encounters Date Type Department Care Team (Late st Contact Info) Description 01/30/2025 10:30 AM CDT Office Visit [facility] Heart and Vascular - [address] [place] [phone] Rodri Amador MD [address] [place] [address] documented as of this encounter Visit Diagnoses Not on filedocumented in this encounter Care Teams Veterinary Practice Manager Relationship Specialty Start Date End Date Luis King MD [address] [place] [phone] PCP - General 05/15/08 documented as of this encounter
--- OUTSIDE RECORDS SUMMARY | 2024-09-21 10:28 | XMS_ITS | Encounter Summary ---
Author Organization [facility] Address [address] [place] [address] Care Team Providers Care Film Processor Name Role Phone Luis King MD Primary Care Provider [phone] Encounter Details Date Type Department Care Team (Late st Contact Info) Description 10/14/2006 Outpatient Historical [facility] 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 Gender Identity Not on file Sexual Orientation Not on file documented as of this encounter Plan of Treatment Upcoming Encounters Date Type Department Care Team (Late st Contact Info) Description 01/30/2025 10:30 AM CDT Office Visit [facility] Heart and Vascular - [address] [place] [phone] Rodri Amador MD [address] [place] [address] documented as of this encounter Visit Diagnoses Not on filedocumented in this encounter Care Teams Film Processor Relationship Specialty Start Date End Date Luis King MD [address] [place] [phone] PCP - General 05/15/08 documented as of this encounter
--- OUTSIDE RECORDS SUMMARY | 2024-09-21 10:28 | XMS_ITS | Encounter Summary ---
Author Organization [facility] Address [address] [place] [address] Care Team Providers Care Orchard Manager Name Role Phone Jean Pierre Landry MD Primary Care Provider Encounter Details Date Type Department Care Team (Late st Contact Info) Description 02/16/2022 Lab Requisition [facility] [address] [phone] Herman Rebolledo MD [address] [place] [id number] Social History Tobacco Use Types Packs/Day Years Used Date Smoking Tobacco: Never Assessed Sex and Gender Information Value Date Recorded Sex Assigned at Not on file Legal Sex Male 6:26 AM ASSEMBLY RIVETER Gender Identity Not on file Sexual Orientation Not on file documented as of this encounter Plan of Treatment Not on file documented as of this encounter Procedures Procedure Name Priority Date/Time Associated Diagnosis Comments DERMATOPATHOLOGY Routine 02/13/2022 12:0 0 AM CDT documented in this encounter Results * DERMATOPATHOLOGY (02/13/2022 12:00 AM CDT) Case Report Dermatopathology Report Case: [id number] Authorizing Provider: Herman Rebolledo MD Collected: 02/13/2022 12:00 AM Ordering Location: [facility] Received: 02/16/2022 03:40 PM Pathologist: Lizy Mata MD Specimens: A) - Skin, right nasal bridge B) - Skin, mid back C) - Skin, left hand 2 3:43 PM [facility] DERMATOPATHOLOGY LABORATORY Final Diagnosis Specimen A. SKIN, right nasal bridge: BASAL CELL CARCINOMA, NODULAR TYPE (C44.311) Specimen B. SKIN, mid back: NEUROFIBROMA (D36.10) Specimen C. 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 SCC. Path# [id number] B: Nevus vs. Other. Path# [id number] C: BCC vs. SCC. Path# [id number] 2 3:43 PM [facility] DERMATOPATHOLOGY LABORATORY Gross Description Specimen A: Received is one formalin filled container labeled with the patient's name and designated right nasal bridge. The specimen consists of a shave biopsy measuring [id number]. Jar 0. Specimen B: Received is one formalin filled container labeled with the patient's name and designated mid back. The specimen consists of a shave biopsy measuring [id number] and it is bisected. Jar 0. Specimen C: Received is one formalin filled container labeled with the patient's name and designated left hand. The specimen consists of a shave biopsy measuring [id number] and it is bisected. Jar 0. 2 3:43 PM [facility] DERMATOPATHOLOGY LABORATORY Microscopic Description Specimen A. SKIN, right nasal bridge: Within the dermis there are aggregates of basaloid cells with a high nuclear to cytoplasmic ratio and peripheral palisading. Specimen B. SKIN, mid back: Sections show a proliferation of spindled and S-shaped cells within the dermis. The stromal collagen is delicate and pale. Specimen C. SKIN, left hand: The epidermis is acanthotic and shows full thickness disorderly maturation of keratinocytes, mitoses at different levels, and dyskeratotic cells. There is overlying parakeratosis and hyperkeratosis. The lesion extends to the base of the biopsy. COMMENT: An invasive squamous cell carcinoma cannot be ruled out. 2 3:43 PM CDT DERMATOPATHOLOGY LABORATORY Disclaimer An external and internal positive and negative controls are appropriate for the histochemical, immunohistochemical and immunofluorescence stain(s) in this case (if any), except where stated explicitly. The performance characteristics of the stain(s) cited in this report were developed and its performance characteristic determined by the Dermatopathology Laboratory at [facility], directed by Dr. Magdaleno Baer. These tests need not be, and therefore are not, approved by the [place] Food and Drug Administration. The tests are used for clinical purposes. Billing Codes Specimen Charges Stain Charges 74060 [id number] 1 1 1 2 3:43 PM CDT DERMATOPATHOLOGY LABORATORY Embedded Images 2 3:43 PM CDT DERMATOPATHOLOGY LABORATORY Pathology/Cytology TISSUE SPECIMEN FROM SKIN / Unknown 02/13/2022 02/16/2022 3:40 PM CDT Miscellaneous samples (specimen) TISSUE SPECIMEN FROM SKIN / Unknown 02/13/2022 02/16/2022 3:40 PM CDT Miscellaneous samples (specimen) TISSUE SPECIMEN FROM SKIN / Unknown 02/13/2022 02/16/2022 3:40 PM CDT us Herman Rebolledo MD LAB - PATHOLOGY/CYTOLOGY ORDER JONNA Final Result DERMATOPATHOLOGY LABORATORY [facility] - Department of Dermatology [address] [phone] documented in this encounter Visit Diagnoses Not on filedocumented in this encounter Care Teams Orchard Manager Relationship Specialty Start Date End Date Jean Pierre Landry MD [address] [place] [phone] PCP - General 03/20/21 documented as of this encounter
--- OUTSIDE RECORDS SUMMARY | 2024-09-21 10:28 | XMS_ITS | Encounter Summary ---
Author Organization [facility] Address [address] [place] [address] Care Team Providers Care Pathology Lab Technician Name Role Phone Luis King MD Primary Care Provider [phone] Encounter Details Date Type Department Care Team (Late st Contact Info) Description 04/26/2007 Outpatient Historical [facility] 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 Gender Identity Not on file Sexual Orientation Not on file documented as of this encounter Plan of Treatment Upcoming Encounters Date Type Department Care Team (Late st Contact Info) Description 01/30/2025 10:30 AM CDT Office Visit [facility] Heart and Vascular - [address] [place] [phone] Rodri Amador MD [address] [place] [address] documented as of this encounter Visit Diagnoses Not on filedocumented in this encounter Care Teams Pathology Lab Technician Relationship Specialty Start Date End Date Luis King MD [address] [place] [phone] PCP - General 05/15/08 documented as of this encounter
--- OUTSIDE RECORDS SUMMARY | 2024-09-21 10:28 | XMS_ITS | Clinical Summary ---
Author Organization [facility] Address [address] [place] [address] Care Team Providers Care Hatch Boss Name Role Phone Jean Pierre Landry MD Primary Care Provider Allergies Active Allergy Reactions Criticality Noted Date Comments Atorvastatin Other (see comment) 12/15/2021 Numbness and tingling in extremities Hydrochlorothiazide Other (see comment) 022 Abnormal Electrolytes Ramipril Angioedema 12/15/2021 Spironolactone Lab Results 12/15/2021 Elevated CR Sulfa Antibiotics Other (see comment) 2 As a child Valsartan Angioedema 12/15/2021 Medications amLODIPine (NORVASC) 10 MG tablet Take 10 mg by mouth daily. Active clopidogrel (PLAVIX) 75 MG tablet Take 75 mg by mouth daily. Active doxazosin (CARDURA) 2 MG tablet Take 2 mg by mouth nightly at bedtime. Active carvedilol (COREG) 25 MG tablet Take 25 mg by mouth 2 (two) times daily. Active omeprazole (PRILOSEC) 20 MG capsule Take 20 mg by mouth daily. Active rosuvastatin (CRESTOR) 40 MG tablet Take 40 mg by mouth nightly at bedtime. Active fenofibric acid delayed release (TRILIPIX) 135 MG CAPSULE DELAYED RELEASE Take 135 mg by mouth daily. Active metFORMIN (GLUCOPHAGE) 500 MG tablet Take 500 mg by mouth 2 (two) times daily with meals. Active fenofibrate (TRICOR) 54 MG tablet Take 1 tablet (54 mg total) by mouth daily. Active glimepiride (AMARYL) 2 MG tablet glimepiride 2 mg tablet TAKE 1 TABLET BY MOUTH TWICE DAILY BEFORE MEALS Active vitamin D3, cholecalciferol , 25 mcg capsule Take 4 capsules (4,000 Units total) by mouth daily. Active magnesium oxide (MAG-OX) 400 MG tablet magnesium oxide 400 mg (241.3 mg magnesium) tablet TK 1 T PO QID PC Active Active Problems Problem Noted Date Diagnosed Date Peripheral vascular disease 03/01/2023 Colitis 12/29/2022 Colon polyps 12/29/2022 Gastritis 12/29/2022 Stage 3 chronic kidney disease 01/19/2022 Hypocalcemia 05/05/2021 Hypomagnesemia 05/05/2021 Hypokalemia 05/01/2021 Type 2 diabetes mellitus ([facility]) 12/04 Osteoarthritis of knee 03/16/2019 Old SC (myocardial infarction) 02/28/2019 Hypertension 11/20/2011 Overview (12/29/2022): Intolerant of hctz, spironolactone, valsartan Intolerant of hctz, spironolactone, valsartan Hyperlipidemia 10/25/2008 Overview (12/29/2022): Intolerant of atorvastatin Intolerant of atorvastatin Arteriosclerosis of coronary artery 05/17/2008 Overview (12/29/2022): S/P multiple PCIs of RCA, last 2002 Inf infarct, no ischemia, nl LV fxn stress 04/17 S/P multiple PCIs of RCA, last 2002 Inf infarct, no ischemia, nl LV fxn stress 04/17 Immunizations Immunization Administration Dates Next Due Hepatitis A (Havrix 1440 El.U) 09/04/2014,2013 Influenza (Generic) 03/03/2021, 8,02/28/2018,03/05/20 14,03/20/2013 Influenza Adult (Generic) 04/03/2019,,02/04/2016,03/28/20 15 Pneumococcal (Pneumovax 23) 04/13/2012 Pneumococcal (Prevnar 13) 02/29/2020,04/13/2019 Pneumococcal (Prevnar 7) 02/28/2019 Tdap (Generic) 11/18/2021,08/29/2007 Zoster (Zostavax) 05822 Unt/0.65Ml 03/13/2014 Family History Medical History Relation Comments Colon Cancer Father Relation Status Comments Father Social History Tobacco Use Types Packs/Day Years Used Date Smoking Tobacco: Former Cigarettes Q uit: 02/2017 Smokeless Tobacco: Never Snuff Alcohol Use Standard Drinks/Week Comments Yes 3.3 (1 standard drink = 0.6 oz p ure alcohol) occ Sex and Gender Information Value Date Recorded Sex Assigned at Not on file Legal Sex Male 4:32 PM CDT Gender Identity Not on file Sexual Orientation Not on file Last Filed Vital Signs Vital Sign Reading Time Taken Comments Blood Pressure 130/60 02/03/2023 1:10 PM CDT Pulse 70 02/03/2023 1:10 PM CDT Temperature 36.9 C (98.4 F) 12/22/2021 7:51 AM CDT Respiratory Rate 16 12/22/2021 7:51 AM CDT Oxygen Saturation 96% 12/22/2021 8:57 AM CDT Inhaled Oxygen Concentration - - Weight 103 kg (227 lb) 02/03/2023 1:10 PM CDT Height 172.7 cm (5' 8 ) 02/03/2023 1:10 PM CDT Body Mass Index 34.52 02/03/2023 1:10 PM CDT Plan of Treatment Health Maintenance Due Date Last Done Comments ASCVD LDL 1950 Colorectal Cancer Screening Colonoscopy (10 Years) 1950 Kidney Health Evaluation 1950 Lipid Panel 1950 Diabetes: Retinopathy Eye Exam 11/28/1967 Hepatitis C 11/28/1967 RSV Immunization or 60+ Years (1 - Risk 60-74 years 1-dose series) 2009 Zoster Vaccines (2 of 3) 05/08/2014 03/13/2014 Annual Medicare Wellness Visit 2014 Hemoglobin A1C 10/18/2019 04/19/2019 COVID-19 Vaccine ( season) 2024 12/02/2021, 04/03/2021, 07/29/2020, Additional history exists Pneumococcal Vaccine: 50+ Years (3 of 3 - PCV20 or PCV21) 02/28/2025 02/29/2020, 04/13/2019, 02/28/2019, Additional history exists DTaP, Tdap and Td Vaccines (3 - Td or Tdap) 11/19/2031 11/18/2021, 08/29/2007 Meningococcal B Vaccine Aged Out No l onger eligible based on patient's age to complete this topic Meningococcal Vaccine Aged Out No alvaro se eligible based on patient's age to complete this topic RSV Immunizations Under 20 Months Aged Out No longer eligible based on patient's age to complete this topic Medical Devices Implanted Type Area Road Grader Device Identifier Shelf Expiration Date Model / Serial / Lot Iol Paige Precision [id number] - [id number] Implanted:Qty: 1 on 12/22/2021 by Johan Ureña MD at [facility] Lens Right: Eye [employer] [id number] 03/08/2022 [id number] / [id number] / Insurance MEDICARE [facility] Care Teams Hatch Boss Relationship Specialty Start Date End Date Jean Pierre Landry MD [address] [facility] [address] [place] [address] PCP - General FAMILY PRACTICE 12/22/21
--- OUTSIDE RECORDS SUMMARY | 2024-09-21 10:28 | XMS_ITS | Encounter Summary ---
Author Organization [facility] Address [address] [place] [address] Care Team Providers Care Individual Pension Consultant Name Role Phone Luis King MD Primary Care Provider [phone] Encounter Details Date Type Department Care Team (Latest Contact Info) Description 06/07/2008 Inpatient Historical HIS PATIENT IN A BED Eduard Shearer MD [address] [facility] [address] [place] [address] Jos Richter MD NO ADDRESS ON FILE Intermediate Coronary Syndrome (CMS/HCC); Coronary Atherosclerosis of [place] Coronary Artery; Automatic Implantable Cardiac Defibrillator in Situ; Unspecified Essential Hypertension Social History Tobacco Use Types Packs/Day Years Used Date Smoking Tobacco: Never Assessed Sex and Gender Information Value Date Recorded Sex Assigned at Not on file Legal Sex Male 3:45 AM CUSTOMER ACCOUNTS ADVISOR Gender Identity Not on file Sexual Orientation Not on file documented as of this encounter Plan of Treatment Upcoming Encounters Date Type Department Care Team (Late st Contact Info) Description 01/30/2025 10:30 AM CDT Office Visit [facility] - [facility] [address] [facility] [address] [place] [phone] Rodri Amador MD [address] [facility] [place] [address] documented as of this encounter Procedures Procedure Name Priority Date/Time Associated Diagnosis Comments CBC WITH DIFFERENTIAL Stat 06/08/2008 1:17 PM CUSTOMER ACCOUNTS ADVISOR LIPID PANEL Timed Study 06/08/2008 8:45 AM CUSTOMER ACCOUNTS ADVISOR COMPREHENSIVE METABOLIC PANEL Timed Study 06/08/2008 8:45 AM CUSTOMER ACCOUNTS ADVISOR TROPONIN Routine 06/08/2008 6:06 AM CUSTOMER ACCOUNTS ADVISOR BASIC METABOLIC PANEL Routine 06/08/2008 6:06 AM CUSTOMER ACCOUNTS ADVISOR documented in this encounter Results * (ABNORMAL) CBC WITH DIFFERENTIAL (06/08/2008 1:17 PM CUSTOMER ACCOUNTS ADVISOR) MCV 91.1 82.0 - 99.0 fL [facility] PLATELETS 149 140 - 350 K/uL [facility] HEMOGLOBIN 15.4 13.6 - 16.5 g/dL [facility] RDW 13.1 11.5 - 14.5 % [facility] WBC 10.5(H) 4.0 - 9.8 K/uL [facility] MCH 31.2 27.2 - 32.6 pg [facility] MPV 10.7 9.3 - 12.4 fL [facility] HEMATOCRIT 45.0 40.0 - 48.0 % [facility] RDW-STDEV 43.1 37.1 - 48.7 fL [facility] RBC 4.94 4.50 - 5.40 M/uL [facility] MCHC 34.2 31.5 - 35.5 % [facility] NEUTROPHIL ABSOLUTE 7.32(H) 1.90 - 7.00 K/uL [facility] EOSINOPHILS 4 0 - 7 % [facility] EOSINOPHIL ABSOLUTE 0.40 0.00 - 0.70 K/uL [facility] LYMPHOCYTES 21 16 - 45 % [facility] LYMPHOCYTE ABSOLUTE 2.16 0.70 - 4.50 K/uL [facility] BASOPHILS 0 0 - 2 % [facility] BASOPHILS ABSOLUTE 0.03 0.00 - 0.20 K/uL [facility] MONOCYTES 6 3 - 13 % [facility] MONOCYTE ABSOLUTE 0.63 0.10 - 1.30 K/uL [facility] NEUTROPHILS 69 45 - 70 % [facility] Blood specimen (specimen) 06/08/2008 1:17 PM CUSTOMER ACCOUNTS ADVISOR 06/08/2008 1:30 PM CUSTOMER ACCOUNTS ADVISOR Narrative INTERFACE SYSTEM - 06/08/2008 1:36 PM CUSTOMER ACCOUNTS ADVISOR off of blood in lab if avail. us Jos Richter MD HEMATOLOGY ORDERABLES Edited INTERFACE SYSTEM Refer to clinic/hospital department [facility] CLIA# [id number] [address] [place], [place] [address] * (ABNORMAL) COMPREHENSIVE METABOLIC PANEL (06/08/2008 8:45 AM CUSTOMER ACCOUNTS ADVISOR) SODIUM 137 135 - 145 mmol/L [facility] GLUCOSE 114(H) 65 - 99 mg/dL [facility] BILIRUBIN TOTAL 0.6 0.2 - 1.0 mg/dL [facility] ALKALINE PHOSPHATASE 104 40 - 129 U/L [facility] CHLORIDE 103 96 - 108 mmol/L [facility] CALCIUM 9.2 8.6 - 10.2 mg/dL [facility] POTASSIUM 4.3 3.5 - 4.9 mmol/L [facility] BUN 19 6 - 20 mg/dL [facility] TOTAL PROTEIN 7.0 6.3 - 8.6 g/dL [facility] CO2 27 22 - 30 mmol/L [facility] CREATININE 0.93 0.67 - 1.17 mg/dL [facility] ALT 80(H) 0 - 41 U/L [facility] ALBUMIN 4.4 3.4 - 4.8 g/dL [facility] AST 36 12 - 38 U/L [facility] GFR, >60 >=60 mL/min/1. 7 sq meter [facility] GFR >60 >=60 mL/min/1. 7 sq meter [facility] Comment: Modification of Diet in Renal Disease (MDRD) study formula. Estimated GFR rate interpretative information for both Americans and non- Americans is available on the [facility] Intranet at: [email or web address] Select: Lab Policies and Procedures Select: Reference Ranges - GFR Blood specimen (specimen) 06/08/2008 8:45 AM CUSTOMER ACCOUNTS ADVISOR 06/08/2008 8:51 AM CUSTOMER ACCOUNTS ADVISOR Jos Richter MD CHEMISTRY ORDERABLES Edited INTERFACE SYSTEM Refer to clinic/hospital department [facility] CLIA# [id number] [address] [place] [address] * (ABNORMAL) LIPID PANEL (06/08/2008 8:45 AM CUSTOMER ACCOUNTS ADVISOR) CHOLESTEROL 178 100 - 199 mg/dL [facility] CHOL/HDL RATIO 3.2 2.0 - 5.0 [facility] TRIGLYCERIDE 290(H) 10 - 149 mg/dL [facility] HDL 55 40 - 59 mg/dL [facility] LDL CALCULATED 65 <=99 mg/dL [facility] LIPID PANEL COMMENT See Below [facility] Comment: The adult ATP and pediatric NCEP classifications for lipids are available on the [facility] Intranet at: [email or web address] Select: Lab Policies and Procedures,Current Select: Lipid Panel Interpretation Blood specimen (specimen) 06/08/2008 8:45 AM CUSTOMER ACCOUNTS ADVISOR 06/08/2008 8:51 AM CUSTOMER ACCOUNTS ADVISOR Jos Richter MD CHEMISTRY ORDERABLES Edited INTERFACE SYSTEM Refer to clinic/hospital department [facility] CLIA# [id number] [address] [facility] [place] [address] * (ABNORMAL) BASIC METABOLIC PANEL (06/08/2008 6:06 AM CUSTOMER ACCOUNTS ADVISOR) BUN 19 6 - 20 mg/dL [facility] CHLORIDE 104 96 - 108 mmol/L [facility] GLUCOSE 104(H) 65 - 99 mg/dL [facility] SODIUM 137 135 - 145 mmol/L [facility] CALCIUM 9.0 8.6 - 10.2 mg/dL [facility] CO2 25 22 - 30 mmol/L [facility] CREATININE 0.90 0.67 - 1.17 mg/dL [facility] POTASSIUM 4.0 3.5 - 4.9 mmol/L [facility] GFR, >60 >=60 mL/min/1. 7 sq meter [facility] GFR >60 >=60 mL/min/1. 7 sq meter [facility] Comment: Modification of Diet in Renal Disease (MDRD) study formula. Estimated GFR rate interpretative information for both Americans and non- Americans is available on the [facility] Intranet at: [email or web address] Select: Lab Policies and Procedures Select: Reference Ranges - GFR Blood specimen (specimen) 06/08/2008 6:06 AM CUSTOMER ACCOUNTS ADVISOR 06/08/2008 6:17 AM CUSTOMER ACCOUNTS ADVISOR Eduard Shearer MD CHEMISTRY ORDERABLES Edited Performing Organization Address City/[facility] Co de Phone Number INTERFACE SYSTEM Refer to clinic/hospital department [facility] CLIA# [id number] [address] [place] [address] * TROPONIN (06/08/2008 6:06 AM CUSTOMER ACCOUNTS ADVISOR) TROPONIN T <0.01 <=0.03 ng/mL [facility] TROPONIN T INTERP Negative [facility] Blood specimen (specimen) 06/08/2008 6:06 AM CUSTOMER ACCOUNTS ADVISOR 06/08/2008 6:17 AM CUSTOMER ACCOUNTS ADVISOR Eduard Shearer MD CHEMISTRY ORDERABLES Edited Performing Organization Address [facility] Co de Phone Number INTERFACE SYSTEM Refer to clinic/hospital department [facility] CLIA# [id number] [address] [place] [address] documented in this encounter Visit Diagnoses Diagnosis Intermediate coronary syndrome (CMS/[facility]) Intermediate coronary syndrome Coronary atherosclerosis of [place] coronary artery Automatic implantable cardiac defibrillator in situ Unspecified essential hypertension documented in this encounter Care Teams Individual Pension Consultant Relationship Specialty Start Date End Date Luis King MD [address] [place] [id number] PCP - General 05/15/08 documented as of this encounter
--- OUTSIDE RECORDS SUMMARY | 2024-09-21 10:28 | XMS_ITS | Clinical Summary ---
Author Organization [facility] Address [address] [place] [address] Phone Care Team Providers Care Oil Field Rig Builder Name Role Phone Jean Pierre Landry MD Primary Care Provider Allergies Active Allergy Reactions Criticality Noted Date Comments Atorvastatin muscle pain,Other (see comments) Low 09/13/2014 Muscle cramps Hydrochlorothiazide Other (see comments) 2016 Other reaction(s): Other (See Comments) Multiple electrolyte drangements, low K+, low Mg+, low Ca+ Ramipril Angioedema,Swelling High 11/19/2014 Angioedema Spironolactone Other (see comments) 08/29/2018 Other reaction(s): Other (See Comments) Elevated Cr Sulfa Antibiotics Unknown 05/01/2021 Valsartan Angioedema,Other (see comments) High 11/22/2018 Medications Probiotic Product (PROBIOTIC BLEND PO) Take by mouth Active amLODIPine (NORVASC) 10 MG tablet 10 mg Active clopidogrel (PLAVIX) 75 MG tablet 03/19/2021 Active cholecalciferol (VITAMIN D-3) 25 MCG (1000 UT) capsule Take 4,000 Units by mouth daily Active glimepiride (AMARYL) 2 MG tablet Take 2 mg by mouth 2 (two) times a day before meals On sliding scale for this 03/14/2021 Active Vascepa 1 g capsule TAKE 2 CAPSULES BY MOUTH TWICE DAILY BEFORE MEALS 05/01/2021 Active metFORMIN XR 500 MG 24 hr tablet Take 500 mg by mouth 2 (two) times a day with meals bid 04/14/2021 Active rosuvastatin (CRESTOR) 40 MG tablet Take 40 mg by mouth every night 04/21/2021 Active magnesium, as gluconate, (MAGONATE) 500 (27 Mg) MG tablet Take 27 mg by mouth 2 (two) times a day Active carvedilol (COREG) 25 MG tablet 09/28/2021 Active doxazosin (CARDURA) 2 MG tablet 12/14/2021 Active fenofibrate micronized (LOFIBRA) 134 MG capsule TAKE 1 CAPSULE BY MOUTH EVERY DAY IN THE MORNING 11/30/2021 Active omeprazole (PriLOSEC) [address] capsule Take 20 mg by mouth 1 (one) time each day 11/26/2021 Active Active Problems Problem Noted Date Diagnosed Date Hypomagnesemia 05/05/2021 Hypocalcemia 05/05/2021 Hypokalemia 05/01/2021 Type 2 diabetes mellitus 12/05/2019 Hypertensive disorder 11/20/2011 Overview (05/01/2021): Intolerant of hctz, spironolactone, valsartan Hyperlipidemia 10/25/2008 Overview (05/01/2021): Intolerant of atorvastatin Coronary arteriosclerosis 05/17/2008 Overview (05/01/2021): S/P multiple PCIs of RCA, last 2002 Inf infarct, no ischemia, nl LV fxn stress 04/17 Immunizations Immunization Administration Dates Next Due Influenza TIV (IM) 03/03/2021,03/28/2018 Pneumococcal Conjugate 02/28/2019 Pneumococcal Conjugate 13-Valent 02/29/2020 Social History Tobacco Use Types Packs/Day Years Used Date Smoking Tobacco: Former Smokeless Tobacco: Never Alcohol Use Standard Drinks/Week Comments Yes 0 (1 standard drink = 0.6 oz pur e alcohol) occ Sex and Gender Information Value Date Recorded Sex Assigned at Not on file Legal Sex Male 12:51 PM MDT Gender Identity Not on file Sexual Orientation Not on file Last Filed Vital Signs Vital Sign Reading Time Taken Comments Blood Pressure 126/70 12/18/2021 10:06 AM CDT Pulse 72 12/18/2021 10:06 AM CDT Temperature 36.7 C (98.1 F) 12/18/2021 10:06 AM CDT Respiratory Rate - - Oxygen Saturation - - Inhaled Oxygen Concentration - - Weight 98.9 kg (218 lb) 12/18/2021 10:06 AM CDT Height 180.3 cm (5' 11 ) 12/18/2021 10:06 AM CDT Body Mass Index 30.4 12/18/2021 10:06 AM CDT Plan of Treatment Health Maintenance Due Date Last Done Comments Pneumococcal PPSV23/PCV13 65 + Years / Low and Medium Risk (2 of 3 - PPSV23) 02/28/2021 02/29/2020 Influenza Vaccine (Season Ended) 2025 03/03/20, 03/28/2018 Insurance MEDICARE [employer] MEDICARE SUPPLEMENT Care Teams Oil Field Rig Builder Relationship Specialty Start Date End Date Jean Pierre Landry MD [address] [id number] PCP - General Internal Medicine 03/10/21
--- OUTSIDE RECORDS SUMMARY | 2024-09-21 10:28 | XMS_ITS | Clinical Summary ---
Author Organization [facility] Address [address] [place] [address] Care Team Providers Care Networking Administrator Name Role Phone Jean Pierre Landry MD Primary Care Provider Source Comments [facility],non-owned Affiliates and Associated Physician Practices is amultiple site organization consisting of ambulatory clinics and hospital sitesin [place], [place], [place] and [place]. This disclosure is being madepursuant to the Care Everywhere program and may not contain all information available regarding this patient. Last updated 18.[facility] [employer] Allergies Active Allergy Reactions Criticality Noted Date Comments Bob Inhibitors Angioedema High 08/26/2023 Atorvastatin Other 08/26/2023 Joint pain Hydrochlorothiazide Other 04/27/2017 Other reaction(s): Other (See Comments) Multiple electrolyte drangements, low K+, low Mg+, low Ca+ Abnormal Electrolytes Multiple electrolyte drangements, low K+, low Mg+, low Ca+ Misc. Sulfonamide Containing Compounds Unknown 08/26/2023 Ramipril Angioedema High 08/26/2023 Spironolactone Other 08/29/2018 Other reaction(s): Other (See Comments) Elevated Cr Elevated CR Elevated Cr Sulfa Antibiotics Other,Unknown 05/01/2021 As a child Valsartan Angioedema High 08/26/2023 Medications * Be aware that medications may not be up to date on this document. Alwaysverify current medications with the patient. metFORMIN (Glucophage) 500 MG tablet Take 1 (one) tablet by mouth 2 times daily with morning and evening meal Active fenofibrate micronized (Lofibra) 134 MG capsule Take 1 (one) capsule by mouth once daily Take with largest meal of the day. Active carvedilol (Coreg) 25 MG tablet Take 1 (one) tablet by mouth 2 times daily with morning and evening meal Active amLODIPine (Norvasc) 10 MG tablet Take 1 (one) tablet by mouth once daily 03/12/2023 Active vitamin D3 (D 1000) (25 MCG) 1000 UNIT capsule Take 1 (one) capsule by mouth once daily Active doxazosin (Cardura) 2 MG tablet Take 1 (one) tablet by mouth once daily 03/18/2023 Active omeprazole (PriLOSEC) 20 MG capsule Take 1 (one) capsule by mouth once daily 08/02/2023 Active rosuvastatin (Crestor) 40 MG tablet Take 1 (one) tablet by mouth 07/14/2023 Active apixaban (Eliquis) 5 MG tabletIndicatio ns:Deep Vein Thrombosis,Pulm onary Embolism Take 2 (two) tablets by mouth 2 times daily for 5 days, THEN 1 (one) tablet 2 times daily for 85 days. Reasons: Blockage of Blood Vessel to Lung by a Particle, Blood Clot in a Deep Vein. 190 tablet 08/30/2023 Active albuterol HFA (ProAir HFA) 108 (90 Base) MCG/ACT inhaler Inhale 2 (two) puffs by mouth every 4 hours as needed 8.5 g 08/30/2023 Active Active Problems Problem Noted Date Diagnosed Date COPD exacerbation 08/28/2023 Elevated troponin 08/28/2023 Primary hypertension 08/27/2023 Coronary artery disease invo lving [place] coronary artery of [place] heart without angina pectoris 08/27/2023 Type 2 diabetes mellitus wit h diabetic nephropathy, without long-term current use of insulin 08/27/2023 Acute respiratory failure 08/27/2023 Other hyperlipidemia 08/27/2023 Chronic kidney disease 08/27/2023 Pulmonary embolism on right 08/26/2023 Social History Tobacco Use Types Packs/Day Years Used Date Smoking Tobacco: Former Cigarettes 1 47 1 970 - 2016 Smokeless Tobacco: Never Tobacco Cessation:Counseling Given: Not Answered Alcohol Use Standard Drinks/Week Comments Not Currently 0 (1 standard drink = 0.6 oz pur e alcohol) AUDIT-C Answer Date Recorded Q1: How often do you have a drink containing alc ohol? Monthly or less 08/26/2023 Q2: How many drinks containi ng alcohol do you have on a typical day when you are drinking? 1 or 2 08/26/2023 Q3: How often do you have si x or more drinks on one occasion? Never 08/26/2023 Overall Financial Resource Strain (CARDIA) Answe r Date Recorded How hard is it for you to pa y for the very basics like food, housing, medical care, and heating? Not hard at all 08/26/2023 PHQ-2 Answer Date Recorded Patient Health Questionnaire-2 Score 3 12/16/2023 [facility] - Occupational Stress Questionnaire Answer Date Recorded Do you feel stress - tense, restless, nervous, or anxious, or unable to sleep at night because your mind is troubled all the time - these days? Not at all 08/26/2023 Hunger Vital Sign Answer Date Recorded Within the past 12 months, y ou worried that your food would run out before you got the money to buy more. Never true 08/26/19 24 Within the past 12 months, t he food you bought just didn't last and you didn't have money to get more. Never true 08/26/2023 PRAPARE - Transportation Answer Date Re corded In the past 12 months, has l ack of transportation kept you from medical appointments or from getting medications? No 07/30 In the past 12 months, has l ack of transportation kept you from meetings, work, or from getting things needed for daily living? No 08/26/2023 Housing Stability Vital Sign Answer Nicolas e Recorded In the last 12 months, was t here a time when you were not able to pay the mortgage or rent on time? Yes 08/26/2023 In the last 12 months, how many places have you lived? 1 08/26/2023 In the last 12 months, was t here a time when you did not have a steady place to sleep or slept in a senior care (including now)? 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 Gender Identity Not on file Sexual Orientation Not on file Last Filed Vital Signs Vital Sign Reading Time Taken Comments Blood Pressure 139/84 01/26/2024 10:41 AM CDT Pulse 65 01/26/2024 10:41 AM CDT Temperature 36.6 C (97.9 F) 11/09/2023 9:24 AM CDT Respiratory Rate 17 01/26/2024 10:4 1 AM CDT Oxygen Saturation 95% 01/26/2024 10: 41 AM CDT Inhaled Oxygen Concentration - - Weight 101.5 kg (223 lb 12.8 oz) 2023 10:41 AM CDT Height 175.3 cm (5' 9 ) 01/26/2024 10:4 1 AM CDT Body Mass Index 33.05 01/26/2024 10:41 AM CDT Plan of Treatment Health Maintenance Due Date Last Done Comments COLOGUARD (AGES 45-75) - COLON CA SCREENING 1949 COLON MONITORING 1949 COLONOSCOPY - COLON CA SCREENING 1949 CT COLONOGRAPHY - COLON CA SCREENING 1950 Colorectal Cancer Screening 1949 FIT - COLON CA SCREENING 1949 FLEX SIG - COLON CA SCREENING 1949 MEDICARE AWV 12 MONTHS 1949 HEPATITIS C SCREENING 11/23/1967 DTAP/TDAP/TD VACCINES (1 - Tdap) 1968 PNEUMOCOCCAL VACCINE 50+ (1 of 2 - PCV) 1968 LUNG CANCER SCREENING 11/28/1999 ZOSTER VACCINE (1 of 2) 11/28/1999 Respiratory Syncytial Virus (RSV) Vaccine Pt: or over 60 yrs (1 - Risk 60-74 years 1-dose series) 2009 AAA SCREENING 2014 DIABETES RETINOPATHY SCREENING 08/27/2023 DIABETES-FOOT EXAM WITH MONOFILAMENT 08/27/2023 COVID-19 VACCINE ( season) 2024 02/19/2023, 02/27/2022, 12/02/2021, Additional history exists DIABETES-HGB A1C 02/27/2024 08/27/2023, 04/19/2019 DEPRESSION SCREENING 05/31/2024 DIABETES - URINE PROTEIN SCREENING 05/31/2024 DIABETES-SERUM CREATININE 08/29/20242023, 08/29/2023, 08/28/2023, Additional history exists INFLUENZA VACCINE (Season Ended) 2025 02/06/2023, 02/27/2022, 03/03/2021, Additional history exists HEPATITIS B VACCINE Aged Out No longe r eligible based on patient's age to complete this topic HIB VACCINE Aged Out No longer eligi ble based on patient's age to complete this topic HPV VACCINE Aged Out No longer eligi ble based on patient's age to complete this topic MENINGOCOCCAL (Group B) VACCINE SHARED DECISION-MAKING Aged Out No longer eligible based on patient's age to complete this topic MENINGOCOCCAL GROUPS A/C/Y/W VACCINE Aged Out No longer eligible based on patient's age to complete this topic Goals Goal Patient Goal Type Associated Problems Recent Progress Patient-Stated? Author Medication Management General On track( 024 8:29 AM CDT) Roderick Mayen, RN Note: Expected end date: Interventions: Take all medications as prescribed Let your doctor know right away about any changes in your medications Make sure to request a refill of your medication at least one week prior to your last dose Procedures Procedure Name Priority Date/Time Associated Diagnosis Comments COMPREHENSIVE METABOLIC PANEL AM Draw 08/30/2023 4:47 AM CDT HEMOGLOBIN A1C Routine 08/27/2023 5:06 AM CDT from Last 3 Months or Most Recently Relevant to Health Maintenance Results * (ABNORMAL) COMPREHENSIVE METABOLIC PANEL (08/30/2023 4:47 AM CDT) BUN 20 7 - 26 mg/dL 08/30/2023 6:51 AM CDT [facility] Creatinine 1.13 0.71 - 1.16 mg/dL 08/30/2023 6:51 AM T [facility] Sodium 142 136 - 145 mmol/L 08/30/2023 6:51 AM [facility] Potassium 4.2 3.5 - 4.5 mmol/L 08/30/2023 6:51 AM [facility] Chloride 109(H) 98 - 107 mmol/L 08/30/2023 6:51 AM [facility] CO2 23 22 - 29 mmol/L 08/30/2023 6:51 AM [facility] Glucose 104 70 - 115 mg/dL 08/30/2023 6:51 AM [facility] Calcium 9.2 8.4 - 10.2 mg/dL 08/30/2023 6:51 AM [facility] Protein Total 5.8(L) 6.0 - 8.3 g/dL 08/30/2023 6:51 AM [facility] Albumin 2.9(L) 3.4 - 5.0 g/dL 08/30/2023 6:51 AM [facility] Bilirubin Total 0.3 0.2 - 1.2 mg/dL 08/30/2023 6:51 AM [facility] Alkaline Phosphatase 55 40 - 150 U/L 08/30/2023 6:51 AM [facility] ALT 22 5 - 55 U/L 08/30/2023 6:51 AM [facility] AST 21 5 - 34 U/L 08/30/2023 6:51 AM [facility] Anion Gap 10 6 - 16 08/30/2023 6:51 AM [facility] BUN/Creatinine Ratio 18 7 - 23 08/30/2023 6:51 AM [facility] Osmolality Calculated 297(H) 275 - 295 mOsm/kg 08/30/2023 6:51 AM [facility] Albumin/Globulin Ratio 1.0(L) 1.1 - 2.3 08/30/2023 6:51 AM [facility] eGFR by CKD-EPI 69(L) >=90 mL/min/1.7 3 m2 08/30/2023 6:51 AM [facility] Blood BLOOD SPECIMEN / Unknown Lab Venipuncture / Unknown 08/30/2023 4:47 AM T 08/30/2023 5:52 AM [facility] us Arianna Pennington PA-C LAB - CHEMISTRY ORDERABLES Final Result [facility] [address] [place] [address], [facility] [phone] * (ABNORMAL) HEMOGLOBIN A1C (08/27/2023 5:06 AM CDT) Hemoglobin A1c 6.2(H) <=5.6 % 08/27/2023 9:14 AM CDT [facility] Estimated Average Glucose 131 mg/dL 08/27/2023 9:14 AM CDT [facility] Comment: HbA1c Interpretation: Normal : < 5.7% Pre-diabetes: 5.7-6.4% Diabetes: Equal to or greater than 6.5% Test results diagnostic of diabetes should be repeated for confirmation. Treatment target values recommended by ADA and other clinical organizations should be used to evaluate metabolic control in patients. Reference: [place] Diabetes Association, Standards of Care in Diabetes -2020 In patients 70 years and older consider HbA1c target range of 7.0-7.5% (Reference: Lew Baker et al. JAMDA. 2012) The Sebia assay for the measurement of HbA1c is a National Glycohemoglobin Standardization Program (NGSP) certified method. Blood BLOOD SPECIMEN / Unknown Lab Venipuncture / Unknown 08/27/2023 5:06 AM CDT 08/27/2023 6:07 AM CDT Susan Hamilton MD LAB - CHEMISTRY ORDERABLES Fi nal Result [facility] [address] [place] [address], [facility] [phone] from Last 3 Months or Most Recently Relevant to Health Maintenance Insurance [facility] [employer]IMIR DAVIES MEDICARE Advance Directives * Full Code (Latest Code Status on File) Date Activated Date Inactivated Comments 08/26/2023 6:43 PM 08/30/2023 3:28 PM Care Teams Networking Administrator Relationship Specialty Start Date End Date Jean Pierre Landry MD [address] [place] [address] PCP - General 03/20/21
--- OUTSIDE RECORDS SUMMARY | 2024-09-21 10:28 | XMS_ITS | Clinical Summary ---
Author Organization [facility] Address [address] [place] [address] Phone Care Team Providers Care Steel Barrel Reamer Name Role Phone Luis King MD Primary Care Provider [phone] Allergies Active Allergy Reactions Criticality Noted Date Comments Atorvastatin Muscle Pain Low 09/13/2014 Hydrochlorothiazide Other (See Comments) 04/27/2017 Multiple electrolyte drangements, low K+, low Mg+, low Ca+ Ramipril Angioedema High 11/19/2014 Spironolactone Other (See Comments) 08/29/2018 Elevated Cr Sulfa (Sulfonamide Antibiotics) Other (See Comments) 05/17/2008 Unknown--reaction as child Valsartan Angioedema High 11/22/2018 Medications magnesium oxide (MAG-OX) 400 mg tablet Take 400 mg by mouth 2 times daily. Take two tablets in the morning and two tablets in the evening. 0 8 Active coenzyme Q10 100 mg Capsule Take 200 mg by mouth daily. Active metFORMIN (GLUCOPHAGE XR) 500 mg Extended Release 24 hour tablet Take 500 mg by mouth daily. Active Lactobac no.41/Bifidobact no.7 (PROBIOTIC-10 ORAL) Take by mouth. Active fenofibrate (LOFIBRA) 54 mg Take 54 mg by mouth daily. Active cholecalciferol, Vitamin D3, (VITAMIN D3) 25 mcg (1,000 unit) Capsule Take by mouth daily. Active omeprazole (PriLOSEC) 20 mg Capsule, Delayed Release(E.C.) Take 20 mg by mouth daily. Active glimepiride (AMARYL) 2 mg tablet Take 2 mg by mouth daily with breakfast. Active rosuvastatin (CRESTOR) 40 mg tabletIndications:C oronary artery disease involving [place] coronary artery of [place] heart without angina pectoris,Mixed hyperlipidemia take 1 tablet by mouth every day at bedtime 90 Tablet 3 4 Active multivitamin (DAILY-ANNABEL) tablet Take 1 Tablet by mouth daily. Active apixaban (Eliquis) 5 mg tablet Take 5 mg by mouth 2 times daily. Active amLODIPine (NORVASC) 10 mg tablet TAKE 1 TABLET(10 MG) BY MOUTH DAILY 90 Tablet 3 4 Active carvediloL (COREG) 25 mg tablet TAKE 1 TABLET(25 MG) BY MOUTH TWICE DAILY 180 Tablet 3 4 Active doxazosin (CARDURA) 2 mg tablet TAKE 1 TABLET(2 MG) BY MOUTH DAILY 90 Tablet 3 4 Active Active Problems Patient Care Coordination No te Formatting of this note migh t be different from the original. 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 Perry Low Office Rodri Amador MD- [facility] ( [facility]) Problem Noted Date Diagnosed Date History of pulmonary embolism 01/25/2024 Overview (01/25/2024): Following surgery, felt provoked 08/21 Stage 3 chronic kidney disease 01/19/2022 Type 2 diabetes mellitus 12/05/2019 HTN (hypertension) 11/20/2011 Overview (02/28/2019): Intolerant of hctz, spironolactone, valsartan Hyperlipidemia 10/25/2008 Overview (01/02/2015): Intolerant of atorvastatin CAD (coronary artery disease) 05/17/2008 Overview (01/25/2024): S/P multiple PCIs of RCA, last 2002 Inf infarct, no ischemia, nl LV fxn stress 2017 Nl LV fxn echo 12/21 Resolved Problems Problem Noted Date Diagnosed Date Resolved Date Old VA (myocardial infarction) 02/28/2019 01/19/2023 History of VA (myocardial infarction) 05/17/2018 02/28/2019 Precordial pain 04/28/2018 05/17/2018 Precordial pain 04/28/2018 05/17/2018 Tobacco use 12/07/2016 04/27/2017 Cigarette dependence 12/07/2016 017 Chewing tobacco dependence 12/07/2016 1 06/27/2016 Second hand tobacco smoke exposure 12/07/2016 04/27/2017 Occupational tobacco smoke exposure 12/07/2016 04/27/2017 tobacco smoke expo sure (20wks gestation-4wks post ) 12/07/2016 04/27/2017 Essential hypertension, benign 10/25/2008 11/20/2011 Encounters Date Type Department Care Team Description 09/12/2024 External Device Data [facility] ABSTRACTION Provider, Abstract 08/07/2024 External Device Data [facility] ABSTRACTION Provider, Abstract 08/02/2024 External Device Data [facility] ABSTRACTION Provider, Abstract 07/19/2024 External Device Data [facility] ABSTRACTION Provider, Abstract 06/27/2024 External Device Data [facility] ABSTRACTION Provider, Abstract from Last 3 Months Immunizations Immunization Administration Dates Next Due Influenza Seasonal Unspecified Formulation IM Family History Relation Name Status Comments Father Mother Social History Tobacco Use Types Packs/Day Years Used Date Smoking Tobacco: Former Cigarettes Q uit: 03/06/2017 Smokeless Tobacco: Never Tobacco Cessation:Counseling Given: Not Answered Alcohol Use Standard Drinks/Week Comments Yes 8.3 (1 standard drink = 0.6 oz p ure alcohol) Sex and Gender Information Value Date Recorded Sex Assigned at Not on file Legal Sex Male 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 Gender Identity Not on file Sexual Orientation Not on file Occupation Industry Job Start Date Job End Date Not on file Not on file Not on file Not on file Last Filed Vital Signs Vital Sign Reading Time Taken Comments Blood Pressure 124/64 01/25/2024 9:28 AM CDT Pulse 65 01/25/2024 9:28 AM CDT Temperature 36.5 C (97.7 F) 04/29/2018 3:00 PM ASSESSMENT NURSE PRACTITIONER Respiratory Rate 20 04/29/2018 3:00 PM ASSESSMENT NURSE PRACTITIONER Oxygen Saturation 98% 01/25/2024 9:28 AM CDT Inhaled Oxygen Concentration - - Weight 99.3 kg (219 lb) 01/25/2024 9:28 AM CDT Height 172.7 cm (5' 8 ) 01/19/2023 9:31 AM CDT Body Mass Index 33.3 01/19/2023 9:31 AM CDT Plan of Treatment Upcoming Encounters Date Type Department Care Team (Late st Contact Info) Description 01/30/2025 10:30 AM CDT Office Visit [facility] - [facility] [address] [place] [address] Rodri Amador MD [address] [place] [address] Health Maintenance Due Date Last Done Comments DIABETES ANNUAL FOOT EXAM 11/28/1967 DIABETES MICROALBUMIN ANNUAL SCREEN 11/28/1967 FIT-DNA Q 3 years 1994 FIT/FOBT Q 1 year 1994 Flex Sig/CT Colonography Q 5 years 1994 RSV VACCINE (60+ or ) (1 - Risk 60-74 years 1-dose series) 2009 ZOSTER VACCINE (2 of 3) 05/08/2014 03/13/2014 Abdominal Aortic Aneurysm (A AA) Screening 2014 LDL CHOLESTEROL ANNUAL 12/25/2021 , 04/19/2019, 07/12/2018, Additional history exists INFLUENZA VACCINE (#1) 2023 03/03/2021, 2017 DIABETES HBA1C Q 6 MONTHS 07/14/20242023, 08/27/2023, 07/21/2023, Additional history exists COLORECTAL SCREENING 01/24/2025 01/24/2015, 01/24/2015, 01/24/2015 Colorectal Cancer Screening 01/24/2025 DIABETES ANNUAL RETINAL EXAM 01/31/202507/2023, 10/16/2021, 07/18/2018, Additional history exists PNEUMOCOCCAL VACCINE 50+ YEA RS (3 of 3 - PCV20 or PCV21) 02/28/2025 02/29/2020, 04/13/2019, 02/28/2019, Additional history exists DTAP/TDAP/TD VACCINES (3 - T d or Tdap) 11/19/2031 11/18/2021, 08/29/2007 Procedures Procedure Name Priority Date/Time Associated Diagnosis Comments LIPID PANEL Routine 12/25/2020 HEMOGLOBIN A1C Routine 04/19/2019 2:28 AM ASSESSMENT NURSE PRACTITIONER from Last 3 Months or Most Recently Relevant to Health Maintenance Results * LIPID PANEL (12/25/2020) Blood us Abstract Provider CHEMISTRY ORDERABLES Final Res ult [facility] CLIA# [id number] [address] [place] [address] * (ABNORMAL) HEMOGLOBIN A1C (04/19/2019 2:28 AM ASSESSMENT NURSE PRACTITIONER) HEMOGLOBIN A1C 6.7(H) <5.7 % of total Hgb [employer] [facility] Comment: For someone without known diabetes, a hemoglobin A1c value of 6.5% or greater indicates that they may have diabetes and this should be confirmed with a follow-up test. For someone with known diabetes, a value <7% indicates that their diabetes is well controlled and a value greater than or equal to 7% indicates suboptimal control. A1c targets should be individualized based on duration of diabetes, age, comorbid conditions, and other considerations. Currently, no consensus exists regarding use of hemoglobin A1c for diagnosis of diabetes for children. 04/19/2019 2:28 AM ASSESSMENT NURSE PRACTITIONER Historical Provider CHEMISTRY ORDERABLES Edited Result - Final [employer] [facility] [address] [place] [address] from Last 3 Months or Most Recently Relevant to Health Maintenance Insurance [facility] [place] [address] MEDICARE PART A AND B Advance Directives For more information, please contact: [phone] * Full Code (Latest Code Status on File) Date Activated Date Inactivated Comments 04/28/2018 7:27 PM 04/29/2018 8:59 PM Care Teams Steel Barrel Reamer Relationship Specialty Start Date End Date Luis Knig MD [address] [place] [address] PCP - General 05/15/08
--- OUTSIDE RECORDS SUMMARY | 2024-09-21 10:28 | XMS_ITS | Encounter Summary ---
Author Organization [facility] Address 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 Gender Identity Not on file Sexual Orientation Not on file documented as of this encounter Plan of Treatment Upcoming Encounters Date Type Department Care Team (Late st Contact Info) Description 01/30/2025 10:30 AM CDT Office Visit [facility] - [facility] [address] [place] [address] [place] [address] Rodri Amador MD [address] [place] [address] documented as of this encounter Visit Diagnoses Diagnosis Nonspecific abnormal unspecified cardiovascular function study- Primary documented in this encounter Care Teams Operations Expert Relationship Specialty Start Date End Date Luis King MD [address] [place] [id number] PCP - General 05/15/08 documented as of this encounter
--- OUTSIDE RECORDS SUMMARY | 2024-09-21 10:28 | XMS_ITS | Encounter Summary ---
Author Organization [facility] Address [address] [place] [address] Care Team Providers Care Nuclear Plant Equipment Operator Name Role Phone Luis King MD Primary Care Provider [phone] Encounter Details Date Type Department Care Team (Late Contact Info) Description 10/14/2006 Outpatient Historical [facility] ([facility]) [address] 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 [address] [facility] [facility] [address] [place] [address] Rodri Amador MD [address] [facility] [address] [place], [place] [id number] documented as of this encounter Visit Diagnoses Not on filedocumented in this encounter Care Teams Nuclear Plant Equipment Operator Relationship Specialty Start Date End Date Luis King MD [address] [place] [phone] PCP - General 05/15/08 documented as of this encounter
--- OUTSIDE RECORDS SUMMARY | 2024-09-21 10:28 | XMS_ITS | Encounter Summary ---
Author Organization [facility] Address [address] [place] [address] Care Team Providers Care Slate Roofer Helper Name Role Phone Luis King MD Primary Care Provider [phone] Encounter Details Date Type Department Care Team (Late st Contact Info) Description 05/05/2007 Outpatient Historical [facility] [address] [place] [address] Jos Richter MD NO ADDRESS ON FILE Social History Tobacco Use Types Packs/Day Years Used Date Smoking Tobacco: Never Assessed Sex and Gender Information Value Date Recorded Sex Assigned at Not on file Legal Sex Male 3:45 AM ACCOUNT SERVICES SPECIALIST Gender Identity Not on file Sexual Orientation Not on file documented as of this encounter Plan of Treatment Upcoming Encounters Date Type Department Care Team (Late st Contact Info) Description 01/30/2025 10:30 AM CDT Office Visit [facility] Heart and Vascular - [address] [place] [phone] Rodri Amador MD [address] [place] [address] documented as of this encounter Visit Diagnoses Not on filedocumented in this encounter Care Teams Slate Roofer Helper Relationship Specialty Start Date End Date Luis King MD [address] [place] [phone] PCP - General 05/15/08 documented as of this encounter
--- OUTSIDE RECORDS SUMMARY | 2024-09-21 10:28 | XMS_ITS | Clinical Summary ---
Author Organization [facility] Address [address], [facility] [address] [place] [address] Phone Care Team Providers Care Displayer Name Role Phone Jean Pierre Landry MD Primary Care Provider Rodri Amador MD Unavailable Allergies Active Allergy Reactions Criticality Noted Date Comments Ramipril Swelling Angioedema Atorvastatin Other (see Comments) 07/19/2019 Muscle cramps Hydrochlorothiazide Other (see Comments) 2019 Spironolactone Other (see Comments) 07/19/2019 Sulfa Antibiotics Unknown Valsartan Other (see Comments) 07/19/2019 Medications clopidogrel (PLAVIX) 75 MG Tablet nightly. Active metoprolol Succinate (TOPROL XL) 100 MG TABLET SR 24 HR 2 times daily. Activ e amLODIPine (NORVASC) 10 MG Tablet 10 mg every morning. Active pantoprazole (PROTONIX) 40 MG Tablet Delayed Response TAKE 1 TABLET BY MOUTH EVERY DAY 90 Tab 3 6 Active Additional Information Patient taking differently: 40 mg EVERY MORNING, Reported on 07/19/2019 Active Problems Problem Noted Date Diagnosed Date Colitis Gastritis Hypokalemia Colon polyps Family History Medical History Relation Name Comments Cancer Father colon Heart Disease Father Heart Attack Mother Relation Name Status Comments Father Mother Social History Tobacco Use Types Packs/Day Years Used Date Smoking Tobacco: Former Cigarettes 1.5 40 1 - 02/2017 Smokeless Tobacco: Never Alcohol Use Standard Drinks/Week Comments Yes 6 (1 standard drink = 0.6 oz pur e alcohol) Sex and Gender Information Value Date Recorded Sex Assigned at Not on file Legal Sex Male 7:36 PM CDT Gender Identity Not on file Sexual Orientation Not on file Last Filed Vital Signs Vital Sign Reading Time Taken Comments Blood Pressure - - Pulse - - Temperature - - Respiratory Rate - - Oxygen Saturation - - Inhaled Oxygen Concentration - - Weight 99.8 kg (220 lb) 07/19/2019 9:00 AM ROLLER 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 OPERATOR Height 172.7 cm (5' 8 ) 07/19/2019 9:00 AM ROLLER LEVELER OPERATOR Body Mass Index 33.45 07/19/2019 9:00 AM ROLLER LEVELER OPERATOR Plan of Treatment Health Maintenance Due Date Last Done Comments Hepatitis C Virus (HCV) Screening 1950 TdaP Immunization 1950 Cologuard 11/28/1999 Immunochemical Fecal Occult Blood 11/28/1999 Pneumococcal Immunization (5 0+ years) (1 of 1 - PCV) 11/28/1999 Zoster Immunization (1 of 2) 11/28/1999 Influenza Immunization (#1) 2024 SARS-COV-2 Immunization (1 - season) 2024 Respiratory Syncytial Virus (RSV) Immunization (Adult) (1 - 1-dose 75+ series) 2024 Colonoscopy 01/24/2025 01/24/2015 Colorectal Cancer Screening 01/24/2025 01/24/2015 Hepatitis B Immunization Aged Out No longer eligible based on patient's age to complete this topic Meningococcal Immunization (ACWY) Aged Out No longer eligible based on patient's age to complete this topic Rotavirus Immunization Aged Out No lo nger eligible based on patient's age to complete this topic Procedures Procedure Name Priority Date/Time Associated Diagnosis Comments COLONOSCOPY Routine 01/24/2015 from Last 3 Months or Most Recently Relevant to Health Maintenance Results * COLONOSCOPY (01/24/2015) Luis King MD PROCEDURE/MINOR SURGICAL ORDE MAGALI Final Result from Last 3 Months or Most Recently Relevant to Health Maintenance Insurance MEDICARE Care Teams Displayer Relationship Specialty Start Date End Date Jean Pierre Landry MD PCP - General Family Medicine 07/04/19 Rodri Amador MD [address] [place] [address] [address] [place] [address] 07/04/19
--- OUTSIDE RECORDS SUMMARY | 2024-09-21 10:28 | XMS_ITS | Encounter Summary ---
Author Organization [facility] Address [address] [place] [address] Care Team Providers Care Machining Department Supervisor Name Role Phone Jean Pierre Landry MD Primary Care Provider Encounter Details Date Type Department Care Team (Late st Contact Info) Description 12/30/2022 [facility] [address] [address] Rahul Gill MA Social History Tobacco Use Types Packs/Day Years [...] Procedure Name Priority Date/Time Associated Diagnosis Comments CBC, MANUAL DIFF Routine 12/24/2022 documented in this encounter Results * CBC, MANUAL DIFF (12/24/2022) WBC 8.5 HGB 13.1 HCT 41.8 PLT 147 Narrative Resulting Agency Comment us Default History Genericprovider LABORATORY Final Result documented in this encounter Visit Diagnoses Not on filedocumented in this encounter Care Teams Machining Department Supervisor Relationship Specialty Start Date End Date Jean Pierre Landry MD [address] [facility] [address] [place] [address] PCP - General FAMILY PRACTICE 12/22/21 documented as of this encounter
== END 2024-09-21 09:37 | disposition home or self-care (01) ==
PROVIDERS: PCP Family Medicine; Visit Provider Family Medicine
DX: I70.211 Atherosclerosis of native arteries of extremities with intermittent claudication, right leg (principal)
CPT/HCPCS: 93923

== ENCOUNTER 2024-11-03 09:14 | Outpatient (CLI) | payer MEDICARE, OTHER, SELFPAY ==
--- NOTE | ~2024-11-03 | MR_ITS ---
MRI of the lumbar spine Clinical History: Back pain Technique: Axial T2-weighted images, and sagittal T1-weighted, T2-weighted, and and T2 fat-sat images were acquired. Findings: There is no fracture of the lumbar spine. There is 4 mm anterolisthesis of L4 over L5. No b one marrow signal abnormality seen. At L1-L2, there is mild degenerative disc narrowing. There is minimal disc bulge and mild to moderate facet arthropathy. No central canal stenosis or neural foraminal narrowing. At L2-L3, there is mild degenerative disc narrowing. No disc bulge or herniation. There is moderate f acet arthropathy. No central canal stenosis. There is mild right neural foraminal narrowing. Left fred ral foramen preserved. At L3-L4, there is moderate degenerative disc narrowing. There is diffuse disc bulge and advanced fac et arthropathy, with severe central canal stenosis/thecal sac compression. There is severe right neur al foraminal narrowing, and moderate to severe left neural foraminal narrowing. At L4-L5, there is diffuse disc bulge with severe facet arthropathy, resulting in severe spinal canal stenosis/thecal sac compression. There is severe right neural foraminal narrowing, and mild left fred ral foraminal narrowing. At L5-S1, there is moderate degenerative tearing. There is mild disc bulge and severe facet arthropat hy. No central canal stenosis. There is severe bilateral neural foraminal narrowing. Paravertebral soft tissues are unremarkable. Impression: Severe degenerative spondylosis of the lumbar spine, especially at L3-L4, L4-L5, and L5-S1. There is multilevel canal stenosis and neural foraminal narrowing. 4 mm anterolisthesis of L4 over L5. Reviewed, dictated and finalized at [facility]. Impression: Severe degenerative spondylosis of the lumbar spine, especially at L3-L4, L4-L5 , and L5-S1. There is multilevel canal stenosis and neural foraminal narrowing. 4 mm anterolisthesis of L4 over L5.
== END 2024-11-03 09:15 | disposition home or self-care (01) ==
LOC: GOSHIMG 09:15
PROVIDERS: PCP Family Medicine; Visit Provider Family Medicine
DX: M47.816 Spondylosis without myelopathy or radiculopathy, lumbar region (principal); M47.817 Spondylosis without myelopathy or radiculopathy, lumbosacral region; M48.061 Spinal stenosis, lumbar region without neurogenic claudication; M48.07 Spinal stenosis, lumbosacral region; R29.818 Other symptoms and signs involving the nervous system
CPT/HCPCS: 72148

== ENCOUNTER 2024-12-11 15:05 | Outpatient (CLI) | payer MEDICARE, OTHER, SELFPAY ==
--- OUTSIDE RECORDS SUMMARY | 2024-12-11 15:10 | XMS_ITS | Clinical Summary ---
Author Organization [facility] Address [address] [place] [phone] Phone Care Team Providers Care Pick And Shovel Man Name Role Phone Jean Pierre Landry MD [...] 10:06 AM CDT Height 180.3 cm (5' 11) 12/18/2021 10:06 AM CDT Body Mass Index 30.4 12/18/2021 10:06 AM CDT Plan of Treatment Health Maintenance Due Date Last Done Comments Pneumococcal PPSV23/PCV13 65 + Years / Low and Medium Risk (2 of 3 - PCV20 or PCV21) 02/28/2021 02/29/2020 Influenza Vaccine (#1) 2025 03/03/2021, 2017 Insurance MEDICARE [employer] [place] MEDICARE SUPPLEMENT Care Teams Pick And Shovel Man Relationship Specialty Start Date End Date Jean Pierre Landry MD [address] [phone] PCP - General Internal Medicine 10/11/21
--- OUTSIDE RECORDS SUMMARY | 2024-12-11 15:10 | XMS_ITS | Encounter Summary ---
Author Organization [facility] Address [address] [place] [address] Care Team Providers Care Varnish Supervisor Name Role Phone Luis King MD Primary Care Provider [phone] Encounter Details Date Type Department Care Team (Late Contact Info) Description 10/14/2006 Outpatient Historical [facility] [address] [place] [address] Rodri Amador MD [address] [place] [address] Social History Tobacco Use Types Packs/Day Years Used Date Smoking Tobacco: Never Assessed Sex and Gender Information Value Date Recorded Sex Assigned at Not on file Legal Sex Male 3:45 AM COMPOSITE LAMINATOR Gender Identity Not on file Sexual Orientation Not on file documented as of this encounter Plan of Treatment Upcoming Encounters Date Type Department Care Team (Late st Contact Info) Description 01/30/2025 10:30 AM CDT Office Visit [facility] Heart and Vascular - [facility] [address] [place] [phone] Rodri Amador MD [address] [place], [place] [phone] documented as of this encounter Visit Diagnoses Not on filedocumented in this encounter Care Teams Varnish Supervisor Relationship Specialty Start Date End Date Luis King MD [address] [place] [phone] PCP - General 05/15/08 documented as of this encounter
--- OUTSIDE RECORDS SUMMARY | 2024-12-11 15:10 | XMS_ITS | Clinical Summary ---
Author Organization [facility] Address [address] [place] [address] Care Team Providers Care Industrial Relations Counselor Name Role Phone Jean Pierre Landry MD [...] 05/05/2021 Hypokalemia 05/01/2021 Type 2 diabetes mellitus ([facility]) 12/04 Osteoarthritis of knee 03/16/2019 Old MD (myocardial infarction) 02/28/2019 Hypertension 11/20/2011 Overview (12/29/2022): [...] 7) 02/28/2019 Tdap (Generic) 11/18/2021,08/29/2007 Zoster (Zostavax) 12106 Unt/0.65Ml 03/13/2014 Family History Medical History Relation [...] 1:10 PM CDT Height 172.7 cm (5' 8) 02/03/2023 1:10 PM CDT Body Mass Index 34.52 02/03/2023 1:10 PM CDT Plan of Treatment Health Maintenance Due Date Last Done Comments ASCVD LDL 1950 Colorectal Cancer Screening Colonoscopy (10 Years) 1950 Kidney Health Evaluation 1950 Lipid Panel 1950 Diabetes: Retinopathy Eye Exam 11/28/1967 Hepatitis C 11/28/1967 Zoster Vaccines (2 of 3) 05/08/2014 03/13/2014 Annual Medicare Wellness Visit 2014 Hemoglobin A1C 10/18/2019 04/19/2019 COVID-19 Vaccine ( season) 2024 12/02/2021, 04/03/2021, 07/29/2020, Additional history exists RSV Immunization or 60+ Years (1 - 1-dose 75+ series) 2024 Pneumococcal Vaccine: 50+ Years (3 of 3 [...] this topic Medical Devices Implanted Type Area Bill Poster Installer Device Identifier Shelf Expiration Date Model / Serial / Lot Iol [employer] [id number] - [id number] Implanted:Qty: 1 on 12/22/2021 by Johan Ureña MD at [facility] Lens Right: Eye [employer] [id number] 03/08/2022 [id number] / [id number] / Insurance MEDICARE [facility] Care Teams Industrial Relations Counselor Relationship Specialty Start Date End Date Jean Pierre Landry MD [address] [facility] [address] [place] [address] PCP - General FAMILY PRACTICE 12/22/21
--- OUTSIDE RECORDS SUMMARY | 2024-12-11 15:10 | XMS_ITS | Encounter Summary ---
Author Organization [facility] Address [address] [place] [address] Care Team Providers Care Piece Goods Clerk Name Role Phone Luis King MD Primary Care Provider [phone] Encounter Details Date Type Department Care Team (Latest Contact Info) Description 06/07/2008 Inpatient Historical HIS PATIENT IN A BED Eduard Shearer MD [address] [facility] [address] [place] [address] Jos Richter MD NO ADDRESS ON FILE Intermediate Coronary Syndrome (CMS/HCC); Coronary Atherosclerosis of [place] Coronary Artery; Automatic Implantable Cardiac Defibrillator in Situ; Unspecified Essential Hypertension Social History Tobacco Use Types Packs/Day Years Used Date Smoking Tobacco: Never Assessed Sex and Gender Information Value Date Recorded Sex Assigned at Not on file Legal Sex Male 3:45 AM MARKETING DATABASE CONSULTANT Gender Identity Not on file Sexual Orientation Not on file documented as of this encounter Plan of Treatment Upcoming Encounters Date Type Department Care Team (Late st Contact Info) Description 01/30/2025 10:30 AM CDT Office Visit [facility] Heart and Vascular - [facility] [address] [facility] [address] [place] [phone] Rodri Amador MD [address] [facility] [address] [place] [address] documented as of this encounter Procedures Procedure Name Priority Date/Time Associated Diagnosis Comments CBC WITH DIFFERENTIAL Stat 06/08/2008 1:17 PM MARKETING DATABASE CONSULTANT LIPID PANEL Timed Study 06/08/2008 8:45 AM MARKETING DATABASE CONSULTANT COMPREHENSIVE METABOLIC PANEL Timed Study 06/08/2008 8:45 AM MARKETING DATABASE CONSULTANT TROPONIN Routine 06/08/2008 6:06 AM MARKETING DATABASE CONSULTANT BASIC METABOLIC PANEL Routine 06/08/2008 6:06 AM MARKETING DATABASE CONSULTANT documented in this encounter Results * (ABNORMAL) CBC WITH DIFFERENTIAL (06/08/2008 1:17 PM MARKETING DATABASE CONSULTANT) MCV 91.1 82.0 - 99.[address] [facility] PLATELETS 149 140 - 350 K/uL [facility] HEMOGLOBIN 15.4 13.6 - 16.5 g/dL [facility] RDW 13.1 11.5 - 14.5 % [facility] WBC 10.5(H) 4.0 - 9.8 K/uL [facility] MCH 31.2 27.2 - 32.[address] [facility] MPV 10.7 9.3 - 12.[address] [facility] HEMATOCRIT 45.0 40.0 - 48.0 % [facility] RDW-STDEV 43.1 37.1 - 48.[address] [facility] RBC 4.94 4.50 - 5.40 M/uL [facility] MCHC 34.2 31.5 - 35.5 % [facility] NEUTROPHIL ABSOLUTE 7.32(H) 1.90 - 7.00 K/uL [facility] EOSINOPHILS 4 0 - 7 % [facility] EOSINOPHIL ABSOLUTE 0.40 0.00 - 0.70 K/uL [facility] LYMPHOCYTES 21 16 - 45 % [facility] LYMPHOCYTE ABSOLUTE 2.16 0.70 - 4.50 K/uL [facility] BASOPHILS 0 0 - 2 % [facility] BASOPHILS ABSOLUTE 0.03 0.00 - 0.20 K/uL [facility] MONOCYTES 6 3 - 13 % [facility] MONOCYTE ABSOLUTE 0.63 0.10 - 1.30 K/uL [facility] NEUTROPHILS 69 45 - 70 % [facility] Blood specimen (specimen) 06/08/2008 1:17 PM MARKETING DATABASE CONSULTANT 06/08/2008 1:30 PM MARKETING DATABASE CONSULTANT Narrative INTERFACE SYSTEM - 06/08/2008 1:36 PM MARKETING DATABASE CONSULTANT off of blood in lab if avail. us Jos Richter MD HEMATOLOGY ORDERABLES Edited INTERFACE SYSTEM Refer to clinic/hospital department [facility] CLIA# [id number] [address] [place], [place] [address] * (ABNORMAL) COMPREHENSIVE METABOLIC PANEL (06/08/2008 8:45 AM MARKETING DATABASE CONSULTANT) SODIUM 137 135 - 145 mmol/L [facility] GLUCOSE 114(H) 65 - 99 mg/dL [facility] BILIRUBIN TOTAL 0.6 0.2 - 1.0 mg/dL [facility] ALKALINE PHOSPHATASE 104 40 - 129 U/L [facility] CHLORIDE 103 96 - 108 mmol/L [facility] CALCIUM 9.2 8.6 - 10.2 mg/dL [facility] POTASSIUM 4.3 3.5 - 4.9 mmol/L [facility] BUN 19 6 - 20 mg/dL [facility] TOTAL PROTEIN 7.0 6.3 - 8.6 g/dL [facility] CO2 27 22 - 30 mmol/L [facility] CREATININE 0.93 0.67 - 1.17 mg/dL [facility] ALT 80(H) 0 - 41 U/L [facility] ALBUMIN 4.4 3.4 - 4.8 g/dL [facility] AST 36 12 - 38 U/L [facility] GFR, >60 >=60 mL/min/1. [address] [facility] GFR >60 >=60 mL/min/1. [address] [facility] Comment: Modification of Diet in Renal Disease (MDRD) study formula. Estimated GFR rate interpretative information for both Americans and non- Americans is available on the [facility] Intranet at: [email or web address] Select: Lab Policies and Procedures Select: Reference Ranges - GFR Blood specimen (specimen) 06/08/2008 8:45 AM MARKETING DATABASE CONSULTANT 06/08/2008 8:51 AM MARKETING DATABASE CONSULTANT Jos Richter MD CHEMISTRY ORDERABLES Edited INTERFACE SYSTEM Refer to clinic/hospital department [facility] CLIA# [id number] [address] [place] [address] * (ABNORMAL) LIPID PANEL (06/08/2008 8:45 AM MARKETING DATABASE CONSULTANT) CHOLESTEROL 178 100 - 199 mg/dL [facility] CHOL/HDL RATIO 3.2 2.0 - 5.0 [facility] TRIGLYCERIDE 290(H) 10 - 149 mg/dL [facility] HDL 55 40 - 59 mg/dL [facility] LDL CALCULATED 65 <=99 mg/dL [facility] LIPID PANEL COMMENT See Below [facility] Comment: The adult ATP and pediatric NCEP classifications for lipids are available on the [facility] Intranet at: [email or web address] Select: Lab Policies and Procedures,Current Select: Lipid Panel Interpretation Blood specimen (specimen) 06/08/2008 8:45 AM MARKETING DATABASE CONSULTANT 06/08/2008 8:51 AM MARKETING DATABASE CONSULTANT Jos Richter MD CHEMISTRY ORDERABLES Edited INTERFACE SYSTEM Refer to clinic/hospital department [facility] CLIA# [id number] [address] [facility] [place] [address] * (ABNORMAL) BASIC METABOLIC PANEL (06/08/2008 6:06 AM MARKETING DATABASE CONSULTANT) BUN 19 6 - 20 mg/dL [facility] CHLORIDE 104 96 - 108 mmol/L [facility] GLUCOSE 104(H) 65 - 99 mg/dL [facility] SODIUM 137 135 - 145 mmol/L [facility] CALCIUM 9.0 8.6 - 10.2 mg/dL [facility] CO2 25 22 - 30 mmol/L [facility] CREATININE 0.90 0.67 - 1.17 mg/dL [facility] POTASSIUM 4.0 3.5 - 4.9 mmol/L [facility] GFR, >60 >=60 mL/min/1. [address] [facility] GFR >60 >=60 mL/min/1. [address] [facility] Comment: Modification of Diet in Renal Disease (MDRD) study formula. Estimated GFR rate interpretative information for both Americans and non- Americans is available on the [facility] Intranet at: [email or web address] Select: Lab Policies and Procedures Select: Reference Ranges - GFR Blood specimen (specimen) 06/08/2008 6:06 AM MARKETING DATABASE CONSULTANT 06/08/2008 6:17 AM MARKETING DATABASE CONSULTANT Eduard Shearer MD CHEMISTRY ORDERABLES Edited Performing Organization Address City/[facility] Co de Phone Number INTERFACE SYSTEM Refer to clinic/hospital department [facility] CLIA# [id number] [address] [place] [address] * TROPONIN (06/08/2008 6:06 AM MARKETING DATABASE CONSULTANT) TROPONIN T <0.01 <=0.03 ng/mL [facility] TROPONIN T INTERP Negative [facility] Blood specimen (specimen) 06/08/2008 6:06 AM MARKETING DATABASE CONSULTANT 06/08/2008 6:17 AM MARKETING DATABASE CONSULTANT Eduard Shearer MD CHEMISTRY ORDERABLES Edited Performing Organization Address [facility] Co de Phone Number INTERFACE SYSTEM Refer to clinic/hospital department [facility] CLIA# [id number] [address] [place] [address] documented in this encounter Visit Diagnoses Diagnosis Intermediate coronary syndrome (CMS/[facility]) Intermediate coronary syndrome Coronary atherosclerosis of [place] coronary artery Automatic implantable cardiac defibrillator in situ Unspecified essential hypertension documented in this encounter Care Teams Piece Goods Clerk Relationship Specialty Start Date End Date Luis King MD [address] [place] [phone] PCP - General 05/15/08 documented as of this encounter
--- OUTSIDE RECORDS SUMMARY | 2024-12-11 15:10 | XMS_ITS | Encounter Summary ---
Author Organization [facility] Address [address] [place] [address] Care Team Providers Care Tea Taster Name Role Phone Luis King MD Primary Care Provider [phone] Encounter Details Date Type Department Care Team (Late Contact Info) Description 10/14/2006 Outpatient Historical [facility] Support Serv. (Adt Cardiology-[facility]) [address] [place] [phone] Rodri Rosario MD [address] [facility] [address] [place] [address] Social History Tobacco Use Types Packs/Day Years Used Date Smoking Tobacco: Never Assessed Sex and Gender Information Value Date Recorded Sex Assigned at Not on file Legal Sex Male 3:45 AM CLINICAL DIETICIAN Gender Identity Not on file Sexual Orientation Not on file documented as of this encounter Plan of Treatment Upcoming Encounters Date Type Department Care Team (Late Contact Info) Description 01/30/2025 10:30 AM CDT Office Visit [facility] Heart and Vascular - [facility] [address] [facility] [address] [place] [address] Rodri Amador MD [address] [facility] [address] [place], [place] [id number] documented as of this encounter Visit Diagnoses Not on filedocumented in this encounter Care Teams Tea Taster Relationship Specialty Start Date End Date Lius King MD [address] [place] [phone] PCP - General 05/15/08 documented as of this encounter
--- OUTSIDE RECORDS SUMMARY | 2024-12-11 15:10 | XMS_ITS | Encounter Summary ---
Author Organization [facility] Address [address] [place] [address] Care Team Providers Care Potato Grader Name Role Phone Luis King MD Primary Care Provider [phone] Encounter Details Date Type Department Care Team (Late st Contact Info) Description 10/14/2006 Outpatient Historical [facility] [address] [place] [address] Jos Richter MD NO ADDRESS ON FILE Social History Tobacco Use Types Packs/Day Years Used Date Smoking Tobacco: Never Assessed Sex and Gender Information Value Date Recorded Sex Assigned at Not on file Legal Sex Male 3:45 AM GREEN END MAN Gender Identity Not on file Sexual Orientation Not on file documented as of this encounter Plan of Treatment Upcoming Encounters Date Type Department Care Team (Late st Contact Info) Description 01/30/2025 10:30 AM CDT Office Visit [facility] Heart and Vascular - [address] [place] [address] Rodri Amador MD [address] [facility] [address] [place] [address] documented as of this encounter Visit Diagnoses Not on filedocumented in this encounter Care Teams Potato Grader Relationship Specialty Start Date End Date Luis King MD [address] [place] [phone] PCP - General 05/15/08 documented as of this encounter
--- OUTSIDE RECORDS SUMMARY | 2024-12-11 15:10 | XMS_ITS | Clinical Summary ---
Author Organization [facility] Address [address] [facility] [address] Phone Care Team Providers Care Licensed Investment Sales Assistant Name Role Phone Luis King MD Primary Care Provider [phone] Allergies Active Allergy Reactions Criticality Noted Date [...] mg by mouth daily with breakfast. Active multivitamin (DAILY-ANNABEL) tablet Take 1 Tablet [...] MOUTH DAILY 90 Tablet 3 4 Active rosuvastatin (CRESTOR) 40 mg tabletIndications:C oronary artery disease involving pilot station coronary artery of pilot station heart without angina pectoris,Mixed hyperlipidemia TAKE 1 TABLET BY MOUTH EVERY DAY AT BEDTIME 90 Tablet 1 5 Active Active Problems Patient Care Coordination No te Formatting of this note migh t be different from the original. Moulder Operator- Dr. Perry Low Office Rodri Amador MD- [facility] Heart & V[facility] ( [facility]) Problem Noted Date Diagnosed Date History of [...] Noted Date Diagnosed Date Resolved Date Old RI (myocardial infarction) 02/28/2019 01/19/2023 History of RI (myocardial infarction) 05/17/2018 02/28/2019 Precordial pain 04/28/2018 05/17/2018 Precordial pain 04/28/2018 05/17/2018 Tobacco use 12/07/2016 04/27/2017 Cigarette dependence 12/07/2016 017 Chewing tobacco dependence 12/07/2016 1 06/27/2016 Second hand tobacco smoke exposure 12/07/2016 04/27/2017 Occupational tobacco smoke exposure 12/07/2016 04/27/2017 tobacco smoke expo sure (20wks gestation-4wks post ) 12/07/2016 04/27/2017 Essential hypertension, benign 10/25/2008 11/20/2011 Encounters Date Type Department Care Team Description 11/14/2024 External Device Data STL ABSTRACTION Provider, Abstract 10/19/2024 External Device Data STL ABSTRACTION Provider, Abstract 10/19/2024 External Device Data [place] ABSTRACTION Provider, Abstract 10/19/2024 External Device Data [place] ABSTRACTION Provider, Abstract 10/18/2024 External Device Data [facility] ABSTRACTION Provider, Abstract 10/17/2024 External Device Data [facility] ABSTRACTION Provider, Abstract 10/15/[address] [facility] Heart and Vascular - [facility] [address] [place] [address] Rodri Amador MD Coronary artery disease involving pilot station coronary artery of pilot station heart without angina pectoris; Mixed hyperlipidemia 09/12/2024 External Device Data STL ABSTRACTION Provider, [...] on file Legal Sex Male 3:45 AM BATON TEACHER Gender Identity Not on file Sexual Orientation Not on file Occupation Industry Job Start Date Job End Date Not on file Not on file Not on file Not on file Last Filed Vital Signs Vital Sign Reading Time Taken Comments Blood Pressure 124/64 01/25/2024 9:28 AM CDT Pulse 65 01/25/2024 9:28 AM CDT Temperature 36.5 C (97.7 F) 04/29/2018 3:00 PM BATON TEACHER Respiratory Rate 20 04/29/2018 3:00 PM BATON TEACHER Oxygen Saturation 98% 01/25/2024 9:28 AM CDT Inhaled Oxygen Concentration - - Weight 99.3 kg (219 lb) 01/25/2024 9:28 AM CDT Height 172.7 cm (5' 8) 01/19/2023 9:31 AM CDT Body Mass Index 33.3 01/19/2023 9:31 AM CDT Plan of Treatment Upcoming Encounters Date Type Department Care Team (Late st Contact Info) Description 01/30/2025 10:30 AM CDT Office Visit [facility] Heart and Vascular - [facility] [address] [place] [address] Rodri Amador MD [address] [place] [address] Health Maintenance Due Date Last Done Comments DIABETES ANNUAL FOOT EXAM 11/28/1967 DIABETES MICROALBUMIN ANNUAL SCREEN 11/28/1967 FIT-DNA Q 3 years 1994 FIT/FOBT Q 1 year 1994 Flex Sig/CT Colonography Q 5 years 1994 ZOSTER VACCINE (2 of 3) 05/08/2014 03/13/2014 Abdominal Aortic Aneurysm (A AA) Screening 2014 LDL CHOLESTEROL ANNUAL 12/25/2021 , 04/19/2019, 07/12/2018, Additional history exists DIABETES HBA1C Q 6 MONTHS 07/14/20242023, 08/27/2023, 07/21/2023, Additional history exists RSV VACCINE (60+ or ) (1 - 1-dose 75+ series) 2024 INFLUENZA VACCINE (#1) 2024 03/03/2021, 2017 COLORECTAL SCREENING 01/24/2025 01/24/2015, 01/24/2015, 01/24/2015 Colorectal [...] 12/25/2020 HEMOGLOBIN A1C Routine 04/19/2019 2:28 AM BATON TEACHER from Last 3 Months or Most Recently Relevant to Health Maintenance Results * LIPID PANEL (12/25/2020) Blood us Abstract Provider CHEMISTRY ORDERABLES Final Res ult Performing Organization Address [facility]/ZIP Co de Phone Number [facility] CLIA# [id number] [address] [place] [address], [place] [address] * (ABNORMAL) HEMOGLOBIN A1C (04/19/2019 2:28 AM BATON TEACHER) HEMOGLOBIN A1C 6.7(H) <5.7 % of total Hgb [facility] Comment: For someone without known diabetes, a [...] of diabetes for children. 04/19/2019 2:28 AM BATON TEACHER Historical Provider CHEMISTRY ORDERABLES Edited Result - Final [employer] [facility] [address] [place] [address] from Last 3 Months or Most Recently Relevant to Health Maintenance Insurance [facility] , [facility] MEDICARE PART A AND B Advance Directives For more information, please contact: [phone] * Full Code (Latest Code Status on File) Date Activated Date Inactivated Comments 04/28/2018 7:27 PM 04/29/2018 8:59 PM Care Teams Licensed Investment Sales Assistant Relationship Specialty Start Date End Date Luis King MD [address] [place], [place] [phone] PCP - General 05/15/08
--- OUTSIDE RECORDS SUMMARY | 2024-12-11 15:10 | XMS_ITS | Encounter Summary ---
Author Organization [facility] Address [address] [place] [address] Care Team Providers Care Drywall Application Supervisor Name Role Phone Luis King MD Primary Care Provider [phone] Encounter Details Date Type Department Care Team (Late st Contact Info) Description 04/26/2007 Outpatient Historical [facility] [address] [facility] [address] 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 Gender Identity Not on file Sexual Orientation Not on file documented as of this encounter Plan of Treatment Upcoming Encounters Date Type Department Care Team (Late st Contact Info) Description 01/30/2025 10:30 AM CDT Office Visit [facility] Heart and Vascular - [address] [place] [address] Rodri Amador MD [address] [facility] [address] [place] [address] documented as of this encounter Visit Diagnoses Not on filedocumented in this encounter Care Teams Drywall Application Supervisor Relationship Specialty Start Date End Date Luis King MD [address] [place] [phone] PCP - General 05/15/08 documented as of this encounter
--- OUTSIDE RECORDS SUMMARY | 2024-12-11 15:10 | XMS_ITS | Encounter Summary ---
Author Organization [facility] Address [address] [place] [address] Care Team Providers Care Licensed Professional Counselor Name Role Phone Luis Knig MD Primary Care Provider [phone] Encounter Details Date Type Department Care Team (Late st Contact Info) Description 08/14/2005 Outpatient Historical [facility] 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 Gender Identity Not on file Sexual Orientation Not on file documented as of this encounter Plan of Treatment Upcoming Encounters Date Type Department Care Team (Late st Contact Info) Description 01/30/2025 10:30 AM CDT Office Visit [facility] Heart and Vascular - [address] [place] [address] Rodri Amador MD [address] [place] [address] documented as of this encounter Visit Diagnoses Not on filedocumented in this encounter Care Teams Licensed Professional Counselor Relationship Specialty Start Date End Date Luis King MD [address] [place] [phone] PCP - General 05/15/08 documented as of this encounter
--- OUTSIDE RECORDS SUMMARY | 2024-12-11 15:10 | XMS_ITS | Clinical Summary ---
Author Organization [facility] Address [address], [facility] [address] [place] [address] Phone Care Team Providers Care Hospice Case Manager Name Role Phone Jean Pierre Landry [...] 99.8 kg (220 lb) 07/19/2019 9:00 AM ECLECTIC DOCTOR Height 172.7 cm (5' 8) 07/19/2019 9:00 AM ECLECTIC DOCTOR Body Mass Index 33.45 07/19/2019 9:00 AM ECLECTIC DOCTOR Plan of Treatment Health Maintenance Due Date Last Done Comments Hepatitis C Virus (HCV) Screening 1950 TdaP Immunization 1950 Cologuard 1994 Immunochemical Fecal Occult Blood 1994 Pneumococcal Immunization (5 0+ years) (1 of 1 - PCV) 11/28/1999 Zoster Immunization (1 of 2) 11/28/1999 SARS-COV-2 Immunization (1 - 2023- season) 2024 Respiratory Syncytial Virus (RSV) Immunization (Adult) (1 - 1-dose 75+ series) 2024 Colonoscopy 01/24/2025 01/24/2015 Colorectal Cancer Screening 01/24/2025 Influenza Immunization (#1) 2025 Hepatitis B Immunization Aged Out No longer eligible based on patient's age to complete this topic Human Papillomavirus (HPV) Immunization Aged Out No longer eligible b ased on patient's age to complete this topic [...] to Health Maintenance Insurance MEDICARE Care Teams Hospice Case Manager Relationship Specialty Start Date End Date Jean Pierre Landry MD PCP - General Family Medicine 07/04/19 Rodri Amador MD [address] [facility] [address] [place] [address] 07/04/19
--- OUTSIDE RECORDS SUMMARY | 2024-12-11 15:10 | XMS_ITS | Encounter Summary ---
Author Organization [facility] Address [address] [place] [address] Care Team Providers Care Coin Dealer Name Role Phone Jean Pierre Landry MD Primary Care Provider Encounter Details Date Type Department Care Team (Late st Contact Info) Description 12/30/2022 Abstract [facility] [address] [address] Rahul Gill MA Social History Tobacco Use [...] on filedocumented in this encounter Care Teams Coin Dealer Relationship Specialty Start Date End Date Jean Pierre Landry MD [address] [facility] [address] [place] [address] PCP - General FAMILY PRACTICE 12/22/21 documented as of this encounter
--- OUTSIDE RECORDS SUMMARY | 2024-12-11 15:10 | XMS_ITS | Encounter Summary ---
Author Organization [facility] Address [address] [place] [address] Care Team Providers Care Kennel Hand Name Role Phone Luis King MD Primary Care Provider [phone] Encounter Details Date Type Department Care Team (Late st Contact Info) Description 05/05/2007 Outpatient Historical [facility] [address] 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 Gender Identity Not on file Sexual Orientation Not on file documented as of this encounter Plan of Treatment Upcoming Encounters Date Type Department Care Team (Late st Contact Info) Description 01/30/2025 10:30 AM CDT Office Visit [facility] Heart and Vascular - [address] [place] [address] Rodri Amador MD [address] [facility] [address] [place] [address] documented as of this encounter Visit Diagnoses Not on filedocumented in this encounter Care Teams Kennel Hand Relationship Specialty Start Date End Date Luis King MD [address] [place] [phone] PCP - General 05/15/08 documented as of this encounter
--- OUTSIDE RECORDS SUMMARY | 2024-12-11 15:10 | XMS_ITS | Encounter Summary ---
Author Organization [facility] Address [address] [place] [address] Care Team Providers Care Edge Roller Name Role Phone Luis King MD Primary Care Provider [phone] Encounter Details Date Type Department Care Team [...] on file Legal Sex Male 3:45 AM STONEMASON HELPER Gender Identity Not on file Sexual Orientation Not on file documented as of this encounter Plan of Treatment Upcoming Encounters Date Type Department Care Team (Late st Contact Info) Description 01/30/2025 10:30 AM CDT Office Visit [facility] Heart and Vascular - [facility] [address] [place] [address] [place] [phone] Rodri Amador MD [address] [facility] [address] [facility] [address] [place] [address] documented as of this encounter Visit Diagnoses Diagnosis Nonspecific abnormal unspecified cardiovascular function study- Primary documented in this encounter Care Teams Edge Roller Relationship Specialty Start Date End Date Luis King MD [address] [place] [phone] PCP - General 05/15/08 documented as of this encounter
[2024-12-11 17:16] LABS: Hematocrit 39.9 % (42.0-52.0); Hemoglobin 13.0 g/dL (14.0-18.0); Mean Corpuscular HGB Conc 32.6 g/dl (32-36); Mean Corpuscular Hemoglobin 29.2 pg (26-34); Mean Corpuscular Volume 89.7 fl (80-100); Platelet Count Result 153 k/mm3 (150-375); Red Blood Count 4.45 M/mm3 (4.6-6.20); White Blood Count 9.1 K/mm3 (4.5-10.0)
[2024-12-11 17:43] LABS: CRP 0.5 mg/dL (<1.0)
[2024-12-11 18:04] LABS: Syphilis IgG/IgM Antibody Non-Reactive (Nonreactive)
[2024-12-12 13:09] LABS: ACE 56 U/L (14-82)
[2024-12-13 16:08] LABS: ANA by IFA Rfx Titer/Pattern Negative (.)
== END 2024-12-11 15:06 | disposition home or self-care (01) ==
PROVIDERS: PCP Family Medicine
DX: H20.012 Primary iridocyclitis, left eye (principal); Z20.2 Contact with and (suspected) exposure to infections with a predominantly sexual mode of transmission
CPT/HCPCS: 36415; 82164; 85027; 85652; 86038; 86140; 86430; 86593; 86780

== ENCOUNTER 2024-12-11 15:42 | Outpatient (CLI) | payer MEDICARE, OTHER, SELFPAY ==
--- NOTE | ~2024-12-11 | XR_ITS ---
EXAMINATION: XR chest 2V Exam Date/Time: 12/11/2024 15:46 CDT HISTORY: Iridocyclitis onset 5 days ago, unknown etiology, prev smoke Comparison: 04/06/2024. RESULT: Lines, tubes, and devices: Cholecystectomy clips. Lungs and pleura: Clear. Cardiomediastinal silhouette: Stable. Other: No acute osseous or upper abdominal finding. IMPRESSION: No acute cardiopulmonary process. Reviewed, dictated and finalized at location K.
== END 2024-12-11 15:43 | disposition home or self-care (01) ==
PROVIDERS: PCP Family Medicine; Visit Provider Ophthalmology Retina Specialist
DX: H20.012 Primary iridocyclitis, left eye (principal); Z87.891 Personal history of nicotine dependence
CPT/HCPCS: 71046

== ENCOUNTER 2024-12-12 10:31 | Outpatient (CLI) | payer MEDICARE, OTHER, SELFPAY ==
--- OUTSIDE RECORDS SUMMARY | 2024-12-12 10:53 | XMS_ITS | Encounter Summary ---
Author Organization [facility] Address [address] [place] [address] Care Team Providers Care Remote Encoding Center Manager Name Role Phone Luis King MD Primary Care Provider [phone] Encounter Details Date Type Department Care Team (Late st Contact Info) Description 08/14/2005 Outpatient Historical [facility] [address] [place] [address] Jos Richter MD NO ADDRESS ON FILE Social History Tobacco Use Types Packs/Day Years Used Date Smoking Tobacco: Never Assessed Sex and Gender Information Value Date Recorded Sex Assigned at Not on file Legal Sex Male 3:45 AM SPECIAL LIBRARIAN Gender Identity Not on file Sexual Orientation Not on file documented as of this encounter Plan of Treatment Upcoming Encounters Date Type Department Care Team (Late st Contact Info) Description 01/30/2025 10:30 AM CDT Office Visit [facility] Heart and Vascular - [address] [place] [phone] Rodri Amador MD [address] [facility] [address] [place] [address] documented as of this encounter Visit Diagnoses Not on filedocumented in this encounter Care Teams Remote Encoding Center Manager Relationship Specialty Start Date End Date Luis King MD [address] [place] [phone] PCP - General 05/15/08 documented as of this encounter
--- OUTSIDE RECORDS SUMMARY | 2024-12-12 10:53 | XMS_ITS | Encounter Summary ---
Author Organization [facility] Address [address] [place] [address] Care Team Providers Care Frame Gate Mortiser Operator Name Role Phone Luis King MD Primary Care Provider [phone] Encounter Details Date Type Department Care Team (Late st Contact Info) Description 10/14/2006 Outpatient Historical [facility] 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 Gender Identity Not on file Sexual Orientation Not on file documented as of this encounter Plan of Treatment Upcoming Encounters Date Type Department Care Team (Late st Contact Info) Description 01/30/2025 10:30 AM CDT Office Visit [facility] Heart and Vascular - [address] [place] [phone] Rodri Amador MD [address] [place] [address] documented as of this encounter Visit Diagnoses Not on filedocumented in this encounter Care Teams Frame Gate Mortiser Operator Relationship Specialty Start Date End Date Luis King MD [address] [place] [phone] PCP - General 05/15/08 documented as of this encounter
--- OUTSIDE RECORDS SUMMARY | 2024-12-12 10:53 | XMS_ITS | Referral Summary ---
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 (Primary Dx) 09/27/2024 10:15 AM CDT Office Visit [facility] Vascular at [address] [place] [address] Ami Mitchell NP Mixed hyperlipidemia (Primary Dx); Peripheral vascular disease, unspecified; Primary hypertension; Peripheral vascular disease; Type 2 diabetes mellitus with diabetic microalbuminuria, without long-term current use of insulin (HCC) from Last 3 Months Allergies No known active allergies Medications FeroSuL 325 mg (65 mg iron) tablet Take 1 tablet (325 mg total) by mouth 2 (two) times a day 08/07/2024 Active carvediloL (COREG) 25 mg tablet Take 1 tablet (25 mg total) by mouth 2 (two) times a day 09/28/2021 Active amLODIPine (NORVASC) 10 mg tablet Take by mouth daily 03/12/2023 Active fenofibrate micronized (LOFIBRA) 134 mg capsule Take 1 capsule (134 mg total) by mouth daily Active omeprazole (PriLOSEC) 20 mg capsule Take 1 capsule (20 mg total) by mouth daily Active metFORMIN XR (GLUCOPHAGE XR) 500 mg 24 hr tablet Take 1 tablet (500 mg total) by mouth 2 (two) times a day Active glimepiride (AMARYL) 2 mg tablet Take 1 tablet (2 mg total) by mouth daily 03/14/2021 Active rosuvastatin (CRESTOR) 40 mg tablet Take 1 tablet (40 mg total) by mouth nightly at bedtime Active doxazosin (CARDURA) 2 mg tablet TAKE 1 TABLET(2 MG) BY MOUTH DAILY 12/14/2021 Active Eliquis 5 mg tablet Take 1 tablet (5 mg total) by mouth 2 (two) times a day Active magnesium oxide (MAG-OX) 400 mg (241.3 mg elemental magnesium) tablet Take by mouth 3 (three) times a day Active coenzyme Q10 100 mg capsule Take 2 capsules (200 mg total) by mouth daily Active cholecalciferol (VITAMIN D-3) 1,000 unit capsule Take 1 capsule (1,000 Units total) by mouth daily Active multivitamin tablet Take 1 tablet by mouth daily Active Active Problems Problem Noted Date Diagnosed Date Dissection of iliac artery 10/19/2024 Assessment & Plan (10/19/2024 11:39 AM CDT): 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 This is unchanged since 2020. We will have the patient follow up in 1 year for routine surveillance with CTA abdomen and pelvis. Would recommend further evaluation of hip pain and low back pain with either neuro spine or orthopedics. Continue follow-up and evaluation with his PCP. Pulmonary embolism on right 08/26/2023 Peripheral vascular disease 03/01/2023 Assessment & Plan (09/29/2024 11:27 AM CDT): No symptoms of claudication rest pain or ischemic ulcerations. Patient states that he was told that he had iliac dissections and has been having pain at the hip level. Current arterial Doppler from [facility] shows normal ABIs. Lower extremities are warm well perfused with palpable distal pulses. Will obtain CTA of the abdomen and pelvis and have the patient follow up in the next 1-2 weeks. 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 Gender Identity Not on file Sexual Orientation Not on file Last Filed Vital Signs Vital Sign Reading Time Taken Comments Blood Pressure 145/76 10/18/2024 10:13 AM CDT Pulse 64 10/18/2024 10:13 AM CDT Temperature - - Respiratory Rate - - Oxygen Saturation 93% 10/18/2024 10:13 AM CDT Inhaled Oxygen Concentration - - Weight 102.1 kg (225 lb) 10/18/2024 10:13 AM CDT Height 175.3 cm (5' 9) 10/18/2024 10:13 AM CDT Body Mass Index 33.23 10/18/2024 10:13 AM CDT Plan of Treatment Not on file Procedures Procedure Name Priority Date/Time Associated Diagnosis Comments CTA ABDOMEN PELVIS W WO CONTRAST Schedule Routine, Read Routine (OP Routine) 10/11/2024 9:55 AM CDT 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 from Last 3 Months Results * CTA Abdomen Pelvis (10/11/2024 9:55 AM CDT) Anatomical Region Laterality Modality Body N/A Computed Tomogra phy 10/16/2024 2:01 PM CDT Narrative 10/16/2024 2:16 PM CDT EXAM DESCRIPTION: CTA ABDOMEN PELVIS REASON FOR STUDY: PVD Patient with PVD, atherosclerosis of deering artery of both lower extremities with intermittent claudication history of a normal US arterial, history of iliac artery dissections that was seen on CTA in 2020 TECHNIQUE: CTA scan of the abdomen and pelvis performed without and with intravenous and without oral contrast using helical scanning technique with dynamic intravenous contrast injection. Precontrast, arterial, and portal venous phase images of the abdomen and pelvis were acquired. Images reviewed with lung, soft tissue and bone windows. Reconstructed coronal and sagittal MPR images reviewed. All images stored on PACS. 3D MIP images rendered on scanning unit and reviewed at time of interpretation. Automated exposure control was used as a dose optimization technique for this examination. CONTRAST TYPE/DOSE: 100mL of IOVERSOL 350 MG IODINE/ML INTRAVENOUS SYRINGE injected via intravenous COMPARISON: None available FINDINGS: VASCULATURE: Atherosclerotic calcification of the aorta and branches. No dissection, intramural hematoma, rupture, or penetrating atherosclerotic ulcer. No large vessel occlusion. CELIAC TRUNK: No flow limiting stenosis, dissection, or aneurysm. SUPERIOR MESENTERIC ARTERY: No flow limiting stenosis, dissection, or aneurysm. RIGHT RENAL ARTERY: No flow limiting stenosis, dissection, or aneurysm. LEFT RENAL ARTERY: No flow limiting stenosis, dissection, or aneurysm. INFERIOR MESENTERIC ARTERY: No flow limiting stenosis, dissection, or aneurysm. AORTA: No flow limiting stenosis, dissection, or aneurysm. ILIAC ARTERIES: Bilateral common iliac artery dissection (5/164, 171). The right common iliac artery measures 1.7 cm in axial dimension. No flow limiting stenosis. LOWER CHEST: No significant pulmonary abnormalities. No effusion. LIVER: Normal size. No identified cystic or solid masses. GALLBLADDER: Surgically absent BILE DUCTS: No intrahepatic or extrahepatic ductal dilatation. SPLEEN: Normal size. No focal lesions. PANCREAS: No identified cystic or solid masses. No significant calcifications. No adjacent inflammation or peripancreatic fluid collections. Pancreatic duct not dilated. ADRENALS: Normal. KIDNEYS/URINARY TRACT: Bilateral renal cysts. No solid masses. No stones. No hydronephrosis or hydroureter. Symmetric enhancement. Normal bladder. GI: No dilated bowel loops. No obvious wall thickening. Normal appendix. Uncomplicated colonic diverticulosis. PERITONEUM: No ascites or free air. RETROPERITONEUM: No mass or adenopathy. REPRODUCTIVE: Enlarged prostate gland measuring 5.5 cm, containing calcifications MUSCULOSKELETAL: No significant abnormality. OTHER: No other abnormality. IMPRESSION: Bilateral common iliac artery dissection. No flow limiting stenosis. No acute findings in the abdomen and pelvis. THIS IS AN ELECTRONICALLY VERIFIED FINAL REPORT 10/16/2024 2:16 PM - Electronically signed by Shana Cohen M.D. FT T: Report ID: [id number] Reading Location: [place] [address] Procedure Note Shana Martel MD - 10/16/2024 EXAM DESCRIPTION: CTA ABDOMEN PELVIS REASON FOR STUDY: PVD Patient with PVD, atherosclerosis of deering artery of both lowerextremities with intermittent claudication history of a normal US arterial, historyof iliac artery dissections that was seen on CTA in 2020 TECHNIQUE: CTA scan of the abdomen and pelvis performed without and with intravenous and without oral contrast using helical scanning techniquewith dynamic intravenous contrast injection. Precontrast, arterial, and portal venous phase images of the abdomen and pelvis were acquired. Images reviewed with lung, soft tissue and bone windows. Reconstructed coronaland sagittal MPR images reviewed. All images stored on PACS. 3D MIP images rendered on scanning unit and reviewed at time of interpretation.Automated exposure control was used as a dose optimization technique for this examination. CONTRAST TYPE/DOSE: 100mL of IOVERSOL 350 MG IODINE/ML INTRAVENOUSSYRINGE injected via intravenous COMPARISON: None available FINDINGS: VASCULATURE: Atherosclerotic calcification of the aorta and branches. No dissection, intramural hematoma, rupture, or penetrating atherosclerotic ulcer. No large vessel occlusion. CELIAC TRUNK: No flow limiting stenosis, dissection, or aneurysm. SUPERIOR MESENTERIC ARTERY: No flow limiting stenosis, dissection, or aneurysm. RIGHT RENAL ARTERY: No flow limiting stenosis, dissection, or aneurysm. LEFT RENAL ARTERY: No flow limiting stenosis, dissection, or aneurysm. INFERIOR MESENTERIC ARTERY: No flow limiting stenosis, dissection, or aneurysm. AORTA: No flow limiting stenosis, dissection, or aneurysm. ILIAC ARTERIES: Bilateral common iliac artery dissection (5/164, 171).The right common iliac artery measures 1.7 cm in axial dimension. No flow limiting stenosis. LOWER CHEST: No significant pulmonary abnormalities. No effusion. LIVER: Normal size. No identified cystic or solid masses. GALLBLADDER: Surgically absent BILE DUCTS: No intrahepatic or extrahepatic ductal dilatation. SPLEEN: Normal size. No focal lesions. PANCREAS: No identified cystic or solid masses. No significant calcifications. No adjacent inflammation or peripancreatic fluidcollections. Pancreatic duct not dilated. ADRENALS: Normal. KIDNEYS/URINARY TRACT: Bilateral renal cysts. No solid masses. Nostones. No hydronephrosis or hydroureter. Symmetric enhancement. Normalbladder. GI: No dilated bowel loops. No obvious wall thickening. Normalappendix. Uncomplicated colonic diverticulosis. PERITONEUM: No ascites or free air. RETROPERITONEUM: No mass or adenopathy. REPRODUCTIVE: Enlarged prostate gland measuring 5.5 cm, containing calcifications MUSCULOSKELETAL: No significant abnormality. OTHER: No other abnormality. IMPRESSION: Bilateral common iliac artery dissection. No flow limiting stenosis. No acute findings in the abdomen and pelvis. THIS IS AN ELECTRONICALLY VERIFIED FINAL REPORT 10/16/2024 2:16 PM - Electronically signed by Shana Cohen M.D. FT T: Report ID: [id number] Reading Location: [place] [address] Leonard Jean MD [facility] PROCEDURES Final Result from Last 3 Months [place] [address] [employer] Care Teams Housekeeping Room Inspector Relationship Specialty Start Date End Date Jean Pierre Landry MD [address] [facility] [address] [address] PCP - General Family Practice 07/13/24
--- OUTSIDE RECORDS SUMMARY | 2024-12-12 10:53 | XMS_ITS | Encounter Summary ---
Author Organization [facility] Address 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 Gender Identity Not on file Sexual Orientation Not on file documented as of this encounter Plan of Treatment Upcoming Encounters Date Type Department Care Team (Late st Contact Info) Description 01/30/2025 10:30 AM CDT Office Visit [facility] - [facility] [address] [place] [address] [place] [phone] Rodri Amador MD [address] [place] [address] documented as of this encounter Visit Diagnoses Diagnosis Nonspecific abnormal unspecified cardiovascular function study- Primary documented in this encounter Care Teams Doweling Machine Operator Relationship Specialty Start Date End Date Luis King MD [address] [place] [phone] PCP - General 05/15/08 documented as of this encounter
--- OUTSIDE RECORDS SUMMARY | 2024-12-12 10:53 | XMS_ITS | Clinical Summary ---
Author Organization [facility] Address [address] [place] [address] Phone Care Team Providers Care Crusher Loader Equipment Operator Name Role Phone Jean Pierre Landry MD [...] [employer] MEDICARE SUPPLEMENT Care Teams Crusher Loader Equipment Operator Relationship Specialty Start Date End Date Jean Pierre Landry MD [address] [place] [phone] PCP - General Internal Medicine 10/11/21
--- OUTSIDE RECORDS SUMMARY | 2024-12-12 10:53 | XMS_ITS | Clinical Summary ---
Author Organization [facility] Address [address] [facility] [place] [address] Care Team Providers Care Nougat Cutter Machine Name Role Phone Jean Pierre Landry MD Primary Care Provider Source Comments [facility],non-owned Affiliates and Associated Physician Practices is amultiple site organization consisting of ambulatory clinics and hospital sitesin [place] and [place]. This disclosure is being madepursuant to the Care Everywhere program and may not contain all information available regarding this patient. Last updated 18.[facility] [employer] Allergies Active Allergy Reactions Criticality Noted Date [...] hypertension 08/27/2023 Coronary artery disease invo [place]ving [place] coronary artery of [place] heart without angina pectoris 08/27/2023 Type 2 [...] Recorded Patient Health Questionnaire-2 Score 3 12/16/2023 [facility] of Occupat ional [facility] - Occupational Stress Questionnaire Answer Date Recorded [...] place to sleep or slept in a detention (including now)? No 08/26/2023 Sex and Gender Information Value Date Recorded Sex Assigned at Not on file Legal Sex Male 6:26 AM SALON COORDINATOR Gender Identity Not on file Sexual Orientation [...] 10:41 AM CDT Height 175.3 cm (5' 9) 01/26/2024 10:4 1 AM CDT Body Mass [...] 11/28/1999 ZOSTER VACCINE (1 of 2) 11/28/1999 DIABETES RETINOPATHY SCREENING 08/27/2023 DIABETES-FOOT EXAM WITH MONOFILAMENT 08/27/2023 COVID-19 VACCINE ( season) 2024 02/19/2023, 02/27/2022, 12/02/2021, Additional history exists DIABETES-HGB A1C 02/27/2024 08/27/2023, 04/19/2019 DEPRESSION SCREENING 05/31/2024 DIABETES - URINE PROTEIN SCREENING 05/31/2024 DIABETES-SERUM CREATININE 08/29/20242023, 08/29/2023, 08/28/2023, Additional history exists Respiratory Syncytial Virus (RSV) Vaccine Pt: or over 60 yrs (1 - 1-dose 75+ series) 2024 INFLUENZA VACCINE (#1) 2025 3, 02/27/2022, 03/03/2021, Additional history exists HEPATITIS B [...] 7 - 26 mg/dL [facility]/30[facility]2023 6:[facility] Creatinine 1.13 0.71 - 1.16 mg/dL 08/30/2023 6:51 AM T [facility] Sodium 142 136 - 145 mmol/L 08/30/2023 6:51 AM [facility] Potassium 4.2 3.5 - 4.5 mmol/L 08/30/2023 6:51 AM [facility] Chloride 109(H) 98 - 107 mmol/L 08/30/2023 6:51 AM [facility] CO2 23 22 - 29 mmol/L 08/30/2023 6:51 AM [facility] Glucose 104 70 - 115 mg/dL 08/30/2023 6:51 AM [facility] Calcium 9.2 8.4 - 10.2 mg/dL 08/30/2023 6:51 AM [facility] Protein Total 5.8(L) 6.0 - 8.3 g/dL 08/30/2023 6:51 AM [facility] Albumin 2.9(L) 3.4 - 5.0 g/dL 08/30/2023 6:51 AM [facility] Bilirubin Total 0.3 0.2 - 1.2 mg/dL 08/30/2023 6:51 AM [facility] Alkaline Phosphatase 55 40 - 150 U/L 08/30/2023 6:51 AM [facility] ALT 22 5 - 55 U/L 08/30/2023 6:51 AM [facility] AST 21 5 - 34 U/L 08/30/2023 6:51 AM [facility] Anion Gap 10 6 - 16 08/30/2023 6:51 AM [facility] BUN/Creatinine Ratio 18 7 - 23 08/30/2023 6:51 AM [facility] Osmolality Calculated 297(H) 275 - 295 mOsm/kg 08/30/2023 6:51 AM [facility] Albumin/Globulin Ratio 1.0(L) 1.1 - 2.3 08/30/2023 6:51 AM [facility] eGFR by CKD-EPI 69(L) >=90 mL/min/1.7 3 m2 08/30/2023 6:51 AM [facility] Blood BLOOD SPECIMEN / Unknown Lab Venipuncture / Unknown 08/30/2023 4:47 AM CDT 08/30/2023 5:52 AM T us Arianna Pennington PA-C LAB - CHEMISTRY ORDERABLES Final Result [facility] [address] [place] [address], [facility] [phone] * (ABNORMAL) HEMOGLOBIN A1C (08/27/2023 5:06 AM CDT) Hemoglobin A1c 6.2(H) <=5.6 % 08/27/2023 9:14 AM CDT [facility] Estimated Average Glucose 131 mg/dL 08/27/2023 9:14 AM CDT [facility] Comment: HbA1c Interpretation: Normal : < 5.7% Pre-diabetes: 5.7-6.4% Diabetes: Equal to or greater than 6.5% Test results diagnostic of diabetes should be repeated for confirmation. Treatment target values recommended by ADA and other clinical organizations should be used to evaluate metabolic control in patients. Reference: [place] Diabetes Association, Standards of Care in Diabetes -2020 In patients 70 years and older consider HbA1c target range of 7.0-7.5% (Reference: Lew Baker et al. JAMDA. 2012) The Sebia assay for the measurement of HbA1c is a National Glycohemoglobin Standardization Program (NGSP) certified method. Blood BLOOD SPECIMEN / Unknown Lab Venipuncture / Unknown 08/27/2023 5:06 AM CDT 08/27/2023 6:07 AM CDT us Susan Hamilton MD LAB - CHEMISTRY ORDERABLES Fi nal Result [facility] [address] [place] [phone], [facility] [phone] from Last 3 Months or Most Recently Relevant to Health Maintenance Insurance [facility] [employer] MEDICARE Advance Directives * Full Code (Latest Code Status on File) Date Activated Date Inactivated Comments 08/26/2023 6:43 PM 08/30/2023 3:28 PM Care Teams Nougat Cutter Machine Relationship Specialty Start Date End Date Jean Pierre Landry MD [address] [place] [address] PCP - General 03/20/21
--- OUTSIDE RECORDS SUMMARY | 2024-12-12 10:53 | XMS_ITS | Encounter Summary ---
Author Organization [facility] Address [address] [place] [address] Care Team Providers Care Digital Sales Assistant Name Role Phone Luis King MD Primary Care Provider [phone] Encounter Details Date Type Department Care Team (Late Contact Info) Description 10/14/2006 Outpatient Historical [facility] ([facility]) [address] 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 Gender Identity Not on file Sexual Orientation Not on file documented as of this encounter Plan of Treatment Upcoming Encounters Date Type Department Care Team (Late Contact Info) Description 01/30/2025 10:30 AM CDT Office Visit [facility] - [facility] [address] [facility] [address] [place] [address] Rodri Amador MD [address] [facility] [address] [place], [place] [id number] documented as of this encounter Visit Diagnoses Not on filedocumented in this encounter Care Teams Digital Sales Assistant Relationship Specialty Start Date End Date Luis King MD [address] [place] [phone] PCP - General 05/15/08 documented as of this encounter
--- OUTSIDE RECORDS SUMMARY | 2024-12-12 10:53 | XMS_ITS | Encounter Summary ---
Author Organization [facility] Address [address] [place] [address] Care Team Providers Care Marriage Performer Name Role Phone Luis King MD Primary Care Provider [phone] Encounter Details Date Type Department Care Team (Latest Contact Info) Description 06/07/2008 Inpatient Historical HIS PATIENT IN A BED Eduard Shearer MD 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 Gender Identity Not on file Sexual Orientation Not on file documented as of this encounter Plan of Treatment Upcoming Encounters Date Type Department Care Team (Late st Contact Info) Description 01/30/2025 10:30 AM CDT Office Visit [facility]3] Heart and Vascular - [facility] [address] [place] [address] Rodri Amador MD [address] [place] [address] documented as of this encounter Procedures Procedure Name Priority Date/Time Associated Diagnosis Comments CBC WITH DIFFERENTIAL Stat 06/08/2008 1:17 PM [employer] LIPID PANEL Timed Study 06/08/2008 8:45 AM [employer] COMPREHENSIVE METABOLIC PANEL Timed Study 06/08/2008 8:45 AM [employer] TROPONIN Routine 06/08/2008 6:06 AM [employer] BASIC METABOLIC PANEL Routine 06/08/2008 6:06 AM [employer] documented in this encounter Results * (ABNORMAL) CBC WITH DIFFERENTIAL (06/08/2008 1:17 PM [employer]) MCV 91.1 82.0 - 99.0 fL [facility] PLATELETS 149 140 - 350 K/uL [facility] HEMOGLOBIN 15.4 13.6 - 16.5 g/dL [facility] RDW 13.1 11.5 - 14.5 % [facility] WBC 10.5(H) 4.0 - 9.8 K/uL [facility] MCH 31.2 27.2 - 32.6 pg [facility] MPV 10.7 9.3 - 12.4 fL [facility] HEMATOCRIT 45.0 40.0 - 48.0 % [facility] RDW-STDEV 43.1 37.1 - 48.7 fL [facility] RBC 4.94 4.50 - 5.40 M/uL [facility] MCHC 34.2 31.5 - 35.5 % [facility] NEUTROPHIL ABSOLUTE 7.32(H) 1.90 - 7.00 K/uL [facility] EOSINOPHILS 4 0 - 7 % [facility] EOSINOPHIL ABSOLUTE 0.40 0.00 - 0.70 K/uL [facility] LYMPHOCYTES 21 16 - 45 % [facility] LYMPHOCYTE ABSOLUTE 2.16 0.70 - 4.50 K/uL [facility] BASOPHILS 0 0 - 2 % [facility] BASOPHILS ABSOLUTE 0.03 0.00 - 0.20 K/uL [facility] MONOCYTES 6 3 - 13 % [facility] MONOCYTE ABSOLUTE 0.63 0.10 - 1.30 K/uL [facility] NEUTROPHILS 69 45 - 70 % [facility] Blood specimen (specimen) 06/08/2008 1:17 PM [employer] 06/08/2008 1:30 PM [employer] Narrative INTERFACE SYSTEM - 06/08/2008 1:36 PM [employer] off of blood in lab if avail. us Jos Richter MD HEMATOLOGY ORDERABLES Edited INTERFACE SYSTEM Refer to clinic/hospital department [facility] CLIA# [id number] [address] [place], [place] [address] * (ABNORMAL) COMPREHENSIVE METABOLIC PANEL (06/08/2008 8:45 AM [employer]) SODIUM 137 135 - 145 mmol/L [facility] GLUCOSE 114(H) 65 - 99 mg/dL [facility] BILIRUBIN TOTAL 0.6 0.2 - 1.0 mg/dL [facility] ALKALINE PHOSPHATASE 104 40 - 129 U/L [facility] CHLORIDE 103 96 - 108 mmol/L [facility] CALCIUM 9.2 8.6 - 10.2 mg/dL [facility] POTASSIUM 4.3 3.5 - 4.9 mmol/L [facility] BUN 19 6 - 20 mg/dL [facility] TOTAL PROTEIN 7.0 6.3 - 8.6 g/dL [facility] CO2 27 22 - 30 mmol/L [facility] CREATININE 0.93 0.67 - 1.17 mg/dL [facility] ALT 80(H) 0 - 41 U/L [facility] ALBUMIN 4.4 3.4 - 4.8 g/dL [facility] AST 36 12 - 38 U/L [facility] GFR, >60 >=60 mL/min/1. 7 sq meter [facility] GFR >60 >=60 mL/min/1. 7 sq meter [facility] Comment: Modification of Diet in Renal Disease (MDRD) study formula. Estimated GFR rate interpretative information for both Americans and non- Americans is available on the [facility] Intranet at: [email or web address] Select: Lab Policies and Procedures Select: Reference Ranges - GFR Blood specimen (specimen) 06/08/2008 8:45 AM [employer] 06/08/2008 8:51 AM [employer] Jos Richter MD CHEMISTRY ORDERABLES Edited INTERFACE SYSTEM Refer to clinic/hospital department [facility] CLIA# [id number] [address] [place] [address] * (ABNORMAL) LIPID PANEL (06/08/2008 8:45 AM [employer]) CHOLESTEROL 178 100 - 199 mg/dL [facility] CHOL/HDL RATIO 3.2 2.0 - 5.0 [facility] TRIGLYCERIDE 290(H) 10 - 149 mg/dL [facility] HDL 55 40 - 59 mg/dL [facility] LDL CALCULATED 65 <=99 mg/dL [facility] LIPID PANEL COMMENT See Below [facility] Comment: The adult ATP and pediatric NCEP classifications for lipids are available on the [facility] Intranet at: [email or web address] Select: Lab Policies and Procedures,Current Select: Lipid Panel Interpretation Blood specimen (specimen) 06/08/2008 8:45 AM [employer] 06/08/2008 8:51 AM [employer] Jos Richter MD CHEMISTRY ORDERABLES Edited INTERFACE SYSTEM Refer to clinic/hospital department [facility] CLIA# [id number] [address] [facility] [place] [address] * (ABNORMAL) BASIC METABOLIC PANEL (06/08/2008 6:06 AM [employer]) BUN 19 6 - 20 mg/dL [facility] CHLORIDE 104 96 - 108 mmol/L [facility] GLUCOSE 104(H) 65 - 99 mg/dL [facility] SODIUM 137 135 - 145 mmol/L [facility] CALCIUM 9.0 8.6 - 10.2 mg/dL [facility] CO2 25 22 - 30 mmol/L [facility] CREATININE 0.90 0.67 - 1.17 mg/dL [facility] POTASSIUM 4.0 3.5 - 4.9 mmol/L [facility] GFR, >60 >=60 mL/min/1. 7 sq meter [facility] GFR >60 >=60 mL/min/1. 7 sq meter [facility] Comment: Modification of Diet in Renal Disease (MDRD) study formula. Estimated GFR rate interpretative information for both Americans and non- Americans is available on the [facility] Intranet at: [email or web address] Select: Lab Policies and Procedures Select: Reference Ranges - GFR Blood specimen (specimen) 06/08/2008 6:06 AM [employer] 06/08/2008 6:17 AM [employer] Eduard Shearer MD CHEMISTRY ORDERABLES Edited Performing Organization Address City/[facility] Co de Phone Number INTERFACE SYSTEM Refer to clinic/hospital department [facility] CLIA# [id number] [address] [place] [address] * TROPONIN (06/08/2008 6:06 AM [employer]) TROPONIN T <0.01 <=0.03 ng/mL [facility] TROPONIN T INTERP Negative [facility] Blood specimen (specimen) 06/08/2008 6:06 AM [employer] 06/08/2008 6:17 AM [employer] Eduard Shearer MD CHEMISTRY ORDERABLES Edited Performing Organization Address [facility] Co de Phone Number INTERFACE SYSTEM Refer to clinic/hospital department [facility] CLIA# [id number] [address] [place] [address] documented in this encounter Visit Diagnoses Diagnosis Intermediate coronary syndrome (CMS/[facility]) Intermediate coronary syndrome Coronary atherosclerosis of [place] coronary artery Automatic implantable cardiac defibrillator in situ Unspecified essential hypertension documented in this encounter Care Teams Marriage Performer Relationship Specialty Start Date End Date Luis King MD [address] [place] [phone] PCP - General 05/15/08 documented as of this encounter
--- OUTSIDE RECORDS SUMMARY | 2024-12-12 10:53 | XMS_ITS | Encounter Summary ---
Author Organization [facility] Address [address] [place] [address] Care Team Providers Care Warehouse Insulation Worker Name Role Phone Luis King MD Primary Care Provider Encounter Details Date Type Department Care Team (Late st Contact Info) Description 04/26/2007 Outpatient Historical [facility] 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 Gender Identity Not on file Sexual Orientation Not on file documented as of this encounter Plan of Treatment Upcoming Encounters Date Type Department Care Team (Late st Contact Info) Description 01/30/2025 10:30 AM CDT Office Visit [facility] Heart and Vascular - [address] [place] [address] Rodri Amador MD [address] [place] [address] documented as of this encounter Visit Diagnoses Not on filedocumented in this encounter Care Teams Warehouse Insulation Worker Relationship Specialty Start Date End Date Luis King MD [address] [place] [phone] PCP - General 05/15/08 documented as of this encounter
--- OUTSIDE RECORDS SUMMARY | 2024-12-12 10:53 | XMS_ITS | Clinical Summary ---
Author Organization [facility] Address [address] [facility] [place] [address] Phone Care Team Providers Care Supervisor Sintering Plant Name Role Phone Luis King MD Primary Care Provider [phone] Allergies Active Allergy Reactions Criticality Noted Date [...] 40 mg tabletIndications:C oronary artery disease involving [place]oul[place] coronary artery of [place] heart without angina pectoris,Mixed hyperlipidemia TAKE 1 TABLET BY MOUTH EVERY DAY AT BEDTIME 90 Tablet 1 5 Active Active Problems Patient Care Coordination No te Formatting of this note migh t be different from the original. Partition Assembler- Dr. Perry Low Office Rodri Amador MD- 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 Gender Identity Not on file Sexual Orientation Not on file Occupation Industry Job Start Date Job End Date Not on file Not on file Not on file Not on file Last Filed Vital Signs Vital Sign Reading Time Taken Comments Blood Pressure 124/64 01/25/2024 9:28 AM CDT Pulse 65 01/25/2024 9:28 AM CDT Temperature 36.5 C (97.7 F) 04/29/2018 3:00 PM AUTOMOBILE BODY REPAIR CHIEF Respiratory Rate 20 04/29/2018 3:00 PM AUTOMOBILE BODY REPAIR CHIEF Oxygen Saturation 98% 01/25/2024 9:28 AM CDT [...] [facility] - [facility] [address] [place] [address] Rodri Amador MD [address] [place] [address] Health Maintenance Due Date Last Done Comments [...] 12/25/2020 HEMOGLOBIN A1C Routine 04/19/2019 2:28 AM AUTOMOBILE BODY REPAIR CHIEF from Last 3 Months or Most Recently Relevant to Health Maintenance Results * LIPID PANEL (12/25/2020) Blood us Abstract Provider CHEMISTRY ORDERABLES Final Res ult Performing Organization Address [facility]/ZIP Co de Phone Number [facility] CLIA# [id number] [address] [place] [address], [place] [address] * (ABNORMAL) HEMOGLOBIN A1C (04/19/2019 2:28 AM AUTOMOBILE BODY REPAIR CHIEF) HEMOGLOBIN A1C 6.7(H) <5.7 % of total Hgb [facility] Comment: For someone without known diabetes, [...] of diabetes for children. 04/19/2019 2:28 AM AUTOMOBILE BODY REPAIR CHIEF Historical Provider CHEMISTRY ORDERABLES Edited Result - Final [employer] [facility] [address] [place] [address] from Last 3 Months or Most Recently Relevant to Health Maintenance Insurance [facility] MEDICARE PART A AND B Advance Directives For more information, please contact: [phone] * Full Code (Latest Code Status on File) Date Activated Date Inactivated Comments 04/28/2018 7:27 PM 04/29/2018 8:59 PM Care Teams Supervisor Sintering Plant Relationship Specialty Start Date End Date Luis King MD [address] [place], [place] [phone] PCP - General 05/15/08
--- OUTSIDE RECORDS SUMMARY | 2024-12-12 10:53 | XMS_ITS | Encounter Summary ---
Author Organization [facility] Address [address] [place] [address] Care Team Providers Care Business Development Manager Name Role Phone Jean Pierre Landry MD Primary Care Provider Encounter Details Date Type Department Care Team (Late st Contact Info) Description 02/16/2022 Lab Requisition [facility] [address] [place] [phone] Herman Rebolledo MD [address] [place] [address] Social History Tobacco Use Types Packs/Day Years Used Date Smoking Tobacco: Never Assessed Sex and Gender Information Value Date Recorded Sex Assigned at Not on file 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 Sex Male 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 Gender Identity Not on file Sexual Orientation Not on file documented as of this encounter Plan of Treatment Not on file documented as of this encounter Procedures Procedure Name Priority Date/Time Associated Diagnosis Comments DERMATOPATHOLOGY Routine 02/13/2022 12:0 0 AM CDT documented in this encounter Results * DERMATOPATHOLOGY (02/13/2022 12:00 AM CDT) Case Report Dermatopathology Report Case: [id number] Authorizing Provider: Herman Rebolledo MD Collected: 02/13/2022 12:00 AM Ordering Location: [facility] Received: 02/16/2022 03:40 PM Pathologist: Lizy Mata MD Specimens: A) - Skin, right nasal bridge B) - Skin, mid back C) - Skin, left hand 2 3:43 PM T DERMATOPATHOLOGY LABORATORY Final Diagnosis Specimen A. SKIN, right nasal bridge: BASAL CELL CARCINOMA, NODULAR TYPE (C44.311) Specimen B. SKIN, mid back: NEUROFIBROMA (D36.10) Specimen C. SKIN, left hand: SQUAMOUS CELL CARCINOMA IN SITU, VERRUCOUS-HYPERTROP HIC TYPE, PRESENT AT THE BASE OF THE SPECIMEN (D04.62) (see microscopic description and comment) 2 3:43 PM T DERMATOPATHOLOGY LABORATORY at 1543 CDT Clinical History A: BCC vs. SCC. Path# [id number] B: Nevus vs. Other. Path# [id number] C: BCC vs. SCC. Path# [id number] 2 3:43 PM T DERMATOPATHOLOGY LABORATORY Gross Description Specimen A: Received is one formalin filled container labeled with the patient's name and designated right nasal bridge. The specimen consists of a shave biopsy measuring 6p6g7mi. Jar 0. Specimen B: Received is one formalin filled container labeled with the patient's name and designated mid back. The specimen consists of a shave biopsy measuring 0y9v2ww and it is bisected. Jar 0. Specimen C: Received is one formalin filled container labeled with the patient's name and designated left hand. The specimen consists of a shave biopsy measuring 8t2u4ds and it is bisected. Jar 0. 2 3:43 PM T DERMATOPATHOLOGY LABORATORY Microscopic Description Specimen A. SKIN, [...] characteristic determined by the Dermatopathology Laboratory at [facility], directed by Dr. Magdaleno Baer. These tests need not be, and therefore are not, approved by the [place] Food and Drug Administration. The tests are used for clinical purposes. Billing Codes Specimen Charges Stain Charges 39404 63207 19369 1 1 1 2 3:43 PM CDT [...] PATHOLOGY/CYTOLOGY ORDER JONNA Final Result DERMATOPATHOLOGY LABORATORY [facility] - Department of Dermatology [address], [address] [phone] documented in this encounter Visit Diagnoses Not on filedocumented in this encounter Care Teams Business Development Manager Relationship Specialty Start Date End Date Jean Pierre Landry MD [address] [place] [address] PCP - General 03/20/21 documented as of this encounter
--- OUTSIDE RECORDS SUMMARY | 2024-12-12 10:53 | XMS_ITS | Encounter Summary ---
Author Organization [facility] Address [address] [place] [address] Care Team Providers Care Social Services Assistant Name Role Phone Luis King MD Primary Care Provider [phone] Encounter Details Date Type Department Care Team (Late st Contact Info) Description 05/05/2007 Outpatient Historical [facility] 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 Gender Identity Not on file Sexual Orientation Not on file documented as of this encounter Plan of Treatment Upcoming Encounters Date Type Department Care Team (Late st Contact Info) Description 01/30/2025 10:30 AM CDT Office Visit [facility] Heart and Vascular - [address] [place] [address] Rodri Amador MD [address] [place] [address] documented as of this encounter Visit Diagnoses Not on filedocumented in this encounter Care Teams Social Services Assistant Relationship Specialty Start Date End Date Luis King MD [address] [place] [phone] PCP - General 05/15/08 documented as of this encounter
--- OUTSIDE RECORDS SUMMARY | 2024-12-12 10:53 | XMS_ITS | Encounter Summary ---
Author Organization [facility] Address [address] [place] [address] Care Team Providers Care Accounts Manager Name Role Phone Luis King MD Primary Care Provider [phone] Encounter Details Date Type Department Care Team (Late Contact Info) Description 10/14/2006 Outpatient Historical [facility] 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 Gender Identity Not on file Sexual Orientation Not on file documented as of this encounter Plan of Treatment Upcoming Encounters Date Type Department Care Team (Late st Contact Info) Description 01/30/2025 10:30 AM CDT Office Visit [facility] - [facility] [address] [place] [phone] Rodri Amador MD [address] [place], [place] [phone] documented as of this encounter Visit Diagnoses Not on filedocumented in this encounter Care Teams Accounts Manager Relationship Specialty Start Date End Date Luis King MD [address] [place] [phone] PCP - General 05/15/08 documented as of this encounter
--- OUTSIDE RECORDS SUMMARY | 2024-12-12 10:53 | XMS_ITS | Clinical Summary ---
Author Organization [facility] [address] [place] Address [address] [place] [address] Care Team Providers Care Hot Iron Worker Name Role Phone Jean Pierre Landry MD Primary Care Provider Allergies No known active allergies Medications FeroSuL [...] the hip level. Current arterial Doppler from [facility] shows normal ABIs. 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 [place] [address] [place] [address] Atherosclerosis of mechoopda artery of both lower extremities with intermittent claudication Discharge Disposition: Discharge to home or self care 09/27/2024 10:15 AM CDT Office Visit [facility] at [address] [address] Ami Mitchell NP Mixed hyperlipidemia (Primary Dx); Peripheral vascular disease, unspecified; Primary hypertension; Peripheral vascular disease; Type 2 diabetes mellitus with diabetic microalbuminuria, without long-term current use of insulin (HCC) 09/27/2024 Orders Only [facility] at [address] [address] Leonard Jean MD Atherosclerosis of mechoopda artery of both lower extremities with intermittent claudication (Primary Dx) from Last 3 Months Social History Tobacco Use Types Packs/Day Years Used Date Smoking Tobacco: Never Assessed Sex and Gender Information Value Date Recorded Sex Assigned at Not on file Legal Sex Male 10:04 AM 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 Gender Identity Not on file Sexual Orientation [...] 10/18/2024 10:13 AM CDT Plan of Treatment Health Maintenance Due Date Last Done Comments Albumin Creatinine Ratio, Urine 1949 Colon Cancer Screening-Colonoscopy 1949 Depression Screening 1949 Fall Risk Assessment 1950 Hepatitis C Screening 1950 eGFR 1949 Dilated Eye Exam 1949 Foot Exam 1949 Lipid Panel 1949 Hepatitis B Screening 11/28/1967 Zoster Vaccine (2 of 3) 05/08/2014 03/13/2014 Well Visit 65+ 2014 Hemoglobin A1C 02/27/2024 08/27/2023, 04/19/2019 Influenza Vaccine (#1) 2025 , 04/03/2019, 03/28/2018, Additional history exists Pneumococcal vaccine 65+ (3 of 3 - PCV20 or PCV21) 02/28/2025 02/29/2020, 04/13/2019, 02/28/2019, Additional history exists DTaP/Tdap/Td Vaccine (3 - Td or Tdap) 11/19/2031 11/18/2021, 08/29/2007 Abdominal Aortic Aneurysm (A AA) Screen Completed 10/11/2024, 02/26/2023 Procedures Procedure Name Priority Date/Time Associated Diagnosis Comments CTA ABDOMEN PELVIS W WO CONTRAST Schedule Routine, Read Routine (OP Routine) 10/11/2024 9:55 AM CDT Atherosclerosis of mechoopda artery of both lower extremities with intermittent claudication from Last 3 Months Results * CTA Abdomen Pelvis (10/11/2024 9:55 AM CDT) Anatomical Region Laterality Modality Body N/A Computed Tomogra phy 10/16/2024 2:01 PM CDT Narrative 10/16/2024 2:16 PM CDT EXAM DESCRIPTION: CTA ABDOMEN PELVIS REASON FOR STUDY: PVD Patient with PVD, atherosclerosis of mechoopda artery of both lower extremities with intermittent [...] Shana Cohen M.D. FT T: Report ID: [id number] Reading Location: [place] [address] Procedure Note Shana Martel MD - 10/16/2024 EXAM DESCRIPTION: CTA ABDOMEN PELVIS REASON FOR STUDY: PVD Patient with PVD, atherosclerosis of mechoopda artery of both lowerextremities with intermittent claudication [...] Shana Cohen M.D. FT T: Report ID: [id number] Reading Location: [place] [address] Leonard Jean MD IMG CT PROCEDURES Final Result from Last 3 Months Insurance MEDICARE [facility] Address: [facility] [id number] [place] [address] [facility] [place] [id number] Care Teams Hot Iron Worker Relationship Specialty Start Date End Date Jean Pierre Landry MD [address] [facility] [address] [place] [address] [place] [address] PCP - General Family Practice 07/13/24
--- OUTSIDE RECORDS SUMMARY | 2024-12-12 10:53 | XMS_ITS | Clinical Summary ---
Author Organization [facility] Address [address], [facility] [address] [place] [address] Phone Care Team Providers Care Surgical Supplies Sterilizer Name Role Phone Jean Pierre Landry MD [...] 99.8 kg (220 lb) 07/19/2019 9:00 AM NEWS REEL CAMERAMAN Height 172.7 cm (5' 8) 07/19/2019 9:00 AM NEWS REEL [facility]ER[facility] Body Mass Index 33.45 07/19/2019 9:00 AM NEWS REEL [facility]ER[facility] Plan of Treatment Health Maintenance Due Date [...] to Health Maintenance Insurance MEDICARE Care Teams Surgical Supplies Sterilizer Relationship Specialty Start Date End Date Jean Pierre Landry MD PCP - General Family Medicine 07/04/19 Rodri Amador MD [address] [facility] [address] [place] [address] 07/04/19
== END 2024-12-12 10:32 | disposition home or self-care (01) ==
LOC: ANHGOSHLAB 10:33
PROVIDERS: PCP Family Medicine
DX: H20.012 Primary iridocyclitis, left eye (principal)
CPT/HCPCS: 86480

== ENCOUNTER 2025-01-31 08:45 | Outpatient (CLI) | payer MEDICARE, OTHER, SELFPAY ==
--- NOTE | ~2025-01-31 | CT_ITS ---
EXAMINATION: CT lung screening DATE: 01/31/2025 09:13 INDICATION: Z87.891 - Personal history of nicotine dependence TECHNIQUE: Computed tomography (CT) of the chest was performed without intravenous contrast. Additional 3D reconstructions utilizing coronal maximum intensity projection (MIP) were performed. The dose-length product was 234.12 mGy-cm. COMPARISON: 08/26/2023 and 03/02/2023 FINDINGS: Mild emphysema. Chronic thin linear band of discoid atelectasis/scarring extending craniocaudally along the subpleural posterolateral left lower lobe. There are few scattered <2 mm nodules in the right upper and left lower lobes. Or enlarging pulmonary nodules, pneumonia, pulmonary edema or other pulmonary infiltrates. No pleural effusion. Heart size normal. Atherosclerotic coronary artery calcific a cyst. No pericardial effusion. Thoracic aorta is normal in caliber. No pathologically enlarged thoracic lymphadenopathy. Cholecystectomy clips in the gallbladder fossa. 1.4 cm soft tissue density exophytic lesion at the upper pole the left kidney. Mild to moderate thoracic spondylosis. IMPRESSION: 1. Lung-RADS category 2: Benign appearance or behavior. Continue annual screening with noncontrast low-dose chest CT in 12 months. 2. Indeterminate 1.4 cm exophytic lesion at the upper pole the left kidney which could represent a proteinaceous/hemorrhagic cyst or solid neoplasm. Recommend further evaluation with pre and postcontrast MRI or CT. Reviewed, dictated and finalized at location A. IMPRESSION: 1. Lung-RADS category 2: Benign appearance or behavior. Continue annual screeni ng with noncontrast low-dose chest CT in 12 months. 2. Indeterminate 1.4 cm exophytic lesion at the upper pole the left kidney whic h could represent a proteinaceous/hemorrhagic cyst or solid neoplasm. Recommend further evaluation with pre and postcontrast MRI or CT.
== END 2025-01-31 08:46 | disposition home or self-care (01) ==
LOC: GOSHIMG 08:46
PROVIDERS: PCP Family Medicine; Visit Provider Family Medicine
DX: Z12.2 Encounter for screening for malignant neoplasm of respiratory organs (principal); Z87.891 Personal history of nicotine dependence
CPT/HCPCS: 71271

== ENCOUNTER 2025-02-12 07:55 | Day surgery (SDC) | payer MEDICARE, OTHER, SELFPAY ==
[2025-01-23 13:19] VITALS: BMI 33.3
--- NOTE | ~2025-02-12 | XR_ITS ---
XR fluoroscopy no charge Indication:bilateral L4-5 transforaminal epidural steroid injection TECHNIQUE: Fluoroscopy used during bilateral L4-5 transforaminal epidural steroid injection performed by [Andres Galvan MD] on 02/12/2025. 49 seconds of fluoroscopy with 47 fluoroscopic images captured. FINDINGS: Correlate with procedure note. IMPRESSION: Fluoroscopy used during bilateral L4-5 transforaminal epidural steroid injection. Reviewed, dictated and finalized at location O. IMPRESSION: Fluoroscopy used during bilateral L4-5 transforaminal epidural ster oid injection.
[2025-02-12 08:15] VITALS: BP 135/68; PULSE 66; RESP 18; TEMP 36.9; O2SAT 97
--- NOTE | 2025-02-12 08:18 | WPDHPUPDATE1 ---
History and Physical Update Update Date/Time: 02/12/25 08:18 History and Physical has been reviewed, including an updated exam of the patient. There are NO changes in the patient's condition. Risks, benefits, and alternatives have been discussed and questions answered. Patient agrees to proceed with procedure.
--- NOTE | 2025-02-12 08:19 | P.OP_ITS ---
Procedure Note - Detailed Date of Procedure 02/12/25 Pre-op Diagnosis Lumbar radiculopathy, lumbar spinal stenosis Post-op Diagnosis Same Procedure Performed Bilateral Lumbar Transforaminal Epidural Steroid Injection under Fluoroscopic Gu idance and with Contrast Control at L4-5. Surgeon Andres Galvan MD Anesthesia Local Description of Procedure INFORMED CONSENT: Risks, benefits and alternatives to the procedure were discussed in detail with the patient who expressed explicit understanding and consent to proceed. Patient was informed verbally and in written form regarding the risks associated with the procedure including the low risk of serious infection, bleeding/bruising, allergic reaction, nerve or organ injury, paralysis, procedural site pain or discomfort, worsening pain and/or mobility, failure to treat and/or disfigurement. The patient expressed explicit understanding and consent to proceed. All materials required for the procedure were available prior to procedure start. Site and side was marked prior to procedure and confirmed in the presence of the patient. PROCEDURE IN DETAIL: The patient was brought to the procedural suite and placed in the prone position. Patient was made comfortable with use of pillows under the head/chest, hips and ankles. Skin overlying the injection site was prepared broadly with ChloraPrep applicator and draped in a sterile manner. Aseptic technique was employed throughout. The endplates of the vertebral body at the site of interest were aligned in the AP view. Ipsilateral oblique angulation was utilized to better visualize the neuroforamen of interest. Local anesthesia was established by infiltration with approximately 5 mL of 0.5% PF lidocaine via a 1-1/2 inch 27-gauge needle. A 22-gauge 5.0 inch Herman (pencil point) spinal needle was advanced until the needle approached the 6 o'clock position on the pedicle just superior to the exiting nerve root. on the right at L4-5. Lateral view was utilized to confirm appropriate position of the needle tip within the superior and posterior portion of the respective foramen. In an AP view, 1 mL of Omnipaque 300 contrast medium was injected after negative aspiration for CSF, blood or other bodily fluid, showing appropriate neurogram without evidence of intravascular or intrathecal spread of contrast. Digital subtraction imaging was used with an additional 1ml of the same contrast medium to confirm absence of intravascular contrast spread. A 1mL solution containing 5 mg of dexamethasone was injected after negative repeat aspiration. Appropriate spread of the injectate was confirmed with washout of previously injected contrast. No parasthesias were elicited. Needle was removed completely intact without difficulty. The same exact procedure was repeated for all remaining levels on the contralateral side, left L4-5 neuroforamen, modified as necessary to accommodate for the new target location with identical findings and results and no evidence of complication. Images were saved and documented in the patient chart. Patient's skin was cleaned and sterile bandage applied. The patient tolerated the procedure well. The patient was transported to the recovery area in stable condition where they were observed for an appropriate amount of time prior to discharge, without evidence of complication. The patient was instructed to avoid excessive activity for the next 48 hours, including climbing and frequent use of stairs. Showers only for 48 hours. They were instructed not to drive or operate heavy machinery for 24 hours. They are to monitor for severe headaches, fevers, chills, night sweats, erythema/swelling at the site or any other signs of infection, bleeding/bruising, bowel or bladder changes as well as new pain, weakness or numbness in the upper or lower extremity. Should they notice these changes, they are instructed to call our of fice immediately or report directly to the nearest Emergency Department if no answer or if after posted office hours. COMPLICATIONS: None COMMENTS: None CONTRAST WASTED: 26 mL Omnipaque 300. STEROID WASTED: 0 mg of dexamethasone. Complications No immediate complications Condition Stable Disposition Same day [facility] Billing Surgery - Charge Forward: Surgery Billing
--- OUTSIDE RECORDS SUMMARY | 2025-02-12 08:20 | XMS_ITS | Encounter Summary ---
Author Organization [facility] Address [address] [place] [address] Care Team Providers Care Safety And Occupational Health Manager Name Role Phone Jean Pierre Landry MD Primary Care Provider Encounter Details Date Type Department Care Team (Late st Contact Info) Description 10/14/2006 Outpatient Historical [facility] [place] 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 Gender Identity Not on file Sexual Orientation Not on file documented as of this encounter Plan of Treatment Upcoming Encounters Date Type Department Care Team (Late st Contact Info) Description 04/18/2025 10:30 AM GEOLOGICAL SCIENCE TEACHER Office Visit [facility] Oncology and Hematology - [place] [address] [facility] [address] [address] Fortino Villaseñor MD [address] [facility] [address] [place] [address] documented as of this encounter Visit Diagnoses Not on filedocumented in this encounter Care Teams Safety And Occupational Health Manager Relationship Specialty Start Date End Date Jean Pierre Landry MD [address] [facility] [place] [address] PCP - General Family Practice 12/25/24 documented as of this encounter
--- OUTSIDE RECORDS SUMMARY | 2025-02-12 08:20 | XMS_ITS | Clinical Summary ---
Author Organization [facility] Address [address] [facility] [place] [address] Care Team Providers Care Hiv Cts Specialist Name Role Phone Jean Pierre Landry MD Primary Care Provider Source Comments [facility],non-owned Affiliates and Associated Physician Practices is amultiple site organization consisting of ambulatory clinics and hospital sitesin [place], [place], [place] and [place]. This disclosure is being madepursuant to the Care Everywhere program and may not contain all information available regarding this patient. Last updated 18.[facility] [employer] Allergies Active Allergy Reactions Criticality Noted Date [...] hypertension 08/27/2023 Coronary artery disease invo lving [place] coronary artery of [place] heart without angina pectoris 08/27/2023 Type 2 [...] Recorded Patient Health Questionnaire-2 Score 3 12/16/2023 [facility] - Occupational Stress Questionnaire Answer Date [...] place to sleep or slept in a jail (including now)? 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 Gender Identity Not on file Sexual [...] SCREENING 08/27/2023 DIABETES-FOOT EXAM WITH MONOFILAMENT 08/27/2023 DIABETES-HGB A1C 02/27/2024 08/27/2023, 04/19/2019 DEPRESSION SCREENING 05/31/2024 DIABETES - URINE PROTEIN SCREENING 05/31/2024 DIABETES-SERUM CREATININE 08/29/20242023, 08/29/2023, 08/28/2023, Additional history exists Respiratory Syncytial Virus (RSV) Vaccine Pt: or over 60 yrs (1 - 1-dose 75+ series) 2024 COVID-19 VACCINE (2024- season) 2025 02/19/2023, 02/27/2022, 12/02/2021, Additional history exists INFLUENZA VACCINE (#1) 2025 3, 02/27/2022, 03/03/2021, [...] 7 - 26 mg/dL [facility] Creatinine 1.13 0.71 - 1.16 mg/dL 08/30/2023 6:51 AM T [facility] Sodium 142 136 - 145 mmol/L 08/30/2023 6:51 AM [facility] Potassium 4.2 3.5 - 4.5 mmol/L 08/30/2023 6:51 AM [facility] Chloride 109(H) 98 - 107 mmol/L 08/30/2023 6:51 AM [facility] CO2 23 22 - 29 mmol/L 08/30/2023 6:51 AM [facility] Glucose 104 70 - 115 mg/dL 08/30/2023 6:51 AM [facility] Calcium 9.2 8.4 - 10.2 mg/dL 08/30/2023 6:51 AM [facility] Protein Total 5.8(L) 6.0 - 8.3 g/dL 08/30/2023 6:51 AM [facility] Albumin 2.9(L) 3.4 - 5.0 g/dL 08/30/2023 6:51 AM [facility] Bilirubin Total 0.3 0.2 - 1.2 mg/dL 08/30/2023 6:51 AM [facility] Alkaline Phosphatase 55 40 - 150 U/L 08/30/2023 6:51 AM [facility] ALT 22 5 - 55 U/L 08/30/2023 6:51 AM [facility] AST 21 5 - 34 U/L 08/30/2023 6:51 AM [facility] Anion Gap 10 6 - 16 08/30/2023 6:51 AM [facility] BUN/Creatinine Ratio 18 7 - 23 08/30/2023 6:51 AM [facility] Osmolality Calculated 297(H) 275 - 295 mOsm/kg 08/30/2023 6:51 AM [facility] Albumin/Globulin Ratio 1.0(L) 1.1 - 2.3 08/30/2023 6:51 AM [facility] eGFR by CKD-EPI 69(L) >=90 mL/min/1.7 3 m2 08/30/2023 6:51 AM [facility] Blood BLOOD SPECIMEN / Unknown Lab Venipuncture / Unknown 08/30/2023 4:47 AM CDT 08/30/2023 5:52 AM T us Arianna Pennington PA-C LAB - CHEMISTRY ORDERABLES Final Result [facility] [address] [place] [address], [facility] [phone] * (ABNORMAL) HEMOGLOBIN A1C (08/27/2023 5:06 AM CDT) Hemoglobin A1c 6.2(H) <=5.6 % 08/27/2023 9:14 AM CDT [facility] Estimated Average Glucose 131 mg/dL 08/27/2023 9:14 AM CDT [facility] Comment: HbA1c Interpretation: Normal : < 5.7% Pre-diabetes: 5.7-6.4% Diabetes: Equal to or greater than 6.5% Test results diagnostic of diabetes should be repeated for confirmation. Treatment target values recommended by ADA and other clinical organizations should be used to evaluate metabolic control in patients. Reference: [place] Diabetes Association, Standards of Care in Diabetes [...] LAB - CHEMISTRY ORDERABLES Fi nal Result [facility] [address] [place] [address], [facility] [phone] from Last 3 Months or Most Recently Relevant to Health Maintenance Insurance [facility] [employer] DAV[employer] MEDICARE Advance Directives * Full Code (Latest Code Status on File) Date Activated Date Inactivated Comments 08/26/2023 6:43 PM 08/30/2023 3:28 PM Care Teams Hiv Cts Specialist Relationship Specialty Start Date End Date Jean Pierre Landry MD [address] [facility] [address] PCP - General 03/20/21
--- OUTSIDE RECORDS SUMMARY | 2025-02-12 08:20 | XMS_ITS | Encounter Summary ---
Author Organization [facility] Address [address] [place] [address] Care Team Providers Care Lead Shop Operator Name Role Phone Jean Pierre Landry MD Primary Care Provider Encounter Details Date Type Department Care Team (Late st Contact Info) Description 05/05/2007 Outpatient Historical [facility] [place] [address] [place] [address] Jos Richter MD NO ADDRESS ON FILE Social History Tobacco Use Types Packs/Day Years Used Date Smoking Tobacco: Never Assessed Sex and Gender Information Value Date Recorded Sex Assigned at Not on file Legal Sex Male 3:45 AM COMPUTATIONAL LINGUIST Gender Identity Not on file Sexual Orientation Not on file documented as of this encounter Plan of Treatment Upcoming Encounters Date Type Department Care Team (Late st Contact Info) Description 04/18/2025 10:30 AM COMPUTATIONAL LINGUIST Office Visit [facility] Oncology and Hematology - [place] [address] [facility] [address] [address] Fortino Villaseñor MD [address] [facility] [address] [place] [address] documented as of this encounter Visit Diagnoses Not on filedocumented in this encounter Care Teams Lead Shop Operator Relationship Specialty Start Date End Date Jean Pierre Landry MD [address] [place] [address] PCP - General Family Practice 12/25/24 documented as of this encounter
--- OUTSIDE RECORDS SUMMARY | 2025-02-12 08:20 | XMS_ITS | Encounter Summary ---
Author Organization [facility] Address [address] [place] [address] Care Team Providers Care Label Paster Name Role Phone Jean Pierre Landry MD Primary Care Provider Encounter Details Date Type Department Care Team (Late st Contact Info) Description 12/30/2022 Abstract [facility], [address] [address] Rahul Gill MA Social History Tobacco Use [...] on filedocumented in this encounter Care Teams Label Paster Relationship Specialty Start Date End Date Jean Pierre Landry MD [address] [facility] [address] [place] [address] PCP - General FAMILY PRACTICE 12/22/21 documented as of this encounter
--- OUTSIDE RECORDS SUMMARY | 2025-02-12 08:20 | XMS_ITS | Encounter Summary ---
Author Organization [facility] Address 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 Gender Identity Not on file Sexual Orientation Not on file documented as of this encounter Plan of Treatment Upcoming Encounters Date Type Department Care Team (Late st Contact Info) Description 04/18/2025 10:30 AM MAINTENANCE ASSISTANT Office Visit [facility]cology and Hematology - [place] [address] [facility] [address] [place] [address] Fortino Villaseñor MD [address] [facility] [address] [place] [address] documented as of this encounter Visit Diagnoses Diagnosis Nonspecific abnormal unspecified cardiovascular function study- Primary documented in this encounter Care Teams Victim Advocate Relationship Specialty Start Date End Date Jean Pierre Landry MD [facility] [facility] [place] [address] PCP - General Family Practice 12/25/24 documented as of this encounter
--- OUTSIDE RECORDS SUMMARY | 2025-02-12 08:20 | XMS_ITS | Encounter Summary ---
Author Organization [facility] Address [address] [place] [address] Care Team Providers Care Certified Low Vision Therapist Name Role Phone Jean Pierre Landry MD Primary Care Provider Encounter Details Date Type Department Care Team (Late st Contact Info) Description 08/14/2005 Outpatient Historical [facility] [place] [address] [facility] 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 Gender Identity Not on file Sexual Orientation Not on file documented as of this encounter Plan of Treatment Upcoming Encounters Date Type Department Care Team (Late st Contact Info) Description 04/18/2025 10:30 AM BOBBIN MARKER Office Visit [facility] Oncology and Hematology - [place] [address] [facility] [address] [address] Fortino Villaseñor MD [address] [facility] [address] [place] [address] documented as of this encounter Visit Diagnoses Not on filedocumented in this encounter Care Teams Certified Low Vision Therapist Relationship Specialty Start Date End Date Jean Pierre Landry MD [address] [facility] [place] [address] PCP - General Family Practice 12/25/24 documented as of this encounter
--- OUTSIDE RECORDS SUMMARY | 2025-02-12 08:20 | XMS_ITS | Clinical Summary ---
Author Organization [facility] Address [address], [facility] [address] [place] [address] Phone Care Team Providers Care Signs Cleaner Name Role Phone Jean Pierre Landry MD [...] 99.8 kg (220 lb) 07/19/2019 9:00 AM LAYBOY TENDER Height 172.7 cm (5' 8) 07/19/2019 9:00 AM LAYBOY TENDER Body Mass Index 33.45 07/19/2019 9:00 AM LAYBOY TENDER Plan of Treatment Health Maintenance Due Date [...] to Health Maintenance Insurance MEDICARE Care Teams Signs Cleaner Relationship Specialty Start Date End Date Jean Pierre Landry MD PCP - General Family Medicine 07/04/19 Rodri Amador MD [address] [place] [address] 07/04/19
--- OUTSIDE RECORDS SUMMARY | 2025-02-12 08:20 | XMS_ITS | Encounter Summary ---
Author Organization [facility] Address [address] [place] [address] Care Team Providers Care Fish Egg Packer Name Role Phone Jean Pierre Landry MD Primary Care Provider Encounter Details Date Type Department Care Team (Late Contact Info) Description 10/14/2006 Outpatient Historical [facility] 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 Gender Identity Not on file Sexual Orientation Not on file documented as of this encounter Plan of Treatment Upcoming Encounters Date Type Department Care Team (Late st Contact Info) Description 04/18/2025 10:30 AM MULTIFOCAL LENS ASSEMBLER Office Visit [facility] Oncology and Hematology - [place] [address] [facility] [address] [place] [address] Fortino Villaseñor MD [address] [facility] [address] [place] [address] documented as of this encounter Visit Diagnoses Not on filedocumented in this encounter Care Teams Fish Egg Packer Relationship Specialty Start Date End Date Jean Pierre Landry MD [address] [place] [address] [place] [address] PCP - General Family Practice 12/25/24 documented as of this encounter
--- OUTSIDE RECORDS SUMMARY | 2025-02-12 08:20 | XMS_ITS | Encounter Summary ---
Author Organization [facility] Address [address] [place] [address] Care Team Providers Care Group Sales Representative Name Role Phone Jean Pierre Landry MD Primary Care Provider Encounter Details Date Type Department Care Team (Late st Contact Info) Description 04/26/2007 Outpatient Historical [facility] [place] 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 Gender Identity Not on file Sexual Orientation Not on file documented as of this encounter Plan of Treatment Upcoming Encounters Date Type Department Care Team (Late st Contact Info) Description 04/18/2025 10:30 AM MATERIALS RESEARCH ENGINEER Office Visit [facility] Oncology and Hematology - [place] [address] [facility] [address] [address] Fortino Villaseñor MD [address] [facility] [address] [place] [address] documented as of this encounter Visit Diagnoses Not on filedocumented in this encounter Care Teams Group Sales Representative Relationship Specialty Start Date End Date Jean Pierre Landry MD [address] [facility] [place] [place] [address] PCP - General Family Practice 12/25/24 documented as of this encounter
--- OUTSIDE RECORDS SUMMARY | 2025-02-12 08:20 | XMS_ITS | Clinical Summary ---
Author Organization [facility] Address [address] [place] [address] Phone Care Team Providers Care Draw Machine Operator Name Role Phone Jean Pierre Landry [...] TWICE DAILY 180 Tablet 3 4 Active rosuvastatin (CRESTOR) 40 mg tabletIndications: Coronary artery disease involving cabazon coronary artery of cabazon heart without angina pectoris,Mixed hyperlipidemia TAKE 1 TABLET BY MOUTH EVERY DAY AT BEDTIME 90 Tablet 1 5 Active ferrous sulfate 325 mg (65 mg iron) tablet Take 325 mg by mouth daily. Active metFORMIN (GLUCOPHAGE) 500 mg tablet Take 500 mg by mouth 2 times daily with meals. Active doxazosin (CARDURA) 2 mg tablet Take 2 mg by mouth daily. Active doxazosin (CARDURA) 2 mg tablet TAKE 1 TABLET(2 MG) BY MOUTH DAILY 90 Tablet 3 4 01/31/20 25 Discontin ued(Dupli lennie Therapy) Active Problems Patient Care Coordination No te Formatting of this note migh t be different from the original. Water Purifier- Dr. Perry Low Office Rodri Amador MD- [facility] ( [facility]) Problem Noted Date Diagnosed Date History of pulmonary embolism 01/25/2024 Overview (01/25/2024): Following surgery, felt provoked 08/21 Stage 3 chronic kidney disease 01/19/2022 Type 2 diabetes mellitus 12/05/2019 HTN (hypertension) 11/20/2011 Overview (02/28/2019): Intolerant of hctz, spironolactone, valsartan Hyperlipidemia 10/25/2008 Overview (01/02/2015): Intolerant of atorvastatin CAD (coronary artery disease) 05/17/2008 Overview (01/30/2025): S/P multiple PCIs of RCA, last 2002 Inf infarct, no ischemia, nl LV fxn stress 2017 Nl LV fxn echo 7/24 On eliquis bc recurrent DVT, clopidogrel stopped Resolved Problems Problem Noted Date Diagnosed Date Resolved Date Old NH (myocardial infarction) 02/28/2019 01/19/2023 History of NH (myocardial infarction) 05/17/2018 02/28/2019 Precordial pain 04/28/2018 05/17/2018 Precordial pain 04/28/2018 05/17/2018 Tobacco use 12/07/2016 04/27/2017 Cigarette dependence 12/07/2016 017 Chewing tobacco dependence 12/07/2016 1 06/27/2016 Second hand tobacco smoke exposure 12/07/2016 04/27/2017 Occupational tobacco smoke exposure 12/07/2016 04/27/2017 tobacco smoke expo sure (20wks gestation-4wks post ) 12/07/2016 04/27/2017 Essential hypertension, benign 10/25/2008 11/20/2011 Encounters Date Type Department Care Team Description 02/06/2025 External Device Data STL ABSTRACTION Provider, Abstract 01/30/2025 10:30 AM CDT Office Visit [facility] - [facility] [address] [place] [address] [place] [address] Rodri Amador MD CAD s/p PCI (Primary Dx); Hypertension; Hyperlipidemia; History of recurrent DVT/PE 01/16/2025 External Device Data STL ABSTRACTION Provider, Abstract 01/09/2025 External Device Data STL ABSTRACTION Provider, Abstract 12/13/2024 External Device Data STL ABSTRACTION Provider, Abstract 12/12/2024 External Device Data STL ABSTRACTION Provider, Abstract 11/14/2024 External Device Data STL ABSTRACTION Provider, [...] on file Legal Sex Male 3:45 AM HAT CHECKER Gender Identity Not on file Sexual Orientation Not on file Occupation Industry Job Start Date Job End Date Not on file Not on file Not on file Not on file Last Filed Vital Signs Vital Sign Reading Time Taken Comments Blood Pressure 132/70 01/30/2025 10:33 AM CDT Pulse 63 01/30/2025 10:33 AM CDT Temperature 36.5 C (97.7 F) 04/29/2018 3:00 PM HAT CHECKER Respiratory Rate 20 04/29/2018 3:00 PM HAT CHECKER Oxygen Saturation 93% 01/30/2025 10:33 AM CDT Inhaled Oxygen Concentration - - Weight 98.9 kg (218 lb) 01/30/2025 10:33 AM CDT Height 175.3 cm (5' 9) 01/30/2025 10:33 AM CDT Body Mass Index 32.19 01/30/2025 10:33 AM CDT Plan of Treatment Upcoming Encounters Date Type Department Care Team (Late st Contact Info) Description 04/18/2025 10:30 AM HAT CHECKER Office Visit [facility] Oncology and Hematology - [place] [address] [facility] [address] [place] [address] Fortino Villaseñor MD [address] [facility] [address] [place] [address] Health Maintenance Due Date Last Done Comments DIABETES ANNUAL FOOT EXAM 11/28/1967 DIABETES MICROALBUMIN ANNUAL SCREEN 11/28/1967 FIT-DNA Q 3 years 1994 FIT/FOBT Q 1 year 1994 Flex Sig/CT Colonography Q 5 years 1994 LDL CHOLESTEROL ANNUAL 12/25/2021 1, 04/19/2019, 07/12/2018, Additional history exists RSV VACCINE (60+ or ) (1 - 1-dose 75+ series) 2024 INFLUENZA VACCINE (#1) 2024 3, 03/06/2021, 03/03/2021, Additional history exists DIABETES HBA1C Q 6 MONTHS 01/18/20252024, 01/12/2024, 08/27/2023, Additional history exists COLORECTAL SCREENING 01/24/2025 01/24/2015, 01/24/2015, 01/24/2015 Colorectal Cancer Screening 01/24/2025 PNEUMOCOCCAL VACCINE 50+ YEA RS (3 of 3 - PCV20 or PCV21) 02/28/2025 02/29/2020, 04/13/2019, 02/28/2019, Additional history exists DIABETES ANNUAL RETINAL EXAM 12/11/2025, 08/18/2024, 02/01/2024, Additional history exists DTAP/TDAP/TD VACCINES (3 - T d or Tdap) 11/19/2031 11/18/2021, 08/29/2007 ZOSTER VACCINE Completed 04/21/2023, 01/2023, 03/13/2014 Procedures Procedure Name Priority Date/Time Associated Diagnosis Comments LIPID PANEL Routine 12/25/2020 HEMOGLOBIN A1C Routine 04/19/2019 2:28 AM HAT CHECKER from Last 3 Months or Most Recently Relevant to Health Maintenance Results * LIPID PANEL (12/25/2020) Blood us Abstract Provider CHEMISTRY ORDERABLES Final Res ult [facility] CLIA# [id number] [address] [place] [address] * (ABNORMAL) HEMOGLOBIN A1C (04/19/2019 2:28 AM HAT CHECKER) HEMOGLOBIN A1C 6.7(H) <5.7 % of total Hgb [facility] [facility] Comment: For someone without [...] of diabetes for children. 04/19/2019 2:28 AM HAT CHECKER us Historical Provider CHEMISTRY ORDERABLES Edited Result - Final [facility] [address] [place] [phone] from Last 3 Months or Most Recently Relevant to Health Maintenance Insurance [employer] [facility] MEDICARE PART A AND B MEDICARE PART A AND B [employer] [facility] [address] Advance Directives For more information, please contact: [phone] * Full Code (Latest Code Status on File) Date Activated Date Inactivated Comments 04/28/2018 7:27 PM 04/29/2018 8:59 PM Care Teams Draw Machine Operator Relationship Specialty Start Date End Date Jean Pierre Landry MD [facility] [place] [address] PCP - General Family Practice 12/25/24
--- OUTSIDE RECORDS SUMMARY | 2025-02-12 08:20 | XMS_ITS | Encounter Summary ---
Author Organization [facility] Address [address] [place] [address] Care Team Providers Care Lottery Office Manager Name Role Phone Jean Pierre Landry MD Primary Care Provider Encounter Details Date Type Department Care Team (Late Contact Info) Description 10/14/2006 Outpatient Historical [facility] ([facility]) [address] [place] [address] Rodri Rosario MD [address] [facility] [address] [place] [address] Social History Tobacco Use Types Packs/Day Years Used Date Smoking Tobacco: Never Assessed Sex and Gender Information Value Date Recorded Sex Assigned at Not on file Legal Sex Male 3:45 AM HOME VISITOR Gender Identity Not on file Sexual Orientation Not on file documented as of this encounter Plan of Treatment Upcoming Encounters Date Type Department Care Team (Late Contact Info) Description 04/18/2025 10:30 AM HOME VISITOR [facility] - [place] [address] [facility] [address] [place] [address] Fortino Villaseñor MD [address] [facility] [address] [place] [address] documented as of this encounter Visit Diagnoses Not on filedocumented in this encounter Care Teams Lottery Office Manager Relationship Specialty Start Date End Date Jean Pierre Landry MD [address] [place] [address] [place] [address] PCP - General Family Practice 12/25/24 documented as of this encounter
--- OUTSIDE RECORDS SUMMARY | 2025-02-12 08:20 | XMS_ITS | Encounter Summary ---
Author Organization [facility] Address [address] [place] [address] Care Team Providers Care Defence Force Senior Officer Name Role Phone Jean Pierre Landry MD Primary Care Provider Encounter Details Date Type Department Care Team (Latest Contact Info) Description 06/07/2008 Inpatient Historical HIS PATIENT IN A BED Eduard Shearer MD [facility] [address] [place] [address] Jos Richter MD NO ADDRESS ON FILE Intermediate Coronary Syndrome (CMS/HCC); Coronary Atherosclerosis of [place] Coronary Artery; Automatic Implantable Cardiac Defibrillator in Situ; Unspecified Essential Hypertension Social History Tobacco Use Types Packs/Day Years Used Date Smoking Tobacco: Never Assessed Sex and Gender Information Value Date Recorded Sex Assigned at Not on file Legal Sex Male 3:45 AM STRAP STITCHER Gender Identity Not on file Sexual Orientation Not on file documented as of this encounter Plan of Treatment Upcoming Encounters Date Type Department Care Team (Late st Contact Info) Description 04/18/2025 10:30 AM STRAP STITCHER Office Visit [facility] Oncology and Hematology - [place] [address] [facility] [address] [place] [address] Fortino Villaseñor MD [address] [facility] [address] [place] [address] documented as of this encounter Procedures Procedure Name Priority Date/Time Associated Diagnosis Comments CBC WITH DIFFERENTIAL Stat 06/08/2008 1:17 PM STRAP STITCHER LIPID PANEL Timed Study 06/08/2008 8:45 AM STRAP STITCHER COMPREHENSIVE METABOLIC PANEL Timed Study 06/08/2008 8:45 AM STRAP STITCHER TROPONIN Routine 06/08/2008 6:06 AM STRAP STITCHER BASIC METABOLIC PANEL Routine 06/08/2008 6:06 AM STRAP STITCHER documented in this encounter Results * (ABNORMAL) CBC WITH DIFFERENTIAL (06/08/2008 1:17 PM STRAP STITCHER) [facility] MCV 91.1 82.0 - 99.0 fL [facility] PLATELETS 149 140 - 350 K/uL [facility] HEMOGLOBIN 15.4 13.6 - 16.5 g/dL [facility] RDW 13.1 11.5 - 14.5 % [facility] WBC 10.5(H) 4.0 - 9.8 K/uL [facility] MCH 31.2 27.2 - 32.6 pg [facility] MPV 10.7 9.3 - 12.4 fL [facility] HEMATOCRIT 45.0 40.0 - 48.0 % [facility] RDW-STDEV 43.1 37.1 - 48.7 fL [facility] RBC 4.94 4.50 - 5.40 M/uL [facility] MCHC 34.2 31.5 - 35.5 % [facility] NEUTROPHIL ABSOLUTE 7.32(H) 1.90 - 7.00 K/uL [facility] EOSINOPHILS 4 0 - 7 % [facility] EOSINOPHIL ABSOLUTE 0.40 0.00 - 0.70 K/uL [facility] LYMPHOCYTES 21 16 - 45 % [facility] LYMPHOCYTE ABSOLUTE 2.16 0.70 - 4.50 K/uL [facility] BASOPHILS 0 0 - 2 % [facility] BASOPHILS ABSOLUTE 0.03 0.00 - 0.20 K/uL [facility] MONOCYTES 6 3 - 13 % [facility] MONOCYTE ABSOLUTE 0.63 0.10 - 1.30 K/uL [facility] NEUTROPHILS 69 45 - 70 % [facility] Blood specimen (specimen) 06/08/2008 1:17 PM STRAP STITCHER 06/08/2008 1:30 PM STRAP STITCHER Narrative INTERFACE SYSTEM - 06/08/2008 1:36 PM STRAP STITCHER off of blood in lab if avail. Jos Richter MD HEMATOLOGY ORDERABLES Edited INTERFACE SYSTEM Refer to clinic/hospital department [facility] CLIA# [id number] [address] [place] [address] * (ABNORMAL) COMPREHENSIVE METABOLIC PANEL (06/08/2008 8:45 AM STRAP STITCHER) SODIUM 137 135 - 145 mmol/L [facility] GLUCOSE 114(H) 65 - 99 mg/dL [facility] BILIRUBIN TOTAL 0.6 0.2 - 1.0 mg/dL [facility] ALKALINE PHOSPHATASE 104 40 - 129 U/L [facility] CHLORIDE 103 96 - 108 mmol/L [facility] CALCIUM 9.2 8.6 - 10.2 mg/dL [facility] POTASSIUM 4.3 3.5 - 4.9 mmol/L [facility] BUN 19 6 - 20 mg/dL [facility] TOTAL PROTEIN 7.0 6.3 - 8.6 g/dL [facility] CO2 27 22 - 30 mmol/L [facility] CREATININE 0.93 0.67 - 1.17 mg/dL [facility] ALT 80(H) 0 - 41 U/L [facility] ALBUMIN 4.4 3.4 - 4.8 g/dL [facility] AST 36 12 - 38 U/L [facility] GFR, >60 >=60 mL/min/1. 7 sq meter [facility] GFR >60 >=60 mL/min/1. 7 sq meter [facility] Comment: Modification of Diet in Renal Disease (MDRD) study formula. Estimated GFR rate interpretative information for both Americans and non- Americans is available on the [facility] Intranet at: [email or web address] Select: Lab Policies and Procedures Select: Reference Ranges - GFR Blood specimen (specimen) 06/08/2008 8:45 AM STRAP STITCHER 06/08/2008 8:51 AM STRAP STITCHER Jos Richter MD CHEMISTRY ORDERABLES Edited INTERFACE SYSTEM Refer to clinic/hospital department [facility] CLIA# [id number] [address] [place] [address] * (ABNORMAL) LIPID PANEL (06/08/2008 8:45 AM STRAP STITCHER) CHOLESTEROL 178 100 - 199 mg/dL [facility] CHOL/HDL RATIO 3.2 2.0 - 5.0 [facility] TRIGLYCERIDE 290(H) 10 - 149 mg/dL [facility] HDL 55 40 - 59 mg/dL [facility] LDL CALCULATED 65 <=99 mg/dL [facility] LIPID PANEL COMMENT See Below [facility] Comment: The adult ATP and pediatric NCEP classifications for lipids are available on the [facility] Intranet at: [email or web address] Select: Lab Policies and Procedures,Current Select: Lipid Panel Interpretation Blood specimen (specimen) 06/08/2008 8:45 AM STRAP STITCHER 06/08/2008 8:51 AM STRAP STITCHER Jos Richter MD CHEMISTRY ORDERABLES Edited INTERFACE SYSTEM Refer to clinic/hospital department [facility] CLIA# [id number] [address] [place] [address] * (ABNORMAL) BASIC METABOLIC PANEL (06/08/2008 6:06 AM STRAP STITCHER) BUN 19 6 - 20 mg/dL [facility] CHLORIDE 104 96 - 108 mmol/L [facility] GLUCOSE 104(H) 65 - 99 mg/dL [facility] SODIUM 137 135 - 145 mmol/L [facility] CALCIUM 9.0 8.6 - 10.2 mg/dL [facility] CO2 25 22 - 30 mmol/L [facility] CREATININE 0.90 0.67 - 1.17 mg/dL [facility] POTASSIUM 4.0 3.5 - 4.9 mmol/L [facility] GFR, >60 >=60 mL/min/1. 7 sq meter [facility] GFR >60 >=60 mL/min/1. 7 sq meter [facility] Comment: Modification of Diet in Renal Disease (MDRD) study formula. Estimated GFR rate interpretative information for both Americans and non- Americans is available on the [facility] Intranet at: [email or web address] Select: Lab Policies and Procedures Select: Reference Ranges - GFR Blood specimen (specimen) 06/08/2008 6:06 AM STRAP STITCHER 06/08/2008 6:17 AM STRAP STITCHER us Eduard Shearer MD CHEMISTRY ORDERABLES Edited Performing Organization Address City/[facility] Co de Phone Number INTERFACE SYSTEM Refer to clinic/hospital department [facility] CLIA# [id number] [address] [place] [place] [address] * TROPONIN (06/08/2008 6:06 AM STRAP STITCHER) TROPONIN T <0.01 <=0.03 ng/mL [facility] TROPONIN T INTERP Negative [facility] Blood specimen (specimen) 06/08/2008 6:06 AM STRAP STITCHER 06/08/2008 6:17 AM STRAP STITCHER Eduard Shearer MD CHEMISTRY ORDERABLES Edited Performing Organization Address [facility] de Phone Number INTERFACE SYSTEM Refer to clinic/hospital department [facility] CLIA# [id number] [address] [place] [place] [address] documented in this encounter Visit Diagnoses Diagnosis Intermediate coronary syndrome (CMS/HCC) Intermediate coronary syndrome Coronary atherosclerosis of [place] coronary artery Automatic implantable cardiac defibrillator in situ Unspecified essential hypertension documented in this encounter Care Teams Defence Force Senior Officer Relationship Specialty Start Date End Date Jean Pierre Landry MD [address] [facility] [place] [place] [address] PCP - General Family Practice 12/25/24 documented as of this encounter
--- OUTSIDE RECORDS SUMMARY | 2025-02-12 08:20 | XMS_ITS | Clinical Summary ---
Author Organization [facility] Address [address] [place] [address] Care Team Providers Care Rerolling Machine Operator Name Role Phone Jean Pierre [...] 05/05/2021 Hypokalemia 05/01/2021 Type 2 diabetes mellitus ([facility]) 12/04 Osteoarthritis of knee 03/16/2019 [place] (myocardial infarction) 02/28/2019 Hypertension 11/20/2011 Overview (12/29/2022): [...] 7) 02/28/2019 Tdap (Generic) 11/18/2021,08/29/2007 Zoster (Zostavax) 68496 Unt/0.65Ml 03/13/2014 Family History Medical History Relation [...] Wellness Visit 2014 Hemoglobin A1C 10/18/2019 04/19/2019 RSV Immunization or 60+ Years (1 - 1-dose 75+ series) 2024 COVID-19 Vaccine ( season) 2025 12/02/2021, 04/03/2021, 07/29/2020, Additional history exists Pneumococcal [...] this topic Medical Devices Implanted Type Area Repertoire Manager Device Identifier Shelf Expiration Date Model / Serial / Lot Iol [employer] [id number] - [id number] Implanted:Qty: 1 on 12/22/2021 by Johan Ureña MD at [facility] Lens Right: Eye [employer] [id number] 03/08/2022 [id number] / [id number] / Insurance MEDICARE [facility] Care Teams Rerolling Machine Operator Relationship Specialty Start Date End Date Jean Pierre Landry MD [address] [facility] [address] [place] [address] PCP - General FAMILY PRACTICE 12/22/21
--- OUTSIDE RECORDS SUMMARY | 2025-02-12 08:20 | XMS_ITS | Clinical Summary ---
Author Organization [facility] Address [address] [place] [phone] Phone Care Team Providers Care Glass Cylinder Flanger Name Role Phone Jean Pierre Landry MD [...] [employer] MEDICARE SUPPLEMENT Care Teams Glass Cylinder Flanger Relationship Specialty Start Date End Date Jean Pierre Landry MD [address] [place] [id number] PCP - General Internal Medicine 10/11/21
--- OUTSIDE RECORDS SUMMARY | 2025-02-12 08:21 | XMS_ITS | Clinical Summary ---
Author Organization [facility] [address] Address [address] [place] [phone] Care Team Providers Care Clinical Staff Pharmacist Name Role Phone Jean Pierre Landry MD [...] the hip level. Current arterial Doppler from [facility] shows normal ABIs. Lower extremities [...] on file Legal Sex Male 10:04 AM PLATFORM ATTENDANT Gender Identity Not on file Sexual Orientation [...] Routine) 10/11/2024 9:55 AM CDT Atherosclerosis of coquille artery of both lower extremities with intermittent claudication from Last 3 Months or Most Recently Relevant to Health Maintenance Results * CTA Abdomen Pelvis (10/11/2024 9:55 AM CDT) Anatomical Region Laterality Modality Body N/A Computed Tomogra phy 10/16/2024 2:01 PM CDT Narrative 10/16/2024 2:16 PM CDT EXAM DESCRIPTION: CTA ABDOMEN PELVIS REASON FOR STUDY: PVD Patient with PVD, atherosclerosis of coquille artery of both lower extremities with intermittent [...] Shana Cohen M.D. FT T: Report ID: [id number] Reading Location: [place] [address] Procedure Note Shana Martel MD - 10/16/2024 EXAM DESCRIPTION: CTA ABDOMEN PELVIS REASON FOR STUDY: PVD Patient with PVD, atherosclerosis of coquille artery of both lowerextremities with intermittent claudication [...] - Electronically signed by Shana Cohen M.D. T: Report ID: [id number] Reading Location: [place] [address] Leonard Jean MD IM CT PROCEDURES Final Result from Last 3 Months or Most Recently Relevant to Health Maintenance Insurance MEDICARE [facility] [address] Care Teams Clinical Staff Pharmacist Relationship Specialty Start Date End Date Jean Pierre Landry MD [address] [address] [place] [phone] PCP - General Family Practice 07/13/24
--- OUTSIDE RECORDS SUMMARY | 2025-02-12 08:21 | XMS_ITS | Encounter Summary ---
Author Organization [facility] Address [address] [place] [address] Care Team Providers Care Primary School Teacher Librarian Name Role Phone Jean Pierre Landry MD Primary Care Provider Encounter Details Date Type Department Care Team (Late st Contact Info) Description 02/16/[address] [facility] DermPath Lab [address] [facility] [place] [phone] Herman Rebolledo MD [address] [place] [address] Social History Tobacco Use Types Packs/Day Years Used Date Smoking Tobacco: Never Assessed Sex and Gender Information Value Date Recorded Sex Assigned at Not on file Legal Sex Male 6:26 AM GAS WELDER APPRENTICE Gender Identity Not on file Sexual Orientation Not on file documented as of this encounter Plan of Treatment Not on file documented as of this encounter Procedures Procedure Name Priority Date/Time Associated Diagnosis Comments DERMATOPATHOLOGY Routine 02/13/2022 12:0 0 AM CDT documented in this encounter Results * DERMATOPATHOLOGY (02/13/2022 12:00 AM CDT) Case Report Dermatopathology Report Case: [id number] Authorizing Provider: Herman Rebolledo MD Collected: 02/13/2022 12:00 AM Ordering Location: [facility] Care DermPath Lab Received: 02/16/2022 03:40 PM Pathologist: [...] Clinical History A: BCC vs. SCC. Path# [id number] B: Nevus vs. Other. Path# [id number] C: BCC vs. SCC. Path# [id number] 2 3:43 PM T DERMATOPATHOLOGY LABORATORY Gross Description Specimen A: Received is one formalin filled container labeled with the patient's name and designated right nasal bridge. The specimen consists of a shave biopsy measuring 3h5m6vl. Jar 0. Specimen B: Received is one formalin filled container labeled with the patient's name and designated mid back. The specimen consists of a shave biopsy measuring 9s0c3qz and it is bisected. Jar 0. Specimen C: Received is one formalin filled container labeled with the patient's name and designated left hand. The specimen consists of a shave biopsy measuring 3d5p9yp and it is bisected. Jar 0. 2 [...] characteristic determined by the Dermatopathology Laboratory at [facility], directed by Dr. Magdaleno Baer. These tests need not be, and therefore are not, approved by the [place] Food and Drug Administration. The tests are used for clinical purposes. Billing Codes Specimen Charges Stain Charges 71884 94335 33902 1 1 1 2 3:43 PM CDT DERMATOPATHOLOGY LABORATORY Embedded Images 2 3:43 PM CDT DERMATOPATHOLOGY LABORATORY Pathology/Cytology TISSUE SPECIMEN FROM SKIN / Unknown 02/13/2022 02/16/2022 3:40 PM CDT Miscellaneous samples (specimen) TISSUE SPECIMEN FROM SKIN / Unknown 02/13/2022 02/16/2022 3:40 PM CDT Miscellaneous samples (specimen) TISSUE SPECIMEN FROM SKIN / Unknown 02/13/2022 02/16/2022 3:40 PM CDT Herman Rebolledo MD LAB - PATHOLOGY/CYTOLOGY ORDER JONNA Final Result DERMATOPATHOLOGY LABORATORY [facility] - Department of Dermatology [facility] Specialized Medicine [address] [place] [address], [address] [phone] documented in this encounter Visit Diagnoses Not on filedocumented in this encounter Care Teams Primary School Teacher Librarian Relationship Specialty Start Date End Date Jean Pierre Landry MD [address] [place] [address] PCP - General 03/20/21 documented as of this encounter
[2025-02-12 08:41] VITALS: BP 162/86; PULSE 69; RESP 14; O2SAT 96
[2025-02-12] MEDS: dexAMETHasone SOD PHOS INJ 10 MG/ML 1 ML VIAL IM (08:44)
[2025-02-12] MEDS: LIDOCAINE 2% PF LOCAL INJ 5 ML VIAL INFILTRATE (08:44)
[2025-02-12 08:46] VITALS: BP 156/86; PULSE 71; RESP 15; O2SAT 97
[2025-02-12 08:51] VITALS: BP 133/69; PULSE 70; RESP 16; O2SAT 96
[2025-02-12] MEDS: LIDOCAINE 1% PF INJ 5 ML VIAL INFILTRATE (09:00)
== END 2025-02-12 09:13 | disposition home or self-care (01) ==
PROVIDERS: PCP Family Medicine; Visit Provider Anesthesiology Pain Medicine
PROC: (CPT 64483; principal; 2025-02-12 08:50)
DX: M47.816 Spondylosis without myelopathy or radiculopathy, lumbar region (principal); M48.062 Spinal stenosis, lumbar region with neurogenic claudication
CPT/HCPCS: 64483 ×2; 99199; J1100

== ENCOUNTER 2025-03-02 08:45 | Outpatient (CLI) | payer MEDICARE, OTHER, SELFPAY ==
--- NOTE | ~2025-03-02 | CT_ITS ---
EXAMINATION: CT abdomen pelvis wo/w con DATE: 03/02/2025 09:23 INDICATION: Other specified disorders of kidney and ureter. Left kidney mass. TECHNIQUE: Computed tomography (CT) of the abdomen and pelvis was performed without and with 100 mL Omnipaque 350 intravenous contrast. Automated exposure control and iterative reconstruction technique were employed. The dose-length product was 1849.47 mGy-cm. COMPARISON: CT abdomen and pelvis 09/20/2023, chest CT 01/31/2025 FINDINGS: The visualized portions of the lung bases demonstrate emphysema and mild atelectasis. No pleural effusion. The heart size is normal. There are coronary artery calcifications. No pericardial effusion. The liver and spleen are normal. There are changes of cholecystectomy. The pancreas and adrenal glands are normal. There is cortical thinning of the kidneys. There is a 12 mm hemorrhagic cyst in left kidney. There are cysts in the kidneys measuring up to 19 mm on the right. There is no urolithiasis. The prostate is moderately enlarged. There is diverticulosis of the colon without evidence of d iverticulitis. The appendix is normal. There are no dilated loops of bowel. There are no pathologically enlarged lymph nodes. 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 There is no ascites. There is severe lumbar spondylosis. There is mild chronic height loss of multiple vertebral bodies. IMPRESSION: 1. Benign cysts in the kidneys. 2. 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 Reviewed, dictated and finalized at location E.
--- OUTSIDE RECORDS SUMMARY | 2025-03-02 08:58 | XMS_ITS | Encounter Summary ---
Author Organization [facility] Address [address] [facility] [place] [address] Care Team Providers Care Practice Assistant Name Role Phone Jean Pierre Landry MD Primary Care Provider Encounter Details Date Type Department Care Team (Late st Contact Info) Description 02/16/2022 Lab Requisition [facility] DermPath Lab [address] [facility] [place] [phone] Herman Rebolledo MD [address] [place] [address] Social History Tobacco Use Types Packs/Day Years Used Date Smoking Tobacco: Never Assessed Sex and Gender Information Value Date Recorded Sex Assigned at Not on file 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 Gender Identity Not on file Sexual Orientation Not on file documented as of this encounter Plan of Treatment Not on file documented as of this encounter Procedures Procedure Name Priority Date/Time Associated Diagnosis Comments DERMATOPATHOLOGY Routine 02/13/2022 12:0 0 AM CDT documented in this encounter Results * DERMATOPATHOLOGY (02/13/2022 12:00 AM CDT) Case Report Dermatopathology Report Case: [id number] Authorizing Provider: Herman Rebolledo MD Collected: 02/13/2022 12:00 AM Ordering Location: [facility] Care DermPath Lab Received: 02/16/2022 03:40 PM [...] Clinical History A: BCC vs. SCC. Path# [id number] B: Nevus vs. Other. Path# [id number] C: BCC vs. SCC. Path# [id number] 2 3:43 PM T DERMATOPATHOLOGY LABORATORY Gross Description Specimen A: Received is one formalin filled container labeled with the patient's name and designated right nasal bridge. The specimen consists of a shave biopsy measuring 8e5y4pc. Jar 0. Specimen B: Received is one formalin filled container labeled with the patient's name and designated mid back. The specimen consists of a shave biopsy measuring 8b8n7cz and it is bisected. Jar 0. Specimen C: Received is one formalin filled container labeled with the patient's name and designated left hand. The specimen consists of a shave biopsy measuring 1p5p5xq and it is bisected. Jar 0. 2 [...] characteristic determined by the Dermatopathology Laboratory at [facility], directed by Dr. Magdaleno Baer. These tests need not be, and therefore are not, approved by the [place] Food and Drug Administration. The tests are used for clinical purposes. Billing Codes Specimen Charges Stain Charges 71856 [id number] [id number] 1 1 1 2 3:43 PM CDT [...] PATHOLOGY/CYTOLOGY ORDER JONNA Final Result DERMATOPATHOLOGY LABORATORY [facility] - Department of Dermatology [facility] Specialized Medicine [address] [place] [address], [address] [phone] documented in this encounter Visit Diagnoses Not on filedocumented in this encounter Care Teams Practice Assistant Relationship Specialty Start Date End Date Jean Pierre Landry MD [address] [place] [address] PCP - General 03/20/21 documented as of this encounter
--- OUTSIDE RECORDS SUMMARY | 2025-03-02 08:58 | XMS_ITS | Encounter Summary ---
Author Organization [facility] Address [address] [place] [address] Care Team Providers Care Coat Cutter Name Role Phone Jean Pierre Landry MD Primary Care Provider Encounter Details Date Type Department Care Team (Late st Contact Info) Description 10/14/2006 Outpatient Historical [facility] [place] 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 Gender Identity Not on file Sexual Orientation Not on file documented as of this encounter Plan of Treatment Upcoming Encounters Date Type Department Care Team (Late st Contact Info) Description 04/18/2025 10:30 AM SUBSTANCE ABUSE CLINICIAN Office Visit [facility] Oncology and Hematology - [place] [address] [facility] [address] [address] Fortino Villaseñor MD [address] [facility] [address] [place] [address] documented as of this encounter Visit Diagnoses Not on filedocumented in this encounter Care Teams Coat Cutter Relationship Specialty Start Date End Date Jean Pierre Landry MD [address] [place] [address] PCP - General Family Practice 12/25/24 documented as of this encounter
--- OUTSIDE RECORDS SUMMARY | 2025-03-02 08:58 | XMS_ITS | Encounter Summary ---
Author Organization [facility] Address [address] [place] [address] Care Team Providers Care Clinical Data Manager Name Role Phone Jean Pierre Landry MD Primary Care Provider Encounter Details Date Type Department Care Team (Late Contact Info) Description 10/14/[address] [facility] Support Serv. ([facility]t Cardiology[facility]) [address] [place] [address] Rodri Rosario MD [address] [facility] [address] [place] [address] Social History Tobacco Use Types Packs/Day Years Used Date Smoking Tobacco: Never Assessed Sex and Gender Information Value Date Recorded Sex Assigned at Not on file Legal Sex Male 3:45 AM COMMUNITY ENGAGEMENT MANAGER Gender Identity Not on file Sexual Orientation Not on file documented as of this encounter Plan of Treatment Upcoming Encounters Date Type Department Care Team (Late Contact Info) Description 04/18/2025 10:30 AM COMMUNITY ENGAGEMENT MANAGER Office Visit [facility] Oncology and Hematology - [place] [address] [facility] [address] [place] [address] Fortino Villaseñor MD [address] [facility] [address] [place] [address] documented as of this encounter Visit Diagnoses Not on filedocumented in this encounter Care Teams Clinical Data Manager Relationship Specialty Start Date End Date Jean Pierre Landry MD [address] [place] [address] [place] [address] PCP - General Family Practice 12/25/24 documented as of this encounter
--- OUTSIDE RECORDS SUMMARY | 2025-03-02 08:58 | XMS_ITS | Clinical Summary ---
Author Organization [facility] Address [address] [facility] [place] [address] Care Team Providers Care Sap Business Objects Developer Name Role Phone Jean Pierre Landry MD Primary Care Provider Source Comments [facility],non-owned Affiliates and Associated Physician Practices is amultiple site organization consisting of ambulatory clinics and hospital sitesin [place], [place], [place] and [place]. This disclosure is being madepursuant to the Care Everywhere program and may not contain all information available regarding this patient. Last updated 18.[facility] [employer] Allergies Active Allergy Reactions Criticality Noted Date [...] hypertension 08/27/2023 Coronary artery disease invo lving torres martinez coronary artery of torres martinez heart without angina pectoris 08/27/2023 Type 2 diabetes mellitus wit h diabetic nephropathy, without long-term current use of insulin 08/27/2023 Acute respiratory failure 08/27/2023 Other hyperlipidemia 08/27/2023 Chronic kidney disease 08/27/2023 Pulmonary embolism on right 08/26/2023 Overview (02/28/2025): IMO 02/28/2025 Social History Tobacco Use Types Packs/Day Years Used Date Smoking Tobacco: Former Cigarettes 1 47 1 970 - 2017 Smokeless Tobacco: Never Tobacco Cessation:Counseling Given: Not [...] Recorded Patient Health Questionnaire-2 Score 3 12/16/2023 [facility] - Occupational Stress Questionnaire Answer Date Recorded [...] place to sleep or slept in a mcc (including now)? 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 Gender Identity Not on file Sexual Orientation [...] - 1-dose 75+ series) 2024 COVID-19 VACCINE ( season) 2025 02/19/2023, 02/27/2022, 12/02/2021, Additional history exists INFLUENZA VACCINE (#1) 2025 , 02/27/2022, 03/03/2021, Additional history exists HEPATITIS B [...] - 26 mg/dL 08/30/2023 6:51 AM CDT [facility] Creatinine 1.13 0.71 - 1.16 mg/dL 08/30/2023 6:51 AM CDT [facility] Sodium 142 136 - 145 mmol/L 08/30/2023 6:51 AM CDT [facility] Potassium 4.2 3.5 - 4.5 mmol/L 08/30/2023 6:51 AM CDT [facility] Chloride 109(H) 98 - 107 mmol/L 08/30/2023 6:51 AM [facility] CO2 23 22 - 29 mmol/L 08/30/2023 6:51 AM [facility] Glucose 104 70 - 115 mg/dL 08/30/2023 6:51 AM [facility] Calcium 9.2 8.4 - 10.2 mg/dL 08/30/2023 6:51 AM [facility] Protein Total 5.8(L) 6.0 - 8.3 g/dL 08/30/2023 6:51 AM [facility] Albumin 2.9(L) 3.4 - 5.0 g/dL 08/30/2023 6:51 AM [facility] Bilirubin Total 0.3 0.2 - 1.2 mg/dL 08/30/2023 6:51 AM [facility] Alkaline Phosphatase 55 40 - 150 U/L 08/30/2023 6:51 AM [facility] ALT 22 5 - 55 U/L 08/30/2023 6:51 AM [facility] AST 21 5 - 34 U/L 08/30/2023 6:51 AM [facility] Anion Gap 10 6 - 16 08/30/2023 6:51 AM [facility] BUN/Creatinine Ratio 18 7 - 23 08/30/2023 6:51 AM [facility] Osmolality Calculated 297(H) 275 - 295 mOsm/kg 08/30/2023 6:51 AM [facility] Albumin/Globulin Ratio 1.0(L) 1.1 - 2.3 08/30/2023 6:51 AM [facility] eGFR by CKD-EPI 69(L) >=90 mL/min/1.7 3 m2 08/30/2023 6:51 AM [facility] Blood BLOOD SPECIMEN / Unknown Lab Venipuncture / Unknown 08/30/2023 4:47 AM T 08/30/2023 5:52 AM [facility] us Arianna Pennington PA-C LAB - CHEMISTRY ORDERABLES Final Result [facility] [address] [place] [address], [place] [phone] * (ABNORMAL) HEMOGLOBIN A1C (08/27/2023 5:06 AM CDT) Hemoglobin A1c 6.2(H) <=5.6 % 08/27/2023 9:14 AM CDT [facility] Estimated Average Glucose 131 mg/dL 08/27/2023 9:14 AM CDT [facility] Comment: HbA1c Interpretation: Normal : < 5.7% Pre-diabetes: 5.7-6.4% Diabetes: Equal to or greater than 6.5% Test results diagnostic of diabetes should be repeated for confirmation. Treatment target values recommended by ADA and other clinical organizations should be used to evaluate metabolic control in patients. Reference: [place] [employer], Standards of Care in Diabetes [...] LAB - CHEMISTRY ORDERABLES Fi nal Result [facility] [address] [place] [address], [facility] [phone] from Last 3 Months or Most Recently Relevant to Health Maintenance Insurance [facility] [employer]IM[facility] MEDICARE Advance Directives * Full Code (Latest Code Status on File) Date Activated Date Inactivated Comments 08/26/2023 6:43 PM 08/30/2023 3:28 PM Care Teams Sap Business Objects Developer Relationship Specialty Start Date End Date Jean Pierre Landry MD [address] [place] [address] PCP - General 03/20/21
--- OUTSIDE RECORDS SUMMARY | 2025-03-02 08:58 | XMS_ITS | Encounter Summary ---
Author Organization [facility] Address [address] [place] [address] Care Team Providers Care Turf Manager Name Role Phone Jean Pierre Landry MD Primary Care Provider Encounter Details Date Type Department Care Team (Latest Contact Info) Description 06/07/2008 Inpatient Historical HIS PATIENT IN A BED Eduard Shearer MD [facility] [address] [place] [address] Jos Richter MD NO ADDRESS ON FILE Intermediate Coronary Syndrome (CMS/HCC); Coronary Atherosclerosis of [place] Coronary Artery; Automatic Implantable Cardiac Defibrillator in Situ; Unspecified Essential Hypertension Social History Tobacco Use Types Packs/Day Years Used Date Smoking Tobacco: Never Assessed Sex and Gender Information Value Date Recorded Sex Assigned at Not on file 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 Gender Identity Not on file Sexual Orientation Not on file documented as of this encounter Plan of Treatment Upcoming Encounters Date Type Department Care Team (Late st Contact Info) Description 04/18/2025 10:30 AM MERCHANT BANKER Office Visit [facility] Oncology and Hematology - [place] [address] [facility] [address] [place] [address] Fortino Villaseñor MD [address] [facility] [address] [place] [address] documented as of this encounter Procedures Procedure Name Priority Date/Time Associated Diagnosis Comments CBC WITH DIFFERENTIAL Stat 06/08/2008 1:17 PM MERCHANT BANKER LIPID PANEL Timed Study 06/08/2008 8:45 AM MERCHANT BANKER COMPREHENSIVE METABOLIC PANEL Timed Study 06/08/2008 8:45 AM MERCHANT BANKER TROPONIN Routine 06/08/2008 6:06 AM MERCHANT BANKER BASIC METABOLIC PANEL Routine 06/08/2008 6:06 AM MERCHANT BANKER documented in this encounter Results * (ABNORMAL) CBC WITH DIFFERENTIAL (06/08/2008 1:17 PM MERCHANT BANKER) [facility] MCV 91.1 82.0 - 99.0 fL [facility] PLATELETS 149 140 - 350 K/uL [facility] HEMOGLOBIN 15.4 13.6 - 16.5 g/dL [facility] RDW 13.1 11.5 - 14.5 % [facility] WBC 10.5(H) 4.0 - 9.8 K/uL [facility] MCH 31.2 27.2 - 32.6 pg [facility] MPV 10.7 9.3 - 12.4 fL [facility] HEMATOCRIT 45.0 40.0 - 48.0 % [facility] RDW-STDEV 43.1 37.1 - 48.7 fL [facility] RBC 4.94 4.50 - 5.40 M/uL [facility] MCHC 34.2 31.5 - 35.5 % [facility] NEUTROPHIL ABSOLUTE 7.32(H) 1.90 - 7.00 K/uL [facility] EOSINOPHILS 4 0 - 7 % [facility] EOSINOPHIL ABSOLUTE 0.40 0.00 - 0.70 K/uL [facility] LYMPHOCYTES 21 16 - 45 % [facility] LYMPHOCYTE ABSOLUTE 2.16 0.70 - 4.50 K/uL [facility] BASOPHILS 0 0 - 2 % [facility] BASOPHILS ABSOLUTE 0.03 0.00 - 0.20 K/uL [facility] MONOCYTES 6 3 - 13 % [facility] MONOCYTE ABSOLUTE 0.63 0.10 - 1.30 K/uL [facility] NEUTROPHILS 69 45 - 70 % [facility] Blood specimen (specimen) 06/08/2008 1:17 PM MERCHANT BANKER 06/08/2008 1:30 PM MERCHANT BANKER Narrative INTERFACE SYSTEM - 06/08/2008 1:36 PM MERCHANT BANKER off of blood in lab if avail. Jos Richter MD HEMATOLOGY ORDERABLES Edited INTERFACE SYSTEM Refer to clinic/hospital department [facility] CLIA# [id number] [address] [place] [address] * (ABNORMAL) COMPREHENSIVE METABOLIC PANEL (06/08/2008 8:45 AM MERCHANT BANKER) SODIUM 137 135 - 145 mmol/L [facility] GLUCOSE 114(H) 65 - 99 mg/dL [facility] BILIRUBIN TOTAL 0.6 0.2 - 1.0 mg/dL [facility] ALKALINE PHOSPHATASE 104 40 - 129 U/L [facility] CHLORIDE 103 96 - 108 mmol/L [facility] CALCIUM 9.2 8.6 - 10.2 mg/dL [facility] POTASSIUM 4.3 3.5 - 4.9 mmol/L [facility] BUN 19 6 - 20 mg/dL [facility] TOTAL PROTEIN 7.0 6.3 - 8.6 g/dL [facility] CO2 27 22 - 30 mmol/L [facility] CREATININE 0.93 0.67 - 1.17 mg/dL [facility] ALT 80(H) 0 - 41 U/L [facility] ALBUMIN 4.4 3.4 - 4.8 g/dL [facility] AST 36 12 - 38 U/L [facility] GFR, >60 >=60 mL/min/1. 7 sq meter [facility] GFR >60 >=60 mL/min/1. 7 sq meter [facility] Comment: Modification of Diet in Renal Disease (MDRD) study formula. Estimated GFR rate interpretative information for both Americans and non- Americans is available on the [facility] Intranet at: [email or web address] Select: Lab Policies and Procedures Select: Reference Ranges - GFR Blood specimen (specimen) 06/08/2008 8:45 AM MERCHANT BANKER 06/08/2008 8:51 AM MERCHANT BANKER Jos Richter MD CHEMISTRY ORDERABLES Edited INTERFACE SYSTEM Refer to clinic/hospital department [facility] CLIA# [id number] [address] [place] [address] * (ABNORMAL) LIPID PANEL (06/08/2008 8:45 AM MERCHANT BANKER) CHOLESTEROL 178 100 - 199 mg/dL [facility] CHOL/HDL RATIO 3.2 2.0 - 5.0 [facility] TRIGLYCERIDE 290(H) 10 - 149 mg/dL [facility] HDL 55 40 - 59 mg/dL [facility] LDL CALCULATED 65 <=99 mg/dL [facility] LIPID PANEL COMMENT See Below [facility] Comment: The adult ATP and pediatric NCEP classifications for lipids are available on the [facility] Intranet at: [email or web address] Select: Lab Policies and Procedures,Current Select: Lipid Panel Interpretation Blood specimen (specimen) 06/08/2008 8:45 AM MERCHANT BANKER 06/08/2008 8:51 AM MERCHANT BANKER Jos Richter MD CHEMISTRY ORDERABLES Edited INTERFACE SYSTEM Refer to clinic/hospital department [facility] CLIA# [id number] [address] [place] [place] [address] * (ABNORMAL) BASIC METABOLIC PANEL (06/08/2008 6:06 AM MERCHANT BANKER) BUN 19 6 - 20 mg/dL [facility] CHLORIDE 104 96 - 108 mmol/L [facility] GLUCOSE 104(H) 65 - 99 mg/dL [facility] SODIUM 137 135 - 145 mmol/L [facility] CALCIUM 9.0 8.6 - 10.2 mg/dL [facility] CO2 25 22 - 30 mmol/L [facility] CREATININE 0.90 0.67 - 1.17 mg/dL [facility] POTASSIUM 4.0 3.5 - 4.9 mmol/L [facility] GFR, >60 >=60 mL/min/1. 7 sq meter [facility] GFR >60 >=60 mL/min/1. 7 sq meter [facility] Comment: Modification of Diet in Renal Disease (MDRD) study formula. Estimated GFR rate interpretative information for both Americans and non- Americans is available on the [facility] Intranet at: [email or web address] Select: Lab Policies and Procedures Select: Reference Ranges - GFR Blood specimen (specimen) 06/08/2008 6:06 AM MERCHANT BANKER 06/08/2008 6:17 AM MERCHANT BANKER us Eduard Shearer MD CHEMISTRY ORDERABLES Edited Performing Organization Address [facility] Co de Phone Number INTERFACE SYSTEM Refer to clinic/hospital department [facility] CLIA# [id number] [address] [place] [address] * TROPONIN (06/08/2008 6:06 AM MERCHANT BANKER) TROPONIN T <0.01 <=0.03 ng/mL [facility] TROPONIN T INTERP Negative [facility] Blood specimen (specimen) 06/08/2008 6:06 AM MERCHANT BANKER 06/08/2008 6:17 AM MERCHANT BANKER Eduard Shearer MD CHEMISTRY ORDERABLES Edited Performing Organization Address [facility] de Phone Number INTERFACE SYSTEM Refer to clinic/hospital department [facility] CLIA# [id number] [address] [place] [address] documented in this encounter Visit Diagnoses Diagnosis Intermediate coronary syndrome Coronary atherosclerosis of [place] coronary artery Automatic implantable cardiac defibrillator in situ Unspecified essential hypertension documented in this encounter Care Teams Turf Manager Relationship Specialty Start Date End Date Jean Pierre Landry MD [facility] [facility] [place] [address] PCP - General Family Practice 12/25/24 documented as of this encounter
--- OUTSIDE RECORDS SUMMARY | 2025-03-02 08:58 | XMS_ITS | Encounter Summary ---
Author Organization [facility] Address [address] [place] [address] Care Team Providers Care Associate Professor Of Literature Name Role Phone Jean Pierre Landry MD Primary Care Provider Encounter Details Date Type Department Care Team (Late st Contact Info) Description 04/26/2007 Outpatient Historical [facility] [place] [address] [place] [address] Jos Richter MD NO ADDRESS ON FILE Social History Tobacco Use Types Packs/Day Years Used Date Smoking Tobacco: Never Assessed Sex and Gender Information Value Date Recorded Sex Assigned at Not on file Legal Sex Male 3:45 AM JET BLADE POLISHER Gender Identity Not on file Sexual Orientation Not on file documented as of this encounter Plan of Treatment Upcoming Encounters Date Type Department Care Team (Late st Contact Info) Description 04/18/2025 10:30 AM JET BLADE POLISHER Office Visit [facility] Oncology and Hematology - [place] [address] [facility] [address] [address] Fortino Villaseñor MD [address] [facility] [address] [place] [address] documented as of this encounter Visit Diagnoses Not on filedocumented in this encounter Care Teams Associate Professor Of Literature Relationship Specialty Start Date End Date Jean Pierre Landry MD [address] [facility] [place] [address] PCP - General Family Practice 12/25/24 documented as of this encounter
--- OUTSIDE RECORDS SUMMARY | 2025-03-02 08:58 | XMS_ITS | Encounter Summary ---
Author Organization [facility] Address [address] [place] [address] Care Team Providers Care Supervisor Cytology Name Role Phone Jean Pierre Landry MD Primary Care Provider Encounter Details Date Type Department Care Team (Late Contact Info) Description 10/14/2006 Outpatient Historical [facility] [address] [facility] [facility] [place] [address] Rodri Amador MD [address] [address] [place] [address] Social History Tobacco Use Types Packs/Day Years Used Date Smoking Tobacco: Never Assessed Sex and Gender Information Value Date Recorded Sex Assigned at Not on file Legal Sex Male 3:45 AM SPECIAL LOAN OFFICER Gender Identity Not on file Sexual Orientation Not on file documented as of this encounter Plan of Treatment Upcoming Encounters Date Type Department Care Team (Late st Contact Info) Description 04/18/2025 10:30 AM SPECIAL LOAN OFFICER Office Visit [facility] Oncology and Hematology - [place] [address] [facility] [address] [place] [address] Fortino Villaseñor MD [address] [facility] [address] [place] [address] documented as of this encounter Visit Diagnoses Not on filedocumented in this encounter Care Teams Supervisor Cytology Relationship Specialty Start Date End Date Jean Pierre Landry MD [address] [place] [address] [place] [address] PCP - General Family Practice 12/25/24 documented as of this encounter
--- OUTSIDE RECORDS SUMMARY | 2025-03-02 08:58 | XMS_ITS | Clinical Summary ---
Author Organization [facility] [address] [place] Address [address] [place] [address] Care Team Providers Care Toggle Press Folder And Feeder Name Role Phone Jean Pierre Landry MD [...] the hip level. Current arterial Doppler from [facility] shows normal ABIs. Lower extremities [...] on file Legal Sex Male 10:04 AM WATCH HAIRSPRING ASSEMBLER Gender Identity Not on file Sexual [...] Routine) 10/11/2024 9:55 AM CDT Atherosclerosis of [place] artery of both lower extremities with intermittent claudication from Last 3 Months or Most Recently Relevant to Health Maintenance Results * CTA Abdomen Pelvis (10/11/2024 9:55 AM CDT) Anatomical Region Laterality Modality Body N/A Computed Tomogra phy 10/16/2024 2:01 PM CDT Narrative 10/16/2024 2:16 PM CDT EXAM DESCRIPTION: CTA ABDOMEN PELVIS REASON FOR STUDY: PVD Patient with PVD, atherosclerosis of [place] artery of both lower extremities with intermittent [...] Shana Cohen M.D. FT T: Report ID: [id number] Reading Location: [place] [address] Procedure Note Shana Martel MD - 10/16/2024 EXAM DESCRIPTION: CTA ABDOMEN PELVIS REASON FOR STUDY: PVD Patient with PVD, atherosclerosis of [place] artery of both lowerextremities with intermittent claudication [...] by Shana Cohen M.D. T: Report ID: [id number] Reading Location: [place] [address] Leonard Jean MD IM CT PROCEDURES Final Result from Last 3 Months or Most Recently Relevant to Health Maintenance [place] [address] [facility] [place] [address] Care Teams Toggle Press Folder And Feeder Relationship Specialty Start Date End Date Jean Pierre Landry MD [address] [facility] [address] [place] [address] [place] [address] PCP - General Family Practice 07/13/24
--- OUTSIDE RECORDS SUMMARY | 2025-03-02 08:58 | XMS_ITS | Encounter Summary ---
Author Organization [facility] Address [address] [place] [address] Care Team Providers Care Hand Stitcher Name Role Phone Jean Pierre Landry MD [...] on file Legal Sex Male 3:45 AM RECRUITING INTERNSHIP Gender Identity Not on file Sexual Orientation Not on file documented as of this encounter Plan of Treatment Upcoming Encounters Date Type Department Care Team (Late st Contact Info) Description 04/18/2025 10:30 AM RECRUITING INTERNSHIP Office Visit [facility] Oncology and Hematology - [place] [address] [facility] [address] [place] [address] Fortino Villaseñor MD [address] [facility] [address] [place] [address] documented as of this encounter Visit Diagnoses Diagnosis Nonspecific abnormal unspecified cardiovascular function study- Primary documented in this encounter Care Teams Hand Stitcher Relationship Specialty Start Date End Date Jean Pierre Landry MD [facility] [place] [address] PCP - General Family Practice 12/25/24 documented as of this encounter
--- OUTSIDE RECORDS SUMMARY | 2025-03-02 08:58 | XMS_ITS | Clinical Summary ---
Author Organization [facility] Address [address] [facility] [address] [place] [address] Phone Care Team Providers Care Welder Assembler Name Role Phone Jean Pierre Landry MD [...] 99.8 kg (220 lb) 07/19/2019 9:00 AM PANTS PRESSER Height 172.7 cm (5' 8) 07/19/2019 9:00 AM PANTS PRESSER Body Mass Index 33.45 07/19/2019 9:00 AM PANTS PRESSER Plan of Treatment Health Maintenance Due Date Last Done Comments Hepatitis C Virus (HCV) Screening 1950 TdaP Immunization 1950 Cologuard 1994 Immunochemical Fecal Occult Blood 1994 Pneumococcal Immunization (5 0+ years) (1 of 1 - PCV) 11/28/1999 Zoster Immunization (1 of 2) 11/28/1999 Medicare Initial AWV [id number] 10/30/2015 Respiratory Syncytial Virus (RSV) Immunization (Adult) (1 - 1-dose 75+ series) 2024 Colonoscopy 01/24/2025 01/24/2015 Colorectal Cancer Screening 01/24/2025 Influenza Immunization (#1) 2025 SARS-COV-2 Immunization ( season) 2025 Hepatitis B Immunization Aged Out No [...] COLONOSCOPY (01/24/2015) Luis King MD PROCEDURE/MINOR SURGICAL ORDNehal DE [place] Final Result from Last 3 Months or Most Recently Relevant to Health Maintenance Insurance MEDICARE Care Teams Welder Assembler Relationship Specialty Start Date End Date Jean Pierre Landry MD PCP - General Family Medicine 07/04/19 Rodri Amador MD [address] [facility] [address] [place] [address] 07/04/19
--- OUTSIDE RECORDS SUMMARY | 2025-03-02 08:58 | XMS_ITS | Encounter Summary ---
Author Organization [facility] Address [address] [place] [address] Care Team Providers Care Software Development Test Engineer Name Role Phone Jean Pierre Landry MD Primary Care Provider Encounter Details Date Type Department Care Team (Late st Contact Info) Description 08/14/2005 Outpatient Historical [facility] [place] [address] [facility] 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 Gender Identity Not on file Sexual Orientation Not on file documented as of this encounter Plan of Treatment Upcoming Encounters Date Type Department Care Team (Late st Contact Info) Description 04/18/2025 10:30 AM MOLD CUTTING MACHINE OPERATOR Office Visit [facility] and Hematology - [place] [address] [facility] [address] [address] Fortino Villaseñor MD [address] [facility] [address] [place] [address] documented as of this encounter Visit Diagnoses Not on filedocumented in this encounter Care Teams Software Development Test Engineer Relationship Specialty Start Date End Date Jean Pierre Landry MD [address] [facility] [place] [address] PCP - General Family Practice 12/25/24 documented as of this encounter
--- OUTSIDE RECORDS SUMMARY | 2025-03-02 08:58 | XMS_ITS | Clinical Summary ---
Author Organization [facility] Address [address] [place] [address] Phone Care Team Providers Care Admitting Manager Name Role Phone Jean Pierre Landry [...] [employer] MEDICARE SUPPLEMENT Care Teams Admitting Manager Relationship Specialty Start Date End Date Jean Pierre Landry MD [address] [place] [phone] PCP - General Internal Medicine 10/11/21
--- OUTSIDE RECORDS SUMMARY | 2025-03-02 08:58 | XMS_ITS | Encounter Summary ---
Author Organization [facility] Address [address] [place] [address] Care Team Providers Care News Reporter Name Role Phone Jean Pierre Landry MD Primary Care Provider Encounter Details Date Type Department Care Team (Late st Contact Info) Description 05/05/2007 Outpatient Historical [facility] [place] [address] [place] [address] Jos Richter MD NO ADDRESS ON FILE Social History Tobacco Use Types Packs/Day Years Used Date Smoking Tobacco: Never Assessed Sex and Gender Information Value Date Recorded Sex Assigned at Not on file Legal Sex Male 3:45 AM CARD FEEDER Gender Identity Not on file Sexual Orientation Not on file documented as of this encounter Plan of Treatment Upcoming Encounters Date Type Department Care Team (Late st Contact Info) Description 04/18/2025 10:30 AM CARD FEEDER Office Visit [facility] Oncology and Hematology - [place] [address] [facility] [address] [address] Fortino Villaseñor MD [address] [facility] [address] [place] [address] documented as of this encounter Visit Diagnoses Not on filedocumented in this encounter Care Teams News Reporter Relationship Specialty Start Date End Date Jean Pierre Landry MD [address] [facility] [place] [place] [address] PCP - General Family Practice 12/25/24 documented as of this encounter
--- OUTSIDE RECORDS SUMMARY | 2025-03-02 08:58 | XMS_ITS | Clinical Summary ---
Author Organization [facility] Address [address] [place] [address] Phone Care Team Providers Care Manufactured Buildings Supervisor Name Role Phone Jean Pierre Landry [...] 40 mg tabletIndications:C oronary artery disease involving wainwright coronary artery of wainwright heart without angina pectoris,Mixed hyperlipidemia TAKE 1 TABLET BY MOUTH EVERY DAY AT BEDTIME 90 Tablet 1 5 Active ferrous sulfate 325 mg (65 mg iron) tablet Take 325 mg by mouth daily. Active metFORMIN (GLUCOPHAGE) 500 mg tablet Take 500 mg by mouth 2 times daily with meals. Active doxazosin (CARDURA) 2 mg tablet Take 2 mg by mouth daily. Active Active Problems Patient Care Coordination No te Formatting of this note migh t be different from the original. Sales Project Administrator- Dr. Perry Low Office Rodri Amador MD- [facility] ( [facility]) Problem Noted Date Diagnosed Date History [...] stress 2017 Nl LV fxn echo 12/21 On eliquis bc recurrent DVT, clopidogrel stopped Resolved Problems Problem Noted Date Diagnosed Date Resolved Date Old HI (myocardial infarction) 02/28/2019 01/19/2023 History of HI (myocardial infarction) 05/17/2018 02/28/2019 Precordial pain 04/28/2018 05/17/2018 Precordial pain 04/28/2018 05/17/2018 Tobacco use 12/07/2016 04/27/2017 Cigarette dependence 12/07/2016 017 Chewing tobacco dependence 12/07/2016 1 06/27/2016 Second hand tobacco smoke exposure 12/07/2016 04/27/2017 Occupational tobacco smoke exposure 12/07/2016 04/27/2017 tobacco smoke expo sure (20wks gestation-4wks post ) 12/07/2016 04/27/2017 Essential hypertension, benign 10/25/2008 11/20/2011 Encounters Date Type Department Care Team Description 02/13/2025 External Device Data STL ABSTRACTION Provider, Abstract 02/06/2025 External Device Data STL ABSTRACTION Provider, Abstract 01/30/2025 10:30 AM CDT Office Visit [facility] - [facility] [address] [place] [address] [place] [id number] Rodri Amador MD CAD s/p PCI [...] on file Legal Sex Male 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19 01/30/2025 10:33 AM CDT Plan of Treatment Upcoming Encounters Date Type Department Care Team (Late st Contact Info) Description 04/18/2025 10:30 AM STACK CLERK Office Visit [facility] [address] [facility] [address] [place] [address] Fortino Villaseñor MD [address] [facility] [address] [place] [address] Health Maintenance Due Date Last [...] 12/25/2020 HEMOGLOBIN A1C Routine 04/19/2019 2:28 AM STACK CLERK from Last 3 Months or Most Recently Relevant to Health Maintenance Results * LIPID PANEL (12/25/2020) Blood us Abstract Provider CHEMISTRY ORDERABLES Final Res ult [facility] CLIA# [id number] [address] [place], [place] [id number] * (ABNORMAL) HEMOGLOBIN A1C (04/19/2019 2:28 AM STACK CLERK) HEMOGLOBIN A1C 6.7(H) <5.7 % of total Hgb Greetz [facility] Comment: For someone without known diabetes, a [...] of diabetes for children. 04/19/2019 2:28 AM STACK CLERK us Historical Provider CHEMISTRY ORDERABLES Edited Result - Final Greetz [facility] [address] [place] [address] from Last 3 Months or Most Recently Relevant to Health Maintenance Insurance [facility] MEDICARE PART A AND B MEDICARE PART A AND B [place] [facility] [place] [id number] Advance Directives For more information, please contact: [phone] * Full Code (Latest Code Status on File) Date Activated Date Inactivated Comments 04/28/2018 7:27 PM 04/29/2018 8:59 PM Care Teams Manufactured Buildings Supervisor Relationship Specialty Start Date End Date Jean Pierre Landry MD [address] [facility] [place] [place] [id number] PCP - General Family Practice 12/25/24
[2025-03-02 09:13] LABS: Estimated Glomerular Filt Rate 49
== END 2025-03-02 08:46 | disposition home or self-care (01) ==
PROVIDERS: PCP Family Medicine; Visit Provider Nurse Practitioner Family
DX: N28.89 Other specified disorders of kidney and ureter (principal); N28.1 Cyst of kidney, acquired; I71.9 Aortic aneurysm of unspecified site, without rupture
CPT/HCPCS: 74178; Q9967

== ENCOUNTER 2025-03-27 13:55 | Emergency (ER) | payer MEDICARE, OTHER, SELFPAY ==
--- NOTE | ~2025-03-27 | CT_ITS ---
EXAMINATION: CTA chest PE protocol DATE: 03/27/2025 15:09 INDICATION: Dyspnea. TECHNIQUE: Computed tomography angiography (CTA) of the chest was performed with 100 mL Omnipaque-350 intravenous contrast timed to evaluate the pulmonary arteries. Coronal maximum intensity projection 3D-reconstructions were created by the technologist. Automated exposure control and iterative reconstruction technique were employed. The dose-length product was 637.74 mGy-cm. COMPARISON: Chest CT 01/31/25, CT abdomen and pelvis 03/02/2025 FINDINGS: There is moderate emphysema. There is mild atelectasis bilaterally. There is a trace left pleural effusion. The heart size is normal. There are coronary artery calcifications. No pericardial effusion. There is no pulmonary embolus. There is a 15 mm hemorrhagic cyst in left kidney. There is mild thoracic spondylosis. There is mild chronic anterior wedging of multiple vertebral bodies. IMPRESSION: 1. No pulmonary embolus. 2. Moderate emphysema. Reviewed, dictated and finalized at location E.
--- NOTE | ~2025-03-27 | XR_ITS ---
EXAMINATION: XR chest 2V, 03/27/2025 14:20 CDT HISTORY: cp AND SOB X 4 DAYS, EMPHYSEMA, PREVIOUS HEART ATTACK COMPARISON: No comparisons available. Technique: 2 views obtained. Findings: The lungs are clear, no effusion. No pneumothorax. Heart is normal size. Mediastinal and hilar contours are within normal limits. Bony thorax no acute abnormality. Impression: No acute cardiopulmonary abnormality. Reviewed, dictated and finalized at location P. Impression: No acute cardiopulmonary abnormality.
[2025-03-27 13:57] VITALS: BP 146/66; PULSE 71; RESP 19; O2SAT 99
[2025-03-27 14:03] VITALS: O2SAT 98
--- NOTE | 2025-03-27 14:07 | ECG_ITS ---
Test Date: 2025-03-27 14:04:58 Measurements Intervals [place] Rate: 71 P: 27 [place]: 191 QRS: -1 QRSD: 145 T: -13 QT: 378 QTc: 412 Interpretive Statements SINUS RHYTHM RIGHT BUNDLE BRANCH BLOCK CONSIDER INFERIOR INFARCT, AGE INDETERMINATE BASELINE ARTIFACT- I, II, III, AVR, AVL, AVF ABNORMAL ECG No previous ECG available for comparison Electronically Signed On 03-27-2025 14:19:06 CDT by Anam Chamberlain D.O.
[2025-03-27 14:22] LABS: Hematocrit 39.4 % (42.0-52.0); Hemoglobin 13.0 g/dL (14.0-18.0); Immature Granulocyte Percent A 0.7 % (0-0.5); Lymphocytes Absolute Auto 1.02 K/mm3 (0.9-3.2); Mean Corpuscular HGB Conc 33.0 g/dl (32-36); Mean Corpuscular Hemoglobin 29.6 pg (26-34); Mean Corpuscular Volume 89.7 fl (80-100); Nucleated Red Blood Cells Absolute Auto 0.000 K/mm3 (0.0-0.012); Nucleated Red Blood Cells Perc 0.0 % (0.0-0.2); Platelet Count Result 184 k/mm3 (150-375); Red Blood Count 4.39 M/mm3 (4.6-6.20); White Blood Count 7.6 K/mm3 (4.5-10.0)
[2025-03-27 14:31] LABS: Alanine Aminotransferase 22 U/L (6-50); Albumin Level 4.2 g/dL (3.5-5.1); Alkaline Phosphatase 77 U/L (38-126); Anion Gap 8 mmol/L (4-12); Aspartate Amino Transferase 24 U/L (17-59); Bilirubin,Total 0.5 mg/dL (0.2-1.3); Blood Urea Nitrogen 21 mg/dL (9-20); Calcium 9.7 mg/dL (8.4-10.2); Carbon Dioxide 28 mmol/L (22-30); Chloride 103 mmol/L (98-107); Estimated CRCL calculation 48 ml/min; Estimated Glomerular Filt Rate 49; Glucose 168 mg/dL (65-110); Lipase 70 U/L (23-300); Potassium 4.3 mmol/L (3.4-5.0); Sodium 139 mmol/L (137-145); Total Protein 7.5 g/dL (6.3-8.2)
[2025-03-27 14:34] LABS: INR 1.3; Prothrombin Time 15.9 Seconds (11.1-14.7)
[2025-03-27 14:35] LABS: Partial Thromboplastin Time 37.8 Seconds (22.3-36.8)
[2025-03-27 14:44] LABS: Troponin I < 0.012 ng/mL (0.000-0.034)
--- NOTE | 2025-03-27 14:44 | ED_ITS ---
HPI - Chest Pain General Chief Complaint: Chest Pain Stated Complaint: CP Time Seen by Provider: 03/27/25 14:12 History of Present Illness HPI narrative: 74-year-old male with a past medical history including coronary artery disease, diabetes, CKD, hypertension. History of DVT and large pulmonary embolism requiring thrombectomy and chronic anticoagulation with Eliquis. Presents to the emergency department with chest tightness and worsening dyspnea. He states he has been doing with exertional dyspnea for over year but for last few days he has had worsening exertional dyspnea and taking him longer to recover from minor exertion. Yesterday night he had chest tightness associated with dyspnea at rest which is never happened to him which made him concerned and he called an ambulance. Patient endorses chest tightness and discomfort now without any radiation towards his back abdomen neck or jaw/arms. States he had dyspnea with minimal activity including just transitioning from the stretcher to the wheelchair for imaging and positional changes. No nausea, vomiting, headache, vision change, neck pain, abdominal pain, back pain, fever, chills. No cough. No recent changes to his health habits or medication changes. Was otherwise in his normal state of health. Related Data Home Medications ?Medication ?Instructions ?Recorded ?Confirmed ?Last Taken ?Type coenzyme Q10 100 mg capsule 100 mg PO BID 10/18/2002/11/25 History calcium 250 mg 2 tablet PO DAILY 01/08/25 0 02/12/25 02/11/25 History (citrate)-ergocalciferol (D2) 2.5 mcg (100 unit) tablet (Julio-Citrate) cholecalciferol (vitamin D3) 25 75 mcg PO DAILY 02/12/25 02/11/25 History mcg (1,000 unit) tablet Allergies Allergy/AdvReac Type Severity Reaction Status Date / Time YANET Inhibitors Allergy Unknown Unknown,ANG Verified 03/27/25 14:12 IOEDEMA atorvastatin Allergy Unknown Unknown,Joint Verified 03/27/25 14:12 Pain hydrochlorothiazide Allergy Unknown Unknown,LOW Verified 03/27/25 14:12 ELETROLYTES ramipril Allergy Unknown Unknown,ANG Verified 03/27/25 14:12 IOEDEMA spironolactone Allergy Unknown Unknown,LOW Verified 03/27/25 14:12 ELECTROLYTES Sulfa (Sulfonamide Allergy Unknown Unknown,Unknown- Verified 03/27/25 14:12 Antibiotics) A CHILD valsartan AdvReac Severe Angioedema Verified 03/27/25 14:12 Review of Systems 2 Review of Systems: As reviewed above in [facility] Past Medical History Medical History Lumbar stenosis Lumbar spondylosis Lumbar radiculopathy Trochanteric bursitis of left hip Endophthalmitis Lumbar stenosis with neurogenic claudication History of pulmonary embolism (~07/2023) Deep vein thrombosis of right lower extremity (~03/30/24) Degenerative joint disease of right hip Right knee DJD Piriformis muscle pain Trochanteric bursitis, right hip Hypertension Heart attack Peptic ulcer disease History of basal cell cancer Emphysema lung CKD (chronic kidney disease) stage 3, GFR 30-59 ml/min History of colon polyps Dissection of right iliac artery Chronic anemia Gastroesophageal reflux disease Cholecystitis (12/2020) Type 2 diabetes mellitus without complications History of urethral stricture History of basal cell carcinoma of skin Vitamin D deficiency Dyslipidemia Essential (primary) hypertension Surgical History Surgical History History of right inguinal hernia repair (~05/2023) History of total right knee replacement (~02/2024) Hx of inguinal hernia repair robotic assisted repair right inguinal hernia with mesh 06/07/23 PDC History of total left knee replacement (~08/19/21) History of laparoscopic cholecystectomy (03/12/21) With intraoperative cholangiogram. History of tonsillectomy History of coronary artery stent placement 1997 and 2002 History of medial meniscus repair of left knee (11/24/18) Family History Family History Father Carcinoma of colon Heart disease Mother Heart disease Sibling Heart disease Other Arthritis Social History Social History Social History: Surrogate decision-maker: Vamshi (son) or [place] (brother) Rosalina. CODE STATUS: Full code Years smoked: 40 Smoking status: Former smoker Tobacco type: cigarettes Second hand tobacco smoke exposure: No Smoking end date: 03/06/17 Additional smoking assessment comments: No nicotine use at all Alcohol intake: current Drinks per week: 3 Alcohol use details: occasionally Substance use: never Substance use type: does not use Do You Feel Safe in your Home?: Yes Lack of Transportation: No Lack of Food: Never True Current Housing: I Have Housing Concerned About Future Housing: No Difficulty Paying Gas/Electric Bills: No Difficulty Paying for Meds: No Currently Unemployed: No Education: High School Diploma/GED Difficulty w/ Childcare or Family Care: No Living arrangements: alone Additional living arrangements comments: Lives in [place]. Occupation/Education: retired Additional occupation/education comments: Retired. Spiritual care concerns: No Exam 2 Narrative: GENERAL: [Well-appearing, well-nourished, and in no acute distress.] HEAD: [Normocephalic, atraumatic.] EYES: [PERRLA and EOMI.] ENT: Nares clear, no rhinorrhea or epistaxis. Mucous membranes moist. NECK: Supple. CHEST: [Clear to auscultation. No respiratory distress.] HEART: [Regular rate and rhythm]. No murmur heard. [Normal peripheral pulses.] ABDOMEN: [Soft, nondistended], [nontender], [No rigidity or guarding] EXTREMITIES: Normal range of motion. [No edema.] SKIN: Warm, dry, no rash. NEURO: [No focal deficits]. Alert and oriented [x3.] PSYCH: [Normal mood and affect.] Course Vital Signs Vital signs: Vital Signs Pulse Rate 71 03/27/25 13:57 Respiratory Rate 19 03/27/25 13:57 Blood Pressure 146/66 H 03/27/25 13:57 Pulse Oximetry 99 03/27/25 13:57 Oxygen Delivery Room Air 03/27/25 13:57 Pulse Rate 73 03/27/25 17:41 Respiratory Rate 19 03/27/25 17:41 Blood Pressure 95/72 L 03/27/25 17:41 Pulse Oximetry 97 03/27/25 17:41 Oxygen Delivery Room Air 03/27/25 14:03 MDM - Chest Pain MDM Narrative Medical decision making narrative: 74-year-old male with a past medical history including coronary artery disease, diabetes, CKD, hypertension. History of DVT and large pulmonary embolism requiring thrombectomy and chronic anticoagulation with Eliquis. Presents to the emergency department with chest tightness and worsening dyspnea. He states he has been doing with exertional dyspnea for over year but for last few days he has had worsening exertional dyspnea and taking him longer to recover from minor exertion. Yesterday night he had chest tightness associated with dyspnea at rest which is never happened to him which made him concerned and he called an ambulance. Patient endorses chest tightness and discomfort now without any radiation towards his back abdomen neck or jaw/arms. States he had dyspnea with minimal activity including just transitioning from the stretcher to the wheelchair for imaging and positional changes. No nausea, vomiting, headache, vision change, neck pain, abdominal pain, back pain, fever, chills. No cough. No recent changes to his health habits or medication changes. Was otherwise in his normal state of health. Patient is mildly hypertensive but not severe. No tachycardia, fever, hypoxemia. Has clear breath sounds, no murmurs. 2+ symmetric pulses. No signs of fluid overload. Concern presently raise for pulmonary versus cardiac etiologies such as ACS, thromboembolic event, pneumonia, pneumothorax, less likely aortic process or infectious process given the lack of cough or fever/hypoxemia. Laboratory studies obtained, trending troponins EKG and BNP ordered. CT angiography of the chest ordered. Patient's initial and delta troponin are negative. EKG with right bundle without any acute ST segment concerns. No leukocytosis or significant anemia. Normal platelet count. BUN and creatinine around baseline. Glucose is unremarkable. LFTs normal. Electrolytes normal. BNP unremarkable. Lipase normal. CT angiography shows no pulmonary embolism and moderate emphysema. Re-evaluated the patient who is feeling better. Discussed his CT findings including the emphysema which has progressed from his prior mild emphysema and could be the source of patient's dyspnea. He was told that he previously saw a copyright expert but is not on any steroids or inhalers. He feels better and is expressing desire to go home at this time. I gave him a referral to new copyright expert and strict return precautions which she verbalized understanding. Patient is safe for discharge at this time. Medical Records Data Attestation: I reviewed the patient's medical records. Lab Data Attestation: I reviewed the patient's lab results. 03/27/25 14:11 03/27/25 14:11 Labs: Lab Results 03/27/25 03/27/25 Range/Units 14:11 17:40 WBC 7.6 (4.5-10.0) K/mm3 RBC 4.39 L (4.6-6.20) M/mm3 Hgb 13.0 L (14.0-18.0) g/dL Hct 39.4 L (42.0-52.0) % MCV 89.7 (80-100) fl MCH 29.6 (26-34) pg MCHC 33.0 (32-36) g/dl RDW 13.0 (11.5-14.5) % Plt Count 184 (150-375) k/mm3 MPV 9.4 (7.4-10.4) fl Immature Gran % (Auto) 0.7 H (0-0.5) % Neut % (Auto) 68.5 (45.5-73.1) % Lymph % (Auto) 13.5 L (18.3-44.2) % [place] % (Auto) 10.0 H (2.6-8.5) % Eos % (Auto) 6.6 H (0-4.4) % Baso % (Auto) 0.7 (0.2-1.2) % Lymph # (Auto) 1.02 (0.9-3.2) K/mm3 [place] # (Auto) 0.8 H (0.1-0.6) K/mm3 Eos # (Auto) 0.5 H (0-0.3) K/mm3 Baso # (Auto) 0.1 (0.0-0.1) K/mm3 Abs Immat Gran (auto) 0.05 H (0.00-0.031) K/mm3 Absolute Neuts (auto) 5.2 (1.3-6.7) K/mm3 Absolute Nucleated RBC 0.000 (0.0-0.012) K/mm3 Nucleated RBC % 0.0 (0.0-0.2) % PT 15.9 H (11.1-14.7) Seconds INR 1.3 APTT 37.8 H (22.3-36.8) Seconds Sodium 139 (137-145) mmol/L Potassium 4.3 (3.4-5.0) mmol/L Chloride 103 (98-107) mmol/L Carbon Dioxide 28 (22-30) mmol/L Anion Gap 8 (4-12) mmol/L BUN 21 H (9-20) mg/dL Creatinine 1.40 H (0.7-1.3) mg/dL Estim Creat Clear Calc 48 ml/min Estimated GFR 49 L (59 - ) Glucose 168 H (65-110) mg/dL Calcium 9.7 (8.4-10.2) mg/dL Total Bilirubin 0.5 (0.2-1.3) mg/dL AST 24 (17-59) U/L ALT 22 (6-50) U/L Alkaline Phosphatase 77 (38-126) U/L Troponin I < 0.012 < 0.012 (0.000-0.034) ng/mL NT-Pro-B Natriuret Pep 525 H (19.9-100) pg/mL Total Protein 7.5 (6.3-8.2) g/dL Albumin 4.2 (3.5-5.1) g/dL Lipase 70 (23-300) U/L Imaging Data Attestation: I personally reviewed and interpreted this imaging study as follows: My impression: Impressions Chest X-Ray 03/27/25 14:31 Impression: No acute cardiopulmonary abnormality. Chest CTA 03/27/25 15:10 IMPRESSION: 1. No pulmonary embolus. 2. Moderate emphysema. Discharge Plan Discharge Clinical Impression: Exertional dyspnea, Emphysema of lung Patient Disposition: Home Condition: Stable Instructions: Antibiotic Form, Emphysema (DC), COPD (Chronic Obstructive Pulmonary Disease) (DC), Dyspnea (ED) Additional Instructions: Your CT scan shows no blood clot in your cardiac enzymes are undetectable. You do have moderate emphysema which has progressed from your previous mild emphysema and can be the source of your symptoms. We have referred her to a copyright expert for outpatient evaluation and you might benefit from being on some combination inhalers. If you have any worsening symptoms, developing constant chest pain or pressure, loss of consciousness, any other urgent or emergent concerns please return to the ED. follow-up with the provided copyright expert and also follow-up with your primary care provider and cellophane wrapping examiner. Patient Language: Danish Prescriptions: No Action Julio-Citrate 250 mg-2.5 mcg (100 unit) tablet 2 tablet PO DAILY Patient Comments: Calcium 1200mg with 1000IU Vitamin D. coenzyme Q10 100 mg capsule 100 mg PO BID fluticasone propionate [Allergy Relief (fluticasone)] 50 mcg/actuation spray,suspension 1 spray intranasal BID Qty: 16 2RF Rx Instructions: administer into each nostril cholecalciferol (vitamin D3) 25 mcg (1,000 unit) tablet 75 mcg PO DAILY glimepiride 1 mg tablet 1 mg PO QAM Qty: 90 1RF Rx Instructions: administer with breakfast DOES NOT TAKE if BS Below 100, TAKES 1MG IF BLOOD [id number], TAKE 2MG IF BLOOD SURGERY >140 fenofibrate micronized 134 mg capsule 134 mg PO DAILY Qty: 90 3RF omeprazole 20 mg capsule,delayed release(DR/EC) 20 mg PO DAILY Qty: 90 1RF ferrous sulfate 325 mg (65 mg iron) tablet 325 mg PO DAILY Qty: 180 1RF magnesium oxide 400 mg (241.3 mg magnesium) tablet 800 mg PO TID Qty: 540 1RF Eliquis 5 mg tablet See Rx Instructions .ROUTE .COMPLEX Qty: 180 1RF Dose Instruction: TAKE 1 TABLET BY MOUTH TWICE DAILY Rx Instructions: TAKE 1 TABLET BY MOUTH TWICE DAILY carvedilol 25 mg tablet 25 mg PO BID Qty: 180 1RF amlodipine 10 mg tablet 10 mg PO QAM Qty: 90 1RF doxazosin 2 mg tablet 2 mg PO HS Qty: 90 1RF rosuvastatin 40 mg tablet 40 mg PO HS Qty: 90 1RF metformin 500 mg tablet extended release 24 hr 500 mg PO BID Qty: 180 1RF Follow-up/Referrals: Norma Landry MD [Primary Care Provider, Family Practice] Zak Estrada MD [Physician, Pulmonology] - 1 Week Referral Note: Emphysema, dyspnea Time of Disposition: 18:26
[2025-03-27 15:55] LABS: NT Pro B Type Natriuretic Pept 525 pg/mL (19.9-100)
--- NOTE | 2025-03-27 17:08 | ECG_ITS ---
Test Date: 2025-03-27 17:29:27 Measurements Intervals [place] Rate: 68 P: 26 [place]: 228 QRS: 7 QRSD: 146 T: -14 QT: 396 QTc: 424 Interpretive Statements SINUS RHYTHM WITH FIRST DEGREE AV BLOCK RIGHT BUNDLE BRANCH BLOCK CONSIDER INFERIOR INFARCT, AGE INDETERMINATE ABNORMAL ECG Compared to ECG 03/27/2025 14:04:58 First degree AV block now present Electronically Signed On 03-27-2025 18:35:21 CDT by Anam Chamberlain D.O.
--- OUTSIDE RECORDS SUMMARY | 2025-03-27 17:12 | XMS_ITS | Clinical Summary ---
Author Organization [facility] Address [address] [place] [address] Care Team Providers Care Human Resources Psychologist Name Role Phone Jean Pierre Landry MD [...] Hypokalemia 05/01/2021 Type 2 diabetes mellitus 12/05/2019 Osteoarthritis of knee 03/16/2019 Old MD (myocardial [...] 7) 02/28/2019 Tdap (Generic) 11/18/2021,08/29/2007 Zoster (Zostavax) 19119 Unt/0.65Ml 03/13/2014 Family History Medical History Relation [...] 2025 12/02/2021, 04/03/2021, 07/29/2020, Additional history exists Influenza Adult (#1) 2025 03/03/2021, 04/03/2019, 03/28/2018, Additional history exists Pneumococcal Vaccine: 50+ Years (3 of 3 - PCV20 or PCV21) 02/28/2025 02/29/2020, 04/13/2019, 02/28/2019, Additional history exists DTaP, Tdap and Td Vaccines (3 - Td or Tdap) 11/19/2031 11/18/2021, 08/29/2007 Hepatitis A Vaccines Aged Out 09/04/2014, 03/07/20 14 No longer eligible based on patient's age to complete this topic Meningococcal B Vaccine Aged Out No l onger eligible based on patient's age to complete this topic Meningococcal Vaccine Aged Out No alvaro se eligible based on patient's age to complete this topic RSV Immunizations Under 20 Months Aged Out No longer eligible based on patient's age to complete this topic Medical Devices Implanted Type Area Geothermal Operating Engineer Device Identifier Shelf Expiration Date Model / Serial / Lot Iol [place] Precision [id number] - [id number] Implanted:Qty: 1 on 12/22/2021 by Johan Ureña MD at [facility] Lens Right: Eye [employer] [id number] 03/08/2022 [id number] / [id number] / Insurance MEDICARE [facility] Care Teams Human Resources Psychologist Relationship Specialty Start Date End Date Jean Pierre Landry MD [address] [facility] [address] [place] [address] PCP - General FAMILY PRACTICE 12/22/21
--- OUTSIDE RECORDS SUMMARY | 2025-03-27 17:13 | XMS_ITS | Clinical Summary ---
Author Organization [facility] Address [address] [place] [address] Phone Care Team Providers Care Bridge Teacher Name Role Phone Jean Pierre Landry MD [...] and two tablets in the evening. 0 08/24/19 18 Active coenzyme Q10 100 mg Capsule Take [...] mg by mouth 2 times daily. Active carvediloL (COREG) 25 mg tablet TAKE 1 TABLET(25 MG) BY MOUTH TWICE DAILY 180 Tablet 3 03/15/20 24 Active rosuvastatin (CRESTOR) 40 mg tabletIndications: Coronary artery disease involving chinik coronary artery of chinik heart without angina pectoris,Mixed hyperlipidemia TAKE 1 TABLET BY MOUTH EVERY DAY AT BEDTIME 90 Tablet 1 10/17/19 25 Active ferrous sulfate 325 mg (65 mg iron) tablet Take 325 mg by mouth daily. Active metFORMIN (GLUCOPHAGE) 500 mg tablet Take 500 mg by mouth 2 times daily with meals. Active doxazosin (CARDURA) 2 mg tablet TAKE 1 TABLET(2 MG) BY MOUTH DAILY 90 Tablet 3 03/12/20 25 Active amLODIPine (NORVASC) 10 mg tablet TAKE 1 TABLET(10 MG) BY MOUTH DAILY 90 Tablet 3 03/12/20 25 Active amLODIPine (NORVASC) 10 mg tablet TAKE 1 TABLET(10 MG) BY MOUTH DAILY 90 Tablet 3 03/15/20 24 025 Discontinued doxazosin (CARDURA) 2 mg tablet Take 2 mg by mouth daily. 025 Discontinued Active Problems Patient Care Coordination No te Formatting of this note migh t be different from the original. Apparel Fashion Designer- Dr. Perry Low Office Rodri Amador MD- [facility] ( [facility]) Problem Noted Date Diagnosed Date History of [...] Noted Date Diagnosed Date Resolved Date Old PR (myocardial infarction) 02/28/2019 01/19/2023 History of PR (myocardial infarction) 05/17/2018 02/28/2019 Precordial pain 04/28/2018 05/17/2018 Precordial pain 04/28/2018 05/17/2018 Tobacco use 12/07/2016 04/27/2017 Cigarette dependence 12/07/2016 017 Chewing tobacco dependence 12/07/2016 1 06/27/2016 Second hand tobacco smoke exposure 12/07/2016 04/27/2017 Occupational tobacco smoke exposure 12/07/2016 04/27/2017 tobacco smoke expo sure (20wks gestation-4wks post ) 12/07/2016 04/27/2017 Essential hypertension, benign 10/25/2008 11/20/2011 Encounters Date Type Department Care Team Description 03/11/2025 Refill [facility] [address] [place] [address] Rodri Amador MD 02/13/2025 External Device Data STL ABSTRACTION Provider, Abstract 02/06/2025 External Device Data STL ABSTRACTION Provider, Abstract 01/30/2025 10:30 AM CDT Office Visit [facility] [address] [place] [address] RD [address] [place] [address] Rodri Amador MD CAD s/p PCI (Primary [...] on file Legal Sex Male 3:45 AM DISK GRINDER Gender Identity Not on file Sexual Orientation Not on file Occupation Industry Job Start Date Job End Date Not on file Not on file Not on file Not on file Last Filed Vital Signs Vital Sign Reading Time Taken Comments Blood Pressure 132/70 01/30/2025 10:33 AM CDT Pulse 63 01/30/2025 10:33 AM CDT Temperature 36.5 C (97.7 F) 04/29/2018 3:00 PM DISK GRINDER Respiratory Rate 20 04/29/2018 3:00 PM DISK GRINDER Oxygen Saturation 93% 01/30/2025 10:33 AM CDT Inhaled Oxygen Concentration - - Weight 98.9 kg (218 lb) 01/30/2025 10:33 AM CDT Height 175.3 cm (5' 9) 01/30/2025 10:33 AM CDT Body Mass Index 32.19 01/30/2025 10:33 AM CDT Plan of Treatment Upcoming Encounters Date Type Department Care Team (Late st Contact Info) Description 04/18/2025 10:30 AM DISK GRINDER Office Visit [facility] Oncology and Hematology - [place] [address] [facility] [address] [place] [address] Fortino Villaseñor MD [address] [facility] [address] [place] [address] Health Maintenance Due Date Last [...] 12/25/2020 HEMOGLOBIN A1C Routine 04/19/2019 2:28 AM DISK GRINDER from Last 3 Months or Most Recently Relevant to Health Maintenance Results * LIPID PANEL (12/25/2020) Blood us Abstract Provider CHEMISTRY ORDERABLES Final Res ult [facility] CLIA# [id number] [address] [place] [address], [place] [address] * (ABNORMAL) HEMOGLOBIN A1C (04/19/2019 2:28 AM DISK GRINDER) HEMOGLOBIN A1C 6.7(H) <5.7 % of total Hgb [employer] [facility] Comment: For someone without known diabetes, a [...] of diabetes for children. 04/19/2019 2:28 AM DISK GRINDER us Historical Provider CHEMISTRY ORDERABLES Edited Result - Final [facility] [address] [place] [address] from Last 3 Months or Most Recently Relevant to Health Maintenance Insurance [employer] [facility] MEDICARE PART A AND B MEDICARE PART A AND B [facility] [place] [address] Advance Directives For more information, please contact: [phone] * Full Code (Latest Code Status on File) Date Activated Date Inactivated Comments 04/28/2018 7:27 PM 04/29/2018 8:59 PM Care Teams Bridge Teacher Relationship Specialty Start Date End Date Jean Pierre Landry MD [address] [facility] [address] [facility] [place] [address] PCP - General Family Practice 12/25/24
--- OUTSIDE RECORDS SUMMARY | 2025-03-27 17:13 | XMS_ITS | Encounter Summary ---
Author Organization [facility] Address [address] [facility] [place] [address] Care Team Providers Care Music Composer Name Role Phone Jean Pierre Landry MD Primary Care Provider Encounter Details Date Type Department Care Team (Late st Contact Info) Description 02/16/2022 Lab Requisition [facility] DermPath Lab [address] [facility] [place] [id number] Herman Rebolledo MD [address] [place] [address] Social History Tobacco Use Types Packs/Day Years Used Date Smoking Tobacco: Never Assessed Sex and Gender Information Value Date Recorded Sex Assigned at Not on file Legal Sex Male 6:26 AM BUTCHER FISH Gender Identity Not on file Sexual Orientation Not on file documented as of this encounter Plan of Treatment Not on file documented as of this encounter Procedures Procedure Name Priority Date/Time Associated Diagnosis Comments DERMATOPATHOLOGY Routine 02/13/2022 12:0 0 AM CDT documented in this encounter Results * DERMATOPATHOLOGY (02/13/2022 12:00 AM CDT) Case Report Dermatopathology Report Case: [id number] Authorizing Provider: Herman Rebolledo MD Collected: 02/13/2022 12:00 AM Ordering Location: [facility] Care DermPath Lab Received: 02/16/2022 03:40 PM [...] Clinical History A: BCC vs. SCC. Path# [id number] B: Nevus vs. Other. Path# [id number] C: BCC vs. SCC. Path# [id number] 2 3:43 PM T DERMATOPATHOLOGY LABORATORY Gross Description Specimen A: Received is one formalin filled container labeled with the patient's name and designated right nasal bridge. The specimen consists of a shave biopsy measuring [id number]. Jar 0. Specimen B: Received is one formalin filled container labeled with the patient's name and designated mid back. The specimen consists of a shave biopsy measuring [id number] and it is bisected. Jar 0. Specimen C: Received is one formalin filled container labeled with the patient's name and designated left hand. The specimen consists of a shave biopsy measuring [id number] and it is bisected. Jar 0. 2 [...] characteristic determined by the Dermatopathology Laboratory at [facility], directed by Dr. Magdaleno Baer. These tests need not be, and therefore are not, approved by the [place] Food and Drug Administration. The tests are used for clinical purposes. Billing Codes Specimen Charges Stain Charges 90597 [id number] 84703 1 1 1 2 3:43 PM CDT [...] PATHOLOGY/CYTOLOGY ORDER JONNA Final Result DERMATOPATHOLOGY LABORATORY [facility] - Department of Dermatology [facility] Specialized Medicine [address] [place] [address], [address] Floor [address] [phone] documented in this encounter Visit Diagnoses Not on filedocumented in this encounter Care Teams Music Composer Relationship Specialty Start Date End Date Jean Pierre Landry MD [address] [place] [address] PCP - General 03/20/21 documented as of this encounter
--- OUTSIDE RECORDS SUMMARY | 2025-03-27 17:13 | XMS_ITS | Clinical Summary ---
Author Organization [facility] [address] [place] Address [address] [place] [address] Care Team Providers Care Electrical Lineman Name Role Phone Jean Pierre Landry MD [...] the hip level. Current arterial Doppler from [facility] shows normal ABIs. Lower extremities are [...] on file Legal Sex Male 10:04 AM HEATER OPERATOR Gender Identity Not on file Sexual [...] Routine) 10/11/2024 9:55 AM CDT Atherosclerosis of [place] artery of both lower extremities with intermittent claudication from Last 3 Months or Most Recently Relevant to Health Maintenance Results * CTA Abdomen Pelvis (10/11/2024 9:55 AM CDT) Anatomical Region Laterality Modality Body N/A Computed Tomogra phy 10/16/2024 2:01 PM CDT Narrative 10/16/2024 2:16 PM CDT EXAM DESCRIPTION: CTA ABDOMEN PELVIS REASON FOR STUDY: PVD Patient with PVD, atherosclerosis of [place] artery of both lower extremities with intermittent [...] Shana Cohen M.D. FT T: Report ID: [id number] Reading Location: [place] [address] Procedure Note Shana Martel MD - 10/16/2024 EXAM DESCRIPTION: CTA ABDOMEN PELVIS REASON FOR STUDY: PVD Patient with PVD, atherosclerosis of [place] artery of both lowerextremities with intermittent claudication [...] by Shana Cohen M.D. T: Report ID: [id number] Reading Location: [place] [address] Leonard Jean MD IM CT PROCEDURES Final Result from Last 3 Months or Most Recently Relevant to Health Maintenance Insurance MEDICARE [facility] [place] [address] Care Teams Electrical Lineman Relationship Specialty Start Date End Date Jean Pierre Landry MD [address] [facility] [address] [place] [address] [place] [address] PCP - General Family Practice 07/13/24
--- OUTSIDE RECORDS SUMMARY | 2025-03-27 17:13 | XMS_ITS | Encounter Summary ---
Author Organization [facility] Address [address] [place] [address] Care Team Providers Care Knapsack Sprayer Name Role Phone Jean Pierre Landry MD Primary Care Provider Encounter Details Date Type Department Care Team (Late Contact Info) Description 10/14/2006 Outpatient Historical [facility] [address] [place] [address] Rodri Amador MD [address] [place] [address] Social History Tobacco Use Types Packs/Day Years Used Date Smoking Tobacco: Never Assessed Sex and Gender Information Value Date Recorded Sex Assigned at Not on file Legal Sex Male 3:45 AM CAFETERIA MONITOR Gender Identity Not on file Sexual Orientation Not on file documented as of this encounter Plan of Treatment Upcoming Encounters Date Type Department Care Team (Late st Contact Info) Description 04/18/2025 10:30 AM CAFETERIA MONITOR Office Visit [facility] Oncology and Hematology - [place] [address] [facility] [address] [place] [address] Fortino Villaseñor MD [address] [facility] [address] [place] [address] documented as of this encounter Visit Diagnoses Not on filedocumented in this encounter Care Teams Knapsack Sprayer Relationship Specialty Start Date End Date Jean Pierre Landry MD [address] [place] [address] [place] [address] PCP - General Family Practice 12/25/24 documented as of this encounter
--- OUTSIDE RECORDS SUMMARY | 2025-03-27 17:13 | XMS_ITS | Encounter Summary ---
Author Organization [facility] Address [address] [place] [address] Care Team Providers Care Peer Tutor Name Role Phone Jean Pierre Landry MD Primary Care Provider Encounter Details Date Type Department Care Team (Late st Contact Info) Description 12/30/2022 Abstract [facility], [address] [address] Rahul Gill MA Social History Tobacco Use [...] on filedocumented in this encounter Care Teams Peer Tutor Relationship Specialty Start Date End Date Jean Pierre Landry MD [address] [facility] [address] [place] [address] PCP - General FAMILY PRACTICE 12/22/21 documented as of this encounter
--- OUTSIDE RECORDS SUMMARY | 2025-03-27 17:13 | XMS_ITS | Clinical Summary ---
Author Organization [facility] Address [address] [place] [address] Phone Care Team Providers Care Job Coaching Name Role Phone Jean Pierre Landry MD [...] [employer] MEDICARE SUPPLEMENT Care Teams Job Coaching Relationship Specialty Start Date End Date Jean Pierre Landry MD [address] [place] [phone] PCP - General Internal Medicine 10/11/21
--- OUTSIDE RECORDS SUMMARY | 2025-03-27 17:13 | XMS_ITS | Encounter Summary ---
Author Organization [facility] Address [address] [place] [address] Care Team Providers Care Pleat Taper Name Role Phone Jean Pierre Landry MD Primary Care Provider Encounter Details Date Type Department Care Team (Late st Contact Info) Description 04/26/2007 Outpatient Historical [facility] [place] [address] [facility] [address] [place] [address] Jos Richter MD NO ADDRESS ON FILE Social History Tobacco Use Types Packs/Day Years Used Date Smoking Tobacco: Never Assessed Sex and Gender Information Value Date Recorded Sex Assigned at Not on file Legal Sex Male 3:45 AM PATIENT ACCOUNTS CLERK Gender Identity Not on file Sexual Orientation Not on file documented as of this encounter Plan of Treatment Upcoming Encounters Date Type Department Care Team (Late st Contact Info) Description 04/18/2025 10:30 AM PATIENT ACCOUNTS CLERK Office Visit [facility] Oncology and Hematology - [place] [address] [facility] [address] [address] Fortino Villaseñor MD [address] [facility] [address] [place] [address] documented as of this encounter Visit Diagnoses Not on filedocumented in this encounter Care Teams Pleat Taper Relationship Specialty Start Date End Date Jean Pierre Landry MD [address] [facility] [place] [address] PCP - General Family Practice 12/25/24 documented as of this encounter
--- OUTSIDE RECORDS SUMMARY | 2025-03-27 17:13 | XMS_ITS | Encounter Summary ---
Author Organization [facility] Address [address] [place] [address] Care Team Providers Care Corporate Tutor Name Role Phone Jean Pierre Landry [...] on file Legal Sex Male 3:45 AM ONCOLOGY PATIENT NAVIGATOR Gender Identity Not on file Sexual Orientation Not on file documented as of this encounter Plan of Treatment Upcoming Encounters Date Type Department Care Team (Late st Contact Info) Description 04/18/2025 10:30 AM ONCOLOGY PATIENT NAVIGATOR Office Visit [facility] Oncology and Hematology - [place] [address] [facility] [address] [place] [address] Fortino Villaseñor MD [address] [facility] [address] [place] [address] documented as of this encounter Visit Diagnoses Diagnosis Nonspecific abnormal unspecified cardiovascular function study- Primary documented in this encounter Care Teams Corporate Tutor Relationship Specialty Start Date End Date Jean Pierre Landry MD [facility] [facility] [address] PCP - General Family Practice 12/25/24 documented as of this encounter
--- OUTSIDE RECORDS SUMMARY | 2025-03-27 17:13 | XMS_ITS | Encounter Summary ---
Author Organization [facility] Address [address] [place] [address] Care Team Providers Care Color Separation Photographer Name Role Phone Jean Pierre Landry MD Primary Care Provider Encounter Details Date Type Department Care Team (Late st Contact Info) Description 08/14/2005 Outpatient Historical [facility] [place] [address] [place] [address] Jos Richter MD NO ADDRESS ON FILE Social History Tobacco Use Types Packs/Day Years Used Date Smoking Tobacco: Never Assessed Sex and Gender Information Value Date Recorded Sex Assigned at Not on file Legal Sex Male 3:45 AM WHEEL ROLLER Gender Identity Not on file Sexual Orientation Not on file documented as of this encounter Plan of Treatment Upcoming Encounters Date Type Department Care Team (Late st Contact Info) Description 04/18/2025 10:30 AM WHEEL ROLLER Office Visit [facility] Oncology and Hematology - [place] [address] [facility] [address] [address] Fortino Villaseñor MD [address] [facility] [address] [place] [address] documented as of this encounter Visit Diagnoses Not on filedocumented in this encounter Care Teams Color Separation Photographer Relationship Specialty Start Date End Date Jean Pierre Landry MD [address] [facility] [place] [address] PCP - General Family Practice 12/25/24 documented as of this encounter
--- OUTSIDE RECORDS SUMMARY | 2025-03-27 17:13 | XMS_ITS | Encounter Summary ---
Author Organization [facility] Address [address] [place] [address] Care Team Providers Care Chauffeur Motorbus Name Role Phone Jean Pierre Landry MD Primary Care Provider Encounter Details Date Type Department Care Team (Latest Contact Info) Description 06/07/2008 Inpatient Historical HIS PATIENT IN A BED Eduard Shearer MD [facility] [address] [place] [address] Jos Richter MD NO ADDRESS ON FILE Intermediate Coronary Syndrome (CMS/HCC); Coronary Atherosclerosis of [place] Coronary Artery; Automatic Implantable Cardiac Defibrillator in Situ; Unspecified Essential Hypertension Social History Tobacco Use Types Packs/Day Years Used Date Smoking Tobacco: Never Assessed Sex and Gender Information Value Date Recorded Sex Assigned at Not on file Legal Sex Male 3:45 AM DEVELOPMENT ADMINISTRATOR Gender Identity Not on file Sexual Orientation Not on file documented as of this encounter Plan of Treatment Upcoming Encounters Date Type Department Care Team (Late st Contact Info) Description 04/18/2025 10:30 AM DEVELOPMENT ADMINISTRATOR Office Visit [facility] Oncology and Hematology - [place]el [address] [facility] [address] [place] [address] Fortino Villaseñor MD [address] [facility] [address] [place] [address] documented as of this encounter Procedures Procedure Name Priority Date/Time Associated Diagnosis Comments CBC WITH DIFFERENTIAL Stat 06/08/2008 1:17 PM DEVELOPMENT ADMINISTRATOR LIPID PANEL Timed Study 06/08/2008 8:45 AM DEVELOPMENT ADMINISTRATOR COMPREHENSIVE METABOLIC PANEL Timed Study 06/08/2008 8:45 AM DEVELOPMENT ADMINISTRATOR TROPONIN Routine 06/08/2008 6:06 AM DEVELOPMENT ADMINISTRATOR BASIC METABOLIC PANEL Routine 06/08/2008 6:06 AM DEVELOPMENT ADMINISTRATOR documented in this encounter Results * (ABNORMAL) CBC WITH DIFFERENTIAL (06/08/2008 1:17 PM DEVELOPMENT ADMINISTRATOR) [facility] MCV 91.1 82.0 - 99.0 fL [facility] PLATELETS 149 140 - 350 K/uL [facility] HEMOGLOBIN 15.4 13.6 - 16.5 g/dL [facility] RDW 13.1 11.5 - 14.5 % [facility] WBC 10.5(H) 4.0 - 9.8 K/uL [facility] MCH 31.2 27.2 - 32.6 pg [facility] MPV 10.7 9.3 - 12.4 fL [facility] HEMATOCRIT 45.0 40.0 - 48.0 % [facility] RDW-STDEV 43.1 37.1 - 48.7 fL [facility] RBC 4.94 4.50 - 5.40 M/uL [facility] MCHC 34.2 31.5 - 35.5 % [facility] NEUTROPHIL ABSOLUTE 7.32(H) 1.90 - 7.00 K/uL [facility] EOSINOPHILS 4 0 - 7 % [facility] EOSINOPHIL ABSOLUTE 0.40 0.00 - 0.70 K/uL [facility] LYMPHOCYTES 21 16 - 45 % [facility] LYMPHOCYTE ABSOLUTE 2.16 0.70 - 4.50 K/uL [facility] BASOPHILS 0 0 - 2 % [facility] BASOPHILS ABSOLUTE 0.03 0.00 - 0.20 K/uL [facility] MONOCYTES 6 3 - 13 % [facility] MONOCYTE ABSOLUTE 0.63 0.10 - 1.30 K/uL [facility] NEUTROPHILS 69 45 - 70 % [facility] Blood specimen (specimen) 06/08/2008 1:17 PM DEVELOPMENT ADMINISTRATOR 06/08/2008 1:30 PM DEVELOPMENT ADMINISTRATOR Narrative INTERFACE SYSTEM - 06/08/2008 1:36 PM DEVELOPMENT ADMINISTRATOR off of blood in lab if avail. Jos Richter MD HEMATOLOGY ORDERABLES Edited INTERFACE SYSTEM Refer to clinic/hospital department [facility] CLIA# [id number] [address] [place] [address] * (ABNORMAL) COMPREHENSIVE METABOLIC PANEL (06/08/2008 8:45 AM DEVELOPMENT ADMINISTRATOR) SODIUM 137 135 - 145 mmol/L [facility] GLUCOSE 114(H) 65 - 99 mg/dL [facility] BILIRUBIN TOTAL 0.6 0.2 - 1.0 mg/dL [facility] ALKALINE PHOSPHATASE 104 40 - 129 U/L [facility] CHLORIDE 103 96 - 108 mmol/L [facility] CALCIUM 9.2 8.6 - 10.2 mg/dL [facility] POTASSIUM 4.3 3.5 - 4.9 mmol/L [facility] BUN 19 6 - 20 mg/dL [facility] TOTAL PROTEIN 7.0 6.3 - 8.6 g/dL [facility] CO2 27 22 - 30 mmol/L [facility] CREATININE 0.93 0.67 - 1.17 mg/dL [facility] ALT 80(H) 0 - 41 U/L [facility] ALBUMIN 4.4 3.4 - 4.8 g/dL [facility] AST 36 12 - 38 U/L [facility] GFR, >60 >=60 mL/min/1. 7 sq meter [facility] GFR >60 >=60 mL/min/1. 7 sq meter [facility] Comment: Modification of Diet in Renal Disease (MDRD) study formula. Estimated GFR rate interpretative information for both Americans and non- Americans is available on the [facility] Intranet at: [email or web address] Select: Lab Policies and Procedures Select: Reference Ranges - GFR Blood specimen (specimen) 06/08/2008 8:45 AM DEVELOPMENT ADMINISTRATOR 06/08/2008 8:51 AM DEVELOPMENT ADMINISTRATOR Jos Richter MD CHEMISTRY ORDERABLES Edited INTERFACE SYSTEM Refer to clinic/hospital department [facility] CLIA# [id number] [address] [place] [address] * (ABNORMAL) LIPID PANEL (06/08/2008 8:45 AM DEVELOPMENT ADMINISTRATOR) CHOLESTEROL 178 100 - 199 mg/dL [facility] CHOL/HDL RATIO 3.2 2.0 - 5.0 [facility] TRIGLYCERIDE 290(H) 10 - 149 mg/dL [facility] HDL 55 40 - 59 mg/dL [facility] LDL CALCULATED 65 <=99 mg/dL [facility] LIPID PANEL COMMENT See Below [facility] Comment: The adult ATP and pediatric NCEP classifications for lipids are available on the [facility] Intranet at: [email or web address] Select: Lab Policies and Procedures,Current Select: Lipid Panel Interpretation Blood specimen (specimen) 06/08/2008 8:45 AM DEVELOPMENT ADMINISTRATOR 06/08/2008 8:51 AM DEVELOPMENT ADMINISTRATOR Jos Richter MD CHEMISTRY ORDERABLES Edited INTERFACE SYSTEM Refer to clinic/hospital department [facility] CLIA# [id number] [address] [place] [address] * (ABNORMAL) BASIC METABOLIC PANEL (06/08/2008 6:06 AM DEVELOPMENT ADMINISTRATOR) BUN 19 6 - 20 mg/dL [facility] CHLORIDE 104 96 - 108 mmol/L [facility] GLUCOSE 104(H) 65 - 99 mg/dL [facility] SODIUM 137 135 - 145 mmol/L [facility] CALCIUM 9.0 8.6 - 10.2 mg/dL [facility] CO2 25 22 - 30 mmol/L [facility] CREATININE 0.90 0.67 - 1.17 mg/dL [facility] POTASSIUM 4.0 3.5 - 4.9 mmol/L [facility] GFR, >60 >=60 mL/min/1. 7 sq meter [facility] GFR >60 >=60 mL/min/1. 7 sq meter [facility] Comment: Modification of Diet in Renal Disease (MDRD) study formula. Estimated GFR rate interpretative information for both Americans and non- Americans is available on the [facility] Intranet at: [email or web address] Select: Lab Policies and Procedures Select: Reference Ranges - GFR Blood specimen (specimen) 06/08/2008 6:06 AM DEVELOPMENT ADMINISTRATOR 06/08/2008 6:17 AM DEVELOPMENT ADMINISTRATOR us Eduard Shearer MD CHEMISTRY ORDERABLES Edited Performing Organization Address [facility] Co de Phone Number INTERFACE SYSTEM Refer to clinic/hospital department [facility] CLIA# [id number] [address] [place] [address] * TROPONIN (06/08/2008 6:06 AM DEVELOPMENT ADMINISTRATOR) TROPONIN T <0.01 <=0.03 ng/mL [facility] TROPONIN T INTERP Negative [facility] Blood specimen (specimen) 06/08/2008 6:06 AM DEVELOPMENT ADMINISTRATOR 06/08/2008 6:17 AM DEVELOPMENT ADMINISTRATOR Eduard Shearer MD CHEMISTRY ORDERABLES Edited Performing Organization Address [facility] de Phone Number INTERFACE SYSTEM Refer to clinic/hospital department [facility] CLIA# [id number] [address] [place] [address] documented in this encounter Visit Diagnoses Diagnosis Intermediate coronary syndrome Coronary atherosclerosis of [place] coronary artery Automatic implantable cardiac defibrillator in situ Unspecified essential hypertension documented in this encounter Care Teams Chauffeur Motorbus Relationship Specialty Start Date End Date Jean Pierre Landry MD [facility] [facility] [place] [place] [address] PCP - General Family Practice 12/25/24 documented as of this encounter
--- OUTSIDE RECORDS SUMMARY | 2025-03-27 17:13 | XMS_ITS | Clinical Summary ---
Author Organization [facility] Address [address], [facility] [address] [place] [address] Phone Care Team Providers Care Records And Information Manager Name Role Phone Jean Pierre Landry [...] 99.8 kg (220 lb) 07/19/2019 9:00 AM COMPRESS ENGINEER Height 172.7 cm (5' 8) 07/19/2019 9:00 AM COMPRESS ENGINEER Body Mass Index 33.45 07/19/2019 9:00 AM COMPRESS ENGINEER Plan of Treatment Health Maintenance Due Date [...] to Health Maintenance Insurance MEDICARE Care Teams Records And Information Manager Relationship Specialty Start Date End Date Jean Pierre Landry MD PCP - General Family Medicine 07/04/19 Rodri Amador MD [address] [place] [address] 07/04/19
--- OUTSIDE RECORDS SUMMARY | 2025-03-27 17:13 | XMS_ITS | Clinical Summary ---
Author Organization [facility] Address [address] [facility] [place] [address] Care Team Providers Care Data Mining Analyst Name Role Phone Jean Pierre Landry MD Primary Care Provider Source Comments [facility],non-owned Affiliates and Associated Physician Practices is amultiple site organization consisting of ambulatory clinics and hospital sitesin [place], [place], [place] and [place]. This disclosure is being madepursuant to the Care Everywhere program and may not contain all information available regarding this patient. Last updated 18.[facility] [employer] Allergies Active Allergy Reactions Criticality Noted Date [...] hypertension 08/27/2023 Coronary artery disease invo lving [place] coronary artery of [place] heart without angina pectoris 08/27/2023 Type 2 [...] Recorded Patient Health Questionnaire-2 Score 3 12/16/2023 [facility] - Occupational [...] place to sleep or slept in a fpc (including now)? No 08/26/2023 Sex and Gender Information Value Date Recorded Sex Assigned at Not on file Legal Sex Male 6:26 AM BASS VIOL REPAIRER Gender Identity Not on file Sexual Orientation [...] EXAM WITH MONOFILAMENT 08/27/2023 DIABETES-HGB A1C 02/27/2024 08/27/2023 DEPRESSION SCREENING 05/31/2024 DIABETES - URINE PROTEIN [...] - 26 mg/dL 08/30/2023 6:51 AM CDT [facility] Creatinine 1.13 0.71 - 1.16 mg/dL 08/30/2023 6:51 AM CDT [facility] Sodium 142 136 - 145 mmol/L 08/30/2023 6:51 AM CDT [facility] Potassium 4.2 3.5 - 4.5 mmol/L 08/30/2023 6:51 AM T [facility] Chloride 109(H) 98 - 107 mmol/L 08/30/2023 6:51 AM [facility] CO2 23 22 - 29 mmol/L 08/30/2023 6:51 AM [facility] Glucose 104 70 - 115 mg/dL 08/30/2023 6:51 AM [facility] Calcium 9.2 8.4 - 10.2 mg/dL 08/30/2023 6:51 AM [facility] Protein Total 5.8(L) 6.0 - 8.3 g/dL 08/30/2023 6:51 AM [facility] Albumin 2.9(L) 3.4 - 5.0 g/dL 08/30/2023 6:51 AM [facility] Bilirubin Total 0.3 0.2 - 1.2 mg/dL 08/30/2023 6:51 AM [facility] Alkaline Phosphatase 55 40 - 150 U/L 08/30/2023 6:51 AM [facility] ALT 22 5 - 55 U/L 08/30/2023 6:51 AM [facility] AST 21 5 - 34 U/L 08/30/2023 6:51 AM [facility] Anion Gap 10 6 - 16 08/30/2023 6:51 AM [facility] BUN/Creatinine Ratio 18 7 - 23 08/30/2023 6:51 AM [facility] Osmolality Calculated 297(H) 275 - 295 mOsm/kg 08/30/2023 6:51 AM [facility] Albumin/Globulin Ratio 1.0(L) 1.1 - 2.3 08/30/2023 6:51 AM [facility] eGFR by CKD-EPI 69(L) >=90 mL/min/1.7 3 m2 08/30/2023 6:51 AM [facility] Blood BLOOD SPECIMEN / Unknown Lab Venipuncture / Unknown 08/30/2023 4:47 AM T 08/30/2023 5:52 AM [facility] us Arianna Pennington PA-C LAB - CHEMISTRY ORDERABLES Final Result [facility] [address] [place] [address], [place] [phone] * (ABNORMAL) HEMOGLOBIN A1C (08/27/2023 5:06 AM CDT) Hemoglobin A1c 6.2(H) <=5.6 % 08/27/2023 9:14 AM CDT [facility] Estimated Average Glucose 131 mg/dL 08/27/2023 9:14 AM CDT [facility] Comment: HbA1c Interpretation: Normal : < 5.7% Pre-diabetes: 5.7-6.4% Diabetes: Equal to or greater than 6.5% Test results diagnostic of diabetes should be repeated for confirmation. Treatment target values recommended by ADA and other clinical organizations should be used to evaluate metabolic control in patients. Reference: [place] Diabetes Association, Standards of Care in Diabetes [...] LAB - CHEMISTRY ORDERABLES Fi nal Result [facility] [address] [place] [address], [facility] [phone] from Last 3 Months or Most Recently Relevant to Health Maintenance Insurance [facility] [employer] VLADIMIR DAVIES MEDICARE Advance Directives * Full Code (Latest Code Status on File) Date Activated Date Inactivated Comments 08/26/2023 6:43 PM 08/30/2023 3:28 PM Care Teams Data Mining Analyst Relationship Specialty Start Date End Date Jean Pierre Landry MD [address] [facility] [place] [id number] PCP - General 03/20/21
--- OUTSIDE RECORDS SUMMARY | 2025-03-27 17:13 | XMS_ITS | Encounter Summary ---
Author Organization [facility] Address [address] [place] [address] Care Team Providers Care Plc Controls Engineer Name Role Phone Jean Pierre Landry MD Primary Care Provider Encounter Details Date Type Department Care Team (Late Contact Info) Description 10/14/2006 Outpatient Historical [facility] Support Serv. (Adt Cardiology-[facility]) [address] [place] [address] Rodri Rosario MD [address] [facility] [address] [place] [address] Social History Tobacco Use Types Packs/Day Years Used Date Smoking Tobacco: Never Assessed Sex and Gender Information Value Date Recorded Sex Assigned at Not on file Legal Sex Male 3:45 AM WOOD LATHE OPERATOR Gender Identity Not on file Sexual Orientation Not on file documented as of this encounter Plan of Treatment Upcoming Encounters Date Type Department Care Team (Late Contact Info) Description 04/18/2025 10:30 AM WOOD LATHE OPERATOR Office Visit [facility] Oncology and Hematology - [place] [address] [facility] [address] [place] [address] Fortino Villaseñor MD [address] [facility] [address] [place] [address] documented as of this encounter Visit Diagnoses Not on filedocumented in this encounter Care Teams Plc Controls Engineer Relationship Specialty Start Date End Date Jean Pierre Landry MD [address] [place] [address] [place] [id number] PCP - General Family Practice 12/25/24 documented as of this encounter
--- OUTSIDE RECORDS SUMMARY | 2025-03-27 17:13 | XMS_ITS | Encounter Summary ---
Author Organization [facility] Address [address] [place] [address] Care Team Providers Care Teletray Operator Name Role Phone Jean Pierre Landry MD Primary Care Provider Encounter Details Date Type Department Care Team (Late st Contact Info) Description 10/14/2006 Outpatient Historical [facility] [place] [address] [place] [address] Jos Richter MD NO ADDRESS ON FILE Social History Tobacco Use Types Packs/Day Years Used Date Smoking Tobacco: Never Assessed Sex and Gender Information Value Date Recorded Sex Assigned at Not on file Legal Sex Male 3:45 AM DIRECTOR REGULATORY AGENCY Gender Identity Not on file Sexual Orientation Not on file documented as of this encounter Plan of Treatment Upcoming Encounters Date Type Department Care Team (Late st Contact Info) Description 04/18/2025 10:30 AM DIRECTOR REGULATORY AGENCY Office Visit [facility] Oncology and Hematology - [place] [address] [facility] [address] [address] Fortino Villaseñor MD [address] [facility] [address] [place] [address] documented as of this encounter Visit Diagnoses Not on filedocumented in this encounter Care Teams Teletray Operator Relationship Specialty Start Date End Date Jean Pierre Landry MD [address] [facility] [facility] [address] PCP - General Family Practice 12/25/24 documented as of this encounter
--- OUTSIDE RECORDS SUMMARY | 2025-03-27 17:13 | XMS_ITS | Encounter Summary ---
Author Organization [facility] Address [address] [place] [address] Care Team Providers Care Juvenile Justice Specialist Name Role Phone Jean Pierre Landry MD Primary Care Provider Encounter Details Date Type Department Care Team (Late st Contact Info) Description 05/05/2007 Outpatient Historical [facility] [place] [address] [place] [address] Jos Richter MD NO ADDRESS ON FILE Social History Tobacco Use Types Packs/Day Years Used Date Smoking Tobacco: Never Assessed Sex and Gender Information Value Date Recorded Sex Assigned at Not on file Legal Sex Male 3:45 AM COOKING CASING AND DRYING SUPERVISOR Gender Identity Not on file Sexual Orientation Not on file documented as of this encounter Plan of Treatment Upcoming Encounters Date Type Department Care Team (Late st Contact Info) Description 04/18/2025 10:30 AM COOKING CASING AND DRYING SUPERVISOR Office Visit [facility] Oncology and Hematology - [place] [address] [facility] [address] [address] Fortino Villaseñor MD [address] [facility] [address] [place] [address] documented as of this encounter Visit Diagnoses Not on filedocumented in this encounter Care Teams Juvenile Justice Specialist Relationship Specialty Start Date End Date Jean Pierre Landry MD [address] [facility] [place] [address] PCP - General Family Practice 12/25/24 documented as of this encounter
[2025-03-27 17:41] VITALS: BP 95/72; PULSE 73; RESP 19; O2SAT 97
[2025-03-27 18:12] LABS: Troponin I < 0.012 ng/mL (0.000-0.034)
== END 2025-03-27 18:37 | disposition home or self-care (01) ==
PROVIDERS: Emergency Medicine; Emergency Provider Student in an Organized Health Care Education/Training Program; PCP Family Medicine
DX: J43.9 Emphysema, unspecified (principal); R06.00 Dyspnea, unspecified; I25.10 Atherosclerotic heart disease of native coronary artery without angina pectoris; E11.22 Type 2 diabetes mellitus with diabetic chronic kidney disease; I12.9 Hypertensive chronic kidney disease with stage 1 through stage 4 chronic kidney disease, or unspecified chronic kidney disease; N18.30 Chronic kidney disease, stage 3 unspecified; E55.9 Vitamin D deficiency, unspecified; E78.5 Hyperlipidemia, unspecified; D64.9 Anemia, unspecified; K21.9 Gastro-esophageal reflux disease without esophagitis; M17.11 Unilateral primary osteoarthritis, right knee; M16.11 Unilateral primary osteoarthritis, right hip; Z95.5 Presence of coronary angioplasty implant and graft; Z96.653 Presence of artificial knee joint, bilateral; Z86.0100 Personal history of colon polyps, unspecified; Z85.828 Personal history of other malignant neoplasm of skin; Z86.711 Personal history of pulmonary embolism; Z86.718 Personal history of other venous thrombosis and embolism; Z87.891 Personal history of nicotine dependence; Z90.49 Acquired absence of other specified parts of digestive tract; Z79.84 Long term (current) use of oral hypoglycemic drugs; Z79.01 Long term (current) use of anticoagulants; Z79.899 Other long term (current) drug therapy; I44.0 Atrioventricular block, first degree; I45.10 Unspecified right bundle-branch block; R94.31 Abnormal electrocardiogram [ECG] [EKG]
CPT/HCPCS: 36415; 71046; 71275; 80053; 83690; 83880; 84484; 85025; 85610; 85730; 93005; 99284; Q9967

== ENCOUNTER 2025-05-04 08:06 | Outpatient (CLI) | payer MEDICARE, OTHER, SELFPAY ==
--- NOTE | ~2025-05-04 | US_ITS ---
EXAMINATION: US venous doppler LE RT, 05/04/2025 8:24 TENTER FRAME BACK TENDER HISTORY: Acute DVT Comparison: None Technique: Rain-scale and color Doppler images were attempted of the lower saphenofemoral junction, common femoral vein,superficial femoral vein, proximal deep femoral vein, proximal deep femoral vein, popliteal vein and posterior tibial veins. Findings: Deep Venous System:Normal flow, augmentation and compressibility. No echogenic thrombus identified. The contralateral saphenofemoral junction appears unremarkable. Superficial Venous SystemNo superficial thrombophlebitis. Soft tissues: Soft tissues are unremarkable. Impression: Negative for DVT. Reviewed, dictated and finalized at location P. ER FRAME BACK TENDER Impression: Negative for DVT.
== END 2025-05-04 08:07 | disposition home or self-care (01) ==
PROVIDERS: PCP Family Medicine; Visit Provider Internal Medicine Hematology & Oncology
DX: I82.4Z1 Acute embolism and thrombosis of unspecified deep veins of right distal lower extremity (principal)
CPT/HCPCS: 93971